=== PATIENT | male | born 1955 | race Caucasian/White ===

== ENCOUNTER 2024-10-19 10:31 | Emergency (ER) | payer OTHER ==
[2024-10-19 11:32] LABS: Absolute Basophils 0.1 K/uL (0-0.5); Absolute Monocytes 0.4 K/uL (0.1-1.3); Absolute Neutrophil 3.8 K/uL (1.8-8.0); Eosinophils % 0.3 % (0-4.4); Hemoglobin 14.9 g/dL (13.6-17.9); Lymphocytes % 19.8 % (15.3-44.8); MCH 29.4 pg (27.0-35.0); MCV 88.9 fL (80-100); MPV 9.9 fL (7.6-11.3); Monocytes % 7.1 % (3.3-12.3); Neutrophils % 71.8 % (41.7-73.7); Nucleated Red Blood Cells % 0.1 % (0-0); Platelets 157 thou/uL (152-406); RBC Red Blood Cell Count 5.06 M/uL (4.33-5.43); Red Cell Distribution Width 14.4 % (12.1-15.2)
[2024-10-19 11:53] LABS: Anion Gap 10.7 mEq/L (5.0-15.0); Potassium 3.7 mEq/L (3.5-5.1); Troponin High Sensitivity 8.3 pg/mL (<58.9)
--- NOTE | 2024-10-19 12:44 | ER ---
Nurse's Notes [facility] Name: David Perdomo Age: 68 yrs Sex: Male : 1955 Arrival Date: 10/19/2024 Time: 10:31 Bed 6 Private MD: Diagnosis: Chest pain, unspecified;Anxiety disorder, unspecified Presentation: 10/19 10:51 Chief complaint: Patient states: CP x2 DAYS, JITTERY AFTER DISCONTINUING BUSPAR. bp Coronavirus screen: At this time, the client does not indicate any symptoms associated with coronavirus-19. Ebola Screen: No symptoms or risks identified at this time. Initial Sepsis Screen: Does the patient meet any 2 criteria? No. Patient's initial sepsis screen is negative. Does the patient have a suspected source of infection? No. Patient's initial sepsis screen is negative. Risk Assessment: Do you want to hurt yourself or someone else? Patient reports no desire to harm self or others. Onset of symptoms is unknown. 10:51 Method Of Arrival: Ambulatory bp 10:51 Acuity: DICKSON 3 bp Triage Assessment: 10:52 General: Appears in no apparent distress. Behavior is cooperative, appropriate for age, bp anxious. Pain: Complains of pain in chest. EENT: No deficits noted. Neuro: No deficits noted. Cardiovascular: Reports chest pain. Respiratory: No deficits noted. GI: No signs and/or symptoms were reported involving the gastrointestinal system. : No signs and/or symptoms were reported regarding the genitourinary system. Derm: No deficits noted. Musculoskeletal: No deficits noted. Historical: - Allergies: 10:52 Sulfa (Sulfonamide Antibiotics); bp - Immunization history:: Adult Immunizations up to date. - Infectious Disease History:: Denies. - Social history:: Smoking status: Patient denies any tobacco usage or history of. Screenin:28 [facility] ED Fall Risk Assessment (Adult) History of falling in the last 3 months, ko1 including since admission No falls in past 3 months (0 pts) Confusion or Disorientation No (0 pts) Intoxicated or Sedated No (0 pts) Impaired Gait No (0 pts) Mobility Assist Device Used No (0 pt) Altered Elimination No (0 pt) Score/Fall Risk Level 0 - 2 = Low Risk Oriented to surroundings, Maintained a safe environment, Educated pt \T\ family on fall prevention, incl call for assistance when getting out of bed, Assessed \T\ reinforced patient's understanding of fall precautions, Hourly rounding (assess needs \T\ fall precautionary measures) done. Abuse screen: Denies threats or abuse. Denies injuries from another. Nutritional screening: No deficits noted. Tuberculosis screening: No symptoms or risk factors identified. Assessment: 11:31 General: Appears in no apparent distress. Behavior is cooperative, appropriate for age, ko1 anxious. Pain: Complains of pain in chest Pain does not radiate. Pain began gradually. Neuro: No deficits noted. Cardiovascular: No deficits noted. Respiratory: No deficits noted. GI: No deficits noted. : No deficits noted. EENT: No deficits noted. Derm: No deficits noted. Musculoskeletal: No deficits noted. Vital Signs: 10:51 BP 155 / 76; Pulse 60; Resp 16; Temp 98; Pulse Ox 100% ; bp 11:30 BP 162 / 72; Pulse 53; Resp 15; Pulse Ox 100% ; ko1 11:58 BP 150 / 73; Pulse 58; Resp 15; Pulse Ox 99% ; ko1 12:55 BP 148 / 70; Pulse 62; Resp 15; Pulse Ox 100% ; ko1 ED Course: 10:34 Patient arrived in ED. im 10:35 Lorne Macdonald MD is Attending Physician. bo1 10:52 Triage completed. bp 10:52 Arm band placed on. bp 11:12 Heather Burns, RN is Primary Nurse. ko1 11:26 Basic Metabolic Panel Sent. ko1 11:26 CBC with Diff Sent. ko1 11:26 Troponin HS Sent. ko1 11:28 Patient has correct armband on for positive identification. Allergy band placed. Bed in ko1 low position. Call light in reach. Side rails up X 1. Provided Education on: labs. Client placed on continuous cardiac and pulse oximetry monitoring. NIBP monitoring applied. environmental aid on. Door closed. Noise minimized. Lights dimmed. Warm blanket given. Pillow given. 11:28 No provider procedures requiring assistance completed. Initial lab(s) drawn, by aj lepe sent to lab. EKG done, by ED staff, reviewed by Lorne Macdonald MD. Inserted saline lock: 22 gauge in right antecubital area, using aseptic technique. Blood collected. Flushed with 10 mL NS. Patient maintains SpO2 saturation greater than 95% on room air. 12:40 XRAY Chest (1 view) In Process Unspecified. EDMS 12:55 IV discontinued, intact, bleeding controlled, No redness/swelling at site. Pressure ko1 dressing applied. Administered Medications: No medications were administered Medication: 11:28 VIS not applicable for this client. ko1 Outcome: 12:43 Discharge ordered by . bo1 12:55 Discharged to home ambulatory, ko1 12:55 Condition: stable 12:55 Discharge instructions given to patient, Instructed on discharge instructions, follow up and referral plans. Demonstrated understanding of instructions, follow-up care, 12:56 Patient left the ED. ko1 Signatures: Dispatcher [employer] EDMS Nakul Urbina RN RN Heather Constantino RN RN ko1 Praveena Ashley Benjamin, MD MD bo1 Corrections: (The following items were deleted from the chart) 10:52 10:51 Chief complaint: bp bp
--- NOTE | 2024-10-19 12:44 | EDPHYS ---
Physician Documentation [facility] Name: David Perdomo Age: 68 yrs Sex: Male : 1955 Arrival Date: 10/19/2024 Time: 10:31 Bed 6 Private MD: ED Physician Lorne Macdonald HPI: 10/19 11:18 This 68 yrs old Male presents to ER via Ambulatory with complaints of Chest Pain, bo1 Jittery, Nervous. 11:18 The patient or guardian reports chest pain that is located primarily in the substernal bo1 area. Onset: 3 day(s) ago. The pain does not radiate. Associated signs and symptoms: Pertinent positives: Anxiety. The chest pain is described as sharp. Duration: The patient or guardian reports multiple episodes, that are intermittent. Severity of pain: At its worst the pain was very mild. The patient has experienced similar episodes in the past, several times. The patient has been recently seen by a physician: the patient's primary care provider, earlier today, Pt went in to see Dr Daley and was referred to the ER for further care/evaluation. Pt reports that he's been anxious and that Buspar was prescribed to him in addition to his lorazepam 2mg tabs (taken for the past 20 years.). Historical: - Allergies: 10:52 Sulfa (Sulfonamide Antibiotics); bp - Immunization history:: Adult Immunizations up to date. - Infectious Disease History:: Denies. - Social history:: Smoking status: Patient denies any tobacco usage or history of. ROS: 11:24 Constitutional: Negative for fever, chills, and weight loss bo1 11:24 Cardiovascular: Positive for chest pain, palpitations, Hx of afib on Xarelto etc, 11:24 Respiratory: Negative for cough, shortness of breath, 11:24 Abdomen/GI: Negative for abdominal pain, nausea, vomiting, and diarrhea, 11:24 Skin: Negative for rash, 11:24 Neuro: Negative for altered mental status, headache, 11:24 Psych: Positive for anxiety, 11:24 All other systems are negative, Exam: 12:36 Constitutional: This is a well developed, well nourished patient who is awake, alert, bo1 and in no acute distress. 12:36 Constitutional: The patient appears in no acute distress, alert, awake, comfortable, non-toxic, 12:36 Head/face: Exam is negative for 12:36 Head/face: Exam is negative for acute changes, 12:36 Eyes: Exam is negative for acute changes, 12:36 Neck: External neck: is normal, no acute changes, Supple, 12:36 Chest/axilla: Inspection: normal, no acute changes, 12:36 Cardiovascular: Rate: bradycardic, Rhythm: regular, Pulses: no pulse deficits are appreciated, 12:36 ECG was reviewed by the Attending Physician. 12:36 Respiratory: Exam negative for acute changes, the patient does not display signs of respiratory distress, Respirations: normal, no acute changes, Breath sounds: are clear throughout, 12:36 Abdomen/GI: Exam negative for acute changes, Palpation: abdomen is soft and non-tender, 12:36 Musculoskeletal/extremity: DVT Exam: no pain, no swelling, no tenderness, 12:36 Neuro: Orientation: is normal, appropriate for stated age, Mentation: is normal, appropriate for stated age, Cranial nerves: grossly normal, is grossly normal based on the patient's age, 12:36 Psych: Exam negative for acute changes, Affect is calm, Some anxious, wringing of hands etc noted. Vital Signs: 10:51 BP 155 / 76; Pulse 60; Resp 16; Temp 98; Pulse Ox 100% ; bp 11:30 BP 162 / 72; Pulse 53; Resp 15; Pulse Ox 100% ; ko1 11:58 BP 150 / 73; Pulse 58; Resp 15; Pulse Ox 99% ; ko1 12:55 BP 148 / 70; Pulse 62; Resp 15; Pulse Ox 100% ; ko1 MDM: 10:34 Medical Screening Exam initiated bo1 12:32 Differential diagnosis: anxiety, coronary artery disease Other causes of CP/anxiety. bo1 Data reviewed: vital signs, lab test result(s), EKG, radiologic studies, plain films, Prelim review - read: Negative. ED course: Pt is having issues with his anxiety med regimen. He takes one tab PO at night. But cannot get additional early refill due to controlled substance guidelines being followed by the pharmacy. Pt to approach Dr Daley to change the Rx to BID. He agrees to this plan.. 12:41 ED course: Pt relates pics and stories of his nose infection and dental work needed and bo1 done. He reports he's been researching "dr fam". 10/19 10:59 Order name: Basic Metabolic Panel; Complete Time: 12:14 bo1 10/19 10:59 Order name: CBC with Diff; Complete Time: 12:14 bo1 10/19 10:59 Order name: Troponin HS; Complete Time: 12:14 bo1 10/19 10:59 Order name: XRAY Chest (1 view) bo1 10/19 10:59 Order name: EKG; Complete Time: 11:00 bo1 10/19 10:59 Order name: Cardiac monitoring; Complete Time: 11:12 bo1 10/19 10:59 Order name: EKG - Nurse/Tech; Complete Time: 11:26 bo1 10/19 10:59 Order name: IV Saline Lock; Complete Time: 11:26 bo1 10/19 10:59 Order name: Labs collected and sent; Complete Time: 11:26 bo1 10/19 10:59 Order name: O2 Per Protocol; Complete Time: 11:12 bo1 10/19 10:59 Order name: O2 Sat Monitoring; Complete Time: 11:12 bo1 EC:36 Rate is 52 beats/min. Rhythm is regular. QRS [place] is Normal. SD interval is normal. QRS bo1 interval is normal. QT interval is normal. No Q waves. T waves are Normal. No ST changes noted. Clinical impression: Sinus bradycardia. Interpreted by me. Reviewed by me. Administered Medications: No medications were administered Disposition Summary: 10/19/24 12:43 Discharge Ordered Notes: Location: Home bo1 Problem: chronic bo1 Symptoms: are unchanged bo1 Condition: Stable bo1 Diagnosis - Chest pain, unspecified bo1 - Anxiety disorder, unspecified bo1 Followup: bo1 - With: Private Physician - When: Upon discharge from the Emergency Department - Reason: Recheck today's complaints, Continuance of care Discharge Instructions: - Discharge Summary Sheet bo1 - Nonspecific Chest Pain, Adult bo1 Forms: - Medication Reconciliation Form bo1 - Antibiotic Education bo1 - Prescription Opioid Use bo1 - Patient Portal Instructions bo1 - Leadership Thank You Letter bo1 Signatures: Dispatcher [employer] Nakul Mccabe RN RN bp OeiLorne MD MD bo1
[2024-10-19 13:03] VITALS: TEMP 98
[2024-10-19 13:07] VITALS: BP 148/70; O2SAT 100
--- NOTE | 2024-10-19 13:07 | RAD REPORT ---
Procedure: Chest Single View HISTORY: Chest pain COMPARISON: none FINDINGS: Lungs appear clear of acute infiltrate. No significant pleural effusion noted. The heart is probably borderline enlarged IMPRESSION: No acute abnormalities displayed. If patient's symptoms persist PA and lateral chest series would be recommended
--- NOTE | 2024-10-20 14:40 | EKG ---
Test Date: 2024-10-19 Test Time: 11:24:45 Publicity Writer: KELSI MEASUREMENT RESULTS: Intervals: Rate: 52 PA: 164 QRSD: 98 QT: 450 QTc: 418 [place]: P: 106 PA: 164 QRS: 19 T: 27 INTERPRETIVE STATEMENTS: Sinus bradycardia Otherwise normal ECG Compared to ECG 02/27/2002 06:14:00 No significant changes Electronically Signed On 10-20-24 14:39:07 [employer]ACH[employer] by Hernan Messer
== END 2024-10-19 12:56 | disposition home or self-care (01) ==
LOC: ER 10:31
DX: R07.9 Chest pain, unspecified (principal); F41.9 Anxiety disorder, unspecified
CPT/HCPCS: 36415; 71045; 80048; 84484; 85025; 93005; 99284

== ENCOUNTER 2024-12-16 12:05 | Emergency (ER) | payer OTHER ==
[2024-12-16 12:56] LABS: Absolute Monocytes 0.4 K/uL (0.1-1.3); Absolute Neutrophil 3.5 K/uL (1.8-8.0); Basophils % 0.8 % (0-1.3); Eosinophils % 0.4 % (0-4.4); Hematocrit 42.8 % (39.6-49.0); Hemoglobin 14.8 g/dL (13.6-17.9); Lymphocytes % 20.8 % (15.3-44.8); MCH 30.5 pg (27.0-35.0); MCHC 34.6 g/dL (32.0-36.0); MCV 87.9 fL (80-100); MPV 10.4 fL (7.6-11.3); Monocytes % 8.3 % (3.3-12.3); Neutrophils % 69.7 % (41.7-73.7); Nucleated Red Blood Cells % 0.2 % (0-0); Platelets 177 thou/uL (152-406); RBC Red Blood Cell Count 4.86 M/uL (4.33-5.43); Red Cell Distribution Width 14.7 % (12.1-15.2)
[2024-12-16 13:11] LABS: Albumin 3.8 g/dL (3.4-5.0); Albumin/Globulin Ratio 0.9 (1.1-1.8); Anion Gap 10.4 mEq/L (5.0-15.0); Bilirubin Total 0.7 mg/dL (0.2-1.0); Globulin 4.4 g/dL (2.3-3.5); Potassium 3.4 mEq/L (3.5-5.1); Protein, Total 8.2 g/dL (6.4-8.2)
--- NOTE | 2024-12-16 13:49 | RAD REPORT ---
EXAMINATION: CT ABDOMEN AND PELVIS WITH CONTRAST CLINICAL INDICATION: Abd pain;Constipation TECHNIQUE: CT abdomen and pelvis was performed, after the administration of IV contrast, as per [facility] protocol. Axial, sagittal and coronal reconstructions were obtained. One or more of the following dose reduction techniques were used: Automated exposure control, adjustment of the mA and k V according to patient size, and iterative reconstruction. Unless otherwise specified, incidental findings do not require dedicated imaging follow-up. COMPARISON: No prior exam. FINDINGS: LOWER CHEST: The visualized lung bases are clear. LIVER: Mild fatty liver is present. No focal lesion or biliary dilatation is seen. Several gallston es present in the gallbladder. SPLEEN: Normal size. No focal lesion. PANCREAS: No mass, ductal dilation, or sujata-pancreatic fluid. ADRENALS: Normal; no mass. KIDNEYS: Normal size and contour. No hydronephrosis. GASTROINTESTINAL TRACT: No evidence of free air, significant intra-abdominal free fluid, bowel obstru ction or abscess. There is moderate diverticulosis coli of the sigmoid colon without diverticulitis. APPENDIX: Appendix not visualized, but no inflammatory changes in region of appendix. LYMPH NODES: No lymphadenopathy. MUSCULOSKELETAL: Moderate multilevel spinal degenerative changes. ADDITIONAL FINDINGS: Prostate gland is mildly enlarged and projects into the bladder base. IMPRESSION: Significantly prominent diverticulosis coli pattern involves the sigmoid colon with moderate stool re tention. No inflammation is seen. Follow-up colonoscopy would be suggested for follow-up. Prostate gland appears mildly enlarged and projects into the bladder base. Cholelithiasis.
[2024-12-16] MEDS ORDERED: FLEET ENEMA ADULT PR ONE (14:10)
[2024-12-16] MEDS ORDERED: NA CHLORIDE 0.9% 500 ML ONE (14:10)
--- NOTE | 2024-12-16 15:21 | EDPHYS ---
Physician Documentation [facility] Name: David Perdomo Age: 69 yrs Sex: Male : 1955 Arrival Date: 12/16/2024 Time: 12:05 Bed 11 Private MD: ED Physician Suresh Koehler HPI: 12/16 13:21 This 69 yrs old Male presents to ER via Ambulatory with complaints of Constipation. rn 13:21 The patient presents with abdominal pain Constipation. Onset: The symptoms/episode rn began/occurred 2 day(s) ago. The symptoms do not radiate. Associated signs and symptoms: Pertinent positives: constipation, Pertinent negatives: blood in stools, diarrhea, fever. Modifying factors: The symptoms are alleviated by nothing, the symptoms are aggravated by nothing. Severity of pain: At its worst the pain was mild in the emergency department the pain has improved. The patient has not experienced similar symptoms in the past. Patient reports constipation, is having small bowel movements but not a normal bowel movement for about 3 days now. No vomiting. No distention. No fever or chills. Did have left-sided abdominal pain that has since improved. Was worried about using stool softeners or enemas without knowing what was going on so came in for evaluation. Does not have a history of chronic constipation. Historical: - Allergies: 12:23 Sulfa (Sulfonamide Antibiotics); ll1 - PMHx: 12:23 Hypertensive disorder; Diabetes mellitus; A fib; ll1 - PSHx: 12:23 None; ll1 - Immunization history:: Adult Immunizations up to date. - Social history:: Smoking status: Patient denies any tobacco usage or history of. - Family history:: not pertinent. - Hospitalizations: : No recent hospitalization is reported. ROS: 13:23 Constitutional: Negative for fever, chills, and weight loss, Cardiovascular: Negative rn for chest pain, palpitations, and edema, Respiratory: Negative for shortness of breath, cough, wheezing, and pleuritic chest pain, Abdomen/GI: Positive for abdominal pain on left side and constipation MS/Extremity: Negative for injury and deformity, Skin: Negative for injury, rash, and discoloration, Neuro: Negative for headache, weakness, numbness, tingling, and seizure, Exam: 13:23 Constitutional: This is a well developed, well nourished patient who is awake, alert, rn and in no acute distress. Cardiovascular: Bradycardic, regular. No pulse deficits. Respiratory: No increased work of breathing, no retractions or nasal flaring. Abdomen/GI: Soft, mild left lower quadrant tenderness. No rebound or guarding Vital Signs: 12:24 BP 158 / 67; Pulse 55; Resp 17; Temp 97.5; Pulse Ox 98% ; Weight 90.72 kg; Height 5 ft. ll1 8 in. ; Pain 7/10; 12:24 Body Mass Index 30.41 (90.72 kg, 172.72 cm) ll1 12:24 Pain Scale: Adult ll1 MDM: 12:22 Medical Screening Exam initiated rn 15:16 Differential diagnosis: bowel obstruction, constipation. Data reviewed: vital signs, rn nurses notes, lab test result(s), radiologic studies, CT scan, and as a result, I will discharge patient. Counseling: I had a detailed discussion with the patient and/or guardian regarding the historical points, exam findings, and any diagnostic results supporting the discharge/admit diagnosis, lab results, radiology results, the need for outpatient follow up, to return to the emergency department if symptoms worsen or persist or if there are any questions or concerns that arise at home. Response to treatment: the patient's symptoms have markedly improved after treatment, and as a result, I will discharge patient. Special discussion: I discussed with the patient/guardian in detail that at this point there is no indication for admission to the hospital. It is understood, however, that if the symptoms persist or worsen the patient needs to return immediately for re-evaluation. ED course: CT abdomen pelvis shows constipation but no impaction or diverticulitis. Patient responded well to enema and had large bowel movement here. Feels better. Will discharge home with return precautions and will repeat enema at home if needed.. 12/16 12:23 Order name: CBC with Diff; Complete Time: 13:46 rn 12/16 12:23 Order name: CMP; Complete Time: 13:46 rn 12/16 12:23 Order name: Lipase; Complete Time: 13:46 rn 12/16 12:23 Order name: CT Abd/Pelvis - IV Contrast Only; Complete Time: 13:56 rn 12/16 12:23 Order name: IV Saline Lock; Complete Time: 12:45 rn 12/16 12:23 Order name: Labs collected and sent; Complete Time: 12:45 rn Administered Medications: 14:14 Drug: NS 0.9% IV 500 ml 500 ml IV at 1 bolus once; to be given as a bolus over 30 jb4 minutes Volume: 500 ml; Route: IV; Rate: 1 bolus; Site: right antecubital; 14:45 Follow up: Response: No adverse reaction; IV Status: Completed infusion; IV Intake: jb4 500ml 14:45 Drug: Fleet Enema UT 133 ml UT once; may repeat once Route: UT; jb4 15:14 Follow up: Response: No adverse reaction; Marked relief of symptoms jb4 Disposition Summary: 12/16/24 15:20 Discharge Ordered Notes: Location: Home rn Problem: new rn Symptoms: have improved rn Condition: Stable rn Diagnosis - Constipation, unspecified rn Followup: rn - With: Private Physician - When: As needed - Reason: Recheck today's complaints, Re-evaluation by your physician Discharge Instructions: - Discharge Summary Sheet rn - Constipation, Adult rn Forms: - Medication Reconciliation Form rn - Antibiotic pacu rn - Prescription Opioid Use rn - Patient Portal Instructions rn - Leadership Thank You Letter rn Signatures: Dispatcher [employer] EDMS Suresh Koehler MD MD rn Bryson, James RN RN jb4 Paco Tavares RN RN ll1 Corrections: (The following items were deleted from the chart) 12:23 12:23 CBC+H.LAB.BRZ ordered. EDMS EDMS 12:23 12:23 COMPREHENSIVE METABOLIC PANEL+C.LAB.BRZ ordered. EDMS EDMS 12:23 12:23 LIPASE+C.LAB.BRZ ordered. EDMS EDMS 12:23 12:23 Abdomen Pelvis W Con+CT.RAD.BRZ ordered. EDMS EDMS
--- NOTE | 2024-12-16 15:21 | ER ---
Nurse's Notes [facility] Name: David Perdomo Age: 69 yrs Sex: Male : 1955 Arrival Date: 12/16/2024 Time: 12:05 Bed 11 Private MD: Diagnosis: Constipation, unspecified Presentation: 12/16 12:24 Chief complaint: Patient states: Constipation for 10 days. No fever or N/V. Coronavirus ll1 screen: Client denies travel out of the [place] in the last 14 days. At this time, the client does not indicate any symptoms associated with coronavirus-19. Ebola Screen: Patient denies travel to an Ebola-affected area in the 21 days before illness onset. Initial Sepsis Screen: Does the patient meet any 2 criteria? No. Patient's initial sepsis screen is negative. Does the patient have a suspected source of infection? No. Patient's initial sepsis screen is negative. Risk Assessment: Do you want to hurt yourself or someone else? Patient reports no desire to harm self or others. Onset of symptoms was December 07, 2024. 12:24 Method Of Arrival: Ambulatory ll1 12:24 Acuity: DICKSON 3 ll1 Triage Assessment: 12:28 General: Appears uncomfortable, Behavior is calm, cooperative, appropriate for age. ll1 Pain: Complains of pain in abdomen Pain currently is 7 out of 10 on a pain scale. Quality of pain is described as aching. GI: Reports lower abdominal pain, upper abdominal pain, bloating, constipation. Historical: - Allergies: 12:23 Sulfa (Sulfonamide Antibiotics); ll1 - PMHx: 12:23 Hypertensive disorder; Diabetes mellitus; A fib; ll1 - PSHx: 12:23 None; ll1 - Immunization history:: Adult Immunizations up to date. - Social history:: Smoking status: Patient denies any tobacco usage or history of. - Family history:: not pertinent. - Hospitalizations: : No recent hospitalization is reported. Screenin:51 [facility] ED Fall Risk Assessment (Adult) History of falling in the last 3 months, jb4 including since admission No falls in past 3 months (0 pts) Confusion or Disorientation No (0 pts) Intoxicated or Sedated No (0 pts) Impaired Gait No (0 pts) Mobility Assist Device Used No (0 pt) Altered Elimination No (0 pt) Score/Fall Risk Level 0 - 2 = Low Risk Oriented to surroundings, Maintained a safe environment. Abuse screen: Denies threats or abuse. Nutritional screening: No deficits noted. Tuberculosis screening: No symptoms or risk factors identified. Assessment: 13:54 Reassessment: Patient and/or family updated on plan of care and expected duration. Pain ll1 level reassessed. 14:50 Reassessment: Patient appears in no apparent distress at this time. Patient and/or jb4 family updated on plan of care and expected duration. Pain level reassessed. Patient is alert, oriented x 3, equal unlabored respirations, skin warm/dry/pink. Pt sitting on the bedside commode. Patient denies pain at this time. Vital Signs: 12:24 BP 158 / 67; Pulse 55; Resp 17; Temp 97.5; Pulse Ox 98% ; Weight 90.72 kg; Height 5 ft. ll1 8 in. ; Pain 7/10; 12:24 Body Mass Index 30.41 (90.72 kg, 172.72 cm) ll1 12:24 Pain Scale: Adult ll1 ED Course: 12:07 Patient arrived in ED. im 12:22 Suresh Koehler MD is Attending Physician. rn 12:25 Triage completed. ll1 12:28 Arm band placed on. ll1 12:45 CBC with Diff Sent. bc6 12:45 CMP Sent. bc6 12:45 Lipase Sent. bc6 12:45 Initial lab(s) drawn, by mt, sent to lab. Inserted saline lock: 20 gauge in right bc6 antecubital area, using aseptic technique. Blood collected. Flushed with 10 mL NS. 13:37 CT Abd/Pelvis - IV Contrast Only In Process Unspecified. EDMS 13:54 Patient placed in an exam room, on a stretcher. ll1 14:50 Ronak Almaguer, PILY is Primary Nurse. jb4 14:51 Patient has correct armband on for positive identification. Bed in low position. Call jb4 light in reach. Side rails up X 1. Provided Education on: plan of care. 15:31 No provider procedures requiring assistance completed. IV discontinued, intact, jb4 bleeding controlled, No redness/swelling at site. Pressure dressing applied. Administered Medications: 14:14 Drug: NS 0.9% IV 500 ml 500 ml IV at 1 bolus once; to be given as a bolus over 30 jb4 minutes Volume: 500 ml; Route: IV; Rate: 1 bolus; Site: right antecubital; 14:45 Follow up: Response: No adverse reaction; IV Status: Completed infusion; IV Intake: jb4 500ml 14:45 Drug: Fleet Enema IN 133 ml IN once; may repeat once Route: IN; jb4 15:14 Follow up: Response: No adverse reaction; Marked relief of symptoms jb4 Intake: 14:45 IV: 500ml; Total: 500ml. jb4 Outcome: 15:20 Discharge ordered by MD. edmonds 15:31 Discharged to home ambulatory, jb4 15:31 Condition: stable 15:31 Discharge instructions given to patient, Instructed on discharge instructions, follow up and referral plans. Demonstrated understanding of instructions, follow-up care, 15:33 Patient left the ED. jb4 Signatures: Dispatcher [employer] EDSuresh Dunaway MD MD rn Bryson, James, RN RN jb4 Paco Tavares RN RN ll1 Marilyn Ayala 6 Praveena Ashley
[2024-12-16 18:16] VITALS: BP 158/67; TEMP 97.5; O2SAT 98
== END 2024-12-16 15:33 | disposition home or self-care (01) ==
LOC: ER 12:05
DX: K59.00 Constipation, unspecified (principal)
CPT/HCPCS: 85025; 36415; 83690; 80053; 74177; Q9967; J7040

== ENCOUNTER 2024-12-24 10:21 | Emergency (ER) | payer OTHER ==
[2024-12-24 11:28] LABS: Absolute Monocytes 0.3 K/uL (0.1-1.3); Absolute Neutrophil 2.8 K/uL (1.8-8.0); Basophils % 0.5 % (0-1.3); Eosinophils % 0.7 % (0-4.4); Hematocrit 41.1 % (39.6-49.0); Hemoglobin 14.4 g/dL (13.6-17.9); Lymphocytes % 23.8 % (15.3-44.8); MCH 30.7 pg (27.0-35.0); MCHC 34.9 g/dL (32.0-36.0); MCV 87.9 fL (80-100); MPV 9.6 fL (7.6-11.3); Monocytes % 7.8 % (3.3-12.3); Neutrophils % 67.2 % (41.7-73.7); Platelets 167 thou/uL (152-406); RBC Red Blood Cell Count 4.68 M/uL (4.33-5.43); Red Cell Distribution Width 14.6 % (12.1-15.2)
[2024-12-24 11:40] LABS: Albumin 3.4 g/dL (3.4-5.0); Albumin/Globulin Ratio 0.8 (1.1-1.8); Anion Gap 9.7 mEq/L (5.0-15.0); Bilirubin Total 0.6 mg/dL (0.2-1.0); Globulin 4.3 g/dL (2.3-3.5); Potassium 3.7 mEq/L (3.5-5.1); Protein, Total 7.7 g/dL (6.4-8.2)
--- NOTE | 2024-12-24 12:24 | RAD REPORT ---
EXAM: CT Soft Tissue Neck W/Contr INDICATION: [facility] MAIN no FB sensation throat Bed Name: 13 TECHNIQUE: Helical CT examination of the neck with IV contrast. Not reported Sagittal and coronal ref ormations were generated. This exam was performed according to our departmental dose-optimization program, which includes automated exposure control, adjustment of the mA and/or kV according to patie nt size and/or use of iterative reconstruction technique. COMPARISON: None. FINDINGS: Mucosal spaces: Nasopharynx, oropharynx, oral cavity, larynx and hypopharynx are normal. No suspiciou s masses. Epiglottis is normal in configuration. True vocal cords cords are normally situated. Piriform sinuses are well-aerated. Lymph Nodes: No pathologic appearing cervical lymph nodes. Salivary Glands: Unremarkable. Thyroid Gland: Normal Included Intracranial Structures: Normal Included Orbits: Normal Paranasal Sinuses: Predominantly clear Tympanomastoid Cavities: Normal Vascular Structures: Mild scattered atherosclerotic plaque. Moderate focal narrowing just distal to t he left vertebral artery origin. Osseous Structures: No acute osseous abnormality. Included Lung Apices: Normal IMPRESSION: Moderate narrowing near the left vertebral artery origin. Otherwise normal contrast-enhanced CT of the neck. No radiopaque or intraluminal foreign body observe d along the upper enteric tract.
--- NOTE | 2024-12-24 12:29 | ER ---
Nurse's Notes [facility] Name: David Perdomo Age: 69 yrs Sex: Male : 1955 Arrival Date: 12/24/2024 Time: 10:21 Bed 13 Private MD: Diagnosis: Foreign body sensation in the esophagus Presentation: 12/24 10:46 Chief complaint: Feels like Tylenol cap is stuck in throat. Coronavirus screen: At this hb time, the client does not indicate any symptoms associated with coronavirus-19. Ebola Screen: No symptoms or risks identified at this time. Initial Sepsis Screen: Does the patient meet any 2 criteria? No. Patient's initial sepsis screen is negative. Does the patient have a suspected source of infection? No. Patient's initial sepsis screen is negative. Risk Assessment: Do you want to hurt yourself or someone else? Patient reports no desire to harm self or others. Onset of symptoms was December 24, 2024. 10:46 Method Of Arrival: Ambulatory hb 10:46 Acuity: DICKSON 3 hb Historical: - Allergies: 10:47 Sulfa (Sulfonamide Antibiotics); hb - PMHx: 10:47 a fib; diabetes mellitus; Hypertensive disorder; hb - Immunization history:: Adult Immunizations up to date. - Infectious Disease History:: Denies. - Social history:: Smoking status: Patient denies any tobacco usage or history of. Screenin:52 [facility] ED Fall Risk Assessment (Adult) History of falling in the last 3 months, cm10 including since admission No falls in past 3 months (0 pts) Confusion or Disorientation No (0 pts) Intoxicated or Sedated No (0 pts) Impaired Gait No (0 pts) Mobility Assist Device Used No (0 pt) Altered Elimination No (0 pt) Score/Fall Risk Level 0 - 2 = Low Risk Oriented to surroundings, Maintained a safe environment, Hourly rounding (assess needs \T\ fall precautionary measures) done. Abuse screen: Denies threats or abuse. Denies injuries from another. Nutritional screening: No deficits noted. Tuberculosis screening: No symptoms or risk factors identified. Assessment: 11:51 General: Appears in no apparent distress. comfortable, Behavior is calm, cooperative. cm10 Pain: Denies pain. Neuro: No deficits noted. Level of Consciousness is awake, alert, obeys commands, Oriented to person, place, time, situation, Appropriate for age. Respiratory: No deficits noted. Airway is patent Respiratory effort is even, unlabored, Respiratory pattern is regular, symmetrical. EENT: Reports tylenol capsule in throat. 13:03 Reassessment: Patient appears in no apparent distress at this time. Patient and/or cm10 family updated on plan of care and expected duration. Pain level reassessed. Patient is alert, oriented x 3, equal unlabored respirations, skin warm/dry/pink. Pt able to drink water with no issues. Vital Signs: 10:46 BP 145 / 56; Pulse 56; Resp 16; Temp 97.7; Pulse Ox 100% on R/A; Pain 1/10; hb 11:53 BP 160 / 57; Pulse 44; Resp 16; Pulse Ox 99% on R/A; cm10 13:02 Pulse 56; Resp 17; Pulse Ox 100% ; cm10 10:46 Pain Scale: Adult hb ED Course: 10:29 Patient arrived in ED. cj3 10:30 Brnena Fiore MD is Attending Physician. sp3 10:47 Triage completed. hb 10:48 Arm band placed on. hb 11:18 Initial lab(s) drawn, by me, sent to lab. Inserted saline lock: 20 gauge in right rk3 antecubital area, using aseptic technique. Blood collected. Flushed with 10 mL NS. 11:18 CBC with Diff Sent. rk3 11:18 CMP Sent. rk3 11:26 CT Soft Tissue Neck W/contr In Process Unspecified. EDMS 11:26 Anh Galvan, RN is Primary Nurse. cm10 11:53 Patient has correct armband on for positive identification. Bed in low position. Call cm10 light in reach. Pulse ox on. NIBP on. Warm blanket given. 12:31 Alexus Heck MD is Referral Physician. sp3 13:04 No provider procedures requiring assistance completed. IV discontinued, intact, cm10 bleeding controlled, No redness/swelling at site. Pressure dressing applied. 13:05 Provided Education on: Follow-up instructions. cm10 Administered Medications: No medications were administered Medication: 11:52 VIS not applicable for this client. cm10 Outcome: 12:29 Discharge ordered by . sp3 13:04 Discharged to home ambulatory, cm10 13:04 Condition: good 13:04 Discharge instructions given to patient, Instructed on discharge instructions, follow up and referral plans. Demonstrated understanding of instructions, follow-up care, 13:05 Patient left the ED. cm10 Signatures: Dispatcher [employer] Kate Berry, RN Brenna Abbasi MD MD sp3 Anh Galvan RN RN cm10 Lorenzo Masterson rk3 Osiris Dalal 3
--- NOTE | 2024-12-24 12:29 | EDPHYS ---
Physician Documentation [facility] Name: David Perdomo Age: 69 yrs Sex: Male : 1955 Arrival Date: 12/24/2024 Time: 10:21 Bed 13 Private MD: ED Physician Brenna Fiore HPI: 12/24 10:55 This 69 yrs old Male presents to ER via Ambulatory with complaints of Foreign Body sp3 sensation In Throat. 10:55 69-year-old male with a history of atrial fibrillation, diabetes, hypertension now sp3 presents to the ED with chief complaint foreign body sensation after taking a Tylenol and he states he feels like the pill is "stuck". He is able to tolerate secretions and p.o. intake including liquids and solids. Patient wants us to "stick a camera in there and take a look". He denies any vomiting, fever, headache, chest pain, shortness of breath, or any other signs or symptoms on ROS at this time.. Historical: - Allergies: 10:47 Sulfa (Sulfonamide Antibiotics); hb - PMHx: 10:47 a fib; diabetes mellitus; Hypertensive disorder; hb - Immunization history:: Adult Immunizations up to date. - Infectious Disease History:: Denies. - Social history:: Smoking status: Patient denies any tobacco usage or history of. ROS: 11:01 Constitutional: Negative for fever, chills, and weight loss, Eyes: Negative for injury, sp3 pain, redness, and discharge, ENT: Negative for injury, pain, and discharge, Cardiovascular: Negative for chest pain, palpitations, and edema, Respiratory: Negative for shortness of breath, cough, wheezing, and pleuritic chest pain, Abdomen/GI: Negative for abdominal pain, nausea, vomiting, diarrhea, and constipation, Back: Negative for injury and pain, MS/Extremity: Negative for injury and deformity, Skin: Negative for injury, rash, and discoloration, Neuro: Negative for headache, weakness, numbness, tingling, and seizure, Psych: Negative for depression, anxiety, suicide ideation, homicidal ideation, and hallucinations, Allergy/Immunology: Negative for hives, rash, and allergies, Endocrine: Negative for neck swelling, polydipsia, polyuria, polyphagia, and marked weight changes, Hematologic/Lymphatic: Negative for swollen nodes, abnormal bleeding, and unusual bruising, 11:01 All other systems are negative, Exam: 11:01 Constitutional: This is a well developed, well nourished patient who is awake, alert, sp3 and in no acute distress. Head/Face: Normocephalic, atraumatic. Eyes: Pupils equal round and reactive to light, extra-ocular motions intact. Lids and lashes normal. Conjunctiva and sclera are non-icteric and not injected. Cornea within normal limits. Periorbital areas with no swelling, redness, or edema. ENT: Nares patent. No nasal discharge, no septal abnormalities noted. External auditory canals are clear. Oropharynx with no redness, swelling, or masses, exudates, or evidence of obstruction, uvula midline. Mucous membranes moist. Chest/axilla: Normal chest wall appearance and motion. Nontender with no deformity. No lesions are appreciated. Cardiovascular: Regular rate and rhythm with a normal S1 and S2. No gallops, murmurs, or rubs. Normal PMI, no JVD. No pulse deficits. Respiratory: Lungs have equal breath sounds bilaterally, clear to auscultation and percussion. No rales, rhonchi or wheezes noted. No increased work of breathing, no retractions or nasal flaring. Abdomen/GI: Soft, non-tender, with normal bowel sounds. No distension or tympany. No guarding or rebound. No evidence of tenderness throughout. Back: No spinal tenderness. No costovertebral tenderness. Full range of motion. Skin: Warm, dry with normal turgor. Normal color with no rashes, no lesions, and no evidence of cellulitis. MS/ Extremity: Pulses equal, no cyanosis. Neurovascular intact. Full, normal range of motion. Neuro: Awake and alert, GCS 15, oriented to person, place, time, and situation. Cranial nerves II-XII grossly intact. Motor strength 5/5 in all extremities. Sensory grossly intact. Cerebellar exam normal. Normal gait. 11:01 Neck: Trachea midline, no thyromegaly or masses palpated, and no cervical lymphadenopathy. Supple, full range of motion without nuchal rigidity, or vertebral point tenderness. No Meningismus. Vital Signs: 10:46 BP 145 / 56; Pulse 56; Resp 16; Temp 97.7; Pulse Ox 100% on R/A; Pain 1/10; hb 11:53 BP 160 / 57; Pulse 44; Resp 16; Pulse Ox 99% on R/A; cm10 13:02 Pulse 56; Resp 17; Pulse Ox 100% ; cm10 10:46 Pain Scale: Adult hb MDM: 10:30 Medical Screening Exam initiated sp3 11:02 Data reviewed: vital signs, nurses notes, lab test result(s), radiologic studies. ED sp3 course: 69-year-old male with foreign body sensation. Differential diagnosis includes retained foreign body versus esophageal abrasion versus other. Patient states the only thing he feels like is stuck is a tablet of Tylenol. Will obtain CT soft tissue neck to assess and if negative discharge home to GI follow-up. Patient is tolerating p.o. solids and liquids without difficulty. Vital signs are normal. There is no airway compromise.. 12:28 ED course: Workup negative and patient continues to tolerate p.o. We will discharge sp3 patient home to PCP and GI follow-up.. 12/24 10:53 Order name: CBC with Diff; Complete Time: 11:50 sp3 12/24 10:53 Order name: CMP; Complete Time: 11:50 sp3 12/24 10:53 Order name: CT Soft Tissue Neck W/contr; Complete Time: 12:28 sp3 12/24 10:30 Order name: NPO; Complete Time: 11:26 sp3 12/24 10:53 Order name: IV Saline Lock; Complete Time: 11:18 sp3 12/24 10:53 Order name: Labs collected and sent; Complete Time: 11:18 sp3 Administered Medications: No medications were administered Disposition Summary: 12/24/24 12:29 Discharge Ordered Notes: Location: Home sp3 Condition: Stable sp3 Diagnosis - Foreign body sensation in the esophagus sp3 Followup: sp3 - With: Private Physician - When: Upon discharge from the Emergency Department - Reason: Continuance of care Followup: sp3 - With: Alexus Heck MD - When: Upon discharge from the Emergency Department - Reason: Recheck today's complaints, Continuance of care Discharge Instructions: - Discharge Summary Sheet sp3 - Esophageal Spasm sp3 Forms: - Medication Reconciliation Form sp3 - Antibiotic Education sp3 - Prescription Opioid Use sp3 - Patient Portal Instructions sp3 - Leadership Thank You Letter sp3 Signatures: Dispatcher [employer] Kate Berry, PILY RN Brenna Sung MD MD sp3
[2024-12-24 13:09] VITALS: TEMP 97.7
[2024-12-24 13:11] VITALS: BP 160/57
[2024-12-24 13:13] VITALS: O2SAT 100
== END 2024-12-24 13:05 | disposition home or self-care (01) ==
LOC: ER 10:21
DX: R09.A9 Foreign body sensation, other site (principal)
CPT/HCPCS: 85025; 36415; 80053; 70491; 99284; Q9967

== ENCOUNTER 2025-01-03 15:50 | Emergency (ER) | payer OTHER ==
[2025-01-03] MEDS ORDERED: ONDANSETRON 4 MG/2 ML VIAL ONE (17:19)
[2025-01-03] MEDS ORDERED: FAMOTIDINE 20 MG/2 ML VIAL IV ONE (17:19)
[2025-01-03] MEDS ORDERED: NA CHLORIDE 0.9% 1,000 ML ONE (17:19)
[2025-01-03 17:34] LABS: Absolute Lymphocytes (CBC) 0.9 K/uL (0.7-4.9); Absolute Monocytes 0.5 K/uL (0.1-1.3); Absolute Neutrophil 3.9 K/uL (1.8-8.0); Basophils % 0.7 % (0-1.3); Eosinophils % 0.2 % (0-4.4); Hematocrit 42.6 % (39.6-49.0); Lymphocytes % 16.7 % (15.3-44.8); MCH 31.4 pg (27.0-35.0); MCHC 35.3 g/dL (32.0-36.0); MPV 10.3 fL (7.6-11.3); Monocytes % 9.6 % (3.3-12.3); Neutrophils % 72.8 % (41.7-73.7); Platelets 184 thou/uL (152-406); RBC Red Blood Cell Count 4.78 M/uL (4.33-5.43); Red Cell Distribution Width 14.4 % (12.1-15.2)
[2025-01-03 17:35] LABS: Specific Gravity 1.024 (1.005-1.030); Sqamous Epithelial <5 /HPF (None Seen); Urine Bacteria <20 /HPF (<20); Urine Bilirubin NEGATIVE (Negative); Urine Blood Negative (Negative); Urine Clarity Turbid (Clear); Urine Color Yellow (Yellow); Urine Culture Reflex Order NOT NEEDED; Urine Glucose NEGATIVE (Negative); Urine Ketones NEGATIVE (Negative); Urine Micro Reflex YN NO BILL MICROSCOPIC; Urine Mucus 1+ /HPF (None Seen); Urine Nitrite NEGATIVE (Negative); Urine Protein 1+ (Negative); Urine RBC <5 /HPF (None Seen); Urine Urobilinogen Normal (Normal); Urine WBC <5 /HPF (<5)
[2025-01-03 17:49] LABS: Albumin 3.7 g/dL (3.4-5.0); Albumin/Globulin Ratio 0.8 (1.1-1.8); Bilirubin Total 0.8 mg/dL (0.2-1.0); Globulin 4.4 g/dL (2.3-3.5); Protein, Total 8.1 g/dL (6.4-8.2)
--- NOTE | 2025-01-03 18:28 | RAD REPORT ---
EXAMINATION: CT HEAD WITHOUT CONTRAST CT CERVICAL SPINE WITHOUT CONTRAST CLINICAL INDICATION: Head and neck injury status post fall. Head and neck pain TECHNIQUE: Axial CT images from the skull base to the vertex without intravenous contrast. Axial CT i mages through the cervical spine were obtained without intravenous contrast. Sagittal and coronal reformatted images were created from the data set. Coronal and sagittal reformatted images were creat ed from the data set. One or more of the following dose reduction techniques were used: Automated exposure control, adjustment of the mA and/or kV according to patient size, and/or iterative reconstr uction. Unless otherwise specified, incidental findings do not require dedicated imaging follow-up. [id number]. Comparison: none FINDINGS: An intracranial bleed is not seen. Ventricles are normal in caliber. No significant hypodensity within the brain No extra-axial fluid collection. No fluid within the sinuses/mastoids No fracture or dislocation is seen involving the cervical spine. Spondylosis results in multilevel moderate stenosis. There is also mild to moderate central spinal st enosis C5-6 IMPRESSION: No acute intracranial abnormality noted A cervical fracture is not seen. If the patient continues to have symptoms to suggest acute INVENTORY CONTROL/SHIPPING RECEIVING/spinal pathology then MRI would be rec ommended
--- NOTE | 2025-01-03 18:33 | RAD REPORT ---
EXAMINATION: CT ABDOMEN AND PELVIS WITH CONTRAST CLINICAL INDICATION: Abdominal pain November 2024 TECHNIQUE: CT abdomen and pelvis was performed, after the administration of 100 cc Isovue-300.. Sagit quinn and coronal reconstructions were obtained. One or more of the following dose reduction techniques were used: Automated exposure control, adjustment of the mA and kV according to patient si ze, and iterative reconstruction. Unless otherwise specified, incidental findings do not require dedicated imaging follow-up. [id number]. Oral contrast was not given which limits evaluation of bowel and appendix. COMPARISON: .November 2024 FINDINGS: Liver, spleen, pancreas, adrenals and right kidney appear unremarkable. Mild cortical thinning left kidney perhaps secondary to prior inflammation cysts. Tiny left renal pam culus. No hydronephrosis. Cholelithiasis. Gallbladder wall not thickened. Large number of diverticula stem from predominantly sigmoid colon without visualization of diverticul itis. Prostate gland moderately enlarged. Small left inguinal hernia contains fat. Small umbilical hernia. : IMPRESSION: Cholelithiasis without evidence of cholecystitis
--- NOTE | 2025-01-03 19:06 | RAD REPORT ---
Procedure: Chest Single View HISTORY: Abdominal pain COMPARISON: 2023 FINDINGS: The lungs appear clear of acute infiltrate. No significant pleural effusion noted. The heart is normal size. IMPRESSION: No acute abnormality is displayed.
--- NOTE | 2025-01-03 19:31 | EDPHYS ---
Physician Documentation [facility] Name: David Perdomo Age: 69 yrs Sex: Male : 1955 Arrival Date: 01/03/2025 Time: 15:50 Bed 19 Private MD: ED Physician Jason Moise HPI: 01/03 16:45 This 69 yrs old Male presents to ER via Ambulatory with complaints of Abdominal Pain, cp Decreased Appetite. 16:45 The patient presents with abdominal pain decreased appetite. cp 16:45 Onset: The symptoms/episode began/occurred this past August. cp 16:45 The symptoms do not radiate. Associated signs and symptoms: Pertinent positives: cp abdominal distension, belching, weight loss. 16:45 Patient reports diarrhea started last night after taking laxative. cp Historical: - Allergies: 16:06 Sulfa (Sulfonamide Antibiotics); db - Home Meds: 16:06 Xarelto oral [Active]; db - PMHx: 16:06 diabetes mellitus; a fib; Hypertensive disorder; db - Immunization history:: Adult Immunizations unknown. - Infectious Disease History:: Denies. - Social history:: Smoking status: Patient denies any tobacco usage or history of. ROS: 16:50 Abdomen/GI: Positive for abdominal pain, nausea, diarrhea, constipation, abdominal cp distension, decreased appetite, Negative for vomiting, black/tarry stool, rectal bleeding, 16:50 Back: Negative for pain at rest, pain with movement, 16:50 : Negative for urinary symptoms, 16:50 Constitutional: Positive for weight loss, Negative for body aches, fever, poor PO cp intake, 16:50 Respiratory: Negative for cough, shortness of breath, wheezing, cp 16:50 Eyes: Negative for injury, pain, redness, and discharge, cp 16:50 ENT: Negative for drainage from ear(s), ear pain, sore throat, difficulty swallowing, difficulty handling secretions, 16:50 Cardiovascular: Negative for chest pain, 16:50 Neuro: Negative for altered mental status, dizziness, headache, weakness, 16:50 All other systems are negative, Exam: 16:55 Constitutional: The patient appears in no acute distress, alert, awake, cp non-diaphoretic, non-toxic, well developed, well nourished, 16:55 Head/Face: Normocephalic, atraumatic. cp 16:55 Eyes: Periorbital structures: appear normal, Conjunctiva: normal, no exudate, no injection, Sclera: no appreciated abnormality, Lids and lashes: appear normal, bilaterally, 16:55 ENT: External ear(s): are unremarkable, Nose: is normal, Mouth: Lips: moist, Oral mucosa: moist, Posterior pharynx: Airway: no evidence of obstruction, patent, 16:55 Chest/axilla: Inspection: normal, 16:55 Cardiovascular: Rate: bradycardic, Rhythm: regular, Edema: is not appreciated, JVD: is not appreciated, 16:55 Respiratory: the patient does not display signs of respiratory distress, Respirations: normal, no use of accessory muscles, no retractions, labored breathing, is not present, Breath sounds: are clear throughout, no decreased breath sounds, no stridor, no wheezing, 16:55 Abdomen/GI: Inspection: abdomen appears normal, Bowel sounds: active, all quadrants, Palpation: soft, in all quadrants, mild abdominal tenderness, in all quadrants, 16:55 Back: CVA tenderness, is absent, 16:55 Neuro: Orientation: to person, place \T\ time. Mentation: is normal, Motor: moves all fours, strength is normal, Sensation: is normal, Vital Signs: 16:02 BP 151 / 84; Pulse 18; Resp 16; Temp 97.7; Pulse Ox 97% ; Weight 83.91 kg; Height 5 ft. db 7 in. ; 17:32 BP 149 / 75; Pulse 54; Resp 15 S; Pulse Ox 100% on R/A; kc6 18:36 BP 152 / 58; Pulse 50; Resp 15 S; Pulse Ox 100% on R/A; kc6 19:18 BP 158 / 76; Pulse 57; Resp 17 S; Pulse Ox 100% on R/A; ha1 19:57 BP 158 / 72; Pulse 63; Resp 17 S; Pulse Ox 100% on R/A; ha1 16:02 Body Mass Index 28.97 (83.91 kg, 170.18 cm) db MDM: 17:02 Medical Screening Exam initiated otne 19:30 Data reviewed: vital signs, nurses notes, lab test result(s), radiologic studies, CT cp scan, plain films, and as a result, I will discharge patient. 19:30 I considered the following discharge prescriptions or medication management in the emergency department Medications were administered in the Emergency Department. See MAR. Care significantly affected by the following chronic conditions: Diabetes, Hypertension. 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 Response to treatment: the patient's symptoms have mildly improved after treatment, and as a result, I will discharge patient. 01/03 16:12 Order name: Urinalysis W/Microscopic; Complete Time: 17:53 01/03 19:10 Interpretation: Normal except: [facility] Turbid; UPROT 1+; HYAL >20; Reviewed. 01/03 16:41 Order name: CBC with Diff; Complete Time: 17:53 01/03 16:41 Order name: CMP; Complete Time: 17:53 01/03 16:41 Order name: Lipase; Complete Time: 17:53 01/03 16:57 Order name: CT Head C Spine; Complete Time: 19:09 01/03 19:09 Interpretation: Reviewed report. 01/03 16:57 Order name: CT Abd/Pelvis - IV Contrast Only; Complete Time: 19:09 01/03 19:10 Interpretation: Report reviewed. 01/03 18:12 Order name: Chest Single View XRAY; Complete Time: 19:12 01/03 16:41 Order name: IV Saline Lock; Complete Time: 17:32 01/03 16:41 Order name: Labs collected and sent; Complete Time: 17:32 Administered Medications: 17:31 Drug: NS 0.9% IV 1000 ml IV at 1000 ml once; to be given as a bolus over 60 minutes kc6 Route: IV; Rate: 1000 ml; Site: right antecubital; 19:11 Follow up: Response: No adverse reaction; IV Status: Completed infusion; IV Intake: kc6 1000ml 17:32 Drug: Ondansetron IVP 4 mg IVP once; over 2 minutes Route: IVP; Site: right antecubital;kc6 18:36 Follow up: Response: No adverse reaction kc6 17:32 Drug: Famotidine IVP 20 mg IVP once; dilute with 10 mL 0.9% NaCl; give over 2 minutes kc6 Route: IVP; Site: right antecubital; 18:36 Follow up: Response: No adverse reaction kc6 Disposition Summary: 01/03/25 19:30 Discharge Ordered Notes: Location: Home cp Problem: an ongoing problem cp Symptoms: have improved cp Condition: Stable cp Diagnosis - Nausea cp - Other cholelithiasis without obstruction cp - Contusion of unspecified part of head, initial encounter cp Followup: cp - With: Ronak Benjamin MD - When: 2 - 3 days - Reason: gallstones Followup: cp - With: Doug Nuno MD - When: 1 week - Reason: routine colonoscopy Discharge Instructions: - Discharge Summary Sheet cp - Facial or Scalp Contusion cp - Head Injury, Adult cp - Nausea, Adult cp - Cholelithiasis cp - Colonoscopy, Adult cp - Upper Endoscopy, Adult cp Forms: - Medication Reconciliation Form cp - Antibiotic Education cp - Prescription Opioid Use cp - Patient Portal Instructions cp - Leadership Thank You Letter cp Prescriptions: - Pepcid 20 mg Oral Tablet - take 1 tablet ORAL route every 12 hours for 10 days; 20 tablet; Refills: 0, cp Product Selection Permitted - ondansetron 8 mg Oral Tablet,disintegrating - take 1 tablet ORAL route every 12 hours; 20 tablet; Refills: 0, Product cp Selection Permitted Signatures: Dispatcher [employer] EDMS Jason Moise MD MD cha Page, Corey, PA PA cp Teresa Franco RN RN kc6 Ester De La Rosa RN RN db Corrections: (The following items were deleted from the chart) 16:57 16:57 Head C Spine MPR Wo Con+CT.RAD.BRZ ordered. EDMS EDMS 16:57 16:57 Abdomen Pelvis W Con+CT.RAD.BRZ ordered. EDMS EDMS 18:55 18:53 Constitutional: Positive for weight loss, Negative for body aches, fever, poor PO cp intake, cp 18:55 18:53 Abdomen/GI: Positive for abdominal pain, nausea, abdominal distension, decreased cp appetite, Negative for vomiting, diarrhea, constipation, cp 18:55 18:53 : Negative for urinary symptoms, cp cp 18:55 18:53 Back: Negative for pain at rest, pain with movement, cp cp 01/04 19:35 01/03 16:45 Patient reports diarrhea started last night. cp cp 01/04 19:36 01/03 16:50 Abdomen/GI: Positive for abdominal pain, nausea, abdominal distension, cp decreased appetite, Negative for vomiting, diarrhea, constipation, cp
--- NOTE | 2025-01-03 19:31 | ER ---
Nurse's Notes [facility] Name: David Perdomo Age: 69 yrs Sex: Male : 1955 Arrival Date: 01/03/2025 Time: 15:50 Bed 19 Private MD: Diagnosis: Nausea;Other cholelithiasis without obstruction;Contusion of unspecified part of head, initial encounter Presentation: 01/03 16:02 Chief complaint: Patient states: DIARRHEA STARTED LAST NIGHT. STATES CONSTIPATION FIRST db THEN DIARRHEA STARTED. DIAGNOSED WITH DIVERTICULOSIS. NOT EATING DUE TO LOSS OF APPETITE AND STOMACH FEELING UPSET. Coronavirus screen: Client denies travel out of the [place] in the last 14 days. At this time, the client does not indicate any symptoms associated with coronavirus-19. Ebola Screen: Patient negative for fever greater than or equal to 101.5 degrees Fahrenheit, and additional compatible Ebola Virus Disease symptoms Patient denies exposure to infectious person. Patient denies travel to an Ebola-affected area in the 21 days before illness onset. No symptoms or risks identified at this time. Initial Sepsis Screen: Does the patient meet any 2 criteria? No. Patient's initial sepsis screen is negative. Does the patient have a suspected source of infection? No. Patient's initial sepsis screen is negative. Risk Assessment: Do you want to hurt yourself or someone else? Patient reports no desire to harm self or others. Onset of symptoms was January 02, 2025. 16:02 Method Of Arrival: Ambulatory db 16:02 Acuity: DICKSON 3 db Triage Assessment: 16:06 General: Appears in no apparent distress. uncomfortable, Behavior is calm, cooperative. db Pain: Complains of pain in abdomen. Neuro: Level of Consciousness is awake, alert, obeys commands, Oriented to person, place, time, situation. GI: Reports lower abdominal pain, diarrhea. Historical: - Allergies: 16:06 Sulfa (Sulfonamide Antibiotics); db - Home Meds: 16:06 Xarelto oral [Active]; db - PMHx: 16:06 diabetes mellitus; a fib; Hypertensive disorder; db - Immunization history:: Adult Immunizations unknown. - Infectious Disease History:: Denies. - Social history:: Smoking status: Patient denies any tobacco usage or history of. Screenin:32 [facility] ED Fall Risk Assessment (Adult) History of falling in the last 3 months, kc6 including since admission No falls in past 3 months (0 pts) Confusion or Disorientation No (0 pts) Intoxicated or Sedated No (0 pts) Impaired Gait No (0 pts) Mobility Assist Device Used No (0 pt) Altered Elimination No (0 pt) Score/Fall Risk Level 0 - 2 = Low Risk Oriented to surroundings, Maintained a safe environment, Educated pt \T\ family on fall prevention, incl call for assistance when getting out of bed. Abuse screen: Denies threats or abuse. Denies injuries from another. Nutritional screening: No deficits noted. Tuberculosis screening: No symptoms or risk factors identified. Assessment: 17:33 General: Appears in no apparent distress. comfortable, well groomed, well developed, kc6 Behavior is calm, cooperative, appropriate for age, quiet. Pain: Complains of pain in abdomen. Neuro: Level of Consciousness is awake, alert, obeys commands, Oriented to person, place, time, situation, Appropriate for age. Cardiovascular: Capillary refill < 3 seconds. Respiratory: Airway is patent Trachea midline Respiratory effort is even, unlabored, Respiratory pattern is regular, symmetrical. GI: Bowel sounds present X 4 quads. Abd is soft X 4 quads Reports lower abdominal pain, upper abdominal pain, anorexia, constipation, diarrhea, gaseousness, indigestion, Patient currently denies nausea, vomiting. : No signs and/or symptoms were reported regarding the genitourinary system. Urine is clear. EENT: No signs and/or symptoms were reported regarding the EENT system. Derm: No signs and/or symptoms reported regarding the dermatologic system. Skin is intact, is healthy with good turgor, Skin is pink, warm \T\ dry. Musculoskeletal: No signs and/or symptoms reported regarding the musculoskeletal system. Circulation, motion, and sensation intact. Range of motion: intact in all extremities. 18:36 Reassessment: Patient appears in no apparent distress at this time. No changes from kc6 previously documented assessment. Patient and/or family updated on plan of care and expected duration. Pain level reassessed. Patient is alert, oriented x 3, equal unlabored respirations, skin warm/dry/pink. 19:17 General: Appears comfortable, Behavior is calm, cooperative. Pain: Complains of pain in ha1 abdomen Pain currently is 5 out of 10 on a pain scale. Quality of pain is described as aching. Neuro: Level of Consciousness is awake, alert, obeys commands, Oriented to person, place, time, situation. Cardiovascular: Capillary refill < 3 seconds Patient's skin is warm and dry. Respiratory: Airway is patent Respiratory effort is even, unlabored, Respiratory pattern is regular, symmetrical. GI: Abdomen is round non-distended, Reports lower abdominal pain, upper abdominal pain, anorexia, constipation, diarrhea. : No signs and/or symptoms were reported regarding the genitourinary system. Derm: Skin is pink, warm \T\ dry. Musculoskeletal: Circulation, motion, and sensation intact. Vital Signs: 16:02 BP 151 / 84; Pulse 18; Resp 16; Temp 97.7; Pulse Ox 97% ; Weight 83.91 kg; Height 5 ft. db 7 in. ; 17:32 BP 149 / 75; Pulse 54; Resp 15 S; Pulse Ox 100% on R/A; kc6 18:36 BP 152 / 58; Pulse 50; Resp 15 S; Pulse Ox 100% on R/A; kc6 19:18 BP 158 / 76; Pulse 57; Resp 17 S; Pulse Ox 100% on R/A; ha1 19:57 BP 158 / 72; Pulse 63; Resp 17 S; Pulse Ox 100% on R/A; ha1 16:02 Body Mass Index 28.97 (83.91 kg, 170.18 cm) db ED Course: 15:55 Patient arrived in ED. al6 15:58 Jason Garcia PA [facility]. cp 15:58 Jason Moise MD is Attending Physician. cp 16:06 Triage completed. db 16:06 Arm band placed on Patient placed in an exam room. db 17:16 Teresa Franco, PILY is Primary Nurse. kc6 17:32 Patient has correct armband on for positive identification. Bed in low position. Call kc6 light in reach. Side rails up X 1. Adult w/ patient. Pulse ox on. NIBP on. Door closed. Noise minimized. Lights dimmed. Warm blanket given. Pillow given. Verbal reassurance given. 17:33 Inserted saline lock: 20 gauge in right antecubital area, using aseptic technique. kc6 Blood collected. Flushed with 10 mL NS. Patient maintains SpO2 saturation greater than 95% on room air. 18:16 CT Head C Spine In Process Unspecified. EDMS 18:16 CT Abd/Pelvis - IV Contrast Only In Process Unspecified. EDMS 19:01 Chest Single View XRAY In Process Unspecified. EDMS 19:13 Report given to Isabell Hernadez RN. kc6 19:30 Ronak Benjamin MD is Referral Physician. cp 19:30 Doug Nuno MD is Referral Physician. cp 19:57 No provider procedures requiring assistance completed. IV discontinued, intact, ha1 bleeding controlled, No redness/swelling at site. Pressure dressing applied. 19:58 Provided Education on: following up with Dr. He, and medication administration for ha1 nausea . Administered Medications: 17:31 Drug: NS 0.9% IV 1000 ml IV at 1000 ml once; to be given as a bolus over 60 minutes kc6 Route: IV; Rate: 1000 ml; Site: right antecubital; 19:11 Follow up: Response: No adverse reaction; IV Status: Completed infusion; IV Intake: kc6 1000ml 17:32 Drug: Ondansetron IVP 4 mg IVP once; over 2 minutes Route: IVP; Site: right antecubital;kc6 18:36 Follow up: Response: No adverse reaction kc6 17:32 Drug: Famotidine IVP 20 mg IVP once; dilute with 10 mL 0.9% NaCl; give over 2 minutes kc6 Route: IVP; Site: right antecubital; 18:36 Follow up: Response: No adverse reaction kc6 Medication: 19:58 VIS not applicable for this client. ha1 Intake: 19:11 IV: 1000ml; Total: 1000ml. kc6 Outcome: 19:30 Discharge ordered by . cp 19:57 Discharged to home ambulatory, with family, ha1 19:57 Condition: stable 19:57 Discharge instructions given to patient, family, Instructed on discharge instructions, follow up and referral plans. medication usage, Demonstrated understanding of instructions, follow-up care, medications, Prescriptions given X 2, 19:59 Patient left the ED. ha1 Signatures: Dispatcher [employer] EDMS Jason Garcia PA PA cp Ayala, Heidy, RN RN ha1 Teresa Franco RN RN kc6 Ester De La Rosa RN RN Leonard, Chelsey al6
[2025-01-03 20:38] VITALS: TEMP 97.7
[2025-01-03 20:39] VITALS: O2SAT 100
[2025-01-03 20:43] VITALS: BP 158/72
== END 2025-01-03 19:59 | disposition home or self-care (01) ==
LOC: ER 15:50
DX: K80.80 Other cholelithiasis without obstruction (principal); S00.83XA Contusion of other part of head, initial encounter
CPT/HCPCS: 85025; 81001; 36415; 83690; 80053; 70450; 72125; 74177; 71045; Q9967; J2405; J7030; 96361; 96374; 96375; 99284

== ENCOUNTER 2025-01-09 19:08 | Emergency (ER) | payer OTHER ==
--- NOTE | 2025-01-09 19:43 | RAD REPORT ---
EXAM: CT brain without contrast HISTORY: glf, altered COMPARISON: None TECHNIQUE: Multiple contiguous axial images were obtained and a CT of the brain without contrast. Sag ittal and coronal reformats were performed. One or more of the following dose reduction techniques were used: Automated exposure control, adjust ment of the mA and/or kV according to patient size, and/or iterative reconstruction. FINDINGS: High density is seen along the left posterior sulcus, left frontal lobe sulcus likely mild subarachno id hemorrhage. No large intracranial bleed. No midline shift or hydrocephalus. The calvarium is intact. The visualized paranasal sinuses and mastoid air cells are essentially clear . IMPRESSION: Mild left-sided subarachnoid hemorrhage. No midline shift. EXAM: CT of the cervical spine without contrast HISTORY: Neck pain, injury glf, altered TECHNIQUE: Multiple contiguous axial images were obtained in a CT of the cervical spine without contr ast. Sagittal and coronal reformats were performed. FINDINGS: The vertebral bodies demonstrate normal height and alignment. No evidence of acute fracture or subluxation.. Moderate lower cervical degenerative changes. No prevertebral soft tissue swelling is seen. The posterior facets are well aligned. Normal alignment of the skull base with the cervical spine is seen. The lung apices are unremarkable. IMPRESSION: No evidence of acute osseous abnormality of the cervical spine.
--- NOTE | 2025-01-09 19:50 | EDPHYS ---
Physician Documentation [facility] Name: David Perdomo Age: 69 yrs Sex: Male : 1955 Arrival Date: 01/09/2025 Time: 19:08 Bed 20 Private MD: ED Physician Jewel Rivera HPI: 01/09 19:18 This 69 yrs old Male presents to ER via Unassigned with complaints of altered.ec2 19:18 Patient arrives today with a last known well for approximately 30 hours prior to ec2 arrival. Patient has been increasingly altered. Last time family show with him was yesterday around noon, was noted to be altered this evening. No witnessed falls however patient has no facial bruising. Is on Xarelto. Has been otherwise having issues with a GI bug with nausea and vomiting and diarrhea. No reported urinary complaints.. Historical: - Allergies: 19:15 Sulfa (Sulfonamide Antibiotics); al5 - PMHx: 19:15 a fib; diabetes mellitus; Hypertensive disorder; al5 - PSHx: 19:15 None; al5 - Immunization history:: Adult Immunizations up to date. - Infectious Disease History:: Denies. - Social history:: Smoking status: unknown. ROS: 19:18 Constitutional: as per hpi ec2 Exam: 19:18 Constitutional: GEN: No acute distress HEENT: -Head: no deformities -Eyes: EOMI CV: ec2 regular rate LUNGS: no respiratory distress ABD: non-tender, soft, not guarding, not rigid SKIN: n ecchymosis noted to the right maxillary area. MSK: No C/T/L spine deformities RUE w/o bony deformity LUE w/o bony deformity RLE w/o bony deformity LLE w/o bony deformity NEURO: moves all extremities equally, GCS 14 (E4, V4, M6) Vital Signs: 19:15 BP 192 / 93; Pulse 68; Resp 16; Temp 98.7; Pulse Ox 100% on R/A; Weight 77.11 kg; al5 Height 5 ft. 7 in. ; Pain 0/10; 19:52 BP 156 / 69; Pulse 62; Resp 18; Pulse Ox 100% ; al5 20:00 BP 159 / 69; Pulse 62; Resp 12; Pulse Ox 99% on R/A; al5 20:30 BP 166 / 77; Pulse 62; Resp 16; Pulse Ox 100% on R/A; al5 20:57 BP 171 / 57; Pulse 64; Resp 16; Pulse Ox 100% on R/A; al5 21:00 BP 173 / 74; Pulse 60; Resp 17; Pulse Ox 100% on R/A; al5 21:30 BP 143 / 59; Pulse 56; Resp 20; Pulse Ox 100% on R/A; al5 19:15 Body Mass Index 26.63 (77.11 kg, 170.18 cm) al5 19:15 Pain Scale: Adult al5 MDM: 19:16 Medical Screening Exam initiated ec2 19:19 Data reviewed: vital signs, nurses notes. ED course: Patient arrives today due to ec2 concern for altered mental status examination yields facial ecchymosis to the right maxillary area. Will obtain lab work, CT scan of the head and C-spine given likely trauma. DDx include processes such as intracranial brain bleed, anemia, dehydration, electrolyte disturbances.. 19:50 ED course: CT imaging shows traumatic subarachnoid brain bleed, will transfer to trauma ec2 capable facility.. 20:04 ED course: EKG independently reviewed and interpreted by me, shows normal sinus rhythm, ec2 rate of 62, no acute ST segment elevations, intervals are nonactionable.. 20:10 ED course: I discussed case with neurosurgery who agrees accept patient for transfer. ec2 Family updated on plan of care.. 01/09 19:17 Order name: Basic Metabolic Panel; Complete Time: 21:35 ec2 01/09 19:17 Order name: CBC with Diff; Complete Time: 20:08 ec2 01/09 19:17 Order name: Troponin HS; Complete Time: 21:35 ec2 01/09 19:17 Order name: LFT's; Complete Time: 21:35 ec2 01/09 19:17 Order name: AMMONIA; Complete Time: 20:09 ec2 01/09 19:17 Order name: XRAY Chest (1 view); Complete Time: 21:35 ec2 01/09 19:17 Order name: CT Head C Spine; Complete Time: 19:48 ec2 01/09 19:17 Order name: EKG; Complete Time: 19:17 ec2 01/09 19:17 Order name: Cardiac monitoring; Complete Time: 19:58 ec2 01/09 19:17 Order name: EKG - Nurse/Tech; Complete Time: 19:58 ec2 01/09 19:17 Order name: IV Saline Lock; Complete Time: 19:50 ec2 01/09 19:17 Order name: Labs collected and sent; Complete Time: 19:50 ec2 01/09 19:17 Order name: O2 Per Protocol; Complete Time: 19:37 ec2 01/09 19:17 Order name: O2 Sat Monitoring; Complete Time: 19:37 ec2 01/09 19:17 Order name: Cath; Complete Time: 20:52 ec2 Administered Medications: No medications were administered Disposition Summary: 01/09/25 19:50 Transfer Ordered Notes: Transfer Location: [facility] ec2 Reason: Higher level of care ec2 Condition: Stable ec2 Problem: new ec2 Symptoms: are unchanged ec2 Accepting Physician: transferring doc(01/09/25 22:18) lg3 Diagnosis - Traumatic subarachnoid hemorrhage ec2 Forms: - Medication Reconciliation Form ec2 - SBAR form ec2 Critical care time excluding procedures: 19:52 Critical care time: Bedside Care: 30 minutes, Consultation: 5 minutes. Total time: 35 ec2 minutes Signatures: Dispatcher [employer] Isaura Conde RN RN lg3 Jewel Rivera MD MD ec2 Giovana Junior RN RN al5 Corrections: (The following items were deleted from the chart) 19:17 19:17 BASIC METABOLIC PANEL+C.LAB.BRZ ordered. EDMS EDMS 19:17 19:17 CBC+H.LAB.BRZ ordered. EDMS EDMS 19:17 19:17 Troponin High Sensitivity+C.LAB.BRZ ordered. EDMS EDMS 19:17 19:17 Urinalysis W/Microscopic+U.LAB.BRZ ordered. EDMS EDMS 19:17 19:17 HEPATIC FUNCTION+C.LAB.BRZ ordered. EDMS EDMS 19:17 19:17 AMMONIA+C.LAB.BRZ ordered. EDMS EDMS 22:18 19:50 transferring doc ec2 lg3
--- NOTE | 2025-01-09 19:50 | ER ---
Nurse's Notes [facility] Name: David Perdomo Age: 69 yrs Sex: Male : 1955 Arrival Date: 01/09/2025 Time: 19:08 Bed 20 Private MD: Diagnosis: Traumatic subarachnoid hemorrhage Presentation: 01/09 19:15 Chief complaint: EMS states: c/o ams last well known yesterday afternoon after speaking al5 with family over the phone. Coronavirus screen: At this time, the client does not indicate any symptoms associated with coronavirus-19. Ebola Screen: No symptoms or risks identified at this time. 19:15 Method Of Arrival: EMS: [facility] al5 19:15 Initial Sepsis Screen: Does the patient meet any 2 criteria? Altered Mental Status. No. al5 Patient's initial sepsis screen is negative. Does the patient have a suspected source of infection? No. Patient's initial sepsis screen is negative. Risk Assessment: Do you want to hurt yourself or someone else? Patient reports no desire to harm self or others. Onset of symptoms was January 08, 2025. 19:15 Acuity: DICKSON 3 al5 Triage Assessment: 19:15 General: Appears in no apparent distress. comfortable, Behavior is calm, cooperative. al5 Pain: Denies pain. EENT: No signs and/or symptoms were reported regarding the EENT system. Neuro: Level of Consciousness is awake, alert, obeys commands, confused, Oriented to person, place, time, situation, patient playing with L palm like he is swiping on his phone. ems states he was on his phone prior to arrival.. Cardiovascular: Capillary refill < 3 seconds Patient's skin is warm and dry. Respiratory: Airway is patent Respiratory effort is even, unlabored, Respiratory pattern is regular, symmetrical. GI: No signs and/or symptoms were reported involving the gastrointestinal system. : No signs and/or symptoms were reported regarding the genitourinary system. Derm: Skin is intact, Skin is pink, warm \T\ dry. normal. Musculoskeletal: No signs and/or symptoms reported regarding the musculoskeletal system. Historical: - Allergies: 19:15 Sulfa (Sulfonamide Antibiotics); al5 - PMHx: 19:15 a fib; diabetes mellitus; Hypertensive disorder; al5 - PSHx: 19:15 None; al5 - Immunization history:: Adult Immunizations up to date. - Infectious Disease History:: Denies. - Social history:: Smoking status: unknown. Screenin:16 [facility] ED Fall Risk Assessment (Adult) History of falling in the last 3 months, al5 including since admission No falls in past 3 months (0 pts) Confusion or Disorientation Yes (5 pts) Intoxicated or Sedated No (0 pts) Impaired Gait Yes (1 pt) Mobility Assist Device Used No (0 pt) Altered Elimination No (0 pt) Score/Fall Risk Level 3 or more points = High Risk Oriented to surroundings, Maintained a safe environment, Hourly rounding (assess needs \T\ fall precautionary measures) done. Abuse screen: Denies threats or abuse. Denies injuries from another. Nutritional screening: No deficits noted. Tuberculosis screening: No symptoms or risk factors identified. Assessment: 20:53 Reassessment: Patient appears in no apparent distress at this time. No changes from al5 previously documented assessment. Patient and/or family updated on plan of care and expected duration. Pain level reassessed. Patient is alert, oriented x 3, equal unlabored respirations, skin warm/dry/pink. 21:06 Reassessment: gave report to pily hamm at [facility]. al5 21:42 Reassessment: Patient appears in no apparent distress at this time. No changes from al5 previously documented assessment. Patient and/or family updated on plan of care and expected duration. Pain level reassessed. Patient is alert, oriented x 3, equal unlabored respirations, skin warm/dry/pink. 22:00 Reassessment: [facility] at this time. al5 Vital Signs: 19:15 BP 192 / 93; Pulse 68; Resp 16; Temp 98.7; Pulse Ox 100% on R/A; Weight 77.11 kg; al5 Height 5 ft. 7 in. ; Pain 0/10; 19:52 BP 156 / 69; Pulse 62; Resp 18; Pulse Ox 100% ; al5 20:00 BP 159 / 69; Pulse 62; Resp 12; Pulse Ox 99% on R/A; al5 20:30 BP 166 / 77; Pulse 62; Resp 16; Pulse Ox 100% on R/A; al5 20:57 BP 171 / 57; Pulse 64; Resp 16; Pulse Ox 100% on R/A; al5 21:00 BP 173 / 74; Pulse 60; Resp 17; Pulse Ox 100% on R/A; al5 21:30 BP 143 / 59; Pulse 56; Resp 20; Pulse Ox 100% on R/A; al5 19:15 Body Mass Index 26.63 (77.11 kg, 170.18 cm) al5 19:15 Pain Scale: Adult al5 ED Course: 19:12 Patient arrived in ED. vk 19:15 Arm band placed on right wrist. Patient placed in the treatment room, in view of staff al5 members, on pulse oximetry. 19:16 Jewel Rivera MD is Attending Physician. ec2 19:16 Patient has correct armband on for positive identification. Bed in low position. Call al5 light in reach. Side rails up X2. 19:24 Giovana Junior, PILY is Primary Nurse. al5 19:34 Triage completed. al5 19:35 CT Head C Spine In Process Unspecified. EDMS 19:50 Inserted saline lock: 20 gauge in right antecubital area, using aseptic technique. af3 Blood collected. Flushed with 10 mL NS. 20:00 XRAY Chest (1 view) In Process Unspecified. EDMS 20:19 initiated transfer with [facility] spoke with Duane Gibbs, Patient was [facility] to [facility] ER to Dr. Do accepting time \T\2011 accepting admin is Duane Dalal \T\2011 Report# [id number] , Duane advised to fax MOT as well as Facesheet Faxed \T\ 2021. 20:52 Provided Education on: need for transfer. al5 20:52 No provider procedures requiring assistance completed. Mclean cath inserted, using al5 sterile technique, 16 Fr., by nc, balloon inflated, to gravity drainage, clamped. 22:00 Patient transferred, IV remains in place. al5 Administered Medications: No medications were administered Medication: 19:16 VIS not applicable for this client. al5 Outcome: 19:50 ER care complete, transfer ordered by . ec2 22:00 [facility]red by [facility] to [facility], al5 22:00 critical 22:00 Instructed on the need for transfer, 22:18 Patient left the ED. lg3 Signatures: Dispatcher [employer] EDMS Able, Isaura, RN RN lg3 Jewel Rivera MD MD ec2 Sue Montes Amanda, RN RN al5 Anne Marie Peterson3 Corrections: (The following items were deleted from the chart) 19:37 19:34 General: Appears in no apparent distress. comfortable, Behavior is calm, al5 cooperative, al5 19:37 19:34 Pain: Denies pain. al5 al5 19:37 19:34 EENT: No signs and/or symptoms were reported regarding the EENT system. al5 al5 19:37 19:34 Neuro: Level of Consciousness is awake, alert, obeys commands, confused, Oriented al5 to person, place, time, situation, patient playing with L palm like he is swiping on his phone. ems states he was on his phone prior to arrival.. al5 19:37 19:34 Cardiovascular: Capillary refill < 3 seconds Patient's skin is warm and dry. al5 al5 19:37 19:34 Respiratory: Airway is patent Respiratory effort is even, unlabored, Respiratory al5 pattern is regular, symmetrical, al5 19:37 19:34 GI: No signs and/or symptoms were reported involving the gastrointestinal system. al5 al5 19:37 19:34 : No signs and/or symptoms were reported regarding the genitourinary system. al5al5 19:37 19:34 Derm: Skin is intact, Skin is pink, warm \T\ dry. normal, al5 al5 19:37 19:34 Musculoskeletal: No signs and/or symptoms reported regarding the musculoskeletal al5 system. al5
[2025-01-09 19:55] LABS: Absolute Lymphocytes (CBC) 0.9 K/uL (0.7-4.9); Absolute Monocytes 0.5 K/uL (0.1-1.3); Absolute Neutrophil 4.5 K/uL (1.8-8.0); Basophils % 0.6 % (0-1.3); Eosinophils % 0.2 % (0-4.4); Lymphocytes % 15.6 % (15.3-44.8); MCHC 34.2 g/dL (32.0-36.0); MCV 90.7 fL (80-100); MPV 9.6 fL (7.6-11.3); Monocytes % 7.6 % (3.3-12.3); Nucleated Red Blood Cells % 0.1 % (0-0); Platelets 163 thou/uL (152-406); RBC Red Blood Cell Count 4.52 M/uL (4.33-5.43); Red Cell Distribution Width 14.2 % (12.1-15.2)
[2025-01-09 20:14] LABS: Albumin 3.6 g/dL (3.4-5.0); Albumin/Globulin Ratio 0.9 (1.1-1.8); Anion Gap 12.4 mEq/L (5.0-15.0); Bilirubin Direct 0.2 mg/dL (0-0.2); Bilirubin Indirect, Calculated 0.7 mg/dL (0.2-0.8); Bilirubin Total 0.9 mg/dL (0.2-1.0); Globulin 4.2 g/dL (2.3-3.5); Potassium 3.4 mEq/L (3.5-5.1); Protein, Total 7.8 g/dL (6.4-8.2)
--- NOTE | 2025-01-09 20:17 | RAD REPORT ---
EXAMINATION: ONE VIEW CHEST XR CLINICAL INDICATION: COUGH TECHNIQUE: Frontal chest projection is submitted. Examination is limited by patient positioning and t echnique. COMPARISON: 01/03/2025 FINDINGS: The lungs are well inflated and clear. The heart is upper limit of normal in size. No displaced fract ures identified. IMPRESSION: No acute intrathoracic abnormalities.
[2025-01-09 20:19] LABS: Troponin High Sensitivity 68.7 pg/mL (<58.9)
[2025-01-09 23:18] VITALS: TEMP 98.7
[2025-01-09 23:22] VITALS: O2SAT 100
[2025-01-09 23:26] VITALS: BP 143/59
== END 2025-01-09 22:18 | disposition short-term general hospital (02) ==
LOC: ER 19:08
DX: S06.6X0A Traumatic subarachnoid hemorrhage without loss of consciousness, initial encounter (principal); I48.91 Unspecified atrial fibrillation; Z79.01 Long term (current) use of anticoagulants; I10 Essential (primary) hypertension; E11.9 Type 2 diabetes mellitus without complications
CPT/HCPCS: 36415; 51702; 70450; 71045; 72125; 80048; 80076; 82140; 84484; 85025; 93005; 99285

== ENCOUNTER 2025-03-06 15:50 | Inpatient (IN) | payer OTHER ==
--- OUTSIDE RECORDS SUMMARY | 2025-03-06 15:56 | XMS REPORT | Continuity of Care Document ---
Author Name Unknown Address [address] [facility] [place] [address] [facility] Address [address] 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 Name Role Phone Pcp, Pcp Primary Care Physician Unavailab richie Reina MD, Craig Silva Attending Clinici an Zurdo SUN, Miriam Attending Clinician +[phone] Javon SUN, Shae Attending Clinician [phone] Ester SUN, Dolores Myles Attending Clinician [phone] Christiane SUN, Debbie Katz Attending Clinician +[phone] Lucía SUN, Marisa Durant Attending Clinician [phone] Sav SUN, Leobardo Hinojosa Attending Clinician + Ana Maria SUN, Ezekiel Gill Attending Clinician [phone] Jeronimo SUN, Clarita Attending Clinician [phone] Emma SUN, Ramez Collier Attending Clinician Ricardo SUN, Debbie Browning Attending Clinician +[phone] Deandre SUN, Karen Acuna Attending Clinician + Javon SUN, Kinga Diaz Attending Clinician [phone] Hina SUN, Emeka Desai Attending C linician Siri SUN, Alisa Youssef Attending Clinicia n SIRIALISA DHRUVKUMAR Attending Clinician U jeff Wadsworth MD, Gabino Farris Attending Clinician + [phone] Nancy SUN, Amy Wang Attending Clinician + [phone] Zoran SUN, Cadence Ortega Attending Clinician Jessica SUN, Jared Attending Clinician [phone] Al SUN, Clem Miranda Attending Clinician [phone] CLEM MELENDEZ Attending Clinician Unajose ilsherly System, Provider Not In Attending Clinician Unalee Gill MD, Ezekiel Gill Admitting Clinician [phone] EZEKIEL GILL Admitting Clinician Roxana Wadsworth MD, Gabino Farris Admitting Clinician + [phone] GABINO WADSWORTH Admitting Clinician Phi gomez Payers Payer Name Policy Type Policy Number Effective Date Expirati on Date Source MEDICARE PART A AND B Medicare [id number] 2024 00:00:00 Problems Condition Name Condition Details Condition Category Status Onset Date Resolution Date Last Treatment Date Treating Clinician Comments Source Suicidal ideation Suicidal ideation Disease Active 02-01 00:00: 00 [facility] [place] [facility] Physical deconditio dayne Physical deconditio dayne Disease Active 02-01 00:00: 00 [facility] [place] [facility] Persistent atrial fibrillati on Persistent atrial fibrillati on Disease Active 02-01 00:00: 00 [facility] [place] [facility] Hypertensi ve urgency Hypertensi ve urgency Disease Active 02-01 00:00: 00 [facility] [place] [facility] Lumbar foraminal stenosis Lumbar foraminal stenosis Disease Active 02-01 00:00: 00 [facility] [place] [facility] Anxiety associated with depression Anxiety associated with depression Disease Active 02-01 00:00: 00 [facility] [place] Epic Bradycardi a Bradycardi a Disease Active 02-01 00:00: 00 [facility] [place] [facility] Medication management Medication management Disease Active 4-06 00:00: 00 Patrick Barbour Uncontroll ed hypertensi on Uncontroll ed hypertensi on Disease Active 4- 00:00: 00 Patrick Barbour Seizure disorder (CMS/HCC) Seizure disorder (CMS/HCC) Disease Active 4-06 00:00: 00 Patrick Barbour Intracrani al subarachno id hemorrhage Intracrani al subarachno id hemorrhage Disease Active 4- 00:00: 00 Patrick Barbour 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 Disease Active - 00:00: 00 Patrick Barbour 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 Disease Active - 00:00: 00 Patrick Glez [facility] SAH (subarachn oid hemorrhage ) (CMS/HCC) SAH (subarachn oid hemorrhage ) (CMS/HCC) Disease Active 3-16 00:00: 00 Patrick Glez [facility] Allergies, Adverse Reactions, Alerts Allergy Name Allergy Type Status Severity Reaction(s) Onset Date Inactive Date Treating Clinician Comments Source Sulfa Antibiot ics Drug Allergy Active Unknown 3-15 00:00: 00 Patrick Glez [facility] Social History Social Habit Start Date Stop Date Quantity Comments Source Gender identity Nixon siva [place] [facility] Sexual orientation [facility] History of Social function 2025-02-03 00:00:00 2025-02-03 00:00:[address] [facility] Tobacco use and exposure 2025-01-30 00:00:00 2025-01-30 00:00:00 Smokeless tobacco non-user [facility] Alcoholic beverage intake 2025-01-30 00:00:00 2025-01-30 00:00:00 Ex-drinker (finding) [facility] Smoking Status Start Date Stop Date Source Tobacco smoking consumption unknown [facility] [place] [facility] Medications Ordered Medication Name Filled Medication Name Start Date Stop Date Current Medication? Ordering Clinician Indication Dosage Frequency Signature (SIG) Comments Components Source amLODIPine (Norvasc) 10 MG tablet amLODIPine (Norvasc) 10 MG tablet 02-06 00:00: 00 03-08 23:59 :00 No 10mg QD Take 1 tablet by mouth 1 time each day. Patrick Barbour thiamine (Vitamin B-1) 100 MG tablet thiamine (Vitamin B-1) 100 MG tablet 02-06 00:00: 00 03-08 23:59 :00 No 100mg QD Take 1 tablet by mouth 1 time each day. Patrick Barbour sertraline (Zoloft) 50 MG tablet sertraline (Zoloft) 50 MG tablet 02-06 00:00: 00 03-08 23:59 :00 No 50mg QD Take 1 tablet by mouth 1 time each day. Patrick Barbour pantoprazol e (ProtoNix) 40 MG EC tablet pantoprazol e (ProtoNix) 40 MG EC tablet 02-06 00:00: 00 03-08 23:59 :00 No 40mg QD Take 1 tablet by mouth 1 time each day. Do not crush, chew, or split. Patrick Barbour losartan (Cozaar) 25 MG tablet losartan (Cozaar) 25 MG tablet 02-06 00:00: 00 03-08 23:59 :00 No 25mg QD Take 1 tablet by mouth 1 time each day. Patrick Barbour lidocaine 4 % patch patch lidocaine 4 % patch patch 02-06 00:00: 00 03-08 23:59 :00 No 1{patch } QD Apply 1 patch over 12 hours topically 1 time each day. Patrick Barbour levETIRAcet am (Keppra) tablet 500 mg levETIRAcet am (Keppra) tablet 500 mg 02-05 17:00: 00 Yes 500mg Q.5D 500 mg, Oral, 2 times daily, First dose (after last modificati on) on Sat02/05/25 at 1700 Patrick Barbour ondansetron (Zofran) 4 MG tablet ondansetron (Zofran) 4 MG tablet 02-05 16:22: 15 02-05 00:00 :00 No 4mg Take 4 mg by mouth 3 times a day before meals. Patrick Barbour oxyCODONE (Roxicodone ) immediate release tablet 5 mg oxyCODONE (Roxicodone ) immediate release tablet 5 mg 02-05 15:45: 00 02-05 15:47 :00 No 5mg 5 mg, Oral, Once, On Sat02/05/25 at 1545, For 1 dose Patrick Barbour oxyCODONE (Roxicodone ) immediate release tablet 5 mg oxyCODONE (Roxicodone ) immediate release tablet 5 mg 02-05 12:28: 43 02-10 12:27 :43 No 5mg 5 mg, Oral, Every 12 hours PRN, severe pain (7-10), Pain score 7-10, Starting on Sat02/05/25 at 1228, For 5 days, Hold for sedation and call MD. Patrick Barbour oxyCODONE (Roxicodone ) immediate release tablet 5 mg oxyCODONE (Roxicodone ) immediate release tablet 5 mg 02-05 04:43: 51 02-05 12:28 :57 No 5mg Q6H 5 mg, Oral, Every 6 hours PRN, severe pain (7-10), Pain score 7-10, Starting on Sat02/05/25 at 0443, For 1 day, Hold for sedation and call MD. Patrick Barbour propafenone (Rythmol) 150 MG tablet propafenone (Rythmol) 150 MG tablet 02-05 00:00: 00 03-07 23:59 :00 No 150mg Q8H Take 1 tablet by mouth in the morning and 1 tablet at noon and 1 tablet before bedtime. Patrick Barbour metoprolol succinate XL (Toprol-XL) 25 MG 24 hr tablet metoprolol succinate XL (Toprol-XL) 25 MG 24 hr tablet 02-05 00:00: 00 03-07 23:59 :00 No 25mg QD Take 1 tablet by mouth 1 time each day. Do not crush or chew. Patrick Barbour melatonin 3 MG tablet melatonin 3 MG tablet 02-05 00:00: 00 03-07 23:59 :00 No 6mg Take 2 tablets by mouth at bedtime. Patrick Barbour levETIRAcet am (Keppra) 500 MG tablet levETIRAcet am (Keppra) 500 MG tablet 02-05 00:00: 00 03-07 23:59 :00 No 9 500mg Q.5D Take 1 tablet by mouth in the morning and 1 tablet in the evening. Patrick Barbour LORazepam (Ativan) 1 MG tablet LORazepam (Ativan) 1 MG tablet 02-05 00:00: 00 02-15 23:59 :00 No [id number] 1mg Q12H Take 1 tablet by mouth in the morning and 1 tablet in the evening. Do all this for 10 days. Patrick Barbour acetaminoph en (Tylenol) 325 MG tablet acetaminoph en (Tylenol) 325 MG tablet 02-05 00:00: 00 02-15 23:59 :00 No 650mg Q6H Take 2 tablets by mouth every 6 hours if needed for mild pain (1-3) for up to 10 days. Patrick Barbour oxyCODONE (Roxicodone ) 5 MG immediate release tablet oxyCODONE (Roxicodone ) 5 MG immediate release tablet 02-05 00:00: 00 02-10 23:59 :00 No [id number] 5mg Q8H Take 1 tablet by mouth every 8 hours if needed for severe pain (7-10) (Pain score 7-10) for up to 5 days. Patrick Barbour morphine PF injection 2 mg morphine PF injection 2 mg 02-04 17:45: 00 02-04 18:39 :00 No 2mg 2 mg, Intravenou s, Once, On Sat02/04/25 at 1745, For 1 dose Patrick Barbour hydrALAZINE injection 10 mg hydrALAZINE injection 10 mg 02-04 15:25: 38 Yes 10mg Q4H 10 mg, Intravenou s, Every 4 hours PRN, high blood pressure, SBP>170, Starting on Sat02/04/25 at 1525 Patrick Barbour cloNIDine (Catapres) tablet 0.2 mg cloNIDine (Catapres) tablet 0.2 mg 02-04 08:30: 00 02-04 08:51 :00 No .2mg 0.2 mg, Oral, Once, On Sat02/04/25 at 0830, For 1 dose Patrick Barbour sertraline (Zoloft) tablet 50 mg sertraline (Zoloft) tablet 50 mg 02-03 13:45: 00 Yes 50mg QD 50 mg, Oral, Daily, First dose on Sat02/03/25 at 1345, For tube: crush into fine powder, mix with 10 mL of water, give immediatel y, & flush with equal amount of water to prevent clogging. Patrick Barbour Premier Protein Shake liquid 325 mL Premier Protein Shake liquid 325 mL 02-03 12:00: 00 Yes 1{bottl e} 325 mL (1 Bottle), Oral, Daily with lunch, First dose on Sat02/03/25 at 1200, Vanilla Patrick Barbour melatonin tablet 6 mg melatonin tablet 6 mg 02-03 01:45: 00 Yes 6mg 6 mg, Oral, Nightly, First dose on Sat02/03/25 at 0145 Patrick Barbour citalopram (CeleXA) tablet 10 mg citalopram (CeleXA) tablet 10 mg 02-02 09:05: 02-03 16:22 :26 No 10mg QD 10 mg, Oral, Daily, First dose on Sat02/02/25 at 0905 Patrick Barbour ALPRAZolam (Xanax) tablet 0.5 mg ALPRAZolam (Xanax) tablet 0.5 mg 02-02 09:05: 00 02-02 13:27 :00 No .5mg 0.5 mg, Oral, Once, On Sat02/02/25 at 0905, For 1 dose Patrick Barbour hydrALAZINE (Apresoline ) tablet 25 mg hydrALAZINE (Apresoline ) tablet 25 mg 02-01 22:15: 00 Yes 25mg Q8H 25 mg, Oral, Every 8 hours, First dose on Sat02/01/25 at 2215, Hold if sbp <110 Patrick Glez [facility] terazosin (Hytrin) capsule 10 mg terazosin (Hytrin) capsule 10 mg 02-01 21:00: 00 Yes 10mg 10 mg, Oral, Nightly, First dose on Sat02/01/25 at 2100, Hold for BP <110, On hold since Sat02/01/2025 at 1137 until manually unheld [facility] LORazepam (Ativan) tablet 1 mg LORazepam (Ativan) tablet 1 mg 02-01 10:00: 00 Yes 1mg Q12H 1 mg, Oral, Every 12 hours, First dose on Sat02/01/25 at 1000 [facility] thiamine (Vitamin B-1) tablet 100 mg thiamine (Vitamin B-1) tablet 100 mg 02-01 09:00: 00 Yes 100mg QD 100 mg, Oral, Daily, First dose on Sat02/01/25 at 0900 [facility] losartan (Cozaar) tablet 25 mg losartan (Cozaar) tablet 25 mg 02-01 09:00: 00 Yes 25mg QD 25 mg, Oral, Daily, First dose on Sat02/01/25 at 0900 [facility] insulin lispro (HumaLOG, Admelog) injection 1-4 Units insulin lispro (HumaLOG, Admelog) injection 1-4 Units 02-01 08:13: 50 Yes 1U [id number] 3D 1-4 Units, Subcutaneo us, 3 times daily PRN, high blood sugar, with meals, Starting on Sat02/01/25 at 0813, For BG < 70, follow hypoglycem ia protocol and notify ordering provider. If patient can eat or drink, give oral carbohydra te as ordered per hypoglycem ia protocol. If patient NPO, give dextrose 50 % IV as ordered per hypoglycem ia protocol. If NPO and no IV access, give glucagon IM as ordered per hypoglycem ia protocol. Check BG every 15 minutes and repeat treatment if continued BG < 80., Correction Insulin Dosing: (DO NOT CHANGE DEFAULT SELECTION/ VALUES): Very Low, BG < 70 instructio ns: Follow Hypoglycem ia Orders, BG 70-149 instructio ns: No Dose Needed, BG 150-199: 1, BG 200-249: 2, BG 250-299: 3, BG >/= 300: 4, BG > 300 instructio ns: Contact Provider Patrick Barbour glucagon injection 1 mg glucagon injection 1 mg 02-01 08:13: 37 Yes 1mg 1 mg, Intramuscu lar, As needed, For BG < 70 mg/dL if no IV access and patient is either Unconsciou s, unable to swallow or npo, Starting on Sat02/01/25 at 0813, For BG < 70 mg/dL if no IV access and patient is either Unconsciou s, unable to swallow or npo and notify MD. Patrick Barbour dextrose 50 % solution 25 g dextrose 50 % solution 25 g 02-01 08:13: 37 Yes 25g 25 g, Intravenou s, As needed, other, if Blood Glucose </= 50 mg/dL, Starting on Sat02/01/25 at 0813, If BG </=50 mg/dL, give 50 mL of D50W IV push STAT and notify MD. Patrick Barbour dextrose 50 % solution 12.5 g dextrose 50 % solution 12.5 g 02-01 08:13: 37 Yes 12.5g 12.5 g, Intravenou s, As needed, low blood sugar, if Blood Glucose 51- 69 mg/dL, Starting on Sat02/01/25 at 0813, For BG 51-69 mg/dL and patient UNCONSCIOU S OR UNABLE TO SWALLOW OR NPO: Give 25 mL of D50W IV push and notify MD. Patrick Barbour hydrOXYzine HCl (Atarax) tablet 25 mg hydrOXYzine HCl (Atarax) tablet 25 mg 01-31 21:10: 59 01-31 21:39 :00 No 25mg 25 mg, Oral, Once as needed, itching, anxiety, Starting on Sat01/31/25 at 2110, For 1 dose Patrick Barbour ondansetron (Zofran) injection 4 mg ondansetron (Zofran) injection 4 mg 01-31 17:43: 09 Yes 4mg Q6H 4 mg, Intravenou s, Every 6 hours PRN, nausea, vomiting, Starting on Sat01/31/25 at 1743 Patrick Barbour amLODIPine (Norvasc) tablet 10 mg amLODIPine (Norvasc) tablet 10 mg 01-31 09:00: 00 Yes 10mg QD 10 mg, Oral, Daily, First dose (after last reorder) on Sat01/31/25 at 0900 Patrick Barbour polyethylen e glycol (PEG) 3350 (Miralax) packet 17 g polyethylen e glycol (PEG) 3350 (Miralax) packet 17 g 01-31 09:00: 00 Yes 17g QD 17 g, Oral, Daily, First dose on Sat01/31/25 at 0900, 17 grams of powder dissolved in 4 - 8 ounces of beverage. Hold for more than 1 loose stool in 24 hrs. Dissolve 17 g in 120 to 240 mL (4 to 8 ounces) of beverage. Patrick Barbour lidocaine 4 % patch 1 patch lidocaine 4 % patch 1 patch 01-31 09:00: 00 Yes 1{patch } QD 1 patch, Apply externally , Administer over 12 Hours, Daily, First dose on Sat01/31/25 at 0900, Apply to most painful incision. Apply for 12 hrs on, then 12 hrs off. Patrick Barbour sennosides (Senokot) tablet 8.6 mg sennosides (Senokot) tablet 8.6 mg 01-31 09:00: 00 Yes 1{tbl} Q.5D 8.6 mg (1 tablet), Oral, 2 times daily, First dose on Sat01/31/25 at 0900 Patrick Barbour lacosamide (Vimpat) tablet 100 mg lacosamide (Vimpat) tablet 100 mg 01-31 09:00: 00 Yes 100mg Q.5D 100 mg, Oral, 2 times daily, First dose (after last modificati on) on Sat01/31/25 at 0900 Patrick Barbour acetaminoph en (Tylenol) tablet 650 mg acetaminoph en (Tylenol) tablet 650 mg 01-31 08:46: 57 Yes 650mg Q6H 650 mg, Oral, Every 6 hours PRN, mild pain (1-3), Starting on Sat01/31/25 at 0846, Max acetaminop hen = 4000mg/day (4gm/day) Patrick Barbour pantoprazol e (ProtoNix) EC tablet 40 mg pantoprazol e (ProtoNix) EC tablet 40 mg 01-31 01:35: 00 Yes 40mg QD 40 mg, Oral, Daily, First dose on Sat01/31/25 at 0135, Do not crush, chew, or split. Patrick Barbour sodium chloride (NS) 0.9 % flush 10 mL sodium chloride (NS) 0.9 % flush 10 mL 01-31 00:20: 00 Yes 10mL Q.5D 10 mL, Intravenou s, Every 12 hours scheduled, First dose on Sat01/31/25 at 0020, Administer at least once every 12 hours Patrick Barbour docusate sodium (Colace) capsule 100 mg docusate sodium (Colace) capsule 100 mg 01-31 00:20: 00 Yes 100mg Q12H 100 mg, Oral, Every 12 hours, First dose on Sat01/31/25 at 0020 Patrick Barbour naloxone (Narcan) injection 0.04 mg naloxone (Narcan) injection 0.04 mg 01-31 00:18: 38 Yes .04mg Patrick Glez [facility] sodium chloride (NS) 0.9 % flush 10 mL sodium chloride (NS) 0.9 % flush 10 mL 01-31 00:18: 38 Yes 10mL Patrick Barbour oxyCODONE (Roxicodone ) immediate release tablet 5 mg oxyCODONE (Roxicodone ) immediate release tablet 5 mg 01-31 00:18: 38 02-05 00:17 :38 No 5mg Q6H 5 mg, Oral, Every 6 hours PRN, severe pain (7-10), Pain score 7-10, Starting on Sat01/31/25 at 0018, For 5 days, Hold for sedation and call . Patrick Barbour oxyCODONE (Roxicodone ) solution 2.5 mg oxyCODONE (Roxicodone ) solution 2.5 mg 2024-01-31 00:18: 38 02-05 00:17 :38 No 2.5mg Q6H 2.5 mg, Oral, Every 6 hours PRN, moderate pain (4-6), Pain Score 4-6, Starting on Sat01/31/25 at 0018, For 5 days, Hold for sedation and call . Patrick Barbour labetalol injection 10 mg labetalol injection 10 mg 2024-01-31 00:18: 38 02-01 16:00 :47 No 10mg 10 mg, Intravenou s, Every 2 hour PRN, high blood pressure, Systolic blood pressure more than 160, after notifying the physician, Starting on Sat01/31/25 at 001, For 3 doses Patrick Barbour metoprolol succinate XL (Toprol-XL) 24 hr tablet 25 mg metoprolol succinate XL (Toprol-XL) 24 hr tablet 25 mg 2024-01-30 22:30: 00 02-05 14:10 :42 No 25mg QD 25 mg, Oral, Daily, First dose on 01/30/25 at 2230, Hold for HR <60 Do not crush or chew., On hold since Sat02/05/2025 at 0856 until manually unheld Patrick Barbour propafenone (Rythmol) tablet 150 mg propafenone (Rythmol) tablet 150 mg 2024-01-30 22:10: 00 Yes 150mg Q8H 150 mg, Oral, Every 8 hours, First dose on Sat01/30/25 at 2210, Hold for HR <60 Patrick Barbour levETIRAcet am (Keppra) tablet 1,000 mg levETIRAcet am (Keppra) tablet 1,000 mg 2024-0 01-30 22:10: 00 02-05 12:40 :20 No 1000mg Q.5D 1,000 mg, Oral, 2 times daily, First dose on 01/30/25 at 2210 Patrick Barbour lacosamide (Vimpat) tablet 100 mg lacosamide (Vimpat) tablet 100 mg 01-30 22:10: 00 01-31 00:18 :39 No 100mg Q.5D 100 mg, Oral, 2 times daily, First dose on Sat01/30/25 at 2210 Memangelina Barbour LORazepam (Ativan) tablet 1 mg LORazepam (Ativan) tablet 1 mg 01-30 22:06: 56 02-01 09:57 :13 No 1mg 1 mg, Oral, Every 12 hours PRN, anxiety, Starting on Sat01/30/25 at 2206 Patrick Barbour LORazepam (Ativan) tablet 2 mg LORazepam (Ativan) tablet 2 mg 01-30 15:55: 00 Yes 2mg 2 mg, Oral, Once, On Sat01/30/25 at 1555, For 1 dose Patrick Barbour hydrALAZINE (Apresoline ) tablet 50 mg hydrALAZINE (Apresoline ) tablet 50 mg 01-30 12:15: 00 Yes 50mg 50 mg, Oral, Once, On Sat01/30/25 at 1215, For 1 dose Patrick Barbour LORazepam (Ativan) tablet 2 mg LORazepam (Ativan) tablet 2 mg 01-30 07:05: 00 Yes 2mg 2 mg, Oral, Once, On Sat01/30/25 at 0705, For 1 dose Patrick Barbour amLODIPine (Norvasc) tablet 10 mg amLODIPine (Norvasc) tablet 10 mg 01-30 07:00: 00 Yes 10mg 10 mg, Oral, Once, On Sat01/30/25 at 0700, For 1 dose Memangelina Barbour levETIRAcet am (Keppra) injection 1,000 mg levETIRAcet am (Keppra) injection 1,000 mg 01-30 06:15: 00 Yes 1000mg 1,000 mg, Intravenou s, Once, On 01/30/25 at 0615, For 1 dose, Administer over 3 minutes IV push for doses up to 1500 mg. Brandiangelina Barbour levoFLOXaci n (Levaquin) 500 MG tablet levoFLOXaci n (Levaquin) 500 MG tablet 01-26 00:00: 02-05 00:00 :00 No 500mg QD Take 500 mg by mouth 1 time each day. Patrick Barbour nitrofurant oin, macrocrysta l-monohydra te, (Macrobid) 100 MG capsule nitrofurant oin, macrocrysta l-monohydra te, (Macrobid) 100 MG capsule 01-26 00:00: 00 02-05 00:00 :00 No 100mg Q.5D Take 100 mg by mouth in the morning and 100 mg in the evening. Patrick Barbour LORazepam (Ativan) 2 MG tablet LORazepam (Ativan) 2 MG tablet 01-25 00:00: 00 02-05 00:00 :00 No 2mg Q.5D Take 2 mg by mouth every 12 hours if needed for anxiety. For 14 days. May give lorazepam 1 mg 2 tabs po q12h PRN until current supply completed Patrick Barbour thiamine (Vitamin B-1) 100 MG tablet thiamine (Vitamin B-1) 100 MG tablet 01-18 00:00: 00 02-05 00:00 :00 No [id number] 100mg QD Take 1 tablet by mouth 1 time each day. Patrick Barbour metoprolol succinate XL (Toprol-XL) 25 MG 24 hr tablet metoprolol succinate XL (Toprol-XL) 25 MG 24 hr tablet 01-16 00:00: 00 02-15 23:59 :00 No 25mg QD Take 1 tablet by mouth 1 time each day. Do not crush or chew. Patrick Barbour aspirin EC 81 MG EC tablet aspirin EC 81 MG EC tablet 01-16 00:00: 00 02-15 23:59 :00 No 81mg QD Take 1 tablet by mouth 1 time each day. Patrick Barbour rivaroxaban (Xarelto) 20 MG tablet rivaroxaban (Xarelto) 20 MG tablet 01-15 21:37: 33 01-15 00:00 :00 No 20mg Take 20 mg by mouth in the evening. Take with meals.. Take with food. Patrick Barbour metoprolol succinate XL (Toprol-XL) 100 MG 24 hr tablet metoprolol succinate XL (Toprol-XL) 100 MG 24 hr tablet 01-15 21:37: 33 01-15 00:00 :00 No .5{tbl} Q.5D Take 0.5 tablets by mouth in the morning and 0.5 tablets in the evening. Do not crush or chew. Patrick Barbour famotidine (Pepcid) 20 MG tablet famotidine (Pepcid) 20 MG tablet 01-15 21:37: 31 Yes 20mg Q12H Take 20 mg by mouth in the morning and 20 mg in the evening. For 10 days. Patrick Barbour terazosin (Hytrin) 10 MG capsule terazosin (Hytrin) 10 MG capsule 01-15 21:37: 31 01-31 00:00 :00 No 10mg Take 10 mg by mouth at bedtime. Patrick Barbour doxazosin (Cardura) 2 MG tablet doxazosin (Cardura) 2 MG tablet 01-15 21:37: 31 01-31 00:00 :00 No 2mg Take 2 mg by mouth at bedtime. Patrick Barbour furosemide (Lasix) 20 MG tablet furosemide (Lasix) 20 MG tablet 01-15 21:37: 01-31 00:00 :00 No 20mg QD Take 20 mg by mouth 1 time each day. Patrick Barbour aspirin EC EC tablet 81 mg aspirin EC EC tablet 81 mg 01-15 13:30: 00 Yes 81mg QD 81 mg, Oral, Daily, First dose on Sat01/15/25 at 1330, Do not crush, chew, or split. Patrick Barbour bisacodyl (Dulcolax) EC tablet 10 mg bisacodyl (Dulcolax) EC tablet 10 mg 01-15 10:15: 00 01-15 10:49 :00 No 10mg 10 mg, Oral, Once, On Sat01/15/25 at 1015, For 1 dose, Do not give within 1 hour of antacids, milk, or dairy products. Do not crush, chew, or split. Patrick Barbour hydrALAZINE (Apresoline ) 50 MG tablet hydrALAZINE (Apresoline ) 50 MG tablet 01-15 00:00: 00 02-14 23:59 :00 No 50mg Q8H Take 1 tablet by mouth in the morning and 1 tablet at noon and 1 tablet before bedtime. Patrick Barbour levETIRAcet am (Keppra) 1000 MG tablet levETIRAcet am (Keppra) 1000 MG tablet 01-15 00:00: 00 02-14 23:59 :00 No 1000mg Q.5D Take 1 tablet by mouth in the morning and 1 tablet in the evening. Patrick Barbour sennosides (Senokot) 8.6 MG tablet sennosides (Senokot) 8.6 MG tablet 01-15 00:00: 00 02-14 23:59 :00 No 8.6mg Q.5D Take 1 tablet by mouth in the morning and 1 tablet in the evening. Patrick Barbour acetaminoph en (Tylenol) 325 MG tablet acetaminoph en (Tylenol) 325 MG tablet 01-15 00:00: 00 02-05 00:00 :00 No 650mg Q6H Take 2 tablets by mouth every 6 hours if needed for mild pain (1-3) for up to 10 days. Patrick Barbour docusate sodium 100 MG capsule docusate sodium 100 MG capsule 01-15 00:00: 00 02-05 00:00 :00 No 100mg Q12H Take 1 capsule by mouth in the morning and 1 capsule in the evening. Do all this for 10 days. Patrick Glez [facility] polyethylen e glycol, PEG, 3350 (Miralax) 17 g packet polyethylen e glycol, PEG, 3350 (Miralax) 17 g packet 01-15 00:00: 00 02-05 00:00 :00 No 17g Q.5D Take 17 g by mouth 2 times a day as needed. Patrick Barbour lacosamide (Vimpat) 100 MG tablet lacosamide (Vimpat) 100 MG tablet 01-15 00:00: 00 01-25 23:59 :00 Yes [id number] 100mg Q.5D Take 1 tablet by mouth in the morning and 1 tablet in the evening. Do all this for 10 days. Patrick Barbour celecoxib (CeleBREX) capsule 100 mg celecoxib (CeleBREX) capsule 100 mg 01-14 17:30: 00 Yes 100mg Q.5D 100 mg, Oral, 2 times daily, First dose on Sat01/14/25 at 1730 Patrick Barbour methocarbam ol (Robaxin) tablet 500 mg methocarbam ol (Robaxin) tablet 500 mg 01-14 17:27: 08 Yes 500mg Q8H 500 mg, Oral, Every 8 hours PRN, muscle spasms, for pain, Starting on Sat01/14/25 at 1727 Patrick Barbour LORazepam (Ativan) tablet 2 mg LORazepam (Ativan) tablet 2 mg 01-13 23:00: 00 Yes 2mg 2 mg, Oral, Nightly, First dose (after last modificati on) on Sat01/13/25 at 2300 Patrick Barbour levETIRAcet am (Keppra) tablet 1,000 mg levETIRAcet am (Keppra) tablet 1,000 mg 01-13 17:00: 00 Yes 1000mg Q.5D 1,000 mg, Oral, 2 times daily, First dose on Sat01/13/25 at 1700 Patrick Barbour lacosamide (Vimpat) tablet 100 mg lacosamide (Vimpat) tablet 100 mg 01-13 17:00: 00 Yes 100mg Q.5D 100 mg, Oral, 2 times daily, First dose on Sat01/13/25 at 1700 Patrick Glez [facility] polyethylen e glycol (PEG) 3350 (Miralax) packet 17 g polyethylen e glycol (PEG) 3350 (Miralax) packet 17 g 01-13 00:00: 00 Yes 17g Q12H 17 g, Oral, Every 12 hours, First dose on Sat01/13/25 at 0000, Dissolve 17 g in 120 to 240 mL (4 to 8 ounces) of beverage. Patirck Barbour docusate sodium (Colace) capsule 100 mg docusate sodium (Colace) capsule 100 mg 01-13 00:00: 00 Yes 100mg Q12H 100 mg, Oral, Every 12 hours, First dose on Sat01/13/25 at 0000, OK to hold if loose stool Patrick Barbour lactulose (Chronulac) 10 GM/15ML solution 20 g lactulose (Chronulac) 10 GM/15ML solution 20 g 01-12 13:00: 00 01-14 12:59 :00 No 20g [id number] 3D 20 g, Oral, 3 times daily, First dose on Sat01/12/25 at 1300, For 6 doses Patrick Barbour thiamine (Vitamin B-1) tablet 100 mg thiamine (Vitamin B-1) tablet 100 mg 01-12 09:00: 00 Yes 100mg QD 100 mg, Oral, Daily, First dose on Sat01/12/25 at 0900 Patrick Barbour levETIRAcet am (Keppra) injection 1,000 mg levETIRAcet am (Keppra) injection 1,000 mg 01-12 05:00: 00 01-13 14:48 :53 No 1000mg Q12H 1,000 mg, Intravenou s, Every 12 hours, First dose on Sat01/12/25 at 0500, Administer over 3 minutes IV push for doses less than 1500 mg. Patrick Barbour lacosamide (Vimpat) 100 mg in sodium chloride 0.9 % 50 mL IVPB lacosamide (Vimpat) 100 mg in sodium chloride 0.9 % 50 mL IVPB 01-11 21:00: 00 01-13 13:06 :17 No 100mg Q.5D 100 mg, Intravenou s, at 100 mL/hr, Administer over 30 Minutes, Every 12 hours scheduled, First dose (after last reorder) on Sat01/11/25 at 2100 Patrick Barbour heparin injection 5,000 Units heparin injection 5,000 Units 01-11 14:00: 00 Yes 5000U [id number] 3D 5,000 Units, Subcutaneo us, Every 8 hours scheduled, First dose on Sat01/11/25 at 1400 Patrick Glez Epic sulfur hexafluorid e lipid-type A microsphere s (Lumason) 60.7-25 MG Injectable suspension 2 mL sulfur hexafluorid e lipid-type A microsphere s (Lumason) 60.7-25 MG Injectable suspension 2 mL 01-11 13:04: 40 01-11 12:30 :00 No 2mL 2 mL, Intravenou s, Once in imaging, Starting on Sat01/11/25 at 1304, For 1 dose, Reconstitu te with 5 mL of PF NS only using provided Mini-Oral ; shake vigorously for 20 sec until a homogenous white milky suspension forms. Use immediatel y. May repeat once during procedure. Patrick Barbour lacosamide (Vimpat) 200 mg in sodium chloride 0.9 % 50 mL IVPB lacosamide (Vimpat) 200 mg in sodium chloride 0.9 % 50 mL IVPB 01-11 13:00: 00 01-11 14:45 :00 No 200mg 200 mg, Intravenou s, at 100 mL/hr, Administer over 30 Minutes, Once, On Sat01/11/25 at 1300, For 1 dose Patrick Barbour potassium chloride IVPB 10 mEq potassium chloride IVPB 10 mEq 01-11 12:00: 00 01-11 14:40 :00 No 10meq Q1H 10 mEq, Intravenou s, at 50 mL/hr, Administer over 1 Hours, Every 1 hour, First dose on Sat01/11/25 at 1200, For 3 doses, Central-li ne infusion highly recommende d for infusions >10 mEq/hour May infuse via peripheral line at 10 meq/ hour For central line administra tion only. Patrick Barbour levETIRAcet am (Keppra) 3,000 mg in sodium chloride 0.9 % 250 mL IVPB levETIRAcet am (Keppra) 3,000 mg in sodium chloride 0.9 % 250 mL IVPB 01-11 10:30: 00 01-11 11:30 :00 No 3000mg 3,000 mg, Intravenou s, at 1,000 mL/hr, Administer over 15 Minutes, Once, On Sat01/11/25 at 1030, For 1 dose Patrick Barbour metoprolol succinate XL (Toprol-XL) 24 hr tablet 25 mg metoprolol succinate XL (Toprol-XL) 24 hr tablet 25 mg 01-11 09:00: 00 Yes 25mg QD 25 mg, Oral, Daily, First dose on Sat01/11/25 at 0900, Do not crush or chew. Patrick Barbour levETIRAcet am (Keppra) tablet 1,000 mg levETIRAcet am (Keppra) tablet 1,000 mg 01-11 09:00: 00 01-11 16:31 :10 No 1000mg Q.5D 1,000 mg, Oral, 2 times daily, First dose on Sat01/11/25 at 0900 Patrick Barbour potassium chloride CR (Klor-Con M20) ER tablet 20 mEq potassium chloride CR (Klor-Con M20) ER tablet 20 mEq 01-11 08:00: 00 01-11 09:14 :00 No 20meq 20 mEq, Oral, Once, On Sat01/11/25 at 0800, For 1 dose, For patients able to take medication s orally or via feeding tube >/= 14 Sudanese, may dissolve each 20 mEq tablet in 4 oz of water. Allow about 2 minutes for the tablets to disintegra te. Stir before giving to prepare slurry and administer . Please exclude patient's with feeding tube less than 14 Sudanese (Dobhoff, J-tube, etc) and pediatric and patients Do not crush or chew. Patrick Barbour propafenone (Rythmol) 150 MG tablet propafenone (Rythmol) 150 MG tablet 01-11 07:30: 00 Yes 150mg Q8H Take 150 mg by mouth in the morning and 150 mg at noon and 150 mg before bedtime. Patrick Barbour potassium chloride CR (Klor-Con M20) ER tablet 40 mEq potassium chloride CR (Klor-Con M20) ER tablet 40 mEq 01-11 02:00: 00 01-11 02:02 :00 No 40meq 40 mEq, Oral, Once, On Sat01/11/25 at 0200, For 1 dose, For patients able to take medication s orally or via feeding tube >/= 14 Sudanese, may dissolve each 20 mEq tablet in 4 oz of water. Allow about 2 minutes for the tablets to disintegra te. Stir before giving to prepare slurry and administer . Please exclude patient's with feeding tube less than 14 Sudanese (Dobhoff, J-tube, etc) and pediatric and patients Do not crush or chew. Patrick Barbour levETIRAcet am (Keppra) tablet 1,000 mg levETIRAcet am (Keppra) tablet 1,000 mg 01-11 00:00: 00 Yes 1000mg 1,000 mg, Oral, Once, On Sat01/11/25 at 0000, For 1 dose Patrick Barbour hydrALAZINE (Apresoline ) tablet 50 mg hydrALAZINE (Apresoline ) tablet 50 mg 01-10 22:00: 00 Yes 50mg Q8H 50 mg, Oral, Every 8 hours, First dose on 01/10/25 at 2200 Patrick Barbour doxazosin (Cardura) tablet 2 mg doxazosin (Cardura) tablet 2 mg 01-10 21:00: 00 Yes 2mg 2 mg, Oral, Nightly, First dose on 01/10/25 at 2100 Patrick Barbour amLODIPine (Norvasc) 10 MG tablet amLODIPine (Norvasc) 10 MG tablet 01-10 18:45: 00 02-05 00:00 :00 No 10mg Q.5D Take 10 mg by mouth in the morning and 10 mg in the evening. Patrick Barbour hydrALAZINE injection 20 mg hydrALAZINE injection 20 mg 01-10 18:28: 46 Yes 20mg Q4H 20 mg, Intravenou s, Every 4 hours PRN, high blood pressure, >150, Starting on Sat01/10/25 at 1828, If goal BP is not achieved after 30 minutes of administer ing medication , Notify MD. Recheck Vitals Q15 minutes x 4. Avoid use in patients with HR >110 bpm. Second agent Patrick Barbour levETIRAcet am (Keppra) 100 MG/ML solution 500 mg levETIRAcet am (Keppra) 100 MG/ML solution 500 mg 01-10 17:00: 00 01-10 23:17 :27 No 500mg Q.5D 500 mg, Oral, 2 times daily, First dose on Sat01/10/25 at 1700 Patrick Barbour LORazepam (Ativan) tablet 2 mg LORazepam (Ativan) tablet 2 mg 01-10 14:10: 00 01-13 22:46 :02 No 2mg QD 2 mg, Oral, Daily, First dose on Sat01/10/25 at 1410 Patrick Barbour iohexol (OMNIPaque) 350 MG/ML injection 60 mL iohexol (OMNIPaque) 350 MG/ML injection 60 mL 01-10 11:52: 12 01-10 11:55 :00 No 60mL 60 mL, Intravenou s, Once in imaging, Starting on Sat01/10/25 at 1152, For 1 dose Patrick Barbour sennosides (Senokot) tablet 8.6 mg sennosides (Senokot) tablet 8.6 mg 01-10 09:00: 00 Yes 1{tbl} Q.5D 8.6 mg (1 tablet), Oral, 2 times daily, First dose on Sat01/10/25 at 0900 Patrick Barbour famotidine (Pepcid) tablet 20 mg famotidine (Pepcid) tablet 20 mg 01-10 09:00: 00 Yes 20mg QD 20 mg, Oral, Daily, First dose on Sat01/10/25 at 0900 Patrick Barbour acetaminoph en (Tylenol) tablet 650 mg acetaminoph en (Tylenol) tablet 650 mg 01-10 08:04: 53 Yes 650mg Q6H 650 mg, Oral, Every 6 hours PRN, mild pain (1-3), Starting on Sat01/10/25 at 0804 Patrick Barbour HYDROcodone -acetaminop hen (Dalton) 5-325 MG per tablet 1 tablet HYDROcodone -acetaminop hen (Dalton) 5-325 MG per tablet 1 tablet 01-10 08:04: 53 01-12 16:52 :39 No 1{tbl} Q6H 1 tablet, Oral, Every 6 hours PRN, moderate pain (4-6), Starting on Sat01/10/25 at 0804 Patrick Glez Epic gadobenate dimeglumine (Multihance ) injection 16 mL gadobenate dimeglumine (Multihance ) injection 16 mL 01-10 07:31: 26 01-10 09:03 :00 No 16mL 16 mL, Intravenou s, Once in imaging, Starting on Sat01/10/25 at 0731, For 1 dose Patrick Glez Epic sodium chloride (NS) 0.9 % flush 10 mL sodium chloride (NS) 0.9 % flush 10 mL 01-10 05:40: 00 01-10 14:41 :33 No 10mL Q12H 10 mL, Intravenou s, Every 12 hours, First dose on Sat01/10/25 at 0540, Administer at least once every 12 hours Patrick Barbour naloxone (Narcan) injection 0.04 mg naloxone (Narcan) injection 0.04 mg 01-10 05:34: 30 Yes .04mg 0.04 mg, Intravenou s, As needed, opioid reversal, every 2 mins PRN for Narcotic Reversal, Starting on Sat01/10/25 at 0534, For 8 doses, Give up to 8 doses of 0.04 mg as needed to reverse over sedation. Keep available for immediate use. Call ordering physician STAT. (Dilute 0.4 mg/mL in 9 mL of saline) Patrick Barbour ondansetron (Zofran) injection 4 mg ondansetron (Zofran) injection 4 mg 01-10 05:34: 30 Yes 4mg Q6H 4 mg, Intravenou s, Every 6 hours PRN, nausea, vomiting, Starting on Sat01/10/25 at 0534 Patrick Barbour hydrALAZINE injection 10 mg hydrALAZINE injection 10 mg 01-10 05:34: 30 01-10 18:29 :18 No 10mg Q4H 10 mg, Intravenou s, Every 4 hours PRN, high blood pressure, >150, Starting on Sat01/10/25 at 0534, If goal BP is not achieved after 30 minutes of administer ing medication , Notify MD. Recheck Vitals Q15 minutes x 4. Avoid use in patients with HR >110 bpm. Patrick Barbour iohexol (OMNIPaque) 350 MG/ML injection 100 mL iohexol (OMNIPaque) 350 MG/ML injection 100 mL 01-10 01:49: 43 01-10 01:53 :00 No 100mL 100 mL, Intravenou s, Once in imaging, Starting on Sat01/10/25 at 0149, For 1 dose Patrick Barbour levETIRAcet am (Keppra) injection 1,000 mg levETIRAcet am (Keppra) injection 1,000 mg 01-10 01:30: 00 Yes 1000mg 1,000 mg, Intravenou s, Once, On Sat01/10/25 at 0130, For 1 dose, Administer over 3 minutes IV push for doses less than 1500 mg. Patrick Barbour four factor human prothrombin complex concentrate (Kcentra) 2,640 Units in sterile water 100 mL infusion four factor human prothrombin complex concentrate (Kcentra) 2,640 Units in sterile water 100 mL infusion 01-10 01:00: 00 01-10 01:11 :00 No 2640U 2,640 Units, Intravenou s, at 400 mL/hr, Administer over 15 Minutes, Once, On Sat01/10/25 at 0100, For 1 dose, Dose: 35 units/kg x 77.1kg = 2699 units 528 units/vial x 5 vials= 2640 units Do not exceed rate of 8.4 mL/min. Patrick Barbour niCARdipine (Cardene) 40 mg/200 mL NS (0.2 mg/mL) premix niCARdipine (Cardene) 40 mg/200 mL NS (0.2 mg/mL) premix 01-10 00:05: 00 01-11 10:19 :59 No 2.5mg/h 2.5-15 mg/hr (12.5-75 mL/hr), Intravenou s, Continuous , Starting on Sat01/10/25 at 0005, Infusion Type: Titrate, Initial Dose (mg/hr): 5, Titrate by (mg/hr): 2.5, Every (minutes): 15, Target Blood Pressure (mmHg): SBP less than 140 mmHg, Max Dose (mg/hr): 15 Patrick Glez Epic sodium chloride (NS) 0.9 % flush 10 mL sodium chloride (NS) 0.9 % flush 10 mL 01-10 00:00: 47 Yes 10mL [Order 1 Start] Name: Insert peripheral IV Signed Summary: Once, On Sat01/10/25 at 0001, For 1 occurrence [Order 1 End] [Order 2 Start] Name: Saline lock IV Signed Summary: Once, On Sat01/10/25 at 0001, For 1 occurrence [Order 2 End] [Order 3 Start] Name: sodium chloride (NS) 0.9 % flush 10 mL Signed Summary: 10 mL, Intravenou s, As needed, line care, Starting on Sat01/10/25 at 0000 [Order 3 End] Patrick Glez Epic dextrose 50 % solution 25 mL dextrose 50 % solution 25 mL 01-09 23:55: 00 01-09 23:45 :00 No 25mL 25 mL, Intravenou s, Once, On [facility] 01/09/25 at 2355, For 1 dose Patrick Glez Epic dextrose 50 % solution - Pyxis Override Pull dextrose 50 % solution - Pyxis Override Pull 01-09 23:41: 33 01-09 23:45 :00 No Starting on [facility] 01/09/25 at 2341, For 1 dose, Created by cabinet override Patrick Glez Epic Vital Signs Vital Name Observation Time Observation Value Comments S ource Body temperature 2025-02-05 15:38:53 36.39 [facility] Systolic blood pressure 2025-02-05 06:00:00 137 mm[Hg] Adriana baez [facility] Diastolic blood pressure 2025-02-05 06:00:00 61 mm[Hg] Adriana baez Epic Heart rate 2025-02-05 06:00:00 41 /min [facility] [place] [facility] Respiratory rate 2025-02-05 06:00:00 14 /min [facility] [place] Epic Oxygen saturation in Arterial blood by Pulse oximetry 2025-02-05 06:00:00 94 /min Adriana baez [facility] Body height 2025-01-30 01:07:00 180.3 cm [facility] [place] [facility] Body weight 2025-01-30 01:07:00 90.719 kg [facility] [place] [facility] BMI 2025-01-30 01:07:00 27.89 kg/m2 [facility] [place] Epic Body temperature 2025-02-05 15:38:53 36.39 [facility] Adriana [place] Epic Systolic blood pressure 2025-02-05 06:00:00 137 mm[Hg] Adriana baez [facility] Diastolic blood pressure 2025-02-05 06:00:00 61 mm[Hg] Adriana Walker baez Epic Heart rate 2025-02-05 06:00:00 41 /min [facility] [place] Epic Respiratory rate 2025-02-05 06:00:00 14 /min [facility] [place] Epic Oxygen saturation in Arterial blood by Pulse oximetry 2025-02-05 06:00:00 94 /min Adriana baez [facility] Body height 2025-01-30 01:07:00 180.3 cm [facility] [place] [facility] Body weight 2025-01-30 01:07:00 90.719 kg [facility] [place] [facility] BMI 2025-01-30 01:07:00 27.89 kg/m2 [facility] [place] Epic Body temperature 2025-01-15 19:40:41 37.06 [facility] [place] Epic Systolic blood pressure 2025-01-15 19:00:00 123 mm[Hg] Adriana Walker [facility] Diastolic blood pressure 2025-01-15 19:00:00 61 mm[Hg] Adriana Walker [facility] Epic Heart rate 2025-01-15 19:00:00 64 /min [facility] [place] [facility] Respiratory rate 2025-01-15 19:00:00 22 /min [facility] Oxygen saturation in Arterial blood by Pulse oximetry 2025-01-15 19:00:00 94 /min Adriana baez [facility] Body height 2025-01-11 11:53:00 182.9 cm [facility] 2025-01-11 11:53:00 90.7 kg [facility] 2025-01-11 11:53:00 27.11 kg/m2 [facility] temperature 2025-01-15 19:40:[address] [facility] Systolic blood pressure 2025-01-15 19:00:00 123 mm[Hg] [facility] Diastolic blood pressure 2025-01-15 19:00:00 61 mm[Hg] [facility] Heart rate 2025-01-15 19:00:00 64 [facility] Respiratory rate 2025-01-15 19:00:00 22 /min [facility] Oxygen saturation in Arterial blood by Pulse oximetry 2025-01-15 19:00:00 94 /min [facility] Body height 2025-01-11 11:53:00 182.9 cm [facility] weight 2025-01-11 11:53:00 90.7 kg [facility] BMI 2025-01-11 11:53:00 27.11 kg/m2 Nixonrodrigue paniagua [facility] Procedures Procedure Date / Time Performed Performing Clinician Source POCT Glucose 2025-03-03 00:00:[address] [facility] Complete Blood Count w/Diff and Platelet AM 2025-02-10 00:00:[address] [facility] Basic Metabolic Panel AM 2025-02-10 00:00:[address] [facility] POC GLUCOSE UNSOLICITED RESULTS 2025-02-05 08:20:[address] [facility] BASIC METABOLIC PANEL 2025-02-05 04:46:[address] [facility] COMPLETE BLOOD COUNT W/DIFF AND PLATELET 2025-02-05 04:46:[address] [facility] COMPLETE BLOOD COUNT 2025-02-05 04:46:[address] [facility] AUTOMATED DIFFERENTIAL 2025-02-05 04:46:[address] [facility] POC GLUCOSE UNSOLICITED RESULTS 2025-02-04 15:04:[address] [facility] POC GLUCOSE UNSOLICITED RESULTS 2025-02-04 10:42:[address] [facility] BASIC METABOLIC PANEL 2025-02-04 05:21:[address] [facility] COMPLETE BLOOD COUNT W/DIFF AND PLATELET 2025-02-04 05:21:[address] [facility] TROPONIN I HIGH SENSITIVITY (SINGLE ORDER) 2025-02-04 05:21:[address] [facility] COMPLETE BLOOD COUNT 2025-02-04 05:21:[address] [facility] AUTOMATED DIFFERENTIAL 2025-02-04 05:21:[address] [facility] VITAMIN B12 LEVEL 2025-02-03 05:12:[address] [facility] THYROID STIMULATING HORMONE W/ REFLEX FREE T4 2025-02-03 05:12:[address] [facility] Vitamin D 1,25-Dihydroxy 2025-02-03 00:00:[address] [facility] POC GLUCOSE UNSOLICITED RESULTS 2025-02-02 11:07:[address] [facility] BASIC METABOLIC PANEL 2025-02-02 03:45:[address] [facility] COMPLETE BLOOD COUNT W/DIFF AND PLATELET 2025-02-02 03:45:[address] [facility] COMPLETE BLOOD COUNT 2025-02-02 03:45:[address] [facility] AUTOMATED DIFFERENTIAL 2025-02-02 03:45:[address] [facility] POC GLUCOSE UNSOLICITED RESULTS 2025-02-01 22:37:[address] [facility] ECG 12-LEAD 2025-02-01 17:48:43 Caleb, Gary singh [place] [facility] COMPLETE BLOOD COUNT W/DIFF AND PLATELET 2025-02-01 11:20:[address] [facility] COMPLETE BLOOD COUNT 2025-02-01 11:20:[address] [facility] AUTOMATED DIFFERENTIAL 2025-02-01 11:20:00 Delap az, Suzan [facility] COMPREHENSIVE METABOLIC PANEL 2025-02-01 11:19:00 Caleb, Suzan Sullivanmimi [facility] BASIC METABOLIC PANEL 2025-01-31 02:07:00 [facility]LO[facility] W/DIFF AND PLATELET 2025-01-31 02:07:00 Nept[facility] COMPLETE BLOOD COUNT 2025-01-31 02:07:00 [facility] DI[facility] 2025-01-31 02:07:00 Sourav Gunderson [facility] ECG 12-LEAD 2025-01-30 05:05:00 Yrn Saunders [facility] CT BRAIN WO IV CONTRAST 2025-01-30 04:19:[address] [facility] CT CERVICAL SPINE WO IV CONTRAST 2025-01-30 04:19:[address] [facility] BASIC METABOLIC PANEL 2025-01-30 03:48:[address] [facility] BLOOD GAS, VENOUS 2025-01-30 03:48:[address] [facility] COMPLETE BLOOD COUNT W/DIFF AND PLATELET 2025-01-30 03:48:[address] [facility] PROTIME-INR 2025-01-30 03:48:00 Yrn Saunders [facility] PTT 2025-01-30 03:48:00 Yrn Saunders [facility] THROMBOELASTOGRAPH RAPID 2025-01-30 03:48:[address] [facility] LACTIC ACID WITH 2 HOUR REFLEX 2025-01-30 03:48:[address] [facility] COMPLETE BLOOD COUNT 2025-01-30 03:48:[address] [facility] AUTOMATED DIFFERENTIAL 2025-01-30 03:48:[address] [facility] COMPREHENSIVE METABOLIC PANEL 2025-01-15 02:18:00 [facility] W/DIFF AND PLATELET 2025-01-15 02:18:00 [facility] 2025-01-15 02:18:00 [facility] 2025-01-15 02:18:[address] [facility] Hetal Auris Fungal Culture Surveillance 2025-01-15 00:00:[address] [facility] POC GLUCOSE UNSOLICITED RESULTS 2025-01-14 20:33:[address] [facility] MRI LUMBAR SPINE WO IV CONTRAST 2025-01-14 10:09:[address] [facility] MRI THORACIC SPINE WO IV CONTRAST 2025-01-14 10:06:[address] [facility] COMPREHENSIVE METABOLIC PANEL 2025-01-14 03:46:00 [facility]PLETE BLOOD COUNT W/DIFF AND PLATELET 2025-01-14 03:46:00 [facility] 2025-01-14 03:46:00 Shentu, [facility] AUTOMATED DIFFERENTIAL 2025-01-14 03:46:00 Shentu, Zane singh [facility] COMPREHENSIVE METABOLIC PANEL 2025-01-13 00:07:00 Shentu [facility] CREATINE KINASE (CK TOTAL) 2025-01-13 00:07:00 [facility] COMPLETE BLOOD COUNT W/DIFF AND PLATELET 2025-01-13 00:07:00 [facility] 2025-01-13 00:07:00 Shentu, Yujia [facility] AUTOMATED DIFFERENTIAL 2025-01-13 00:07:[address] [facility] MRI CERVICAL SPINE WO IV CONTRAST 2025-01-12 21:45:[address] [facility] COMPREHENSIVE METABOLIC PANEL 2025-01-12 05:19:00 [facility] COMPLETE BLOOD COUNT W/DIFF AND PLATELET 2025-01-12 05:19:[address] [facility] COMPLETE BLOOD COUNT 2025-01-12 05:19:00 Shentmary [facility] 2025-01-12 05:19:[address] [facility] TRANSTHORACIC ECHO (TTE) COMPLETE W/ CONTRAST 2025-01-11 12:35:[address] [facility] THROMBOELASTOGRAPH CLOTTING PROFILE 2025-01-11 05:06:[address] [facility] COMPREHENSIVE METABOLIC PANEL 2025-01-11 00:17:[address] [facility] CREATINE KINASE (CK TOTAL) 2025-01-11 00:17:[address] [facility] COMPLETE BLOOD COUNT W/DIFF AND PLATELET 2025-01-11 00:17:00 [facility] 2025-01-11 00:17:00 [facility] 2025-01-11 00:17:[address] [facility] FOLATE LEVEL 2025-01-10 16:18:[address] [facility] CORONAVIRUS (COVID-19) FLU RSV ENID 2025-01-10 15:37:[address] [facility] EEG CONTINUOUS MONITORING 2025-01-10 15:30:[address] [facility] CT ANGIOGRAM BRAIN NECK 2025-01-10 11:56:[address] [facility] CT BRAIN WO IV CONTRAST 2025-01-10 11:56:[address] [facility] CREATINE KINASE (CK TOTAL) 2025-01-10 10:55:[address] [facility] TROPONIN I HIGH SENSITIVITY CARESET (1ST HR) 2025-01-10 10:55:[address] [facility] THROMBOELASTOGRAPH RAPID 2025-01-10 10:55:[address] [facility] [facility] PT AND PTT 2025-01-10 10:55:00 Tony Doyle [facility] MRI BRAIN W IV CONTRAST STEALTH 2025-01-10 10:21:05 [facility] AND WO IV CONTRAST 2025-01-10 09:03:37 Shentu, [facility] POC GLUCOSE UNSOLICITED RESULTS 2025-01-10 02:55:[address] [facility] CT CHEST ABDOMEN PELVIS W IV CONTRAST 2025-01-10 02:03:[address] [facility] CT BRAIN WO IV CONTRAST 2025-01-10 01:52:[address] [facility] TYPE AND SCREEN 2025-01-10 01:32:[address] [facility] TROPONIN I HIGH SENSITIVITY CARESET 2025-01-10 00:43:[address] [facility] TROPONIN I HIGH SENSITIVITY CARESET (BASELINE) 2025-01-10 00:43:[address] [facility] HEPATIC FUNCTION PANEL 2025-01-10 00:35:[address] [facility] ETHANOL LEVEL 2025-01-10 00:35:[address] [facility] AMMONIA LEVEL 2025-01-10 00:35:00 Marisa Castrejon [facility] VITAMIN B12 LEVEL 2025-01-10 00:35:[address] [facility] BLOOD GAS, VENOUS 2025-01-10 00:35:[address] [facility] T4 FREE 2025-01-10 00:35:00 [facility] 2025-01-10 00:35:00 Marisa Castrejon [facility] HIV 4TH GEN WITH REFLEX 2025-01-10 00:35:[address] [facility] THYROID STIMULATING HORMONE W/ REFLEX FREE T4 2025-01-10 00:35:[address] [facility] THROMBOELASTOGRAPH RAPID 2025-01-10 00:35:[address] [facility] LACTIC ACID WITH 2 HOUR REFLEX 2025-01-10 00:35:[address] [facility] RPR WITH REFLEXES 2025-01-10 00:35:[address] [facility] BASIC METABOLIC PANEL 2025-01-10 00:14:00 Leila Woods ms [facility] MAGNESIUM LEVEL 2025-01-10 00:14:[address] [facility] PHOSPHORUS LEVEL 2025-01-10 00:14:[address] [facility] COMPLETE BLOOD COUNT W/DIFF AND PLATELET 2025-01-10 00:14:[address] [facility] UA WITH CULTURE IF INDICATED 2025-01-10 00:14:[address] [facility] COMPLETE BLOOD COUNT 2025-01-10 00:14:[address] [facility] AUTOMATED DIFFERENTIAL 2025-01-10 00:14:[address] [facility] ECG 12-LEAD 2025-01-10 00:06:[address] [facility] POC GLUCOSE UNSOLICITED RESULTS 2025-01-10 00:06:[address] [facility] Vitamin B1 Level 2025-01-10 00:00:00 Nixon rial [facility] Drug Screen Urine (8 Drugs) 2025-01-10 00:00:[address] [facility] ECG 12 lead (arrhythmia) 2025-01-10 00:00:[address] [facility] ABORh Blood Type and Antibody Screen 2025-01-10 00:00:[address] [facility] POC GLUCOSE UNSOLICITED RESULTS 2025-01-09 23:39:[address] [facility] CT EXTERNAL SPINE 2025-01-09 00:00:[address] [facility] Complete Blood Count w/Diff and Platelet [facility] EEG continuous monitoring Me morial [facility] Comprehensive Metabolic Panel [facility] Encounters Start Date/Time End Date/Time Encounter Type Admission Type Attending [facility] Care Facility Care Department Encounter ID Source 2025-01-30 01:09:00 2025-02-05 16:21:00 Hospital Encounter Janiemimi Craig, Miriam Alejandro, Shae Norman, Dolores Grande, Debbie Castrejon, Marisa Ang, Leobardo Gill, Ezekiel Decker, Clarita Carter, Ramez Silva, Debbie Carrera, Karen Alejandro, Kinga hardy, Emeka Traylor, [facility] Dhruvkumar [facility] ..[id number] [facility] 2025-01-30 01:09:00 2025-02-05 16:21:00 [facility] General Medicine [id number] [facility] 2025-01-30 04:12:18 2025-01-30 04:12:18 Outpatient [facility] [id number] [facility] 2025-01-30 03:12:36 2025-01-29 23:59:00 Outpatient [facility] [id number] [facility] 2025-01-09 23:14:00 2025-01-15 21:37:00 Hospital Encounter Marisa Castrejon, Gabino Cruz, Amy Meehan , Cadence Lopez, Jared Melendez, Clem Miranda [facility] 1..[id number] [facility] 2025-01-09 23:14:00 2025-01-15 21:37:00 Inpatient Emergency CLEM MELENDEZ [facility] General Medicine [id number] [facility] 2025-01-09 23:48:27 2025-01-10 23:59:00 Outpatient [facility] [id number] [facility] 2025-01-10 00:00:00 2025-01-10 00:00:00 Orders Only System, Provider Not In [facility] [id number] [facility] 2025-01-10 01:01:32 2025-01-09 23:59:00 Outpatient [facility] [id number] [facility] 2025-01-10 01:01:31 2025-01-09 23:59:00 Outpatient [facility] [id number] [facility] 2025-01-10 00:59:03 2025-01-09 23:59:00 Outpatient [facility] [id number] [facility] 2025-01-09 23:36:05 2025-01-09 23:59:00 Outpatient [facility] [id number] [facility] Results Test Description Test Time Test Comments Results Result Co mments Source [facility]2025-04-10 15:15:25* Test Item Value Reference Range Interpretation Comme nts POC Glu (test code = 0606397368) 107 mg/dL 70-99 H POC Performing Location (jaelyn t code = 9855512958) J5 NEURO Lab Interpretation (test cod e = 82285-6) Abnormal [facility] [id number] 11:02:25* Test Item Value Reference Range Interpretation Comme nts POC Glu (test code = 7501211825) 101 mg/dL 70-99 H POC Performing Location (jaelyn t code = 6952948944) J5 NEURO Lab Interpretation (test cod e = 69867-1) Abnormal [facility] 12 [id number] 15:49:30* Test Item Value Reference Range Interpretation Comme nts Ventricular Rate (test code = 5103087176) BPM Atrial Rate (test code = 1758298564) BPM OK Interval (test code = 2104009004) 154 ms QRS Duration (test code = 4561558780) 94 ms QT/QTc (test code = 1644772217) 402 ms QTc Calculation (test code = 9812806523) 442 ms P-[place] (test code = 4154675238) degrees R-[place] (test code = 5952619790) degrees T-[place] (test code = 7012008221) degrees IMP (test code = IMP) PXN (test code = PXN) [facility] [id number] 11:13:31* Test Item Value Reference Range Interpretation Comme nts POC Glu (test code = 3774560719) 102 mg/dL 70-99 H POC Performing Location (jaelyn t code = 1644052414) SP1 ER Lab Interpretation (test cod e = 37652-4) Abnormal [facility]2025-04-07 22:39:05* Test Item Value Reference Range Interpretation Comme nts POC Glu (test code = 7008823275) 118 mg/dL 70-99 H POC Performing Location (jaelyn t code = 5240689727) SP1 ER Lab Interpretation (test cod e = 94746-1) Abnormal [facility] 12 [id number] 13:25:22* Test Item Value Reference Range Interpretation Comme nts Ventricular Rate (test code = 7812694411) BPM Atrial Rate (test code = 3934801174) BPM OK Interval (test code = 9994226077) 174 ms QRS Duration (test code = 7873846188) 106 ms QT/QTc (test code = 0450701120) 450 ms QTc Calculation (test code = 2868865210) 418 ms P-[place] (test code = 0761515962) degrees R-[place] (test code = 7320292079) degrees T-[place] (test code = 6955486830) degrees IMP (test code = IMP) PXN (test code = PXN) [facility]2025-03-20 21:39:04* Test Item Value Reference Range Interpretation Comme nts POC Glu (test code = 4125506234) 114 mg/dL 70-99 H POC Performing Location (jaelyn t code = 4212992737) J5 NEURO Lab Interpretation (test cod e = 22419-7) [facility] [id number] 15:46:34* Test Item Value Reference Range Interpretation Comme nts RVOT Vmean (test code = 6304054203) 0.63 m/s LA Vol I (A4C) BSA (test cod e = 9926303361) 8.91 ml/m2 LA Vol I BSA (test code = 3992761512) 4.5 ml/m2 LVOT Vmax/AV Vmax (test code = 3309739824) 0.83 {ratio} Ao Root diam diastole (test code = 4074066216) 31 mm LVOT Vmean (test code = 7149563079) 0.86 m/s LV SV (A4C) (test code = 4415323263) 67.5 ml LV SI (A2C) (test code = 2097635663) 65.5 ml LV SV (BP) (test code = 8084147162) 66.4 ml LV SI (A4C) (test code = 7178452784) 31.64 ml/m2 LV SI (A2C) (test code = 1879292724) 30.71 ml/m2 LV SI (BP) (test code = 4558873563) 31.13 ml/m2 LVLs (A4C) (test code = 6013451036) 64.5 mm LVLs (A2C) (test code = 1518116572) 63.4 mm LVLd (A4C) (test code = 6757915821) 83.6 mm LVLd (A2C) (test code = 7089723228) 84.1 mm PV mn sean (test code = 0437900964) 0.82 m/s LV ESV A2C (test code = 1441099753) 30.3 mL LV EDV A4C (test code = 8376513573) 104 mL LA area A4C (test code = 3421156582) 9.08 cm2 LA area A2C (test code = 6262576872) 5.74 cm2 LV ESV A4C (test code = 8477655167) 36.5 mL LV EDV A2C (test code = 1139261861) 95.8 mL MV max sean (test code = 6075826063) 0.83 cm/s TAPSE (test code = 0862319063) 26 mm RV FAC 2D (test code = 6310073903) LA ESV A2C (test code = 1133347134) 9.6 mL LA ESV A4C (test code = 3649036541) 9.6 mL RV SOY (test code = 1010773572) 18 cm2 MV mn sean (test code = 6296675646) 0.477 m/s LV est EF (test code = 7195779058) 53 % LA vol index (test code = 7008590915) 6.99 mL/m2 LV EDV BP (test code = 6843235172) 99.6 mL LV ESV BP (test code = 0194160493) 33.2 mL MV A pk sean (test code = 5923712975) 0.74 m/s MV PHT (test code = 5821075452) 93 ms MV VTI (test code = 0162053894) 31.9 cm AR max sean PISA (test code = 8188986605) 2.47 m/s MV E pk sean (test code = 1884732579) 0.73 m/s PV mn grad (test code = 0148059428) mmHg MV pk grad (test code = 6446211225) mmHg AV pk grad (test code = 5822286228) mmHg LV stroke vol (test code = 5863955490) 103.45 ml RVOT VTI (test code = 0905054964) 18.8 cm RVOT pk sean (test code = 5981076628) 0.87 m/s AV VTI (test code = 2003032283) 26.1 cm AV pk sean (test code = 4615831490) 1.56 m/s LVOT VTI (test code = 7886675174) 24.9 cm LVOT pk sean (test code = 0180262783) 1.3 m/s LVOT area (test code = 0114277294) 4.15 cm2 LVOT diam (test code = 4626957597) 23 mm MV DT (test code = 3859557740) 318 ms MV e' lateral sean (test code = 2648267480) 15.7 cm/s MV E/A ratio (test code = 9385321102) PV pk grad (test code = 1090031736) mmHg MV area cont eq (test code = 8365592378) 3.24 cm2 MV area PHT (test code = 4809866686) 2.37 cm2 MV mn grad (test code = 7989730374) mmHg LVOT pk grad (test code = 7735787558) mmHg AV mn grad (test code = 2441735649) mmHg AV PHT (test code = 9271047837) 370 ms RVOT mn grad (test code = 0477406199) mmHg RVOT pk grad (test code = 7631876491) mmHg MV E/e' septal (test code = 5069201205) RA vol (test code = 5948318808) 36.2 mL/m2 AV area pk sean (test code = 8252692444) 3.46 cm2 AV area cont VTI (test code = 4255774769) 3.96 cm2 LVOT mn grad (test code = 7045351113) mmHg RV TAE (test code = 1031407822) 25.2 cm2 RV-monson mid diam (test code = 4428443263) 35 cm RV-monson basal diam (test cod e = 1611094007) 49 cm RV-monson longitudinal diam (t est code = 0884748144) 75 cm LV A4C EF (test code = 5883082785) 65 % LV A2C EF (test code = 0434442157) 68 % AV mn sean (test code = 6730237239) 0.95 m/s LVPWd (test code = 6916013733) 10 mm LA size (test code = 4573664139) 31 mm Ascending aorta (test code = 2104759359) [address] junction (test code = 6164651330) 28 mm LA vol BP (test code = 7254991447) 14.9 ml LV biplane EF (test code = 8562185665) 66.7 % Fractional Shortening 2D (te st code = 2923712021) 28 % LVIDs (test code = 2437743771) 37 mm IVSd (test code = 7754687601) 9 mm LVIDd (test code = 0954933350) 51 mm PV pk sean (test code = 9461438195) 1.02 m/s PV VTI (test code = 0425539) 22.2 cm MV E/e' lateral (test code = 7326286) MV e' septal sean (test code = 7744773) 9.79 cm/s LV ESV 2D (test code = 9549183) 56.63 mL LV EDV 2D (test code = 3666359) 121.57 mL IVSd 2D (test code = 7788432) 8.85 cm BSA (test code = 1736339952) 2.15 m2 LV stroke vol index (test co de = 15060805) 48.5 ml/m2 LV LVIDd index (test code = 09795645) 23.72 mm/m2 LV ESV index BP (test code = 3247086269) 15.56 mL/m2 LVIDs index (test code = 33713952) 17.16 mm/m2 LV ESV index A2C (test code = 6433342067) 14.2 ml/m2 LV EDV index BP (test code = 8486243647) 46.69 mL/m2 LV ESV index A4C (test code = 3739254775) 17.11 ml/m2 LV EDV index A2C (test code = 9136821807) LV EDV index A4C (test code = 7096950185) 48.76 ml/m2 LV ESV index 2D (test code = 7432794197) 26.55 ml/m2 LV EDV index 2D (test code = 1747600593) 56.99 ml/m2 LV RWT 2D (test code = 6838394739) LV mass 2D (test code = 3177285245) 219.81 g LV mass index 2D (test code = 3435506757) 103.05 g/m2 LA diam systole Index (test code = 7410062851) 14.53 mm/m2 RV SOY index (test code = 7388313763) 8.44 cm2/m2 RV TAE index (test code = 9366186224) 11.81 cm2/m2 AV area index (test code = 0480636189) 1.86 cm2/m2 LV stroke vol index (test co de = 0720191749) 48.5 mL/m2 Ao STJ diam I - Aorta BSA (t est code = 0919036592) 13.13 mm/m2 AVAI (Vmax) BSA (test code = 2322628978) 1.62 cm2/m2 Ao Asc diam I BSA (test code = 6595007271) 14.06 mm/m2 MV avg E/e' (test code = 0990953931) AV sean ratio (test code = 3582799790) LV mass size 1 (test code = 1142288285) 219.8 cm Radiology Study observation (narrative) (test code = 05136-5) PHILIPP (test code = PHILIPP) [facility] 12 lead (arrhythmia)2025-01-10 15:15:56* Test Item Value Reference Range Interpretation Comme nts Ventricular Rate (test code = 1057060925) BPM QRS Duration (test code = 9768453734) 102 ms QT/QTc (test code = 3880840647) 458 ms QTc Calculation (test code = 0922048152) 417 ms R-[place] (test code = 4414571460) degrees T-[place] (test code = 7381956765) degrees IMP (test code = IMP) PXN (test code = PXN) [facility] Ojxfptm8202-35-48 03:13:29* Test Item Value Reference Range Interpretation Comme nts POC Glu (test code = 4673442519) 69 mg/dL 70-99 L POC Performing Location (jaelyn t code = 1489757473) SP1 ER Lab Interpretation (test cod e = 40290-9) Abnormal [facility]2025-03-16 03:13:29* Test Item Value Reference Range Interpretation Comme nts POC Glu (test code = 5500505913) 143 mg/dL 70-99 H POC Performing Location (jaelyn t code = 0068279242) SP1 ER Lab Interpretation (test cod e = 36931-6) Abnormal [facility] Jpvwqxi7402-36-48 02:57:24* Test Item Value Reference Range Interpretation Comme nts POC Glu (test code = 9936127728) 84 mg/dL 70-99 POC Performing Location (jaelyn t code = 5348544582) H1 ER [facility] Consult Notes Date/Time Note Provider Source 2025-02-03 11:10:32 Associated Order(s): IP SCREENING REFERRAL TO NUTRITION SERVICES NUTRITION ASSESSMENT - ADULT Unit: 5Jones Reason for RD Encounter: SR- recently lost 10# Screening Reason : Recently lost 10 lbs without trying Findings Nutrition Diagnosis: Nutrition Diagnosis: No nutrition diagnosis at this time * Interventions and Recommendation: Trial Premier protein w/ lunch to increase protein intake Monitor nausea; has zofran PRN NUTRITION RISK: Low, in 8-10 days Next Date for Nutrition Services Follow Up: 02/12/25 Current Nutrition: Dietary Orders (From admission, onward) Start Ordered 01/31/25 001 Adult Diet Regular Diet effective now Question: Diet type Answer: Regular 01/31/25 0017 Orderered Tube Feeds and Supplements Medication Dose Route Frequency Provider Last Rate Last Admin None PO/EN/PN Intakes: Percent Meals Eaten for the past 48 hrs: Percent Meals Eaten (%) 02/02/252004 100 Nutrition Visit Information: 02/03: Pt w/ hx of severe anxiety/depression-- had fall at SNF. Visited w/ pt at bedside. Pt reported his UBW ~230# in August 2024 -- had lost weight unintentionally (pt believes ~60# of weight loss) due to anxiety and was not tolerating certain foods/had stomach issues. Unsure how accurate weight hx is. Completed NFPE -- noticed mild muscle deficits in temporal and calves region. Pt reported he ate too much this AM -- believes ~75% of tray. PO documentation 100% from dinner last night. Given hx of weight loss, discussed adding ONS for extra protein. Pt hesitant but willing to try. Pt w/ 2 BM's last night. Noted feeling nauseous during interview -- has zofran PRN ordered. Anthropometrics: Height: 180.3 cm (5' 11") Weight: 200#, 90.7 kg Body mass index is 27.89 kg/m?. Gallagher body weight: 75.3 kg (166 lb 0.1 oz) Adjusted ideal body weight: 81.5 kg (179 lb 9.7 oz) Wt Readings from Last 10 Encounters: 01/30/25 90.7 kg (200 lb) 01/29/25 72.6 kg (160 lb) 01/11/25 90.7 kg (199 lb 15.3 oz) 01/09/25 77.1 kg (170 lb) Weight history : Usual body weight: 230# August 2024 Estimated Nutrition Needs: Calculated Energy Needs Using Equations Height: 1.803 m (5' 11") Weight Used for Equation Calculations: 90.7 kg (199 lb 15.3 oz) Energy Equation Used: Rule of thumb (kcal/kg) Energy Lower Range: 22 (kcal/kg) Energy Upper Range: 25 (kcal/day) Energy Needs Lower Range: 1995 kcal/day (kcal/day) Energy Needs Upper Range: 2267 kcal/day Temp: 36.8 ?C (98.3 ?F) Estimated Protein Needs (g/kg) Protein Lower Range: 1.2 (g/kg) Protein Upper Range: 1.5 (g/day) Protein Lower Range: 109 g/day (g/day) Protein Upper Range: 136 g/day Fluid Needs Fluid Needs Method: mL/kg/day; Or per MD (mL/kg) Fluid Needs: 30 (mL/day) Fluid Needs (Calculated): 2721 mL/day Nutrition Physical Findings per dye range tender: Orientation Level: Oriented X4 Gastrointestinal (WDL): WDL Last BM Date: 02/03/25 Gastrointestinal Symptoms: Nausea LUE: Full movement RUE: Full movement LLE: Full movement RLE: Full movement Wound 01/10/25 Left Hip (Active) Wound 01/10/25 Right Buttock (Active) Wound 01/13/25 Posterior;Right Arm (Active) Wound 01/13/25 Scalp (Active) Nutrition Focused Physical Exam - Muscles and Fat: Assessment of Muscle Status Date Assessed: 02/03/25 Muscle Status: Deficits present Orthodoxy Region: Ymjc-lt-oiwduqav deficit: Slight depression Clavicle Bone Region: No deficits noted Clavicle Acromion Bone Region: No deficits noted Dorsal Hands Region: No deficits noted Anterior Thigh Region: No deficits noted Patellar Region: Cphx-fv-onhkxaxk deficit: Knee cap more prominent Calves-Posterior Region: Godn-xr-svbqhvpy deficit: Not well-developed Assessment of Fat Status Date Assessed: 02/03/25 Fat Status: No deficits noted Basic Information: Admitting diagnosis: Intracranial subarachnoid hemorrhage (HCC) [I60.9] SAH (subarachnoid hemorrhage) (CMS/HCC) (HCC) [I60.9] Hypertensive urgency [I16.0] Abrasion of head, initial encounter [S00.91XA] Fall, initial encounter [W19.XXXA] Nonintractable headache, unspecified chronicity pattern, unspecified headache type [R51.9] Clinical course: Karl Grey is a 69 years old male with PMH of seizure (on Keppra, lacosamide), A-fib (on aspirin, not on A/C after recent admission with traumatic subarachnoid hemorrhage), HTN, Transferred from OSH for traumatic SAH after unwitnessed fall in SNF.s/p SAH, came in with HTN urgency, likely 2/2 severe anxiety, mentioned that he had suicidal ideations but no plan, also asymptomatic bradycardia during sleep down to 30-40s. Medications: amLODIPine, 10 mg, Oral, Daily citalopram, 10 mg, Oral, Daily docusate sodium, 100 mg, Oral, q12h hydrALAZINE, 25 mg, Oral, q8h lacosamide, 100 mg, Oral, BID levETIRAcetam, 1,000 mg, Oral, BID lidocaine, 1 patch, Apply externally, Daily LORazepam, 1 mg, Oral, q12h losartan, 25 mg, Oral, Daily melatonin, 6 mg, Oral, Nightly metoprolol succinate XL, 25 mg, Oral, Daily pantoprazole, 40 mg, Oral, Daily polyethylene glycol (PEG) 3350, 17 g, Oral, Daily propafenone, 150 mg, Oral, q8h sennosides, 1 tablet, Oral, BID sodium chloride, 10 mL, Intravenous, q12h DIANA [Held by provider] terazosin, 10 mg, Oral, Nightly thiamine, 100 mg, Oral, Daily PRN medications: acetaminophen, dextrose, dextrose, dextrose, glucagon, glucagon, insulin lispro, naloxone, ondansetron, oxyCODONE, oxyCODONE, sodium chloride Labs: Pertinent Labs : Lab Results Component Value Date Sodium Lvl 142 02/02/2025 Potassium Lvl 3.5 02/02/2025 Chloride Lvl 106 02/02/2025 CO2 Lvl 27.3 02/02/2025 BUN 15 02/02/2025 Creatinine Lvl 0.87 02/02/2025 Glucose Lvl 94 02/02/2025 POC Glu 102 (H) 02/02/2025 No results found for: "HGBA1C" Review / Management: I/O 24 HRS: Intake/Output Summary (Last 24 hours) at 02/03/2025 1110 Last data filed at 02/03/2025 0550 Gross per 24 hour Intake -- Output 1050 ml Net -1050 ml Unmeasured Stool Occurrence: 1 Monitoring and Evaluation: MONITORING AND EVALUATION: Muscle wasting, Fat wasting, Digestive/abdominal assessment, and Nutrition Intake : PO intake and tolerance GOAL: >75% of estimated needs met: Gilma Clements MS, RD, LD Nutrition [facility] 2025-02-02 00:00:00 Associated Order(s): IP CONSULT TO PSYCHIATRY PATIENT NAME: KARL GREY CONTACT SERIAL NUMBER: [id number] DATE OF CONSULT: 02/02/2025 REFERRING PHYSICIAN: EZEKIEL GILL MD CONSULTING SERVICE: Psychiatry. REASON FOR CONSULTATION: Diagnosis, clarification, medication recommendations, and assessment of suicidality. CHIEF COMPLAINT: Anxiety. HISTORY OF PRESENT ILLNESS: The patient is a 69-year-old male with a past psychiatric history of anxiety with depression who was admitted to [facility] after a fall. Psychiatry consultation was requested for the above indications. On assessment, the patient was sitting up and in no acute distress. He was pleasant, cooperative and engageable. He primarily endorsed anxiety as his core historic psychiatric symptom. He notes this comes in a general, elevated fashion rather than discrete episodes. The patient has taken lorazepam for this for over 20 years. He otherwise notes a brief trial on buspirone and no other prior pharmacotherapy trials. Otherwise, the patient does endorse more recent depressed mood with associated symptoms including decreased interest, impaired sleep, low energy and impaired concentration. He acknowledges having had passive suicidal thoughts, though denies any active suicidal ideations, plan or intent. He denies history of suicide attempt. He was open to treatment options and there is no evidence of ky or psychosis in this patient. PAST PSYCHIATRIC HISTORY: Largely as above, history of treatment for anxiety with lorazepam. The patient denies history of suicide attempt. No current outpatient psychiatrist. PAST MEDICAL HISTORY: Hypertension, seizures, atrial fibrillation. MEDICATIONS: amLODIPine, 10 mg, Oral, Daily citalopram, 10 mg, Oral, Daily docusate sodium, 100 mg, Oral, q12h hydrALAZINE, 25 mg, Oral, q8h lacosamide, 100 mg, Oral, BID levETIRAcetam, 1,000 mg, Oral, BID lidocaine, 1 patch, Apply externally, Daily LORazepam, 1 mg, Oral, q12h losartan, 25 mg, Oral, Daily metoprolol succinate XL, 25 mg, Oral, Daily pantoprazole, 40 mg, Oral, Daily polyethylene glycol (PEG) 3350, 17 g, Oral, Daily propafenone, 150 mg, Oral, q8h sennosides, 1 tablet, Oral, BID sodium chloride, 10 mL, Intravenous, q12h DIANA [Held by provider] terazosin, 10 mg, Oral, Nightly thiamine, 100 mg, Oral, Daily PRN medications: acetaminophen, dextrose, dextrose, dextrose, glucagon, glucagon, insulin lispro, naloxone, ondansetron, oxyCODONE, oxyCODONE, sodium chloride ALLERGIES: Sulfa antibiotics. FAMILY PSYCHIATRIC HISTORY: Significant for anxiety. SOCIAL HISTORY: The patient reports having a fair support network. There was no identified misuse of alcohol and illicit drugs. REVIEW OF SYSTEMS: CONSTITUTIONAL: Fatigue. HEENT: Negative. CARDIOVASCULAR: Negative. RESPIRATORY: Negative. GASTROINTESTINAL: Negative. GENITOURINARY: Negative. MUSCULOSKELETAL: Negative. HEMATOLOGIC: Negative. SKIN: Negative. NEUROLOGIC: No current complaint. PSYCHIATRIC: See above. MENTAL STATUS EXAMINATION: GENERAL APPEARANCE: Engageable. MUSCULOSKELETAL: No gross abnormal movements. SPEECH: Appropriate rate, tone and volume. THOUGHT PROCESS: Linear. THOUGHT CONTENT: The patient denied active suicidal ideations or plan. No homicidal ideations or delusions. PERCEPTUAL DISTURBANCES: No hallucinations. MOOD AND AFFECT: Mood anxious and low. Affect constricted. INSIGHT AND JUDGMENT: Insight fair. Judgment fair. COGNITIVE EXAMINATION: The patient was alert and evidenced no gross disorientation. Attention and concentration were intact with proper ability to focus on and answer questions demonstrated. Memory, fund of knowledge, and abstracting ability were intact grossly. VITAL SIGNS: Temperature 98.4 degrees Fahrenheit, blood pressure 157/73, pulse 77, respiratory rate 20. LABORATORY DATA: Lab Results Component Value Date WBC 4.40 02/02/2025 Hgb 11.1 (L) 02/02/2025 Hct 33.5 (L) 02/02/2025 MCH 30.7 02/02/2025 MCHC 33.1 02/02/2025 MCV 92.8 02/02/2025 Plt Count 153 (L) 02/02/2025 RBC 3.61 (L) 02/02/2025 Lab Results Component Value Date Sodium Lvl 142 02/02/2025 Potassium Lvl 3.5 02/02/2025 Chloride Lvl 106 02/02/2025 ALT 14 02/01/2025 AST 17 02/01/2025 Alkaline Phosphatase 71 02/01/2025 BUN 15 02/02/2025 Creatinine Lvl 0.87 02/02/2025 Calcium Lvl 8.8 02/02/2025 Magnesium 2.20 01/10/2025 Phosphorus Lvl 2.8 01/10/2025 Glucose Lvl 94 02/02/2025 POC Glu 102 (H) 02/02/2025 Lab Results Component Value Date QTc Calculation 442 02/01/2025 ASSESSMENT: Generalized anxiety disorder. Depression, unspecified. RECOMMENDATIONS: Recommend sertraline 50 mg every morning. Medication and side effects discussed with patient who agreed to treat. May continue home lorazepam as ordered, though did educate the patient that as sertraline takes koenig effect, he would ideally not require as-needed lorazepam as regularly. To address the consultation question of assessment of suicidality, please see full presentation above. The patient denies currently or at any time having active suicidal ideations or plan, and denies history of suicide attempt. He exhibited future-oriented thinking including desire to get better and pursue psychiatric care as an outpatient. He does not appear to require one-to-one monitoring or direct inpatient psychiatric hospitalization for reason of acute suicidality. Outpatient psychiatric followup through [facility] ([phone]). No other recommendations, reconsult if presentation changes or otherwise needed. Thank you for allowing the opportunity to participate in this patient's care. Please call with any questions. Dictated by: JUMA VEGA MD [facility] Psychiatry Physician Adriana Glez 2025-01-30 18:08:31 Associated Order(s): IP CONSULT TO SOCIAL WORK consulted for transportation assistance. PT is now being admitted for observation. Transportation no longer needed. [facility] 2025-01-30 14:26:38 Associated Order(s): IP CONSULT TO NEUROSURGERY NEUROSURGERY Consult Date: 01/30/25 Patients Name: Karl Grey Admit Date: 01/30/2025 Admitting Provider: Shae Alejandro MD : [id number] Service: Neurosurgery Trauma Team Age/Sex: 69 y.o. male CHIEF COMPLAINT: - Chief Complaint: Mechanical fall - Consult Time: 2:26 PM - Evaluation Time: 8 AM HISTORY AND PHYSICAL: 69 y.o. male with PMH of Afib on Xarelto, HTN, DM, anxiety on long-term Ativan for 20 yrs, recent hospitalization for cholecystitis, recently discharged on 01/15, when found to have left frontal scattered tSAH and thin left frontal convexity subdural hygroma with no mass effect. Pt reported mech fall after losing his balance. His Xarelto was reversed with Kcentra. Hospital stay was complicated with seizures and is currently controlled with kepra & Vimpat. MRI C/T/L spine obtained for neck tenderness & BLE weakness & Neurosurgery consulted for the same. No acute findings and follow-up with PCP. Started on ASA 81 mg on 01/15 for anticoagulation. Patient presents again to the ER after a mechanical fall, tripping on his blanket overnight. He endorses a mild headache, with some nausea, but denies any other symptoms. He is on aspirin 81 for A-fib. CT-spine negative for acute abnormality. Coags and TEG within normal limits. REVIEW OF SYSTEMS: 14 point review of systems was performed and negative except for those noted in the HPI MEDICAL HISTORY: PAST MEDICAL HISTORY: Past Medical History: Diagnosis Date Diabetes mellitus (HCC) Seizures (HCC) PAST SURGICAL HISTORY: History reviewed. No pertinent surgical history. PRE-ADMISSION MEDICATIONS: (Not in a hospital admission) ALLERGIES: Allergies Allergen Reactions Sulfa Antibiotics Unknown SOCIAL HISTORY: - Social History Tobacco Use Smoking status: Never Smokeless tobacco: Never Substance Use Topics Alcohol use: Not Currently Drug use: Never FAMILY HISTORY: Family history is non-contributory to current disease process No family history on file. VITAL SIGNS: Vitals: 01/30/25 0900 01/30/25 1100 01/30/25 1209 01/30/25 1312 BP: 120/88 (!) 180/76 (!) 164/81 149/70 Pulse: (!) 47 52 74 80 Resp: 16 17 (!) 26 19 Temp: SpO2: (!) 89% 97% 96% 97% PHYSICAL EXAM: Alert and oriented x3 Left pupil 3mm and brisk Right pupil 3 mm and brisk RUE full strength RLE full strength LUE full strength LLE full strength No drift LABS: Lab Results Component Value Date Sodium Lvl 140 01/30/2025 Sodium Lvl 139 01/15/2025 Sodium Lvl 138 01/14/2025 Plt Count 191 01/30/2025 Plt Count 89 (L) 01/15/2025 Plt Count 108 (L) 01/14/2025 WBC 4.43 01/30/2025 WBC 3.47 (L) 01/15/2025 Hgb 11.1 (L) 01/30/2025 Hgb 11.2 (L) 01/15/2025 PTT 28.4 01/30/2025 INR 1.06 01/30/2025 IMAGING: CT BRAIN WO IV CONTRAST Final Result CT CERVICAL SPINE WO IV CONTRAST Final Result I have reviewed all neurosurgical imaging NEURO ASSESSMENT/PLAN: Active Problems: Patient Active Problem List Diagnosis SAH (subarachnoid hemorrhage) (CMS/HCC) ([facility]) Symptomatic localization-related epilepsy Assessment: 69 year old male with history of A-fib and seizures who presents again to the ER after a mechanical fall, tripping on his blanket overnight. He is on aspirin 81 for A-fib. CT-spine negative for acute abnormality. Coags and TEG within normal limits. Impression: - Left frontal tiny traumatic subarachnoid hemorrhage - CT C-spine negative Plan: - No acute neurosurgical intervention - Repeat CT brain stable - Trauma work-up per ED, including laceration closures - Coags/TEG within normal limits - Keppra 1000mg load and then 500mg BID x7days for seizure prophylaxis - Maintain SBP<150 - Hold ASA81 - Patient can follow-up in neurotrauma clinic in 2 weeks with a repeat head CT. Please call [phone] for appointment. - Patient informed of plan - Remainder of care per ER Please call [phone] with any neurosurgery questions Jonel Dale MD, MS Neurosurgery PGY-1 Cosigned by Julio Cesar Kahn MD at 01/30/2025 3:27 PM CDT Associated attestation - Julio Cesar Kahn MD - 01/30/2025 3:27 PM CDT I saw and evaluated the patient, participating in the lowry portions of the service. I reviewed the resident's note. I agree with the resident's findings and plan. [facility] 2025-01-10 14:34:13 Neurocritical Care Consultation Note Consulted by NSGY for medical mgmt History Of Present Illness Karl Grey, 69 y.o. male with PMH of Afib on Xarelto, HTN, DM, anxiety on long-term Ativan for 20 yrs, recent hospitalization for cholecystitis 1 week ago pending outpt surgical intervention, who presented for AMS for the past 2 days and reported seizure like activity where it was described he was clenched up and shaked for a few seconds, found to have left frontal scattered tSAH and thin left frontal convexity subdural hygroma with no mass effect. Pt reported mech fall after losing his balance 1 week ago. His Xarelto was reversed with Kcentra. Admitted to Neuro IMU for further work-up. Interval Events: 01/10: Admit to neuro ICU. Rpt CTH stable, no acute intervention. MRIb w/wo with no acute stroke, no mass, bleed stable. Neuro intact. Past Medical History Afib on Xarelto, HTN, DM, anxiety Surgical History has no past surgical history on file. Family History Family History[1] Social History Social History[2] Allergies Sulfa antibiotics Home Medications Prescriptions Prior to Admission[3] Review of Systems ROS all negative except those noted in HPI Physical Exam pre-admit mRS: Score 0: No symptoms at all. ASSESSMENT AND PLAN lis, 69 y.o. male with PMH of Afib on Xarelto, HTN, DM, anxiety on long-term Ativan for 20 yrs, recent hospitalization for cholecystitis 1 week ago pending outpt surgical intervention, who presented for AMS for the past 2 days and reported seizure like activity where it was described he was clenched up and shaked for a few seconds, found to have left frontal scattered tSAH and thin left frontal convexity subdural hygroma with no mass effect. Pt reported mech fall after losing his balance 1 week ago. NEUROLOGIC Acute traumatic subarachnoid hemorrhage (Location left frontal) on admission, Other toxic encephalopathy (G92.8) on admission Neuro Exam: GCS: E4 Eyes open spontaneously, V5 Speech orientated, M6 Follows commands MS: AAO x3, following commands, speech fluent, no dysarthria, naming intact, no neglect CN: L pupil 3, R pupil 3, EOMI, VFF, face symmetric Motor: Agx4 with generalized weakness throughout initial CTH revealed left frontal scattered tSAH and thin left frontal convexity subdural hygroma with no mass effect. CTA H/N no underlying vascular abnormality CT C-spine with no acute fx Rpt CTH stable MRIb w/wo ordered for new seizure w/o: with stable hemorrhage, no acute stroke, no mass No NSGY indicated Hold Xarelto (Afib) s/p Kcentra Pt had a fall one week ago, hitting the middle top of his head. Likely concussion causing his encephalopathy. Currently he is Aox3. Complains of diffuss pain throughout, but no overt trauma injury. Will send CK. Neurology was consulted in ER for new onset seizure Syncope work-up ordered since unwitnessed fall EEG per neurology 01/10, getting hooked up in ER Restarted home Ativan 2 mg every day, to prevent withdrawals S/p Keppra 1gm load; continue 500mg q12h x7d for sz ppx; currently on Day 0 PT/OT/RN RESIDENTIAL as indicated Pt is independent with ADLs and lives alone. NOK is pt's daughter. CARDIOVASCULAR Essential hypertension on admission, Hypertension with emergency on admission, Atrial fibrillation on admission CV Exam: RRR Temp: [37.1 ?C (98.7 ?F)-37.3 ?C (99.1 ?F)] 37.3 ?C (99.1 ?F) Heart Rate: [46-99] 47 Resp: [16-27] 18 BP: (132-209)/(55-102) 132/61 VS Parameters: TBI SBP<150, MAP>65 Cardene at 5 mg, continue to wean off PRN hydralazine, labetalol Metoprolol XL 50 mg every day Syncope work-up Trop 66-> 70, no need to trend EKG junctional rhythm TTE ordered Orthostatic Bps when able PULMONARY Pulm Exam: CTAB on room air w/ spO2>94% CXR on admit lungs clr CT chest on admit with no acute trauma GASTROINTESTINAL Obesity unspecified on admission GI Exam: soft, non-distended, present bowl sounds Nutrition: Current Order: Adult Diet Regular Home Pepcid 20 mg every day, resumed bowel regimen: 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 Cholelithiasis without evidence of acute cholecystitis. Colonic diverticulosis without diverticulitis. Lab Results Component Value Date ALT 28 01/10/2025 AST 41 (H) 01/10/2025 Alkaline Phosphatase 63 01/10/2025 Bilirubin Total 0.80 01/10/2025 RENAL Hypokalemia on admission Intake/Output Summary (Last 24 hours) at 01/10/2025 1434 Last data filed at 01/10/2025 0903 Gross per 24 hour Intake 16 ml Output -- Net 16 ml Urine Output: 0mL in 24hrs mL/kg/hr (last 24hrs) Results from last 7 days Lab Units 01/10/25 0014 SODIUM mEq/L 139 POTASSIUM mEq/L 3.3* CHLORIDE mEq/L 106 CO2 mEq/L 24.5 BUN mg/dL 27* CREATININE mg/dL 1.12 MAGNESIUM mg/dL 2.20 PHOSPHORUS mg/dL 2.8 CALCIUM mg/dL 9.7 Acute hypokalemia 3.3, replete with KCL 20 mEQ IVPB 01/10, rpt with AM labs Send CK to r/o rhabdo No mIVF No mclean CT pelvic: Nonobstructive punctate left nephrolithiasis. INFECTIOUS DISEASE Temp (24hrs), Av.2 ?C (98.9 ?F), Min:37.1 ?C (98.7 ?F), Max:37.3 ?C (99.1 ?F) Results from last 7 days Lab Units 01/10/25 0014 WBC 10*3/uL 5.31 UA not infectious Monitor trend fever curve and WBC no ABX indicated HEMATOLOGIC Results from last 7 days Lab Units 01/10/25 1055 01/10/25 0014 HEMOGLOBIN g/dL -- 13.0 PLATELETS 10*3/uL -- 145* INR 1.01 -- PTT Seconds 24.0 -- Thrombocytopenia 145 on admit Hold Xarelto (Afib), s/p Kcentra on admission DVT ppx: SCDs; subQ heparin 5000U q8h to start 01/11 1400 ENDOCRINE Results from last 7 days Lab Units 01/10/25 0255 01/10/25 0035 01/10/25 0014 01/10/25 0006 GLUCOSE mg/dL -- -- 108* -- POC GLUCOSE mg/dL 84 -- -- 143* TSH uIU/mL -- 6.081* -- -- FREE T4 ng/dL -- 1.36 -- -- BG goal 80-180 No ISS indicated TSH elevated with normal fT4 MUSCULOSKELETAL AND INTEGUMENTARY Skin Exam: warm, dry, intact Code Status: Full Code Dispo: pending IMU bed and evals [facility] White Team IMU/Floor ROMINA Ph #[phone] (available 20/05), #[phone] (available 6:30a - 4:30p) [facility] Neuro ICU White Team Ph #[phone] [1] No family history on file. [2] [3] (Not in a hospital admission) Cosigned by Jared Lopez MD at 01/11/2025 1:59 PM CDT Associated attestation - Jared Lopez MD - 01/11/2025 1:59 PM CDT I personally saw and examined the patient. I agree with the plan and findings documented by Rhoda Coffey NP . Gerontology Nurse Practitioner [facility] 2025-01-10 04:39:26 Neurology Consult note Team: Neurology Consult Contact: Pager Subjective Chief Complaint Patient presents with Fall Chief complaint: 1 week of confusional state. Today fall with seizure. Post-Rounds Addendum 01/10/2025 7:18 AM Subjective: Today, pt seen at bedside in the presence of his daughter. He is AAO x3 but minimally engages. Pt able to follow commands and stated that he does not recall the fall or the seizure in the ED. Pt's daughter stated that she saw him on and he was at his baseline but then on Saturday he was reportedly making bizarre statements and on Saturday, her aunt went to see the patient and he was acting strangely and had difficulty remembering his grandson's name and his daughters. Pt stated that he choked on Tylenol recently and since then has been having a phobia related to food, drink and medication and fear of choking. Pt reportedly has been having decreased intake for a couple of weeks and has recently missed some of his medications. To note, pt take Lorazepam BID for the past 25 years and had recently been taking it sublingually which might be the cause of his symptoms in addition to probable malnutrition. Pt's daughter also reported weight loss of 40 pounds since August and pt said that he sometimes has melena (?). Objective: Physical exam see below Assessment: Karl Grey is a 69 y.o. male with a past medical history of Afib (on Xarelto 2mg), HTN, 2 cardiac valvular abnormalities (pending surgery), inflamed gallstones (pending surgery) presenting for 1 week history of AMS, fall and seizure like activity witnessed by family. Patient is pending gallstone removal and daughter notes that for past 2 weeks, patient has had significant phagophobia, limiting the intake of his medications. He has been Lorezepam 2 mg BID for many years and has been only been taking the tablets sublingually. For one week prior to admission, family noted paranoid, bizarre behaviors, memory deficits, talking gibberish and increased fear and anxiety. On January 09, pt was found down with face trauma below the R eyelid. He was brought to the ED where he was witnessed to have a seizure like event described as left head turn - decorticate posturing - TCS for 2 minutes. MRI Brain showed subarachnoid hemorrhage predominantly in the left cerebral sulci and remote areas of subarachnoid hemorrhage in bilateral cerebral sulci. Pt received 2 mg Ativan and was loaded with Keppra in the ED without further events. Strong suspicion patient's event was provoked in the setting of benzodiazepine withdrawal. Recommendations: - Continue Keppra 500 mg BID for now. If patient needs terminal clerk AEDs, we will likely transition to a different agent given psychiatric history. - Routine EEG - Vitamin B1 & folate levels - Pt at high risk of Benzodiazepine withdrawal, please restart home medications, including Lorazepam Discussed with Attending Dr. Hogue. The neurology team will continue to follow up on this patient. Janine Torrez MD Resident Physician Psychiatry [facility] | [facility] I saw and evaluated the patient, participating in the lowry portions of the service. I reviewed the resident's note. I agree with the resident's findings and plan. On evaluation today the patient was awake, being fed his breakfast by his daughter, he complained of a headache and neck pain and preferred to have his head turned to the left side, upon turning his head to the right side the patient was grimacing in pain. There is no cranial nerve deficits and no weakness in his bilateral upper extremities, however his bilateral lower extremities need his encouragement with a strength of 4 on the left and 4 - on the right. The patient is a 69-year-old man currently being managed for traumatic brain injury following a fall, with head CT showing a left frontal traumatic subarachnoid hemorrhage. His hospital course was complicated by development of localization-related epilepsy, likely in the setting of his recent subarachnoid hemorrhage but also it is possible that the patient has not been taking his lorazepam as prescribed given his poor oral intake over the past week which may have precipitated a benzo withdrawal seizure. For the time being recommend continuing his home lorazepam 2 mg twice daily. Could also continue with Keppra 500 mg twice a day. Routine EEG. Avoid hypoglycemia as the patient was at 69 on admission. Supplement the patient with Thiamine 100 mg daily. I spent 60 mins reviewing records, lab values and imaging, counseling and discussing treatment plans. HPI 69M w h/o of afib (on Xarelto 2mg), HTN, 2 cardiac valvular abnormalities (pending surgery), inflamed gallstones (pending surgery), was LSN 1 week ago. Apparently 2 weeks ago patient had a significant bowel change (alternating constipation and diarrhea). Since last 1 week family has noticed abnormal behaviors. Patient is paranoid most of the time (about medications - stopped taking medications, about people - not able to identify people, about daily activities). He was also noted to open front-door in his underwear to people and could not recognize his grandson when he went to check on him. When his sister called him he was talking gibberish. He was also noted to be mindlessly swiping his phone home-screen by his daughter and not really navigating to any particular romina. In the past 1 week he stopped eating and drinking significantly, stopped taking care of himself, stopped taking medications, increased fear of everything and looking anxious all the time. He has increased forgetful for the past 2 days. Today was found down with face trauma below the R eyelid. In the ER, daughter noticed a seizure: Semiology: Left head turn - decorticate posturing - TCS - 2min - post ictal for 45min. CT head showed left frontal scattered tSAH and a thin left frontal convexity subdural hygroma. Patient last xarelto yesterday evening. Patient's medical history is concerning for polypharmacy Xarelto 20 mg daily Lorazepam 2 mg daily for anxiety BuSpar started 3 months ago but stopped recently for cardiac concerns Propafenone 150 mg 3 times daily Amlodipine 10 mg daily Doxazosin 2 mg daily Lasix 20 mg daily Famotidine 20 mg daily Metoprolol ER 100 mg half a tablet daily Terazosin 10 mg daily Review of Systems Denies other issues except ones reported in HPI Medical History[1] Surgical History[2] Family History[3] Social History Socioeconomic History Marital status: Spouse name: Not on file Number of children: Not on file Years of education: Not on file Highest education level: Not on file Occupational History Not on file Tobacco Use Smoking status: Not on file Smokeless tobacco: Not on file Substance and Sexual Activity Alcohol use: Not on file Drug use: Not on file Sexual activity: Not on file Other Topics Concern Not on file Social History Narrative Not on file Social Drivers of Health Financial Resource Strain: Not on file Food Insecurity: Not on file Transportation Needs: Not on file Physical Activity: Not on file Stress: Not on file Social Connections: Not on file Intimate Partner Violence: Not At Risk (01/09/2025) Humiliation, Afraid, Rape, and Kick questionnaire Fear of Current or Ex-Partner: No Emotionally Abused: No Physically Abused: No Sexually Abused: No Housing Stability: Not on file Prescriptions Prior to Admission[4] Objective: Vitals: 01/10/25 0046 01/10/25 0050 01/10/25 0100 01/10/25 0300 BP: (!) 171/77 (!) 161/75 157/75 (!) 139/102 Pulse: 53 54 55 Resp: (!) 26 21 20 Temp: SpO2: 97% 96% 95% Physical Exam: General: well nourished HEENT: Ecchymosis R lower eyelid CV: regular rate, intact peripheral pulses Pulm: breathing comfortably, no wheezing, symmetric chest expansion Abd: soft, non-tender, non-distended Ext: skin clear, no rashes, no edema Neuro Exam: A&Ox3, good concentration; normal fund of knowledge and memory Language: intact fluency, comprehension, naming, and repetition Speech: no dysarthria CN: PERRL, 3 mm BL, EOMI, no nystagmus, full VF; no facial asymmetry, facial sensation intact; auditory acuity intact; tongue midline, palate elevates symmetrically Motor: Normal tone and bulk, no abnormal movements or posture. 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 Assessment & Plan A&P: 69M w h/o of afib (on Xarelto 2mg), HTN, 2 cardiac valvular abnormalities (pending surgery), inflamed gallstones (pending surgery), was LSN 1 week ago. Apparently 2 weeks ago patient had a significant bowel change (alternating constipation and diarrhea). Since last 1 week family has noticed abnormal behaviors. Patient is paranoid most of the time (about medications - stopped taking medications, about people - not able to identify people, about daily activities). He was also noted to open front-door in his underwear to people and could not recognize his grandson when he went to check on him. When his sister called him he was talking gibberish. He was also noted to be mindlessly swiping his phone home-screen by his daughter and not really navigating to any particular romina. In the past 1 week he stopped eating and drinking significantly, stopped taking care of himself, stopped taking medications, increased fear of everything and looking anxious all the time. He has increased forgetful for the past 2 days. Today was found down with face trauma below the R eyelid. Patient had a seizure which localizes to the R hemisphere. The neuroimaging localizes to the opposite side. CT head showed left frontal scattered tSAH and a thin left frontal convexity subdural hygroma. Patient last xarelto yesterday evening. [employer]INE[employer] CHIEF: Acute symptomatic seizures [etiology: discordant bleed localization and semiology localization] - Loaded in ER with Keppra 1g and Ativan 2mg - Start AED Keppra 1g BID - cvEEG for both fluctuating confusional state and rule out subclincial seizures from the intracranial bleeds - MRI brain seizure protocol. - Correct electrolyte abnormalities, goal K >4, Mag >2 - Avoid medications that decrease seizure threshold. - Seizure precautions. Delirium/Acute confusional state Acute Toxic encephalopathy (drug induced) Acute Metabolic encephalopathy - Review polypharmacy per BEERs criteria - Correct metabolic causes. - CMP CBC Mg Adelfo Phos, HIV, RPR, B1, B12, folate, TSH w/reflex T4, LFTs, ammonia, UA, UDS. - Delirium precautions. - Rule out malignancy: Patient had recent significant bowel changes with alternating constipation and diarrhea. -Weller scan for malignancy Robbie Calvert MD PhD Adult-Neurology PGY-3 Attending/Fellow: Service: Neurology ER resident [facility] | [place], [place] [1] No past medical history on file. [2] No past surgical history on file. [3] No family history on file. [4] (Not in a hospital admission) [facility] History and Physical Notes Date/Time Note Provider Source 2025-01-31 00:25:33 Subjective Chief Complaint Patient presents with Fall sub arach : History Of Present Illness Karl Grey is a 69 years old male with PMH of seizure (on Keppra, lacosamide), A-fib (on aspirin, not on A/C after recent admission with traumatic subarachnoid hemorrhage), HTN, ?? type II DM, Transferred from OSH for traumatic SAH after unwitnessed fall in SNF. The patient endorses mild headache, no blurred vision, resolved nausea, no vomiting, no abdominal pain, no change of bowel habits, no urinary symptoms. Home medications: Amlodipine 10 x 2, hydralazine 50 x 3, metoprolol succinate 25, lacosamide 100 x 2, Keppra 1000 x 2 (need confirmation) ED course: Initially, blood pressure 128/74, HR 72, RR 18, saturating 100% on room air. CMP, CBC, PTT, PT: Almost unremarkable (mild anemia 11.1, hypocalcemia 8.2) CT brain without IV contrast: Decreased conspicuity of trace subarachnoid hemorrhage in the left frontal sulci, significantly improved compared to the more remote exam from 01/10/2025. Trace left parietal subdural hematoma is decreased compared to 01/10/2025 Patient was seen by neurosurgery, left frontal tiny traumatic subarachnoid hemorrhage, negative CT cervical spine. No acute neurosurgical intervention, trauma workup per ED including laceration closure, load with Keppra 1000 then 500 x 2 for 7 days, maintain systolic blood pressure less than 150, hold aspirin, follow-up neurotrauma clinic Patient blood pressure was 166/80, ROS: Pertinent 6-8 system were screened and were negative except of the above. Past Medical History He has a past medical history of Diabetes mellitus (HCC) and Seizures (HCC). Surgical History He has no past surgical history on file. Family History No family history on file. Social History He reports that he has never smoked. He has never used smokeless tobacco. He reports that he does not currently use alcohol. He reports that he does not use drugs. Allergies Sulfa antibiotics Medications Current Outpatient Medications Medication Instructions amLODIPine (NORVASC) 10 mg, Oral, 2 times daily aspirin EC 81 mg, Oral, Daily [Paused] doxazosin (CARDURA) 2 mg, Oral, Nightly famotidine (PEPCID) 20 mg, Oral, Every 12 hours, For 10 days [Paused] furosemide (LASIX) 20 mg, Oral, Daily hydrALAZINE (APRESOLINE) 50 mg, Oral, Every 8 hours lacosamide (VIMPAT) 100 mg, Oral, 2 times daily levETIRAcetam (KEPPRA) 1,000 mg, Oral, 2 times daily LORazepam (ATIVAN) 2 mg, Oral, 2 times daily PRN metoprolol succinate XL (TOPROL-XL) 25 mg, Oral, Daily, Do not crush or chew. propafenone (RYTHMOL) 150 mg, Oral, Every 8 hours sennosides (SENOKOT) 8.6 mg, Oral, 2 times daily [Paused] terazosin (HYTRIN) 10 mg, Oral, Nightly thiamine (VITAMIN B-1) 100 mg, Oral, Daily Objective Last Recorded Vitals Blood pressure (!) 166/80, pulse 57, temperature 36.9 ?C (98.4 ?F), temperature source Tympanic, resp. rate 22, height 1.803 m (5' 11"), weight 90.7 kg (200 lb), SpO2 98%. General: Appears well nourished, no acute distress Skin: No cyanosis, no rash Head and neck: EOMI, teeth in good repair, supple neck exam, no JVD, no carotid bruit Lungs: CTAB Cardiac: Normal S1, S2. Regular rate and rhythm. No adventitious sounds or murmur. Abdomen: Soft, nontender, normal bowel sounds, no organomegaly, no ascites Extremities: No significant pitting edema. Intact peripheral pulsation Neurology: Alert, oriented x 3, cooperative, cranial nerves are grossly intact. Moving 4 extremities. Lab Results Results from last 7 days Lab Units 01/30/25 0348 WBC 10*3/uL 4.43 HEMOGLOBIN g/dL 11.1* HEMATOCRIT % 33.7* PLATELETS 10*3/uL 191 Results from last 7 days Lab Units 01/30/25 0348 SODIUM mEq/L 140 POTASSIUM mEq/L 3.4 CHLORIDE mEq/L 109* CO2 mEq/L 22.9 BUN mg/dL 15 CREATININE mg/dL 0.96 GLUCOSE mg/dL 76 CALCIUM mg/dL 8.2* Assessment Karl Grey is a 69 years old male with PMH of seizure (on Keppra, lacosamide), A-fib (on aspirin, not on A/C after recent admission with traumatic subarachnoid hemorrhage), HTN, Transferred from OSH for traumatic SAH after unwitnessed fall in SNF. Assessment & Plan Intracranial subarachnoid hemorrhage (HCC) SAH (subarachnoid hemorrhage) (CMS/HCC) (HCC) S/p unwitnessed fall at ground-level CT brain without IV contrast: Decreased conspicuity of trace subarachnoid hemorrhage in the left frontal sulci, significantly improved compared to the more remote exam from 01/10/2025. Trace left parietal subdural hematoma is decreased compared to 01/10/2025 Patient was seen by neurosurgery, left frontal tiny traumatic subarachnoid hemorrhage, negative CT cervical spine, stable repeat CT. No acute neurosurgical intervention, trauma workup per ED including laceration closure, load with Keppra 1000 then 500 x 2 for 7 days, maintain systolic blood pressure less than 150, hold aspirin, follow-up neurotrauma clinic Plan: Follow-up neurosurgical recommendation as above Neurocheck as protocol Bowel regimen Uncontrolled hypertension Was on home amlodipine 10 x 2, hydralazine 50 x 3, metoprolol succinate 25. Target systolic blood pressure less than 150 as per neurosurgical recommendation Plan: Vital Q 1 hour Labetalol 10 every 2 hours as needed Resume home amlodipine 10 x 2, hydralazine 50 x 3, metoprolol succinate 25. Awaiting for confirmation of terazosin before resumption Medication management Seizure disorder (CMS/HCC) (HCC) Continue home levetiracetam 1000 x 2, lacosamide 100 x 2, propafenone 150 x 3. Seizure precaution Fall precaution Pharmacy consult to confirm home medication POCT check daily confirmation of DM medication VTE prophylaxis: This patient does not have an active medication from one of the medication groupers. Disposition: [facility] 2025-01-10 03:11:05 NEUROSURGERY History & Physical Date: 01/10/25 Patients Name: Karl Grey Admit Date: 01/09/2025 Admitting Provider: Marisa Castrejon MD : [id number] Service: Neurosurgery Trauma Team Age/Sex: 69 y.o. male CHIEF COMPLAINT: - Chief Complaint: AMS - Consult Time: 3:11 AM - Evaluation Time: 3:11 AM HISTORY AND PHYSICAL: Karl Grey is a 69 y.o. male with PMH of afib on xarelto, HTN, DM presents after altered mental status for one day. Per daughter report, patient was more forgetful for the past 2 days, and today was found to be more altered (answering the door in his underwear, not able to recall details etc). In the ER, patient presumably had a seizure witnessed only by family when he clenched up and shaked for a few seconds. NSGY consulted for CT head finding of left frontal scattered tSAH and a thin left frontal convexity subdural hygroma. Patient last xarelto yesterday evening. Family denies fever, recent illness, seizure history. Patient was hospitalized 1 week ago for cholecystitis per daughter pending surgery scheduling but has not been eating or drinking well for the past week. Family found signs of trauma on his face that was new. REVIEW OF SYSTEMS: 14 point review of systems was performed and negative except for those noted in the HPI MEDICAL HISTORY: PAST MEDICAL HISTORY: Medical History[1] PAST SURGICAL HISTORY: Surgical History[2] PRE-ADMISSION MEDICATIONS: Prescriptions Prior to Admission[3] ALLERGIES: Allergies[4] SOCIAL HISTORY: Social History[5] FAMILY HISTORY: Family history is non-contributory to current disease process Family History[6] VITAL SIGNS: Vitals: 01/09/25 2333 01/09/25 2334 01/10/25 0046 01/10/25 0050 BP: (!) 209/81 (!) 171/77 (!) 161/75 Pulse: 52 53 Resp: (!) 27 (!) 26 Temp: SpO2: 97% 97% PHYSICAL EXAM: Eye Opening: Spontaneously (4) Verbal: Confused (4) Best Motor: Follows Commands (6) GCS: 14 Orientation: Alert & Oriented x 2 Left pupil 3mm and brisk Right pupil 3 mm and brisk EOMI RUE full strength RLE full strength LUE full strength LLE full strength No drift Intact neurological exam elements: EOMI intact facial sensation facial movements symmetric Slow to response LABS: Results from last 7 days Lab Units 01/10/25 0014 WBC 10*3/uL 5.31 HEMOGLOBIN g/dL 13.0 HEMATOCRIT % 36.2* PLATELETS 10*3/uL 145* LYMPHOCYTES % 22.2 MONOCYTES % 9.2 Results from last 7 days Lab Units 01/10/25 0255 01/10/25 0035 01/10/25 0014 SODIUM mEq/L -- -- 139 POTASSIUM mEq/L -- -- 3.3* CHLORIDE mEq/L -- -- 106 CO2 mEq/L -- -- 24.5 BUN mg/dL -- -- 27* CREATININE mg/dL -- -- 1.12 CALCIUM mg/dL -- -- 9.7 PROTEIN TOTAL g/dL -- 7.6 -- BILIRUBIN TOTAL mg/dL -- 0.80 -- ALK PHOS U/L -- 63 -- ALT U/L -- 28 -- AST U/L -- 41* -- GLUCOSE mg/dL -- -- 108* POC GLUCOSE mg/dL 84 -- -- No results found for: "PT", "INR", "PTT" Activated Clotting Time (TEG) Rapid Date Value Ref Range Status 01/10/2025 121 (H) 86 - 118 sec Final IMAGING: Trauma CT CHEST ABDOMEN PELVIS W IV CONTRAST CT BRAIN WO IV CONTRAST CT external spine Final Result NEURO ASSESSMENT/PLAN: Assessment: Karl Grey is a 69 y.o. male with PMH of afib on xarelto, HTN, DM presents after altered mental status for one day. Per daughter report, patient was more forgetful for the past 2 days, and today was found to be more altered (answering the door in his underwear, not able to recall details etc). In the ER, patient presumably had a seizure witnessed only by family when he clenched up and shaked for a few seconds. NSGY consulted for CT head finding of left frontal scattered tSAH and a thin left frontal convexity subdural hygroma. Patient last xarelto yesterday evening. Family denies fever, recent illness, seizure history. Patient was hospitalized 1 week ago for cholecystitis per daughter pending surgery scheduling but has not been eating or drinking well for the past week. Impression: - scattered left frontal tSAH Plan: - No surgical intervention needed at this moment - Repeat CT head stable - Obtain CTA/CTV to rule out cortical thrombus - Small amount of tSAH unlikely to be the cause of altered mental status - AMS work up, UA show occasional bacteria, ammonia normal - Admit to 3 [facility] white team updated - Recommend neurology consult for first time seizure - MRI brain w/wo contrast pending - Keppra 1000mg load and 500mg BID x7days for seizure ppx - Maintain SBP<150 to lower risk of rebleed - Patient family updated on plan of care Call [phone] for questions [facility] Neurosurgery Tony Doyle MD MS Neurological Surgery Resident PGY2 I evaluated this patient and agree with plan Gabino Wadsworth [1] No past medical history on file. [2] No past surgical history on file. [3] (Not in a hospital admission) [4] Allergies Allergen Reactions Sulfa Antibiotics Unknown [5] [6] No family history on file. Neurosurgery Physician [facility] Notes Date/Time Note Provider Source Referral ID Status Reason Start Date Expiration Date Visits Re quested Visits Authorized [id number] [address] [id number] 16:22:20* Calculated C-SSRS Risk Score (Lifetime/Recent) Answer Date of Assessment Author No Risk Indicated 01/30/2025 8:04 AM CDT Beatrice Patel, PILY * [place] Suicide Severity Rating Scale (Screener/Recent Self-Report) Question Answer Date of Assessment Author 1. Wish to be (Past 1 Month) No 025 8:04 AM CDT Beatrice Patel, PILY 2. Non-Specific Active Suici todd Thoughts (Past 1 Month) No 01/30/2025 8:04 AM CDT Juliana Patel RN 6. Suicidal Behavior (Lifetime) No 8:04 AM CDT Beatrice Patel, PILY [id number] 16:22:20* Alisa Traylor MD - 02/05/2025 1:57 PM CDT Date of admission 01/30/2025 Date of Discharge 02/05/25 Discharge Diagnosis Principal Problem: Intracranial subarachnoid hemorrhage (HCC) Active Problems: SAH (subarachnoid hemorrhage) (CMS/HCC) (HCC) Medication management Uncontrolled hypertension Seizure disorder (CMS/HCC) (HCC) Suicidal ideation Physical deconditioning Persistent atrial fibrillation (HCC) Hypertensive urgency Lumbar foraminal stenosis Anxiety associated with depression Bradycardia Resolved Problems: * No resolved hospital problems. * [facility] Loco Grey is a 69 years old male with PMH of seizure (on Keppra, lacosamide), A-fib (on aspirin, not on A/C after recent admission with traumatic subarachnoid hemorrhage), HTN, Transferred from OSH for traumatic SAH after unwitnessed fall in SNF.s/p SAH, came in with HTN urgency, likely 2/2 severe anxiety, mentioned that he had suicidal ideations but no plan, pt evaluated by Neurosx no sx indicated, pt evaluated by psychiatry no SI HI, sitter dc, Safe to dc with outpt fu with psychiatry, he was started on sertaline 50 mg daily, cont ativan 1 mg bid for anxiety Anticoagulation / ASA hold due to SAH. Pt to follow up with outpt neuro trauma clinic Pt cleared for discharge to snf today, Pertinent Physical Exam At Time of DischargePhysical Exam: General: NAD Head: Normocephalic Neck: No masses, no JVD Lung: Good air entry bilaterally, no wheezing, crackles. Heart: regular rhythm, normal rate, no murmurs Abdomen: soft, non tender Back: no CVA tenderness Extremities: no edema Skin: no rash Neurology: Alert and oriented X 3 , answer questions appropriately, follow commands Pulses: Good pulses in the upper and lower extremities Patient Condition at Discharge Stable Discharge Medications amLODIPine, 10 mg, Oral, Daily docusate sodium, 100 mg, Oral, q12h hydrALAZINE, 25 mg, Oral, q8h lacosamide, 100 mg, Oral, BID levETIRAcetam, 500 mg, Oral, BID lidocaine, 1 patch, Apply externally, Daily LORazepam, 1 mg, Oral, q12h losartan, 25 mg, Oral, Daily melatonin, 6 mg, Oral, Nightly pantoprazole, 40 mg, Oral, Daily polyethylene glycol (PEG) 3350, 17 g, Oral, Daily Premier Protein Shake, 1 Bottle, Oral, Daily with lunch propafenone, 150 mg, Oral, q8h sennosides, 1 tablet, Oral, BID sertraline, 50 mg, Oral, Daily sodium chloride, 10 mL, Intravenous, q12h DIANA [Held by provider] terazosin, 10 mg, Oral, Nightly thiamine, 100 mg, Oral, Daily PRN medications: acetaminophen, dextrose, dextrose, glucagon, hydrALAZINE, insulin lispro, naloxone, ondansetron, oxyCODONE, sodium chloride Test Results Pending At DischargeN/a Issues Requiring Follow-Up Fu outpt neurosx clinic Patient can follow-up in neurotrauma clinic in 2 weeks with a repeat head CT. Please call [phone] for appointment. Discharge Instructions See AVS Outpatient Follow-UpFu with pcp in a week Fu with neurosx clinic DispositionSNF-External [3] Time Spent on [id number] minutes [place] [id number] 16:22:20* Balbina Gutierrez LMSW - 02/05/2025 2:41 PM CDT Final Discharge Disposition[facility] Pt met with Uday Epstein at bedside to review questions and concerns and complete bedside eval. All addressed and pt gave choice as Uday. Tete reviewed financial criteria with pt for LTC and provided private pay and copay day quotes. Pt agreeable with financial responsibility. Pt and SNF requesting pain meds to bed prior to discharge to avoid potential delay at SNF's pharmacy and assist in comfort during transition of care. Physician ordered. Pending delivery. [facility] (SNF) Acceptance Received Date and Time: 02/05/25 12:57 Received From: Tete Moise [facility] Name: [facility] Address: [address] [place] [id number] [place] [address] Room Number: 110A Nursing Unit for Report: [phone] station 1 Accepting MD: Dr Harris Accepting Dispatcher Street Department: Shivam HUNTLEY sent to facility: Yes Medication Reconciliation sent to facility: Yes Transportation Arrangements On last eval, pt ambulating with contact guard assistance with RW. Pt alert and oriented. Appropriate to transport via private vehicle. SW confirmed pt will have assistance into facility upon arrival if needed. Daughter en route to pickup. Pickup Date: 02/05/25 Notification Patient at bedside Family via phone Primary MD/Primary Team via phone Primary nurse via phone Please call After-Hours SW for discharge issues after 1700. Balbina Gutierrez LMSW Office: [phone] * Lisa Esquivel RN - 02/05/2025 11:38 AM CDT CASE MANAGEMENT ROUTINE DISCHARGE PLAN NOTE LOS: 4 Barriers to Discharge: Pending SNF Placement; medically clear. DISCHARGE PLAN A: [facility] (SNF to LTC) DISCHARGE PLAN B: [facility] LUISA: today * Alisa Traylor MD - 02/04/2025 4:23 PM CDT Subjective Pt seen and examined no cp sob Bp improved, Objective Last Recorded Vitals Blood pressure (!) 116/52, pulse 63, temperature 36.6 ?C (97.8 ?F), resp. rate 17, height 1.803 m (5' 11"), weight 90.7 kg (200 lb), SpO2 97%. Physical Exam: General: NAD Head: Normocephalic Neck: No masses, no JVD Lung: Good air entry bilaterally, no wheezing, crackles. Heart: regular rhythm, normal rate, no murmurs Abdomen: soft, non tender Back: no CVA tenderness Extremities: no edema Skin: no rash Neurology: Alert and oriented X 3 , answer questions appropriately, follow commands Pulses: Good pulses in the upper and lower extremities Current Active Medications amLODIPine, 10 mg, Oral, Daily docusate sodium, 100 mg, Oral, q12h hydrALAZINE, 25 mg, Oral, q8h lacosamide, 100 mg, Oral, BID levETIRAcetam, 1,000 mg, Oral, BID lidocaine, 1 patch, Apply externally, Daily LORazepam, 1 mg, Oral, q12h losartan, 25 mg, Oral, Daily melatonin, 6 mg, Oral, Nightly metoprolol succinate XL, 25 mg, Oral, Daily pantoprazole, 40 mg, Oral, Daily polyethylene glycol (PEG) 3350, 17 g, Oral, Daily Premier Protein Shake, 1 Bottle, Oral, Daily with lunch propafenone, 150 mg, Oral, q8h sennosides, 1 tablet, Oral, BID sertraline, 50 mg, Oral, Daily sodium chloride, 10 mL, Intravenous, q12h DIANA [Held by provider] terazosin, 10 mg, Oral, Nightly thiamine, 100 mg, Oral, Daily PRN medications: acetaminophen, dextrose, dextrose, glucagon, hydrALAZINE, insulin lispro, naloxone, ondansetron, oxyCODONE, oxyCODONE, sodium chloride Lab ResultsResults from last 7 days Lab Units 02/04/25 0521 02/02/25 0345 02/01/25 1120 WBC 10*3/uL 7.30 4.40 4.77 HEMOGLOBIN g/dL 11.1* 11.1* 12.2* HEMATOCRIT % 34.4* 33.5* 36.7* PLATELETS 10*3/uL 148* 153* 183 Results from last 7 daysLab Units 02/04/25 1504 02/04/25 1042 02/04/25 0521 02/02/25 1107 02/02/25 0345 02/01/25 2237 02/01/25 1119 SODIUM mEq/L -- -- 140 -- 142 -- 141 POTASSIUM mEq/L -- -- 3.8 -- 3.5 -- 4.0 CHLORIDE mEq/L -- -- 104 -- 106 -- 106 CO2 mEq/L -- -- 25.0 -- 27.3 -- 27.2 BUN mg/dL -- -- 16 -- 15 -- 13 CREATININE mg/dL -- -- 0.83 -- 0.87 -- 0.81 GLUCOSE mg/dL -- -- 85 -- 94 -- 112* POC GLUCOSE mg/dL 107* < > -- < > -- < > -- CALCIUM mg/dL -- -- 9.4 -- 8.8 -- 9.3 < > = values in this interval not displayed. AssessmentKarl Grey is a 69 years old male with PMH of seizure (on Keppra, lacosamide), A-fib (on aspirin, not on A/C after recent admission with traumatic subarachnoid hemorrhage), HTN, Transferred from OSH for traumatic SAH after unwitnessed fall in SNF.s/p SAH, came in with HTN urgency, likely 2/2 severe anxiety, mentioned that he had suicidal ideations but no plan, also asymptomatic bradycardia Assessment & Plan Intracranial subarachnoid hemorrhage (HCC) SAH (subarachnoid hemorrhage) (CMS/HCC) (HCC) Seizure disorder (CMS/HCC) (HCC) S/p unwitnessed fall at ground-level CT C spine negative CT brain without IV contrast: Decreased conspicuity of trace subarachnoid hemorrhage in the left frontal sulci, significantly improved compared to the more remote exam from 01/10/2025. Trace left parietal subdural hematoma is decreased compared to 01/10/2025 Neurosurgery consulted for a left frontal tiny traumatic subarachnoid hemorrhage. No acute Neurosurgery intervention With right eye lid laceration closure D/p Load with Keppra 1000 x 1 Maintain systolic blood pressure less than 150 Hold ASA Per Neurosx follow-up neurotrauma clinic in 2 weeks for a repeat Head CT. Neurocheck as protocol Bowel regimen Continue home levetiracetam, lacosamide, propafenone Seizure precaution Fall precaution Uncontrolled hypertension Hypertensive urgency With episodes of low Bps. Orthostatic VS. Home meds: amlodipine 10 mg BID, hydralazine 50 mg TID and metoprolol succinate 25. Continue home meds as above and titrate to BP goal of systolic blood pressure less than 150 as per NeuroSx recommendation discontinue labetalol d/t bradycardia Terazosin was Held from prior admission d/t BP episodes of hypotension Suicidal ideation Anxiety associated with depression Was on Buspar but stopped taking meds because of "low blood pressure"On Lorazepam 1 mg BID for 20some years. Resume med to avoid benzo withdrawal Dc sitter per psych Psych consulted: sertraline 50 mg every morning Physical deconditioning OT and PT eval Thiamine daily Fall precaution Persistent atrial fibrillation (HCC) Bradycardia Was On Xarelto but on hold d/t current SAH Was previously discharged with ASA but is now on hold On home med Metoprolol and propafenone with parameters May hold meds if persistently bradycardic Get EKG telemetry Lumbar foraminal stenosis L3-S1 stenosis From MRI result on 01/14 Managed conservatively by PCP Lidocaine for pain VTE prophylaxis: scd Disposition: snf placement pending * Mouna Haro, OT - 02/04/2025 2:41 PM CDT Treatment Session Note Patient Name: Karl Grey Today's Date: 02/04/2025 Preferred Language: Ug[place] Assessment & Plan Pt will benefit from further skilled OT services to increase independence when performing ADL Tasks. Pt demonstrates highly decreased performance of functional tasks and pt with decreased balance when performing functional tasks. Pt with decreased balance when sitting as well as decreased endurance and activity tolerance throughout the session. Pt with decreased performance of functional activity at this time and currently requires min A throughout the session. Pt with min A to perform LB dressing throughout the session and noted with decreased balance when performing standing tasks. Pt with decreased standing tolerance noted throughout the session. Pt with decreased safety awareness noted throughout the session and demonstrates the need for safety cues throughout the session. Overall, pt with decreased performance of grooming, bathing and dressing throughout the session. OT will continue to follow while in house and address the aforementioned deficits. Thanks. Assessment: OT Assessment Results: Impaired ADL status, Impaired upper extremity range of motion, Impaired upper extremity strength, Impaired safe judgment during ADL, Impaired endurance, Impaired fine motor control, Impaired functional mobility, Impaired gross motor control, Impaired IADLs, Impaired right upper extremity, Impaired left upper extremity Prognosis: Good Barriers to Discharge: Safety awareness Evaluation/Treatment Tolerance: Patient limited by fatigue Precautions: Plan: Treatment Plan/Goals Established with Patient/Caregiver: Yes Treatment Interventions: ADL retraining, Continued evaluation, Endurance training, Functional transfer training, Fine motor coordination activities, UE strengthening/ROM OT Planned Treatments: Activities of Daily Living, Balance training, Cognitive training, Coordination, Therapeutic exercises, Therapeutic activities, Safety education, Neuromuscular reeducation, Mobility training OT Plan: Skilled OT OT Frequency: 3-5 times per week until discharge OT Duration: Discharge SubjectivePt reports "I am fearful of everything. ObjectiveOT arrives for session, Pt supine in bed upon arrival. Pt able to transition to the EOB with min A. Pt able to perform LB Dressing with CGA and education provided to pt throughout the session, pt verbalizes understanding. Pt with highly decreased safety awareness noted throughout the session. Pt presented with self regulation techniques throughout the session, and pt verbalizes understanding. Pt remains supine in bed at the end of the session. RN updated. Self Care (ADL): Eating Assistance: Supervision/touching assistance Grooming Assistance: Supervision/touching assistance Bathing Assistance: Partial/Mod assistance UE Dressing Assistance: Supervision/touching assistance LE Dressing Assistance: Supervision/touching assistance TreatmentSelf-Care: Eating Assistance: Supervision/touching assistance Grooming Assistance: Supervision/touching assistance Bathing Assistance: Partial/Mod assistance UE Dressing Assistance: Supervision/touching assistance LE Dressing Assistance: Supervision/touching assistance Bed Mobility: Bed Mobility 1Level of Assistance 1: Supervision/touching assistance Bed Mobility To/From: Roll lying on back to left, Roll lying on back to right, Supine to sit on EOB Transfers: Transfer 1Technique 1: Via walking Level of Assistance 1: Supervision/touching assistance Transfer To/From: Chair Therapeutic ActivityTherapeutic Activity 1: OT presented pt with self regulation techniques throughout the session, pt verbalizes understanding throughout. Therapeutic Activity 2: meditation techniques taught and implemented for pt throughout the session. Other Activity AM-PAC Daily Activity: Putting on and taking off regular lower body clothing: A Little Bathing (including washing, rinsing, drying): A Little Toileting, which includes using toilet, bedpan or urinal: A Little Putting on and taking off regular upper body clothing: A Little Taking care of personal grooming such as brushing teeth: A Little Eating Meals: None AM-PAC Daily Activity Raw Score: 19 Patient Education: Education Documentation No documentation found. Education Comments No comments found. Goals:Encounter Goals Encounter Goals (Active) Pt will perform LB dressing with min A. Start: 02/03/25 Expected End: 02/17/25 Pt will demonstrate increased AROM and fine motor task performance in the B UE throughout the session. Start: 02/03/25 Expected End: 02/17/25Ability to perform basic physical tasks and personal care activities. Pt will sequence ADL Tasks with min A throughout the session and require min verbal cues throughout the session. Start: 02/03/25 Expected End: 02/17/25Ability to perform basic physical tasks and personal care activities. Treatment Note: If this is the last documented treatment, then it will signify discharge from acute care prior to discharge from the therapy service and will serve as the discharge summary. Mouna Haro OT * Nel Purdy, PT - 02/04/2025 10:40 AM CDT Physical Therapy Treatment Session Note Patient Name: Karl Grey Today's Date: 02/04/2025 Preferred Language: [place] Assessment & Plan Assessment: Prognosis: Excellent Evaluation/Treatment Tolerance: Patient limited by fatigue Medical Staff Made Aware: Yes Strengths: Ability to acquire knowledge, Attitude of self Pt with decreased activity tolerance compared to previous session. However, able to ambulate with contact guard assistance with RW. Pt continues to demonstrate mild postural instability and will benefit from use of RW as well as supervision for safety. PT will continue to follow while in-house. Plan: Treatment Plan/Goals Established with Patient/Caregiver: Yes Treatment/Interventions: Balance training, Bed mobility training, Caregiver training, Transfer training, Therapeutic exercises, Posture/Body mechanics baring, Positioning, Patient education, Neuromuscular re-education, Manual therapy, Gait training, Functional activities, Equipment training PT Plan: Skilled PT PT Frequency: 2-3 times per week until discharge Equipment Recommended: Walker- rolling PT Recommended Transfer Status: Assistive equipment (Comment) (Contact guard assistance with RW) Subjective " I'm nauseous" Precautions: UE Weight Bearing Status: FWB LE Weight Bearing Status: FWB Medical Precautions: Standard, Falls Pain: Pain Assessment: DVPRS (02/04/2025 10:40 AM) Pain Score: 5 (02/04/2025 10:40 AM) Pain Type: Acute pain (02/04/2025 8:53 AM) Pain Location: Chest (02/04/2025 8:53 AM) Pain Descriptors: Aching (02/04/2025 10:40 AM) Pain Frequency: Intermittent (02/04/2025 10:40 AM) Vital Signs 02/04/25 1049 02/04/25 1050 02/04/25 1052 Vital Signs Heart Rate 50 57 63 BP (!) 108/59 (!) 116/56 (!) 108/59 MAP (mmHg) 80 79 78 BP Location Right arm Right arm Right arm BP Method Automatic Automatic Automatic Orthostatic Vitals Yes Yes Yes Patient Position Lying Sitting Standing Oxygen Therapy SpO2 97 % 97 % 97 % Post session ( seated in chair) - BP 134/62 HR 54 O2 sat :98% Objective General Visit Information: PT Last Visit PT Received On: 02/04/25 General Others Present: PT tech : Femi Meier Activity Tolerance: Endurance: Tolerates 30 min exercise with multiple rests Sitting Balance: Supports self independently with both upper extremities Early Mobility/Exercise Safety Screen: Proceed with mobilization - No exclusion criteria met Cognition Behavior/Cognition: Alert, Cooperative Arousal/Alertness: Delayed responses to stimuli Orientation Level: Oriented X4 Treatment Therapeutic activity: Therapeutic Activity Therapeutic Activity Time Entry: 15 Therapeutic Activity 1: Orthostatic VS assessment Therapeutic Activity 2: Bed mobility Therapeutic Activity 3: Transfer training Bed Mobility: Bed Mobility 1: Level of Assistance 1: Supervision/touching assistance Bed Mobility To/From: Roll left/right Bed Mobility 2: Level of Assistance 2: Supervision/touching assistance Bed Mobility To/From: Supine to sit on EOB Assistive Devices And Adaptive Equipments: Head of bed elevated Bed Mobility 3: Level of Assistance 3: Supervision/touching assistance Bed Mobility To/From: Sitting EOB to supine Transfers: Transfers 1: Level of Assistance 1: Supervision/touching assistance Trials/Comments 1: verbal cues for set up Transfer To/From: [id number] Assistive Devices And Adaptive Equipments: Walker, front-wheeled Transfers 2: Technique 2: Via walking Level of Assistance 2: Supervision/touching assistance Transfer To/From: Chair Assistive Devices And Adaptive Equipments: Walker, front-wheeled Gait training: Gait Training Time Entry: 10 Gait Training Activity 1: Distance (enter in feet): 200 feet Assistive Devices And Adaptive Equipments: Walker, front-wheeled Level of Assistance 1: Supervision/touching assistance Gait Training Activity 1 Comment: decreased speed, decreased stride length.pt c/o fatigue and nausea. AM-PAC Basic Mobility: AM-PAC Basic Mobility Inpatient Turning in bed without bedrails: A Little Lying on back to sitting on edge of flat bed: A Little Bed to chair: A Little Standing up from chair: A Little Walk in room: A Little Climbing 3-5 stairs: A Little Mobility Inpatient Raw Score: 18 JH-HLM Goal: 6 Mobility: Highest Level of Mobility Performed (JH-HLM) JH-HLM Goal: 6 Highest Level of Mobility Performed (JH-HLM): Walked 25 feet or more (i.e. walked outside of room) Treatment Details PILY Peña cleared patient for participation in PT session Pt received semi-fowlers in bed in [facility]. All lines appreciated and managed Pt transitioned from supine to sitting EOB with CGA At EOB, pt c/o dizziness. Orthostatic VS assessed ( negative ) Pt then ambulated in hallway with CGA using RW. Mild postural instability noted without LOB Pt returned to room and transferred to sitting in bedside chair with CGA Pt left in chair in NAD. All lines intact and all needs in reach. RN notified. Post-Therapy Checklist: Pt sitting up in chair, Call light within reach, Other discipline at bedside, All lines/lead intact, Vital signs stable, and RN informed/aware Patient Education: Education Documentation No documentation found. Education Comments No comments found. Goals:Encounter Goals Encounter Goals (Active) Pt will transition from supine to/from sitting edge of bed with mod I in orderto sit EOB for ADL participation Start: 02/03/25 Expected End: 02/17/25 Patient will transfer bed to/from chair with mod I and least restrictive device to increase upright tolerance and optimize cardiorespiratory function Start: 02/03/25 Expected End: 02/17/25 Patient will ambulate 500 feet over level surfaces with mod I and least restrictive device in prep for household ambulation and community re-integration Start: 02/03/25 Expected End: 02/17/25 Pt will perform LB dressing with min A. Start: 02/03/25 Expected End: 02/17/25 Treatment Note: If this is the last documented treatment, then it will signify discharge from acute care prior to discharge from the therapy service and will serve as the discharge summary. Nel Purdy PT, DPT * Ezekiel Gill MD - 02/04/2025 8:03 AM CDT [facility] Query Clarification Progress Note As related to the inpatient hospital stay starting on 02/01/2025, 12:02 PM. I have reviewed the patient’s medical record and the following accurately represents the patient’s current condition. PROVIDER RESPONSE TEXT: Major depressive disorder, recurrent episode, moderate Query Created By : Ana Vaughn, 02/03/2025, 1:13 PM * Alisa Traylor MD - 02/03/2025 5:00 PM CDT Subjective Pt seen and examined Pending snf placement Objective Last Recorded Vitals Blood pressure 141/66, pulse 67, temperature 36.9 ?C (98.5 ?F), resp. rate 22, height 1.803 m (5' 11"), weight 90.7 kg (200 lb), SpO2 98%. Physical Exam: General: NAD Head: Normocephalic Neck: No masses, no JVD Lung: Good air entry bilaterally, no wheezing, crackles. Heart: regular rhythm, normal rate, no murmurs Abdomen: soft, non tender Back: no CVA tenderness Extremities: no edema Skin: no rash Neurology: Alert and oriented X 3 , answer questions appropriately, follow commands Pulses: Good pulses in the upper and lower extremities Current Active Medications amLODIPine, 10 mg, Oral, Daily docusate sodium, 100 mg, Oral, q12h hydrALAZINE, 25 mg, Oral, q8h lacosamide, 100 mg, Oral, BID levETIRAcetam, 1,000 mg, Oral, BID lidocaine, 1 patch, Apply externally, Daily LORazepam, 1 mg, Oral, q12h losartan, 25 mg, Oral, Daily melatonin, 6 mg, Oral, Nightly metoprolol succinate XL, 25 mg, Oral, Daily pantoprazole, 40 mg, Oral, Daily polyethylene glycol (PEG) 3350, 17 g, Oral, Daily Premier Protein Shake, 1 Bottle, Oral, Daily with lunch propafenone, 150 mg, Oral, q8h sennosides, 1 tablet, Oral, BID sertraline, 50 mg, Oral, Daily sodium chloride, 10 mL, Intravenous, q12h DIANA [Held by provider] terazosin, 10 mg, Oral, Nightly thiamine, 100 mg, Oral, Daily PRN medications: acetaminophen, dextrose, dextrose, dextrose, glucagon, glucagon, insulin lispro, naloxone, ondansetron, oxyCODONE, oxyCODONE, sodium chloride Lab ResultsResults from last 7 days Lab Units 02/02/25 0345 02/01/25 1120 01/31/25 0207 WBC 10*3/uL 4.40 4.77 4.13 HEMOGLOBIN g/dL 11.1* 12.2* 11.0* HEMATOCRIT % 33.5* 36.7* 33.4* PLATELETS 10*3/uL 153* 183 198 Results from last 7 daysLab Units 02/02/25 1107 02/02/25 0345 02/01/25 2237 02/01/25 1119 01/31/25 0207 SODIUM mEq/L -- 142 -- 141 142 POTASSIUM mEq/L -- 3.5 -- 4.0 3.5 CHLORIDE mEq/L -- 106 -- 106 106 CO2 mEq/L -- 27.3 -- 27.2 25.8 BUN mg/dL -- 15 -- 13 13 CREATININE mg/dL -- 0.87 -- 0.81 0.88 GLUCOSE mg/dL -- 94 -- 112* 82 POC GLUCOSE mg/dL 102* -- < > -- -- CALCIUM mg/dL -- 8.8 -- 9.3 9.4 < > = values in this interval not displayed. AssessmentKarl Grey is a 69 years old male with PMH of seizure (on Keppra, lacosamide), A-fib (on aspirin, not on A/C after recent admission with traumatic subarachnoid hemorrhage), HTN, Transferred from OSH for traumatic SAH after unwitnessed fall in SNF.s/p SAH, came in with HTN urgency, likely 2/2 severe anxiety, mentioned that he had suicidal ideations but no plan, also asymptomatic bradycardia during sleep down to 30-40s. Assessment & Plan Intracranial subarachnoid hemorrhage (HCC) SAH (subarachnoid hemorrhage) (CMS/HCC) (HCC) Seizure disorder (CMS/HCC) (HCC) S/p unwitnessed fall at ground-level CT C spine negative CT brain without IV contrast: Decreased conspicuity of trace subarachnoid hemorrhage in the left frontal sulci, significantly improved compared to the more remote exam from 01/10/2025. Trace left parietal subdural hematoma is decreased compared to 01/10/2025 Neurosurgery consulted for a left frontal tiny traumatic subarachnoid hemorrhage. No acute Neurosurgery intervention With right eye lid laceration closure Load with Keppra 1000 x 1 Maintain systolic blood pressure less than 150 Hold ASA Per Neurosx follow-up neurotrauma clinic in 2 weeks for a repeat Head CT. Neurocheck as protocol Bowel regimen Continue home levetiracetam, lacosamide, propafenone Seizure precaution Fall precaution Uncontrolled hypertension Hypertensive urgency With episodes of low Bps. Orthostatic VS. Home meds: amlodipine 10 mg BID, hydralazine 50 mg TID and metoprolol succinate 25. Continue home meds as above and titrate to BP goal of systolic blood pressure less than 150 as per NeuroSx recommendation discontinue labetalol d/t bradycardia Terazosin was Held from prior admission d/t BP episodes of hypotension Suicidal ideation Anxiety associated with depression Was on Buspar but stopped taking meds because of "low blood pressure"On Lorazepam 1 mg BID for 20some years. Resume med to avoid benzo withdrawal Dc sitter per psych Psych consulted: sertraline 50 mg every morning Physical deconditioning OT and PT eval Thiamine daily Fall precaution Persistent atrial fibrillation (HCC) Bradycardia Was On Xarelto but on hold d/t current SAH Was previously discharged with ASA but is now on hold On home med Metoprolol and propafenone with parameters May hold meds if persistently bradycardic Get EKG telemetry Lumbar foraminal stenosis L3-S1 stenosis From MRI result on 01/14 Managed conservatively by PCP Lidocaine for pain VTE prophylaxis: This patient does not have an active medication from one ofthe medication groupers. Disposition: snf pending placement * Balbina Gutierrez LMSW - 02/03/2025 4:34 PM CDT 02/03/25 1600 Discharge Planning Information Source Self Permanent Residence Private residence Household Members Alone Support Systems Children Ar[facility] From [facility] In the last 12 months, was there a time when you were not able to pay the mortgage or rent on time? N In the past 12 months, how many times have you moved where you were living? 0 At any time in the past 12 months, were you homeless or living in a fdc (including now)? N In the past 12 months has the Rabbit, gas, oil, or water [employer] threatened to shut off services in your home? No Within the past 12 months, you worried that your food would run out before you got the money to buy more. Never true Within the past 12 months, the food you bought just didn't last and you didn't have money to get more. Never true Assistive Devices None Assistance Needed Independent Patient expects to be discharged to: Choice Expected Discharge Disposition SNF Anticipated Services at Discharge Post acute facilities (Rehab/SNF/etc) Type of Post Acute Facility Services care home In the past 12 months, has lack of transportation kept you from medical appointments or from getting medications? no In the past 12 months, has lack of transportation kept you from meetings, work, or from getting things needed for daily living? No Does the patient need discharge transport arranged? Yes Discharge Planning Status Initial Assessment Complete MPOA: N/a NOK: 1 adult child, Giovana PCP/Contact Information: Dr. Daley in [place] Pharmacy: listed in Epic/verified Home/Address: verified on [employer] Health Insurance/Payer: verified on [employer] 20/05 care/supervision at home if needed: No Transportation arrangements: TBD DCP A: SNF to LTC DCP B: HH fam supv Pt shared that he was previously at [facility] but does not want to return due to negative experience. Pt interested in alternate facility. Pt also expresses fear and concern for returning home due to confusion, anxiety, and concern for managing his own med regimen. SW initiated SNF referral in preferred area, noting to review for transition to LTC. Balbina Gutierrez LMSW Office: [phone] * Mouna Haro, OT - 02/03/2025 1:46 PM CDT Evaluation and Treatment Patient Name: Karl Grey Today's Date: 02/03/2025 Preferred Language: Ug[place]an Assessment & Plan Pt will benefit from further skilled OT services to increase independence when performing ADL Tasks. Pt demonstrates highly decreased performance of functional tasks and pt with decreased balance when performing functional tasks. Pt with decreased balance when sitting as well as decreased endurance and activity tolerance throughout the session. Pt with decreased performance of functional activity at this time and currently requires min A throughout the session. Pt with min A to perform LB dressing throughout the session and noted with decreased balance when performing standing tasks. Pt with decreased standing tolerance noted throughout the session. Pt with decreased safety awareness noted throughout the session and demonstrates the need for safety cues throughout the session. Overall, pt with decreased performance of grooming, bathing and dressing throughout the session. OT will continue to follow while in house and address the aforementioned deficits. Thanks. Assessment: OT Assessment Results: Impaired ADL status, Impaired upper extremity strength, Impaired functional mobility, Impaired gross motor control, Impaired IADLs Prognosis: Excellent Evaluation/Treatment Tolerance: Patient limited by fatigue Plan: Treatment Interventions: ADL retraining, Continued evaluation, Endurance training, Fine motor coordination activities, Neuromuscular reeducation, Orthotic/Orthotic management, UE strengthening/ROM OT Planned Treatments: Activities of Daily Living, Coordination, Home program, Mobility training, Therapeutic activities, Therapeutic exercises OT Plan: Skilled OT OT Frequency: 3-5 times per week until discharge OT Duration: Discharge Subjective Pt reports "I am doing better, I just get off balance." Current Problem: Karl Grey is a 69 y.o. male with PMHx of seizure (on Keppra, lacosamide), A-fib (on aspirin, not on A/C) and HTN. Presented to after an episode of [facility]. Patient had a recent admission on 01/09 after a fall episode as well in which he sustained left frontal scattered tSAH and thin left frontal convexity subdural hygroma with no mass effect. He had developed seizure and is now managed with Keppra and Vimpat. He also developed lauryn extremity weakness, imaging show findings of moderate L3-S1 foraminal stenosis and T10-11 mild canal stenosis managed conservatively. He is now admitted for another episode of fall. Pain: Pain Assessment: DVPRS (02/03/2025 8:45 AM) Pain Score: 0 (02/03/2025 8:45 AM) Pain Type: Acute pain (02/03/2025 8:27 AM) Objective OT arrives for session, Pt supine in bed upon arrival. Pt able to transition to the EOB with min A. Pt able to perform standing with min A. . Pt able to perform LB Dressing with CGA and education provided to pt throughout the session, pt verbalizes understanding. Pt ambulates with CGA and able to return to sitting in the bedside chair with lap belt with CGA. Pt with highly decreased safety awareness noted throughout the session. RN updated. 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 Social History:Patient Roles: Volunteer, Caregiver for pet Patient Responsibilities: Community mobility, Driving, change management director, Personal ADL Prior IADL: Self Care (ADL): Eating Assistance: Supervision/touching assistance Grooming Assistance: Supervision/touching assistance Bathing Deficit: Supervision/safety Bathing Assistance: Partial/Mod assistance UE Dressing Assistance: Supervision/touching assistance UE Dressing Deficit: Supervision/safety LE Dressing Assistance: Supervision/touching assistance Toileting Assistance: Partial/Mod assistance Mobility/Transfers:Bed Mobility Bed Mobility Bed Mobility: Yes Bed Mobility 1 Level of Assistance 1: Partial/Mod assistance Bed Mobility To/From: Sitting EOB to supine, Supine to sit on EOB Transfer Transfer 1Technique 1: Via walking Level of Assistance 1: Supervision/touching assistance Transfer To/From: Chair OT General Assessments:ADL Eating Assistance: Supervision/touching assistance Grooming Assistance: Supervision/touching assistance Bathing Deficit: Supervision/safety Bathing Assistance: Partial/Mod assistance UE Dressing Assistance: Supervision/touching assistance UE Dressing Deficit: Supervision/safety LE Dressing Assistance: Supervision/touching assistance Toileting Assistance: Partial/Mod assistance PerceptionInattention/Neglect: Appears intact Motor Planning: Cues to use objects appropriately CoordinationMovements are Fluid and Coordinated: Yes Extremity Assessments:Right Upper Extremity RUE Assessment RUE Assessment: Within Functional Limits Left Upper Extremity LUE AssessmentLUE Assessment: Within Functional Limits Treatment:Self-Care: Eating Assistance: Supervision/touching assistance Grooming Assistance: Supervision/touching assistance Bathing Deficit: Supervision/safety Bathing Assistance: Partial/Mod assistance UE Dressing Assistance: Supervision/touching assistance UE Dressing Deficit: Supervision/safety LE Dressing Assistance: Supervision/touching assistance Toileting Assistance: Partial/Mod assistance Bed Mobility:Bed Mobility Bed Mobility: Yes Bed Mobility 1 Level of Assistance 1: Partial/Mod assistance Bed Mobility To/From: Sitting EOB to supine, Supine to sit on EOB Transfers: Transfer 1Technique 1: Via walking Level of Assistance 1: Supervision/touching assistance Transfer To/From: Chair AM-PAC Daily Activity:Putting on and taking off regular lower body clothing: A Little Bathing (including washing, rinsing, drying): A Little Toileting, which includes using toilet, bedpan or urinal: A Little Putting on and taking off regular upper body clothing: A Little Taking care of personal grooming such as brushing teeth: A Little Eating Meals: None AM-PAC Daily Activity Raw Score: 19 Patient Education:Education Documentation No documentation found. Education Comments No comments found. Goals:Encounter Goals Encounter Goals (Active) Pt will perform LB dressing with min A. Start: 02/03/25 Expected End: 02/17/25 Pt will demonstrate increased AROM and fine motor task performance in the B UE throughout the session. Start: 02/03/25 Expected End: 02/17/25Ability to perform basic physical tasks and personal care activities. Pt will sequence ADL Tasks with min A throughout the session and require min verbal cues throughout the session. Start: 02/03/25 Expected End: 02/17/25Ability to perform basic physical tasks and personal care activities. Treatment Note: If this is the last documented treatment, then it will signify discharge from acute care prior to discharge from the therapy service and will serve as the discharge summary. Mouna Haro OT * Nel Purdy, PT - 02/03/2025 8:45 AM CDT Physical Therapy Evaluation and Treatment Note Patient Name: Karl Grey Today's Date: 02/03/2025 Preferred Language: Ug[place] Assessment & Plan Assessment: Prognosis: Good Barriers to Discharge: Limited family support Evaluation/Treatment Tolerance: Patient tolerated treatment well Medical Staff Made Aware: Yes Strengths: Ability to acquire knowledge, Attitude of self Patient is alert , oriented x 4 and able to follow commands for formal testing. Physical assessment reveals mildly decreased bilateral lower extremity strength (functional strength present) , lower extremity active and passive ROM, intact light touch sensation , mildly decreased balance, decreased endurance, impaired postural control. At this time, pt contact guard to minimum assistance for transfers and ambulation with/without an assistive device.At baseline, pt is a community dwelling older adult . Pt currently below pre-admission functional status and will benefit from continued skilled PT services at next level of care to maximize functional recovery. Plan: Treatment Plan/Goals Established with Patient/Caregiver: Yes Treatment/Interventions: Balance training, Bed mobility training, Caregiver training, Functional activities, Gait training, Wheelchair assessment and management, Transfer training, Therapeutic exercises, Posture/Body mechanics baring, Patient education, Pain management, Neuromuscular re-education, Manual therapy, Equipment training PT Plan: Skilled PT PT Frequency: 2-3 times per week until discharge Equipment Recommended: Walker- rolling Subjective " I'm afraid I will fall again" Current Problem: Per Medicine H&P: Karl Grey is a 69 years old male with PMH of seizure (on Keppra, lacosamide), A-fib (on aspirin, not on A/C after recent admission with traumatic subarachnoid hemorrhage), HTN, Transferred from OSH for traumatic SAH after unwitnessed fall in SNF.s/p SAH, came in with HTN urgency, likely 2/2 severe anxiety, mentioned that he had suicidal ideations but no plan, also asymptomatic bradycardia during sleep down to 30-40s. Pain: Pain Assessment: DVPRS (02/03/2025 8:45 AM) Pain Score: 0 (02/03/2025 8:45 AM) Vital Signs: Post session ( seated in chair ) - BP 168/73 HR 65 O2 sat :97% Home Living: Type of Home: House Lives With: Alone Home Adaptive Equipment: None Home Layout: One level Home Access: Level entry Prior Level of Function: Level of [place]: Other (Comment) ADL Assistance: Independent Homemaking Assistance: Independent Vocational: Retired Prior Function Comments: Pt was independent prior to recent hospital admissions. Pt admitted from SNF this encounter. Objective General Visit Information: Others Present: Sitter present throughout session Precautions: UE Weight Bearing Status: FWB LE Weight Bearing Status: FWB Medical Precautions: Standard, Falls Cognition: Overall Cognitive Status: Impaired Behavior/Cognition: Alert, Cooperative Arousal/Alertness: Appropriate responses to stimuli Orientation Level: Oriented X4 Following Commands: Follows multistep commands with increased time Safety Judgment: Decreased awareness of need for safety General Assessments: Activity Tolerance Activity Tolerance Endurance: Endurance does not limit participation in activity Sitting Balance: Supports self independently with both upper extremities Early Mobility/Exercise Safety Screen: Proceed with mobilization - No exclusion criteria met Sensation Sensation Light Touch: RLE Intact, LLE Intact Proprioception Proprioception Proprioception: RLE Intact, LLE Intact Perception Perception Inattention/Neglect: Appears intact Initiation: Appears intact Motor Planning: Cues to use objects appropriately Perseveration: Not present Coordination Coordination Movements are Fluid and Coordinated: Yes Coordination and Movement Description: slow speed of gross motor movements Toe Taps: Left intact, Right intact Postural Control Postural Control Postural Control: Deficits on evaluation (WFL in sitting ; Mild impairment noted in standing) Head Control: WFL Trunk Control: WFL Balance- Sitting Static Sitting-Balance Support: Feet supported, No upper extremity supported Level of Assistance: Supervision/touching assistance Dynamic Sitting-Balance Support: Feet supported, No upper extremity supported Level of Assistance: Supervision/touching assistance Balance- Standing Static Standing-Balance Support: Right upper extremity supported, Left upper extremity supported Static Standing-Level of Assistance: Supervision/touching assistance Dynamic Standing-Balance Support: Right upper extremity supported, Left upper extremity supported Dynamic Standing-Level of Assistance: Supervision/touching assistance Functional Assessments: Transfers Transfers 1: Level of Assistance 1: Supervision/touching assistance Trials/Comments 1: x 1 rep from bedside chair Transfer To/From: [id number] Assistive Devices And Adaptive Equipments: No device Gait Gait Training Time Entry: 10 Gait Training Activity 1: Distance (enter in feet): 400 feet Assistive Devices And Adaptive Equipments: Walker, front-wheeled Level of Assistance 1: Supervision/touching assistance Gait Training Activity 1 Comment: pt ambulated 2 laps around unit with RW. Intermittent cues required for safe use of RW + postural alignment Extremity Assessments: Right Lower Extremity RLE Assessment RLE Assessment: Within Functional Limits Left Lower Extremity LLE Assessment LLE Assessment: Within Functional Limits Overall Lower Extremity/Trunk Tone Overall Lower Extremity/Trunk Tone Left Lower Extremity: Normal Right Lower Extremity: Normal Trunk: Normal Activity Tolerance: Endurance: Endurance does not limit participation in activity Sitting Balance: Supports self independently with both upper extremities Early Mobility/Exercise Safety Screen: Proceed with mobilization - No exclusion criteria met Cognition Overall Cognitive Status: Impaired Behavior/Cognition: Alert, Cooperative Arousal/Alertness: Appropriate responses to stimuli Orientation Level: Oriented X4 Following Commands: Follows multistep commands with increased time Safety Judgment: Decreased awareness of need for safety Treatment Transfers: Transfers 1: Level of Assistance 1: Supervision/touching assistance Trials/Comments 1: x 1 rep from bedside chair Transfer To/From: [id number] Assistive Devices And Adaptive Equipments: No device Gait training: Gait Training Time Entry: 10 Gait Training Activity 1: Distance (enter in feet): 400 feet Assistive Devices And Adaptive Equipments: Walker, front-wheeled Level of Assistance 1: Supervision/touching assistance Gait Training Activity 1 Comment: pt ambulated 2 laps around unit with RW. Intermittent cues required for safe use of RW + postural alignment AM-PAC Basic Mobility: Turning in bed without bedrails: A Little Lying on back to sitting on edge of flat bed: A Little Bed to chair: A Little Standing up from chair: A Little Walk in room: A Little Climbing 3-5 stairs: A Little Mobility Inpatient Raw Score: 18 JH-HLM Goal: 6 Mobility: Highest Level of Mobility Performed (-HLM) Walked 25 feet or more (i.e. walked outside of room) Treatment Details PILY Perkins cleared patient for participation in PT session Pt received seated in chair at conclusion of OT session with sitter at bedside PT assumed patient care and patient transitioned to standing with CGA + vc's for set up Pt then ambulated in hallway with CGA using RW. Mild postural instability noted without LOB Pt returned to room and transferred to sitting in bedside chair with CGA Pt left in chair in NAD. All lines intact and all needs in reach. RN notified. Post-Therapy Checklist: Pt sitting up in chair, Call light within reach, Other discipline at bedside, All lines/lead intact, Vital signs stable, and RN informed/aware Patient Education: Education Documentation Precautions, taught by Nel Purdy PT at 02/03/2025 10:03 AM. Learner: Patient Readiness: Acceptance Method: Explanation Response: Verbalizes Understanding Durable Medical Equipment, taught by Nel Purdy PT at 02/03/2025 10:03 AM. Learner: Patient Readiness: Acceptance Method: Explanation Response: Verbalizes Understanding Home Safety, taught by Nel Purdy PT at 02/03/2025 10:03 AM. Learner: Patient Readiness: Acceptance Method: Explanation Response: Verbalizes Understanding Fall Prevention, taught by Nel Purdy PT at 02/03/2025 10:03 AM. Learner: Patient Readiness: Acceptance Method: Explanation Response: Verbalizes Understanding Physical Therapy Plan of Care, taught by Nel Purdy PT at 02/03/2025 10:03 AM. Learner: Patient Readiness: Acceptance Method: Explanation Response: Verbalizes Understanding Education Comments No comments found. Goal: Encounter Goals Encounter Goals (Active) Pt will transition from supine to/from sitting edge of bed with mod I in order to sit EOB for ADL participation Start: 02/03/25 Expected End: 02/17/25 Patient will transfer bed to/from chair with mod I and least restrictive device to increase upright tolerance and optimize cardiorespiratory function Start: 02/03/25 Expected End: 02/17/25 Patient will ambulate 500 feet over level surfaces with mod I and least restrictive device in prep for household ambulation and community re-integration Start: 02/03/25 Expected End: 02/17/25 Treatment Note: If this is the last documented treatment, then it will signify discharge from acute care prior to discharge from the therapy service and will serve as the discharge summary. Nel Purdy PT, DPT * Ezekiel Gill MD - 02/02/2025 11:57 PM CDT Images from the original note were not included. Medicine Daily Progress Note Subjective - no acute events, no suicidal actions or active plan, psych saw him Objective Last Recorded VitalsBlood pressure 153/67, pulse 63, temperature 37.1 ?C (98.8 ?F), temperature source Oral, resp. rate 20, height 1.803 m (5' 11"), weight 90.7 kg (200 lb), SpO2 97%. Physical Exam:Blood pressure 153/67, pulse 63, temperature 37.1 ?C (98.8 ?F), temperature source Oral, resp. rate 20, height 1.803 m (5' 11"), weight 90.7 kg (200 lb), SpO2 97%. General: NADHead: Normocephalic Neck: No masses, no JVD Lung: Good air entry bilaterally, no wheezing, crackles. Heart: regular rhythm, normal rate, no murmurs Abdomen: soft, non tender Back: no CVA tenderness Extremities: no edema Skin: no rash Neurology: Alert and oriented X 3 , answer questions appropriately, follow commands Pulses: Good pulses in the upper and lower extremities Lab ResultsResults from last 7 days Lab Units 02/02/25 0345 02/01/25 1120 01/31/25 0207 WBC 10*3/uL 4.40 4.77 4.13 HEMOGLOBIN g/dL 11.1* 12.2* 11.0* HEMATOCRIT % 33.5* 36.7* 33.4* PLATELETS 10*3/uL 153* 183 198 Results from last 7 daysLab Units 02/02/25 1107 02/02/25 0345 02/01/25 2237 02/01/25 1119 01/31/25 0207 SODIUM mEq/L -- 142 -- 141 142 POTASSIUM mEq/L -- 3.5 -- 4.0 3.5 CHLORIDE mEq/L -- 106 -- 106 106 CO2 mEq/L -- 27.3 -- 27.2 25.8 BUN mg/dL -- 15 -- 13 13 CREATININE mg/dL -- 0.87 -- 0.81 0.88 GLUCOSE mg/dL -- 94 -- 112* 82 POC GLUCOSE mg/dL 102* -- < > -- -- CALCIUM mg/dL -- 8.8 -- 9.3 9.4 < > = values in this interval not displayed. AssessmentGaryoko Grey is a 69 years old male with PMH of seizure (on Keppra, lacosamide), A-fib (on aspirin, not on A/C after recent admission with traumatic subarachnoid hemorrhage), HTN, Transferred from OSH for traumatic SAH after unwitnessed fall in SNF.s/p SAH, came in with HTN urgency, likely 2/2 severe anxiety, mentioned that he had suicidal ideations but no plan, also asymptomatic bradycardia during sleep down to 30-40s. Assessment & Plan Intracranial subarachnoid hemorrhage (HCC) SAH (subarachnoid hemorrhage) (CMS/HCC) (HCC) Seizure disorder (CMS/HCC) (HCC) S/p unwitnessed fall at ground-level CT C spine negative CT brain without IV contrast: Decreased conspicuity of trace subarachnoid hemorrhage in the left frontal sulci, significantly improved compared to the more remote exam from 01/10/2025. Trace left parietal subdural hematoma is decreased compared to 01/10/2025 Neurosurgery consulted for a left frontal tiny traumatic subarachnoid hemorrhage. No acute Neurosurgery intervention With right eye lid laceration closure Load with Keppra 1000 x 1 Maintain systolic blood pressure less than 150 Hold ASA Per Neurosx follow-up neurotrauma clinic in 2 weeks for a repeat Head CT. Neurocheck as protocol Bowel regimen Continue home levetiracetam, lacosamide, propafenone Seizure precaution Fall precaution Uncontrolled hypertension Hypertensive urgency With episodes of low Bps. Orthostatic VS. Home meds: amlodipine 10 mg BID, hydralazine 50 mg TID and metoprolol succinate 25. Continue home meds as above and titrate to BP goal of systolic blood pressure less than 150 as per NeuroSx recommendation discontinue labetalol d/t bradycardia Terazosin was Held from prior admission d/t BP episodes of hypotension Suicidal ideation Anxiety associated with depression No active intention Verbalized "no reason to live". Was on Buspar but stopped taking meds because of "low blood pressure" On Lorazepam 1 mg BID for 20some years. Resume med to avoid benzo withdrawal 1: sitter Psych consult: sertraline 50 mg every morning Physical deconditioning OT and PT eval Thiamine daily Fall precaution Persistent atrial fibrillation (HCC) Bradycardia Was On Xarelto but on hold d/t current SAH Was previously discharged with ASA but is now on hold On home med Metoprolol and propafenone with parameters May hold meds if persistently bradycardic Get EKG telemetry Lumbar foraminal stenosis L3-S1 stenosis From MRI result on 01/14 Managed conservatively by PCP Lidocaine for pain VTE prophylaxis: This patient does not have an active medication from one ofthe medication groupers. 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 Patient stated that he had an uncomfortable night; cold and miserable with his purple scrubs. Complained of headache, frontal area, no changes in vision, no nausea nor vomiting. Objective Last Recorded Vitals Blood pressure 144/67, pulse 51, temperature 36.7 ?C (98.1 ?F), temperature source Tympanic, resp. rate 18, height 1.803 m (5' 11"), weight 90.7 kg (200 lb), SpO2 97%. Physical Exam: Current Active Medications amLODIPine, 10 mg, Oral, Daily docusate sodium, 100 mg, Oral, q12h lacosamide, 100 mg, Oral, BID levETIRAcetam, 1,000 mg, Oral, BID lidocaine, 1 patch, Apply externally, Daily losartan, 25 mg, Oral, Daily metoprolol succinate XL, 25 mg, Oral, Daily pantoprazole, 40 mg, Oral, Daily polyethylene glycol (PEG) 3350, 17 g, Oral, Daily propafenone, 150 mg, Oral, q8h sennosides, 1 tablet, Oral, BID sodium chloride, 10 mL, Intravenous, q12h DIANA terazosin, 10 mg, Oral, Nightly thiamine, 100 mg, Oral, Daily PRN medications: acetaminophen, dextrose, dextrose, dextrose, glucagon, glucagon, insulin lispro, labetalol, LORazepam, naloxone, ondansetron, oxyCODONE, oxyCODONE, sodium chloride Lab ResultsResults from last 7 days Lab Units 01/31/25 0207 01/30/25 0348 WBC 10*3/uL 4.13 4.43 HEMOGLOBIN g/dL 11.0* 11.1* HEMATOCRIT % 33.4* 33.7* PLATELETS 10*3/uL 198 191 Results from last 7 daysLab Units 01/31/25 0207 01/30/25 0348 SODIUM mEq/L 142 140 POTASSIUM mEq/L 3.5 3.4 CHLORIDE mEq/L 106 109* CO2 mEq/L 25.8 22.9 BUN mg/dL 13 15 CREATININE mg/dL 0.88 0.96 GLUCOSE mg/dL 82 76 CALCIUM mg/dL 9.4 8.2* [facility] is a 69 y.o. male with PMHx of seizure (on Keppra, lacosamide), A-fib (on aspirin, not on A/C) and HTN. Presented to after an [facility]. Patient had a recent admission on 01/09 after a fall episode as well in which he sustained left frontal scattered tSAH and thin left frontal convexity subdural hygroma with no mass effect. He had developed seizure and is now managed with Keppra and Vimpat. He also developed lauryn extremity weakness, imaging show findings of moderate L3-S1 foraminal stenosis and T10-11 mild canal stenosis managed conservatively. He is now admitted for another episode of fall. Assessment & PlanIntracranial subarachnoid hemorrhage (HCC) SAH (subarachnoid hemorrhage) (CMS/HCC) (HCC) Seizure disorder (CMS/HCC) (HCC) S/p unwitnessed fall at ground-level CT C spine negative CT brain without IV contrast: Decreased conspicuity of trace subarachnoid hemorrhage in the left frontal sulci, significantly improved compared to the more remote exam from 01/10/2025. Trace left parietal subdural hematoma is decreased compared to 01/10/2025 Neurosurgery consulted for a left frontal tiny traumatic subarachnoid hemorrhage. No acute Neurosurgery intervention With right eye lid laceration closure Load with Keppra 1000 x 1 Maintain systolic blood pressure less than 150 Hold ASA Per Neurosx follow-up neurotrauma clinic in 2 weeks for a repeat Head CT. Neurocheck as protocol Bowel regimen Continue home levetiracetam, lacosamide, propafenone Seizure precaution Fall precaution Uncontrolled hypertension Hypertensive urgency With episodes of low Bps. Orthostatic VS. Home meds: amlodipine 10 mg BID, hydralazine 50 mg TID and metoprolol succinate 25. Continue home meds as above and titrate to BP goal of systolic blood pressure less than 150 as per NeuroSx recommendation discontinue labetalol d/t bradycardia Terazosin was Held from prior admission d/t BP episodes of hypotension Suicidal ideation Anxiety associated with depression No active intention Verbalized "no reason to live". Was on Buspar but stopped taking meds because of "low blood pressure" On Lorazepam 1 mg BID for 20some years. Resume med to avoid benzo withdrawal 1: sitter Psych consult Physical deconditioning OT and PT eval Thiamine daily Fall precaution Persistent atrial fibrillation (HCC) Bradycardia Was On Xarelto but on hold d/t current SAH Was previously discharged with ASA but is now on hold On home med Metoprolol and propafenone with parameters May hold meds if persistently bradycardic Get EKG telemetry Lumbar foraminal stenosis L3-S1 stenosis From MRI result on 01/14 Managed conservatively by PCP Lidocaine for pain VTE prophylaxis: This patient does not have an active medication from one ofthe medication groupers. Disposition: TBDCosigned by Juma Almanzar MD at 02/01/2025 10:09 PM CDT Associated attestation - Juma Almanzar MD - 02/01/2025 10:09 PM CDT The patient was seen and examined by me with the PA/SEE SUPERVISOR and I agree with the History/Exam/Medical Decision Making documented by the midlevel. Additionally, my history, physical exam, and /or MDM is SAHHypertensive Urgency Seizure Neurosurgery evaluated, no acute surgical intervention SBP <150 Seizure ppx with keppra 500mg BID for 7 days Holding aspirin PT/OT orderedEval orthostatic hypotension Home ativan resumed to prevent withdrawalPsych consulted for assistance * Shiv Sesay MD - 01/31/2025 7:49 AM CDT Patient seend and examined. Continue AEDs. Stop Hydral, resume other medications, will start another BP med if needed. Per pt history, cause of fall may have also been orthostatic hypotension as he says his BP was dropping at the SNF with some dizziness. Pending bed, once Bps stable potentially discharge tomorrow [facility] [id number] 16:22:20Pending Results Scheduled Orders Name Type Priority Associated Diagnoses Order Schedule POCT Glucose Point of Care Testing - Docked Device Routine 3 times daily before meals (Lab) for 30 Days starting 02/01/2025 until 03/03/2025, 8 completed POCT Glucose Point of Care Testing - Docked Device Routine Every 15 minutes as needed until discontinued starting 02/01/2025 Vitamin D 1,25-Dihydroxy Lab STAT Morning draw (La b) for 1 Occurrences starting 02/03/2025 until 02/03/2025 Complete Blood Count w/Diff and Platelet AM Lab Routine Morning draw (La b) for 7 Days starting 02/04/2025 until 02/10/2025, 2 completed Basic Metabolic Panel AM Lab Routine Morning draw (La b) for 7 Days starting 02/04/2025 until 02/10/2025, 2 completed Health Maintenance Due Date Last Done Comments CT Colonography 1957 Colonoscopy 1957 Colorectal Cancer Screening 1957 FIT-DNA 1957 FIT 1957 FOBT 1957 Lipid Panel 1957 Medicare Annual Wellness (AWV) 1957 Sigmoidoscopy 1957 DTaP/Tdap/Td Vaccines (1 - Tdap) 1976 Pneumococcal Vaccine: 50+ Ye ars (1 of 1 - PCV) 2007 Zoster Vaccines (1 of 2) 2007 Influenza Vaccine (Season Ended) 2025 Respiratory Syncytial Virus (RSV) Adult Series (1 - 1-dose 75+ series) 2032 HIB Vaccines Aged Out No longer eligi ble based on patient's age to complete this topic HPV Vaccines Aged Out No longer eligi ble based on patient's age to complete this topic Hepatitis A Vaccines Aged Out No long er eligible based on patient's age to complete this topic Hepatitis B Vaccines Aged Out No long er eligible based on patient's age to complete this topic IPV Vaccines Aged Out No longer eligi ble based on patient's age to complete this topic Meningococcal Vaccine Aged Out No john carito eligible based on patient's age to complete this topic Rotavirus Vaccines Aged Out No longer eligible based on patient's age to complete this topic [facility] [id number] 16:22:20 Diagnosis Intracranial subarachnoid hemorrhage (HCC) - Primary Subarachnoid hemorrhage Fall, initial encounter SAH (subarachnoid hemorrhage) ([facility]) (HCC) Subarachnoid hemorrhage Abrasion of head, initial en counter Nonintractable headache, uns pecified chronicity pattern, unspecified headache type Anxiety associated with depression Dysthymic disorder Lumbar foraminal stenosis SAH (subarachnoid hemorrhage) ([facility]/HCC) (HCC) Subarachnoid hemorrhage Medication management Uncontrolled hypertension Seizure disorder ([facility]) (HCC) Unspecified epilepsy without mention of intractable epilepsy Suicidal ideation Physical deconditioning Muscular wasting and disuse atrophy, not elsewhere classified Persistent atrial fibrillation (HCC) Atrial fibrillation Hypertensive urgency Lumbar foraminal stenosis Anxiety associated with depression Dysthymic disorder Bradycardia Other specified cardiac dysrhythmias [facility] [id number] 16:22:[address] [facility] [address] [id number] 14:15:05 Images from the original note were not included. [id number] Understanding Anxiety Disorders Almost everyone gets nervous now and then. It?s normal to have knots in your stomach before a test. Or for your heart to beat fast on a first date. But an anxiety disorder is much more than a simple case of nerves. In fact, its symptoms may be overwhelming. But treatment can ease many of these symptoms. Talking with your healthcare provider is the first step. What are anxiety disorders? An anxiety disorder causes very strong feelings of panic and fear. These feelings may occur for no clear reason. And they tend to happen again and again. They may prevent you from coping with life. They may cause you great distress. You may then stay away from anything that triggers your fear. In extreme cases, you may never leave the house. Anxiety disorders may cause other symptoms, such as: ? Obsessive thoughts that are unwanted and you can?t control ? Constant nightmares or painful thoughts of the past ? Upset stomach, sweating, and muscle tension ? Trouble sleeping or focusing What causes anxiety disorders? Anxiety disorders tend to run in families. For some people, childhood abuse or neglect may play a role. For others, stressful life events or trauma may trigger these disorders. Anxiety can trigger low self-esteem and poor coping skills. Types of anxiety disorders ? Panic disorder. This causes a very strong fear of being in danger. ? Phobias. These are extreme fears of certain things, places, or events. ? Obsessive-compulsive disorder (OCD). This makes you have unwanted thoughts and urges. You also may do certain things over and over. ? Posttraumatic stress disorder (PTSD). This occurs in people who have been through a terrible ordeal. It can cause nightmares and flashbacks about the event. ? Generalized anxiety disorder. This causes constant worry. It can greatly disrupt your life. Getting better You may believe that nothing can help you. Or you might fear what others may think. But most anxiety symptoms can be eased with treatment. Having an anxiety disorder is nothing to be ashamed of. Most people do best with treatment that combines medicine and individual and group therapy. These aren?t cures. But they can help you live a healthier life. How daily issues affect your health Many things in your daily life impact your health. This can include transportation, money problems, housing, access to food, and childcare. If you can?t get to medical appointments, you may not receive the care you need. When money is tight, it may be difficult to pay for medicines. And living far from a grocery store can make it hard to buy healthy food. If you have concerns in any of these or other areas, talk with your healthcare team. They may know of local resources to assist you. Or they may have a staff person who can help. Last Reviewed Date: 2022 00:00:00 ? [id number] [employer]. All rights reserved. This information is not intended as a substitute for professional medical care. Always follow your healthcare professional's instructions. Ramez Toth [id number] 14:15:05 Images from the original note were not included. [id number] Losartan Brand Name(s): Cozaar?, Hyzaar? (as a combination product containing Hydrochlorothiazide, Losartan); also available generically IMPORTANT WARNING: Tell your doctor if you are or plan to become . Do not take losartan if you are . If you become while you are taking losartan, stop taking losartan and call your doctor immediately. Losartan may cause or serious injury to the fetus when taken in the last 6 months of . WHY is this medicine prescribed? Losartan is used alone or in combination with other medications to treat high blood pressure. Losartan is also used to decrease the risk of stroke in people who have high blood pressure and a heart condition called left ventricular hypertrophy (enlargement of the fernandez of the left side of the heart). Losartan may not decrease the risk of stroke in Americans who have these conditions. This medication is also used to treat kidney disease in people who have type 2 diabetes (condition in which the body does not use insulin normally and therefore cannot control the amount of sugar in the blood) and high blood pressure. Losartan is in a class of medications called angiotensin II receptor antagonists. It works by blocking the action of certain natural substances that tighten the blood vessels, allowing the blood to flow more smoothly and the heart to pump more efficiently. High blood pressure is a common condition, and when not treated it can cause damage to the brain, heart, blood vessels, kidneys, and other parts of the body. Damage to these organs may cause heart disease, a heart attack, heart failure, stroke, kidney failure, loss of vision, and other problems. In addition to taking medication, making lifestyle changes will also help to control your blood pressure. These changes include eating a diet that is low in fat and salt, maintaining a healthy weight, exercising at least 30 minutes most days, not smoking, and using alcohol in moderation. HOW should this medicine be used? Losartan comes as a tablet to take by mouth. It is usually taken once or twice a day with or without food. To help you remember to take losartan, take it at around the same time(s) every day. Follow the directions on your prescription label carefully, and ask your doctor or pharmacist to explain any part you do not understand. Take losartan exactly as directed. Do not take more or less of it or take it more often than prescribed by your doctor. Your doctor will probably start you on a low dose of losartan and gradually increase your dose. If your child can not swallow a tablet, talk to your doctor or pharmacist. The pharmacist can prepare a liquid form of this medication for your child. Losartan controls high blood pressure but does not cure it. Your blood pressure may decrease during the first week of your treatment, but it may take 3 to 6 weeks for you to notice the full benefit of losartan. Continue to take losartan even if you feel well. Do not stop taking losartan without talking to your doctor. Ask your pharmacist or doctor for a copy of the cardiac surgeon's information for the patient. Are there OTHER USES for this medicine? Losartan is also sometimes used to treat heart failure (condition in which the heart is unable to pump enough blood to the rest of the body). Talk to your doctor about the possible risks of using this medication for your condition. This medication may be prescribed for other uses; ask your doctor or pharmacist for more information. What SPECIAL PRECAUTIONS should I follow? Before taking losartan, ? tell your doctor and pharmacist if you are allergic to losartan, any other medications, or any of the ingredients in losartan tablets. Ask your pharmacist for a list of the ingredients. ? tell your doctor if you have diabetes (high blood sugar) and you are taking aliskiren (Tekturna, in Amturnide, Tekamlo, Tekturna HCT). Your doctor will probably tell you not to take losartan if you have diabetes and you are also taking aliskiren. ? tell your doctor and pharmacist what other prescription and nonprescription medications, vitamins, nutritional supplements, and herbal products you are taking or plan to take while taking losartan. Your doctor may need to change the doses of your medications or monitor you carefully for side effects. ? the following nonprescription products may interact with losartan: aspirin and nonsteroidal anti-inflammatory drugs (NSAIDS) such as ibuprofen (Advil, Motrin, others) and naproxen (Aleve); potassium supplements. Be sure to let your doctor and pharmacist know that you are taking these medications before you start taking losartan. Do not start any of these medications while taking losartan without discussing with your healthcare provider. ? tell your doctor if you have or have ever had heart failure or kidney or liver disease. ? tell your doctor if you are . ? you should know that losartan may cause dizziness, lightheadedness, and fainting when you get up too quickly from a lying position. This is more common when you first start taking losartan. To help avoid this problem, get out of bed slowly, resting your feet on the floor for a few minutes before standing up. ? you should know that diarrhea, vomiting, not drinking enough fluids, and sweating a lot can cause a drop in blood pressure, which may cause lightheadedness and fainting. Tell your doctor if you have any of these problems or develop them during your treatment. What SPECIAL DIETARY instructions should I follow? Do not use salt substitutes containing potassium without talking to your doctor. If your doctor prescribes a low-salt or low-sodium diet, follow these directions carefully. What should I do IF I FORGET to take a dose? Take the missed dose as soon as you remember it. However, if it is almost time for the next dose, skip the missed dose and continue your regular dosing schedule. Do not take a double dose to make up for a missed one. What SIDE EFFECTS can this medicine cause? Some side effects can be serious. If you experience any of these symptoms or those listed in the SPECIAL PRECAUTIONS section, call your doctor immediately: ? swelling of the face, throat, tongue, lips, eyes, hands, feet, ankles, or lower legs ? hoarseness ? difficulty breathing or swallowing ? chest pain Losartan may cause other side effects. Call your doctor if you have any unusual problems while taking this medication. If you experience a serious side effect, you or your doctor may send a report to the Food and Drug Administration's (FDA) MedWatch Adverse Event Reporting program online (https://www.fda.gov/Safety/MedWatch) or by phone ( ). What should I know about STORAGE and DISPOSAL of this medication? Keep this medication in the container it came in, tightly closed, and out of reach of children. Store it at room temperature and away from excess heat, light, and moisture (not in the bathroom). It is important to keep all medication out of sight and reach of children as many containers (such as weekly pill minders and those for eye drops, creams, patches, and inhalers) are not child-resistant and young children can open them easily. To protect young children from poisoning, always lock safety caps and immediately place the medication in a safe location - one that is up and away and out of their sight and reach. https://www.[employer]org Unneeded medications should be disposed of in special ways to ensure that pets, children, and other people cannot consume them. However, you should not flush this medication down the toilet. Instead, the best way to dispose of your medication is through a medicine take-back program. Talk to your pharmacist or contact your local garbage/recycling department to learn about take-back programs in your community. See the FDA's Safe Disposal of Medicines website (https://goo.gl/c4Rm4p) for more information if you do not have access to a take-back program. What should I do in case of OVERDOSE? In case of overdose, call the poison control helpline at . Information is also available online at https://www.poisonhelp.org/help. If the victim has collapsed, had a seizure, has trouble breathing, or can't be awakened, immediately call emergency services at 911. Symptoms of overdose may include the following: ? dizziness ? fainting ? fast or slow heartbeat What OTHER INFORMATION should I know? Keep all appointments with your doctor and the laboratory. Your blood pressure should be checked regularly to determine your response to losartan. Do not let anyone else take your medication. Ask your pharmacist any questions you have about refilling your prescription. It is important for you to keep a written list of all of the prescription and nonprescription ([id number]) medicines you are taking, as well as any products such as vitamins, minerals, or other dietary supplements. You should bring this list with you each time you visit a doctor or if you are admitted to a hospital. It is also important information to carry with you in case of emergencies. This report on medications is for your information only, and is not considered individual patient advice. Because of the changing nature of drug information, please consult your physician or pharmacist about specific clinical use. The [employer] represents that the information provided hereunder was formulated with a reasonable standard of care, and in conformity with professional standards in the field. The [employer] makes no representations or warranties, express or implied, including, but not limited to, any implied warranty of merchantability and/or fitness for a particular purpose, with respect to such information and specifically disclaims all such warranties. Users are advised that decisions regarding drug therapy are complex medical decisions requiring the independent, informed decision of an appropriate health childcare worker, and the information is provided for informational purposes only. The entire monograph for a drug should be reviewed for a thorough understanding of the drug's actions, uses and side effects. The [employer] does not endorse or recommend the use of any drug. The information is not a substitute for medical care. AHFS? Patient Medication Information?. ? Copyright, 2023. The [employer]?, [address], [address], [place], [place]. All Rights Reserved. Duplication for commercial use must be authorized by [facility]. Selected Revisions: December 12, 2017. AHFS? Patient Medication Information?. ? Copyright, 2024 [facility] [id number] 14:15:05 Images from the original note were not included. [id number] Sertraline Brand Name(s): Zoloft?; also available generically IMPORTANT WARNING: A small number of children, teenagers, and young adults (up to 24 years of age) who took antidepressants ('mood elevators') such as sertraline during clinical studies became suicidal (thinking about harming or killing oneself or planning or trying to do so). Children, teenagers, and young adults who take antidepressants to treat depression or other mental illnesses may be more likely to become suicidal than children, teenagers, and young adults who do not take antidepressants to treat these conditions. However, experts are not sure about how great this risk is and how much it should be considered in deciding whether a child or teenager should take an antidepressant. You should know that your mental health may change in unexpected ways when you take sertraline or other antidepressants even if you are an adult over 24 years of age. You may become suicidal, especially at the beginning of your treatment and any time that your dose is increased or decreased. You, your family, or your caregiver should call your doctor right away if you experience any of the following symptoms: new or worsening depression; thinking about harming or killing yourself, or planning or trying to do so; extreme worry; agitation; panic attacks; new or worsening anxiety; difficulty falling asleep or staying asleep; aggressive behavior; irritability; acting without thinking; severe restlessness; and frenzied abnormal excitement. Be sure that your family or caregiver knows which symptoms may be serious so they can call the doctor if you are unable to seek treatment on your own. Your healthcare provider will want to see you often while you are taking sertraline, especially at the beginning of your treatment. Be sure to keep all appointments for office visits with your doctor. The doctor or pharmacist will give you the cardiac surgeon's patient information sheet (Medication Guide) when you begin treatment with sertraline. Read the information carefully and ask your doctor or pharmacist if you have any questions. You also can obtain the Medication Guide from the FDA website: https://www.fda.gov/Drugs/DrugSafety/cfj273774.htm. No matter what your age, before you take an antidepressant, you, your parent, or your caregiver should talk to your doctor about the risks and benefits of treating your condition with an antidepressant or with other treatments. You should also talk about the risks and benefits of not treating your condition. You should know that having depression or another mental illness greatly increases the risk that you will become suicidal. This risk is higher if you or anyone in your family has or has ever had bipolar disorder (mood that changes from depressed to abnormally excited) or ky (frenzied, abnormally excited mood) or has thought about or attempted suicide. Talk to your doctor about your condition, symptoms, and personal and family medical history. You and your doctor will decide what type of treatment is right for you. WHY is this medicine prescribed? Sertraline is used to treat depression, obsessive-compulsive disorder (bothersome thoughts that won't go away and the need to perform certain actions over and over), panic attacks (sudden, unexpected attacks of extreme fear and worry about these attacks), posttraumatic stress disorder (disturbing psychological symptoms that develop after a frightening experience), and social anxiety disorder (extreme fear of interacting with others or performing in front of others that interferes with normal life). It is also used to relieve the symptoms of premenstrual dysphoric disorder, including mood swings, irritability, bloating, and breast tenderness. Sertraline is in a class of antidepressants called selective serotonin reuptake inhibitors (SSRIs). It works by increasing the amounts of serotonin, a natural substance in the brain that helps maintain mental balance. HOW should this medicine be used? Sertraline comes as a tablet and a concentrate (liquid) to take by mouth. It is usually taken once daily in the morning or evening. To treat premenstrual dysphoric disorder, sertraline is taken once a day, either every day of the month or on certain days of the month. Take sertraline at around the same time every day. Follow the directions on your prescription label carefully, and ask your doctor or pharmacist to explain any part you do not understand. Take sertraline exactly as directed. Do not take more or less of it or take it more often than prescribed by your doctor. Sertraline concentrate must be diluted before use. Immediately before taking it, use the provided dropper to remove the amount of concentrate your doctor has told you to take. Mix the concentrate with 4 ounces (1/2 cup [120 milliliters]) of water, thelma anne, lemon or ugashik soda, lemonade, or orange juice. After mixing, the diluted solution may be hazy; this is normal. Do not mix the concentrate with any liquids other than the ones listed. Drink the diluted solution immediately. Your doctor may start you on a low dose of sertraline and gradually increase your dose, not more than once a week. It may take a few weeks or longer before you feel the full benefit of sertraline. Continue to take sertraline even if you feel well. Do not stop taking sertraline without talking to your doctor. If you suddenly stop taking sertraline, you may experience withdrawal symptoms such as nausea, sweating, depression, mood changes, frenzied or abnormally excited mood, irritability, anxiety, confusion, dizziness, headache, tiredness, seizures, ringing in the ears, numbness or tingling in the arms, legs, hands, or feet, difficulty falling asleep or staying asleep. Are there OTHER USES for this medicine? Sertraline is also used sometimes to treat headaches and sexual problems. Talk to your doctor about the possible risks of using this medication for your condition. This medication may be prescribed for other uses; ask your doctor or pharmacist for more information. What SPECIAL PRECAUTIONS should I follow? Before taking sertraline, ? tell your doctor and pharmacist if you are allergic to sertraline, any other medications, any of the ingredients in sertraline preparations, or latex (found in the dropper for the concentrate). Before taking sertraline liquid concentrate, tell your doctor if you are allergic to latex. Ask your pharmacist for a list of the ingredients. ? tell your doctor or pharmacist if you are taking the following medications or have stopped taking them within the past two weeks: monoamine oxidase (MAO) inhibitors including isocarboxazid (Marplan), linezolid (Zyvox), methylene blue, phenelzine (Nardil), selegiline (Emsam, Zelapar), and tranylcypromine (Parnate), pimozide (Orap). ? do not take disulfiram (Antabuse) while taking sertraline oral concentrate. ? some medications should not be taken with sertraline. Other medications may cause dosing changes or extra monitoring when taken with sertraline. Make sure you have discussed any medications you are currently taking or plan to take before starting sertraline with your doctor and pharmacist. Before starting, stopping, or changing any medications while taking sertraline, please get the advice of your doctor or pharmacist ? the following nonprescription or herbal products may interact with sertraline: [place]'s wort; tryptophan; aspirin and nonsteroidal anti-inflammatory drugs (NSAIDS) such as ibuprofen (Advil, Motrin, others) and naproxen (Aleve). Be sure to let your doctor and pharmacist know that you are taking these medications before you start taking sertraline. Do not start any of these medications while taking sertraline without discussing with your healthcare provider. ? tell your doctor if you have recently had a heart attack or stroke or if you have high blood pressure, bleeding problems, a low level of sodium in your blood and if you have or have ever had seizures or liver, kidney, or heart disease. ? tell your doctor if you are , especially if you are in the last few months of your , or if you plan to become or are . If you become while taking sertraline, call your doctor. Sertraline may cause problems in newborns following delivery if it is taken during the last months of . ? you should know that sertraline may make you drowsy. Do not drive a car or operate machinery until you know how this medication affects you. ? ask your doctor about the safe use of alcoholic beverages while you are taking sertraline. ? you should know that sertraline may cause angle-closure glaucoma (a condition where the fluid is suddenly blocked and unable to flow out of the eye causing a quick, severe increase in eye pressure which may lead to a loss of vision). Talk to your doctor about having an eye examination before you start taking this medication. If you have nausea, eye pain, changes in vision, such as seeing colored rings around lights, and swelling or redness in or around the eye, call your doctor or get emergency medical treatment right away. What SPECIAL DIETARY instructions should I follow? Unless your doctor tells you otherwise, continue your normal diet. What should I do IF I FORGET to take a dose? Take the missed dose as soon as you remember it. However, if it is almost time for the next dose, skip the missed dose and continue your regular dosing schedule. Do not take a double dose to make up for a missed one. What SIDE EFFECTS can this medicine cause? Some side effects can be serious. If you experience any of the following symptoms or those listed in the IMPORTANT WARNING or SPECIAL PRECAUTIONS section, call your doctor immediately: ? seizures ? abnormal bleeding or bruising ? agitation, hallucinations, fever, sweating, confusion, fast heartbeat, shivering, severe muscle stiffness or twitching, loss of coordination, nausea, vomiting, or diarrhea ? headache, weakness, unsteadiness, confusion, or memory problems ? rash ? hives ? swelling ? difficulty breathing Sertraline may decrease appetite and cause weight loss in children. Your child's doctor will watch his or her growth carefully. Talk to your child's doctor if you have concerns about your child's growth or weight while he or she is taking this medication. Talk to your child's doctor about the risks of giving sertraline to your child. Sertraline may cause other side effects. Call your doctor if you have any unusual problems while taking this medication. If you experience a serious side effect, you or your doctor may send a report to the Food and Drug Administration's (FDA) MedWatch Adverse Event Reporting program online (https://www.fda.gov/Safety/MedWatch) or by phone ( ). What should I know about STORAGE and DISPOSAL of this medication? Keep this medication in the container it came in, tightly closed, and out of reach of children. Store it at room temperature and away from excess heat and moisture (not in the bathroom). It is important to keep all medication out of sight and reach of children as many containers (such as weekly pill minders and those for eye drops, creams, patches, and inhalers) are not child-resistant and young children can open them easily. To protect young children from poisoning, always lock safety caps and immediately place the medication in a safe location - one that is up and away and out of their sight and reach. https://www.upandaway.org Unneeded medications should be disposed of in special ways to ensure that pets, children, and other people cannot consume them. However, you should not flush this medication down the toilet. Instead, the best way to dispose of your medication is through a medicine take-back program. Talk to your pharmacist or contact your local garbage/recycling department to learn about take-back programs in your community. See the FDA's Safe Disposal of Medicines website (https://goo.gl/c4Rm4p) for more information if you do not have access to a take-back program. What should I do in case of OVERDOSE? In case of overdose, call the poison control helpline at . Information is also available online at https://www.poisonhelp.org/help. If the victim has collapsed, had a seizure, has trouble breathing, or can't be awakened, immediately call emergency services at 954. Symptoms of overdose may include the following: ? drowsiness ? agitation, hallucinations, fever, sweating, confusion, fast heartbeat, shivering, severe muscle stiffness or twitching, loss of coordination, nausea, vomiting, or diarrhea ? excessive tiredness ? dizziness ? agitation ? ky ? seizures ? loss of consciousness ? dizziness ? rapid, irregular, or pounding heartbeat What OTHER INFORMATION should I know? Keep all appointments with your doctor. Before having any laboratory test, tell your doctor and the laboratory personnel that you are taking sertraline. Do not let anyone else take your medication. Ask your pharmacist any questions you have about refilling your prescription. It is important for you to keep a written list of all of the prescription and nonprescription ([id number]) medicines you are taking, as well as any products such as vitamins, minerals, or other dietary supplements. You should bring this list with you each time you visit a doctor or if you are admitted to a hospital. It is also important information to carry with you in case of emergencies. This report on medications is for your information only, and is not considered individual patient advice. Because of the changing nature of drug information, please consult your physician or pharmacist about specific clinical use. The [employer] represents that the information provided hereunder was formulated with a reasonable standard of care, and in conformity with professional standards in the field. The [employer] makes no representations or warranties, express or implied, including, but not limited to, any implied warranty of merchantability and/or fitness for a particular purpose, with respect to such information and specifically disclaims all such warranties. Users are advised that decisions regarding drug therapy are complex medical decisions requiring the independent, informed decision of an appropriate health childcare worker, and the information is provided for informational purposes only. The entire monograph for a drug should be reviewed for a thorough understanding of the drug's actions, uses and side effects. The [employer] does not endorse or recommend the use of any drug. The information is not a substitute for medical care. AHFS? Patient Medication Information?. ? Copyright, 2023. The [employer]?, [address], [address], [place], [place]. All Rights Reserved. Duplication for commercial use must be authorized by [facility]. Selected Revisions: November 11, 2021. AHFS? Patient Medication Information?. ? Copyright, [address] [facility] HospitalWgbrjbl1578-96-08 14:15:04 Images from the original note were not included. [address] Hemorrhagic Stroke: Subarachnoid Hemorrhage A hemorrhagic stroke happens when a blood vessel in the brain ruptures or leaks. A blood vessel on the surface of the brain bursts and bleeds (hemorrhages). This spills blood into the subarachnoid space around the brain and sometimes into the brain. The arachnoid is one of the 3 membranes that surround the brain. In a subarachnoid hemorrhage, the blood leaks under this membrane and around the brain (in the subarachnoid space). This type of stroke often happens suddenly, with little warning. It's the most serious of all types of strokes. What happens during a subarachnoid hemorrhage? This type of stroke happens when a major blood vessel bursts on the surface of the brain. Normally, the subarachnoid space is filled with a clear fluid, the cerebrospinal fluid (CSF). When the blood vessel bursts, blood flows into the CSF. The amount of fluid in the subarachnoid space increases and puts pressure on the brain. This extra blood and CSF is named hydrocephalus. In addition to flowing around the brain, blood can also enter and damage the brain. Blood in the brain is called a brain hematoma or blood clot. Most of these strokes happen when a cerebral aneurysm or arteriovenous malformations bursts. An aneurysm is a weak spot in the wall of a blood vessel. A bubble often forms in this weak spot. In some cases, a cerebral aneurysm causes pain or other symptoms. In most cases, though, an aneurysm causes no symptoms until it bursts. What are the symptoms of a subarachnoid hemorrhage? Any stroke is a medical emergency. If you have any of these symptoms, even if they seem to get better, call 911 right away: ? Sudden, excruciating headache with no known cause ? Nausea and vomiting (often with headache) ? Sudden confusion or decrease in alertness ? Trouble moving or loss of feeling, especially on the face, arm, or leg specifically on one side of the body ? Sudden trouble walking, dizziness, loss of balance or coordination ? Sudden trouble talking or understanding speech ? Sudden mood changes ? Sudden dimness, double vision, or loss of vision, particularly in one eye ? Eyes suddenly very sensitive to light ? Neck and shoulder pain or stiff neck ? Seizure How is a hemorrhagic stroke treated? The short-term (acute) phase lasts from the first minutes to hours after symptoms start. During this phase, treatment focuses on easing pressure on the brain and preventing more damage. You may have a procedure or surgery to repair the burst (ruptured) aneurysm. A drain may be placed into the brain to remove CSF and ease pressure to treat the hydrocephalus. This drain can also be used to measure the brain pressure. You may get medicines through an IV line to control blood pressure. You may also get seizure medicine. Tests will likely be done to check for other aneurysms in the brain. If they are found, you may need surgery to reduce the risk that they will burst and bleed. Even if there is no more risk of bleeding, after a subarachnoid hemorrhage people are at risk of a stroke from tightening of the blood vessels (vasospasm) for about 14 days. After the acute phase, treatment focuses on recovery. Long-term damage from a stroke can include paralysis, trouble speaking or understanding, and trouble thinking clearly. Rehab can help reduce these effects and regain skills. Rehab starts in the hospital and generally continues in an inpatient or outpatient facility, and eventually at home. It will focus on regaining lost skills. It may include: ? Help regaining movement ? Therapy for speech and language ? Help with swallowing ? Help reducing risk factors for another stroke, such as smoking In addition, medicines that help prevent another stroke may be given. These include medicines to control blood pressure and prevent bleeding. Last Reviewed Date: 2022 00:00:00 ? 9507-8841 [employer]. All rights reserved. This information is not intended as a substitute for professional medical care. Always follow your healthcare professional's instructions. [facility] [id number] 08:30:15 Patient was complaining of chest pain when nurse arrived. He stated he has been having chest pain since 2 AM. Nurse did an EKG and it showed normal sinus rhythm but blood pressure was elevated. Nurse notified MD Alisa Youssef and he stated go ahead and give Clonidine 0.2 mg. [facility] Ocampo [facility] CenterDknaich7115-72-58 16:10:00 Patient came from the ER. Pt is stable. Pt belongings include a cell phone. NursingChi St. [facility] [id number] 11:48:04 Final Recommendation(s): Secondary Review Review Type: Initial Initial Recommendation: Inpatient Review Outcome: Inpatient appropriate Secondary Review Status: Physician advisor review complete Rationale for Recommendation(s): S/p fall with SAH and uncontroleld HTN. Goal of SBP <150. Requiring anti htn adjustments,SBP remains above goal on HD 3. IP AMA Internal Medicine PhysicianMemorijose [id number] 19:06:29 Pt upset that the MIGUEL [place] scrubs are not bigger. Pt. Upset and ripped scrubs. Emergency Medicine Registered NurseMedina Hospital [id number] 11:00:55 RN attempted to get finger stick BG. Patient refused stating that he is not a diabetic. [facility] [id number] 01:03:00 History of Present Illness: Chief Complaint: Patient presents with Fall sub arach The patient is a pleasant 69-year-old male with a pertinent medical history for seizures, currently on levetiracetam and lacosamide, atrial fibrillation, previously on rivaroxaban, currently no only on ASA 2/2 recent admission for traumatic subarachnoid hemorrhage s/p fall, HTN, and T2 NIDDM presenting to the emergency department as a transfer from OSH for traumatic SAH s/p unwitnessed [facility] fall at [facility]. Patient reports he was walking through his bedroom and "got caught up on the bed sheets" causing him to fall onto his right side. Patient sustained abrasion/laceration to right samaritan with hemostasis achieved at OSH with Steri-Strips and Band-Aid. Patient denies chest pain, dyspnea, nausea, vomiting, weakness, presyncope, and syncope prior to fall and at the time of this interview. Also denies head, neck, back, extremity, or abdominal pain. Patient History No past medical history on file. No past surgical history on file. No family history on file. Social History: Tobacco Use Smoking status: Not on file Smokeless tobacco: Not on file Substance Use Topics Alcohol use: Not on file Drug use: Not on file Review of Systems: Review of Systems Constitutional: Negative for activity change and appetite change. Respiratory: Negative for shortness of breath. Cardiovascular: Negative for chest pain. Gastrointestinal: Negative for abdominal pain, blood in stool, diarrhea, nausea and vomiting. Genitourinary: Negative for dysuria, frequency and hematuria. Musculoskeletal: Negative for arthralgias and myalgias. Neurological: Positive for headaches. Negative for seizures, syncope, weakness and numbness. Physical Exam: Constitutional: General: He is not in acute distress. Appearance: Normal appearance. He is normal weight. He is not ill-appearing or toxic-appearing. HENT: Head: Normocephalic. Abrasion present. No raccoon eyes or Matias's sign. Comments: Abrasion to R lateral eyebrow Right Ear: External ear normal. Left Ear: External ear normal. Nose: Nose normal. No rhinorrhea. Mouth/Throat: Mouth: Mucous membranes are moist. Pharynx: Oropharynx is clear. No oropharyngeal exudate or posterior oropharyngeal erythema. Eyes: General: No scleral icterus. Right eye: No discharge. Left eye: No discharge. Extraocular Movements: Extraocular movements intact. Conjunctiva/sclera: Conjunctivae normal. Pupils: Pupils are equal, round, and reactive to light. Cardiovascular: Rate and Rhythm: Normal rate and regular rhythm. Pulses: Normal pulses. Radial pulses are 2+ on the right side and 2+ on the left side. Popliteal pulses are 2+ on the right side and 2+ on the left side. Dorsalis pedis pulses are 2+ on the right side and 2+ on the left side. Posterior tibial pulses are 2+ on the right side and 2+ on the left side. Heart sounds: No murmur heard. No friction rub. No gallop. Pulmonary: Effort: Pulmonary effort is normal. No respiratory distress. Breath sounds: Normal breath sounds. Abdominal: General: Abdomen is flat. Bowel sounds are normal. Palpations: Abdomen is soft. Tenderness: There is no abdominal tenderness. There is no right CVA tenderness, left CVA tenderness or guarding. Musculoskeletal: General: No swelling or tenderness. Normal range of motion. Right shoulder: No tenderness or bony tenderness. Normal range of motion. Left shoulder: No tenderness or bony tenderness. Normal range of motion. Right upper arm: No tenderness or bony tenderness. Left upper arm: No tenderness or bony tenderness. Right forearm: No tenderness or bony tenderness. Left forearm: No tenderness or bony tenderness. Cervical back: Normal range of motion and neck supple. No rigidity, tenderness or bony tenderness. Normal range of motion. Thoracic back: No tenderness or bony tenderness. Lumbar back: No tenderness or bony tenderness. Right upper leg: No tenderness or bony tenderness. Left upper leg: No tenderness or bony tenderness. Right lower leg: No tenderness or bony tenderness. No edema. Left lower leg: No tenderness or bony tenderness. No edema. Skin: General: Skin is warm. Capillary Refill: Capillary refill takes less than 2 seconds. Findings: No lesion. Neurological: General: No focal deficit present. Mental Status: He is alert and oriented to person, place, and time. Mental status is at baseline. GCS: GCS eye subscore is 3. GCS verbal subscore is 5. GCS motor subscore is 6. Cranial Nerves: Cranial nerves 2-12 are intact. No cranial nerve deficit or facial asymmetry. Sensory: Sensation is intact. No sensory deficit. Motor: Motor function is intact. No weakness. Coordination: Coordination is intact. Psychiatric: Mood and Affect: Mood normal. Behavior: Behavior normal. Thought Content: Thought content normal. Judgment: Judgment normal. Triage Vitals: BP: 128/74, Heart Rate: 72, Temp: 36.9 ?C (98.4 ?F), Resp: 18, SpO2: 100 %, Height: 180.3 cm (5' 11"), Weight: 90.7 kg (200 lb) Last Recorded Vitals: BP: 128/74, Heart Rate: 72, Temp: 36.9 ?C (98.4 ?F), Resp: 18, SpO2: 100 %, Height: 180.3 cm (5' 11"), Weight: 90.7 kg (200 lb) Procedures Performed: Procedures Procedure: Bedside Echo/Cardiac Procedure Details Date/Time: January 30, 2025 7:04 AM Indications: Elderly fall w/ known arhythmia Limitations: none Probe: Phased Array Views: all Findings Pericardial fluid: absent Ventricular function: Good ventricular function (> 50% ejection fraction) Right ventricle: normal in size (<2/3 of left ventricle) Inferior vena cava: normal IVC diameter (1.5-2.5cm) with normal respiratory variation Other findings: none Impression Cardiac function: preserved Pericardial effusion: absent Volume depletion: absent ED Course : ED Course: as of 01/30/25 0853 Sat Jan 30, 2025 0507 Called NSGY, no answer [DB] 9060 Called NSGY, no asnwer [DB] 0652 Called NSGY, no answer [DB] 0659 NSGY called back at 0659am [DW] ED Course: User Index [DB] Yrn Saunders MD [DW] Bran Pace MD Diagnoses as of 01/30/25 0853 Fall, initial encounter SAH (subarachnoid hemorrhage) (CMS/HCC) (HCC) Abrasion of head, initial encounter Nonintractable headache, unspecified chronicity pattern, unspecified headache type Disposition: Medical Decision Making The patient is a pleasant 69-year-old male with a pertinent medical history for seizures, currently on levetiracetam and lacosamide, atrial fibrillation, previously on rivaroxaban, currently no only on ASA 2/2 recent admission for traumatic subarachnoid hemorrhage s/p fall, HTN, and T2 NIDDM presenting to the emergency department as a transfer from OSH for traumatic SAH s/p [facility]itnessed [facility] fall at [facility]. Vitals hemodynamically stable, afebrile, saturating well on room air. Well appearing on exam with findings significant for hemostatic abrasion to right forehead with Steri-Strips and Band-Aid overlying, neurologically intact for distal and proximal motor, cranial nerve, coordination, and dermatomal sensation function, AOx4, GCS 14 (E3, V5, M6), lungs clear to auscultation, no TTP of the bilateral upper and lower extremities as well as midline C/T/L-spine, full range of motion the bilateral upper and lower extremities. DDX Includes: Ground-level fall, syncope/presyncope, SAH, SDH, concussion, seizure, among others. Based on history and physical, lower clinical suspicion for syncope/presyncope and seizure given patient denies LOC and reports feasible mechanical cause for fall. Plan: BSUS, BMP, VBG, lactic acid, TEG, coagulation panel, EKG, CBC, CT head stability scan, CT C-spine ED Interventions: Continuation of patient's home antiepileptic, home antihypertensive Findings: BSUS demonstrating preserved EF with euvolemic appearing IVC BMP, lactic acid, VBG, TEG unremarkable VBG demonstrating stable, chronic anemia EKG demonstrates: Bradycardia at 52, rate wnl, intervals wnl (OK of 174, QRS of 106, QT of 418), rightward leaning axis, no acute ST ischemic changes, no aberrant rhythms observed. No slurred QRS suggestive of WPW No Brugada morphology in V1-V3 No signs of acute RHS No S1Q3T3 morphology suggestive of PE No epsilon waves suggestive of ARVD In comparison to previous EKG, it is unchanged EKG reviewed interpreted by myself. CT C-spine demonstrating no acute bony fracture or dislocation CT head demonstrating stable left frontal subarachnoid hemorrhage Attempted to consult neurosurgery multiple times as documented in ED course, unable to get in contact Patient noted to be hypertensive into the 160s systolic, in the setting of traumatic subarachnoid hemorrhage, home antihypertensives administered Patient is pending neurosurgery consultation, neurosurgery recommendations, and ultimate disposition decision, at the time of my signout, [address] [facility] Details Complexity of Problems Addressed _(HIGH) I am concerned about a Severe complexity problem which was evidenced by the differential, and associated workup to rule out the severe problem: Worsening traumatic subarachnoid hemorrhage which is a new problem for this patient as evidenced by patient presenting with traumatic subarachnoid hemorrhage from OSH. Complexity of Data Review _Category 1: _ (# Of Data Points) Ordered the following tests: CBC BMP VBG _Category 2: _(Image/Tracing interpretation) I contemporaneously during the patient encounter interpreted the following: EKG: Bradycardia Amount and/or Complexity of Data Reviewed Labs: ordered. Radiology: ordered. ECG/medicine tests: ordered. Risk Prescription drug management. Scoring Tools Yrn Saundres MD Resident 01/30/25 0705 Craig Reina MD 02/04/25 1328 Cosigned by Craig Reina MD at 02/04/2025 1:28 PM CDT Associated attestation - Craig Reina MD - 02/04/2025 1:28 PM CDT Teaching Attending Attestation: The patient was seen and examined by me in the presence of, or jointly with, the resident, and I agree with the History/Exam/Medical Decision Making documented unless further documented below. Additionally, I was directly involved in the management of the patient. Attending Procedure Attestation: I was present for the critical and lowry portions of the cardiac US procedure performed by Dr Saunders. Additionally, I was immediately available to furnish services during the entire procedure. Impression: 1. Nonintractable headache, unspecified chronicity pattern, unspecified headache type 2. Fall, initial encounter 3. SAH (subarachnoid hemorrhage) ([facility] ([facility]) 4. Abrasion of head, initial encounter Craig Reina MD [facility] [id number] 21:37:36* * Auth/Cert (Routine) Specialty Diagnoses / Procedures Referred By Contac t Referred To Contact Diagnoses Diverticulosis Hypoglycemia SAH (subarachnoid hemorrhage) ([facility]) ([facility]) Head injury, initial encounter Left nephrolithiasis Traumatic Subarachnoid hemorrhage Procedures awaiting [facility], [place] [address] [address] Phone: tel: fax: [facility] ([place] [address] Neuro IM) [address] [place] [id number] Phone: tel: Referral ID Status Reason Start Date Expiration Date Visits Re quested Visits Authorized [id number] [address] [facility] [address] HospitalCyruefy1798-08-67 21:37:36* Intimate Partner Violence Question Answer Date of Assessment Author Within the last year, have y ou been humiliated or emotionally abused in other ways by your partner or ex-partner? No 01/09/2025 11:32 PM Neela Temple RN Within the last year, have y ou been afraid of your partner or ex-partner? No 01/09/2025 11:32 PM Neela Temple R N Within the last year, have y ou been raped or forced to have any kind of sexual activity by your partner or ex-partner? No 01/09/2025 11:32 PM Neela Temple R N Within the last year, have y ou been kicked, hit, slapped, or otherwise physically hurt by your partner or ex-partner? No 01/09/2025 11:32 PM CDT Dill, Neela, R N * Calculated C-SSRS Risk Score (Lifetime/Recent) Answer Date of Assessment Author No Risk Indicated 01/09/2025 11:32 PM CDT Neela Corbin RN * [place] Suicide Severity Rating Scale (Screener/Recent Self-Report) Question Answer Date of Assessment Author 1. Wish to be (Past 1 Month) No 025 11:32 PM PALMIRAT Neela Corbin RN 2. Non-Specific Active Suici todd Thoughts (Past 1 Month) No 01/09/2025 11:32 PM CDT Chase Corbin RN 6. Suicidal Behavior (Lifetime) No 5 11:32 PM CDT Neela Corbin RN [place] [id number] 21:37:36* Penelope Weathers, SEE SUPERVISOR - 01/15/2025 4:44 PM CDT Discharge Diagnosis SAH (subarachnoid hemorrhage) (CMS/HCC) ([facility]) Hospital Course Karl Grey, 69 y.o. male with PMH of Afib on Xarelto, HTN, DM, anxiety on long-term Ativan for 20 yrs, recent hospitalization for cholecystitis 1 week ago pending outpt surgical intervention, who presented for AMS for the past 2 days and reported seizure like activity where it was described he was clenched up and shaked for a few seconds, found to have left frontal scattered tSAH and thin left frontal convexity subdural hygroma with no mass effect. Pt reported mech fall after losing his balance 1 week ago. His Xarelto was reversed with Kcentra. Hospital stay was complicated with seizures and is currently controlled with kepra & Vimpat. MRI C/T/L spine obtained for neck tenderness & BLE weakness & Neurosurgery consulted for the same. No acute findings and follow-up with PCP. Started on ASA 81 mg on 01/15 for anticoagulation & resumption of Xarelto will be determined during follow-up when appropriate. Patient is on a regular diet, labs wnl., vitals stable and is medically clear for discharge to SNF. Information Provided to Patient/Family I discussed with the patient/family details of the stay. See After Visit Summary which were reviewed and shared with patient/family. Operative Procedures Performed NA Procedures NA Pertinent Physical Exam At Time of Discharge Neuro Exam: GCS: E4 Eyes open spontaneously, V5 Speech orientated, M6 Follows commands MS: AAO x3, following commands, speech fluent, no dysarthria, naming intact, no neglect CN: L pupil 3, R pupil 3, EOMI, VFF, face symmetric Motor: Agx4 with generalized weakness throughout Negative babinski Patient Condition at Discharge Stable Disposition SNF Discharge Medications New acetaminophen (Tylenol) 325 MG tablet - 650 mg Every 6 hours PRN aspirin EC 81 MG EC tablet - 81 mg Daily docusate sodium 100 MG capsule - 100 mg Every 12 hours hydrALAZINE (Apresoline) 50 MG tablet - 50 mg Every 8 hours lacosamide (Vimpat) 100 MG tablet - 100 mg 2 times daily levETIRAcetam (Keppra) 1000 MG tablet - 1,000 mg 2 times daily polyethylene glycol, PEG, 3350 (Miralax) 17 g packet - 17 g Every 12 hours sennosides (Senokot) 8.6 MG tablet - 8.6 mg 2 times daily (1 tablet) Changed doxazosin (Cardura) 2 MG tablet - 2 mg Nightly - Pause or Hold status has changed. furosemide (Lasix) 20 MG tablet - 20 mg Daily - Pause or Hold status has changed. metoprolol succinate XL (Toprol-XL) 25 MG 24 hr tablet - 25 mg Daily - Dose changed from "50 mg" to "25 mg". Frequency changed from "2 times daily" to "Daily". terazosin (Hytrin) 10 MG capsule - 10 mg Nightly - Pause or Hold status has changed. Stopped rivaroxaban (Xarelto) 20 MG tablet - 20 mg Daily with evening meal Continued amLODIPine (Norvasc) 10 MG tablet - 10 mg 2 times daily famotidine (Pepcid) 20 MG tablet - 20 mg Every 12 hours LORazepam (Ativan) 2 MG tablet - 2 mg 2 times daily PRN propafenone (Rythmol) 150 MG tablet - 150 mg Every 8 hours Test Results Pending At Discharge NA Issues Requiring Follow-Up NA Outpatient Follow-Up Please see after visit summary after follow-up instructions. Discharge plan discussed with attending Dr. Melendez Time spent for discharge: 35 minutes Cosigned by Clem Melendez MD at 01/15/2025 5:27 PM CDT Associated attestation - Clem Melendez MD - 01/15/2025 5:27 PM CDT Attending Addendum - 01/15/25 Patient was seen and evaluated at bedside by myself, at a separate time than the rest of neurocritical care team. Note was written in conjunction with neurocritical care ROMINA and I agree with documented findings and plan of care as stated, unless specified. Additionally, I was directly involved in the management of the patient and provided the substantive portion of this visit, including obtaining history, examining the patient, reviewing all labs and imaging, including the labs and imaging for the past 24hrs, and medical decision-making. [place] 208625-03-21 21:37:36* Chandra Garrett RN - 01/15/2025 7:05 PM CDT [facility] called and stated new eta is at 2100 * Chandra Garrett RN - 01/15/2025 6:04 PM CDT Pt with discharge orders , call placed to SNF and spoke to Orestes with report * Yesi Castellanos OT - 01/15/2025 4:02 PM CDT Treatment Session Note Patient Name: Karl Grey Today's Date: 01/15/2025 Preferred Language: Ugandan Assessment & Plan Assessment: OT Assessment Results: Impaired ADL status, Impaired IADLs, Impaired fine motor control, Impaired gross motor control, Impaired functional mobility, Communication impairment Prognosis: Good Evaluation/Treatment Tolerance: Patient tolerated treatment well, Patient limited by fatigue Medical Staff Made Aware: Yes Strengths: Ability to acquire knowledge, Housing layout, Premorbid level of function Pt demonstrates progress with improving motor control, strength, and activity tolerance. Pt c/o pain but agreeable to therapeutic activities with encouragement. Pt required ModA for bed mobility tasks and demonstrates improved activation and motor coordination to complete transitional tasks. Pt maintained static sit balance with SBA. Pt walked to bathroom with ModA and transferred to toilet with Chaz; required increased time and MaxA to complete toileting tasks. Pt walked back to bedside c ModA and required ModA to perform bathing and dressing tasks. Pt returned supine c ModA and tolerated upright position with HOB elevated. Pt was left semisupine with lines in place, VSS, essentials within reach, and RN notified of pt status. Pt will continue to benefit from skilled OT services to maximize functional independence and reduce caregiver burden. Precautions: Medical Precautions: universal; fall; seizure Plan: Treatment Plan/Goals Established with Patient/Caregiver: Yes Treatment Interventions: Neuromuscular reeducation, ADL retraining, Endurance training OT Planned Treatments: Neuromuscular reeducation, Activities of Daily Living, Safety education, Therapeutic activities, Therapeutic exercises OT Plan: Skilled OT OT Frequency: 3-5 times per week until discharge OT Duration: Discharge Subjective Pain: 4/10; generalized Objective Vital Signs: Stable t/o session General Visit Information: Family/Caregiver Present: No Self Care (ADL):Self Care/Home Management (ADLs) Time Entry: 28 Eating Assistance: Setup/clean-up assistance Grooming Assistance: Supervision/touching assistance Bathing Assistance: Partial/Mod assistance UE Dressing Assistance: Partial/Mod assistance LE Dressing Assistance: Substantial/Max assistance Toileting Assistance: Substantial/Max assistance Mobility/Transfers:Bed Mobility Bed Mobility Bed Mobility: Yes Bed Mobility 1 Level of Assistance 1: Partial/Mod assistance Bed Mobility To/From: Roll left/right, Supine to sit on EOB Assistive Devices And Adaptive Equipments: Bed rail, Head of bed elevated Bed Mobility 2 Level of Assistance 2: Partial/Mod assistance Bed Mobility To/From: Sitting EOB to supine Assistive Devices And Adaptive Equipments: Head of bed elevated, Bed rail TransferTransfers Transfer: Yes Transfer 1 Level of Assistance 1: Partial/Mod assistance Transfer To/From: Pzj-og-Pspma/Vcway-yn-Gzj Assistive Devices And Adaptive Equipments: No device Toilet TransfersToilet Transfers Toilet Transfer To/From: Toilet Transfer Type: Via walking Level of Assistance: Partial/Mod assistance Extremity Assessments: Wheelchair Activity: TreatmentSelf-Care: Self Care/Home Management (ADLs) Time Entry: 28 Eating Assistance: Setup/clean-up assistance Grooming Assistance: Supervision/touching assistance Bathing Assistance: Partial/Mod assistance UE Dressing Assistance: Partial/Mod assistance LE Dressing Assistance: Substantial/Max assistance Toileting Assistance: Substantial/Max assistance Bed Mobility:Bed Mobility Bed Mobility: Yes Bed Mobility 1 Level of Assistance 1: Partial/Mod assistance Bed Mobility To/From: Roll left/right, Supine to sit on EOB Assistive Devices And Adaptive Equipments: Bed rail, Head of bed elevated Bed Mobility 2 Level of Assistance 2: Partial/Mod assistance Bed Mobility To/From: Sitting EOB to supine Assistive Devices And Adaptive Equipments: Head of bed elevated, Bed rail Transfers:Transfers Transfer: Yes Transfer 1 Level of Assistance 1: Partial/Mod assistance Transfer To/From: Ign-of-Adviu/Oktzx-fe-Puh Assistive Devices And Adaptive Equipments: No device Balance/Neuromuscular Re-educationNeuromuscular Re-Education Time Entry: 28 Balance/Neuromuscular Re-Education Activity 1: Motor control activities; midline orientation Position 1: Seated Balance/Neuromuscular Re-Education Activity 2: BUE forced use activities; bimanual integration tasks Position 2: Seated Balance/Neuromuscular Re-Education Activity 3: Tolerance to upright activities Position 3: Seated Balance/Neuromuscular Re-Education Activity 4: Standing tolerance, dynamic balance Position 4: Standing AM-PAC Daily Activity:Putting on and taking off regular lower body clothing: A Lot Bathing (including washing, rinsing, drying): A Lot Toileting, which includes using toilet, bedpan or urinal: A Lot Putting on and taking off regular upper body clothing: A Little Taking care of personal grooming such as brushing teeth: A Little Eating Meals: A Little AM-PAC Daily Activity Raw Score: 15 MobilityHighest Level of Mobility Performed (JH-HLM): Walked 10 steps or more (i.e. walked to restroom) Outcome Measures: Patient Education:Education Documentation No documentation found. Education Comments No comments found. Goals:Encounter Goals Encounter Goals (Active) Patient will perform toilet transfers with SBA to decrease in caregiver burden and for improved independence. (Progressing) Start: 01/11/25 Expected End: 01/15/25 Patient will perform grooming tasks with SetupA to demonstrate Improved independence with ADLs (Progressing) Start: 01/11/25 Expected End: 01/15/25 Patient will perform self-feeding tasks with SetupA for improved independence with ADLs (Progressing) Start: 01/11/25 Expected End: 01/15/25 Pt will complete UE dressing tasks with Supervision to demonstrate improving independence in self-care activities. (Progressing) Start: 01/11/25 Expected End: 01/15/25 Patient will perform lower body dressing tasks with CGA using AE as needed, to improve independence with dressing. Start: 01/11/25 Expected End: 01/15/25 Patient will perform toileting tasks with SBA to improve independence with ADLs. (Progressing) Start: 01/11/25 Expected End: 01/15/25 Patient will participate in BUE forced use activities with CGA to inhibit abnormal movement patterns. (Progressing) Start: 01/11/25 Expected End: 01/15/25 Encounter Goals (Resolved) Patient will tolerate mobilizations of the BUE scapulae prior to engaging in tasks to promote neuromuscular re-education. (Completed) Start: 01/11/25 Expected End: 01/15/25 Resolved: 01/15/25 Treatment Note: If this is the last documented treatment, then it will signify discharge from acute care prior to discharge from the therapy service and will serve as the discharge summary. Yesi Castellanos OT * Emeka Purdy MD - 01/15/2025 1:25 PM CDT [facility] Query Clarification Progress Note As related to the inpatient hospital stay starting on 01/10/2025, 5:35 AM. I have reviewed the patient’s medical record and the following accurately represents the patient’s current condition. PROVIDER RESPONSE TEXT: Other Diagnosis: I am not the treating provider for this condition. Query Created By : Ana Vaughn, 01/15/2025, 9:35 AM * Kyere Jung LMSW - 01/15/2025 9:07 AM CDT Final Discharge Disposition[facility] Acceptance Received Date and Time: 01/15/2025@1546 Received From: [facility] Address: [place] [address] Room Number: 35A Nursing Unit for Report: [phone] Accepting MD: Viridiana Accepting Dispatcher Street Department: Gabino HUNTLEY sent to facility: Yes Medication Reconciliation sent to facility: Yes Pharmacy: [facility] [place] [phone] Ambulance Arrangements Pt/family's ambulance choice: [facility] ([phone]/ [phone]) LOS: BLS, PCS Form Completed (for Medicare Patients): Yes Please call [facility] / [phone] for delays or any transportation issue. Pickup Date: 01/15/2025 Pickup Time: 1800 Notification Patient Family daughter Giovana [phone] updated and agreeable Primary MD/Primary Team Primary nurse SNF packet completed and placed on chart/given to primary nurse. Please call After-Hours for discharge issues after 1700. * Kyree Jung LMSW - 01/15/2025 9:06 AM CDT 01/15/25 0900 Discharge Planning Patient expects to be discharged to: [facility] Expected Discharge Disposition SNF Anticipated Services at Discharge Post acute facilities (Rehab/SNF/etc) Discharge Planning Comments Updated clinicals sent. CM called SNF admissions rep Colleen [phone] to enquire on MOT. Colleen stated she would call CM back shortly with MOT. [facility] is scheduled for today at 1300. Barrier: Med clear LUISA:01/15 Discharge Planning Status In Progress LOS: 5 Last Recorded Vitals: Blood pressure 149/76, pulse 72, temperature 36.8 ?C (98.3 ?F), resp. rate 16, height 1.829 m (6' 0.01"), weight 90.7 kg (199 lb 15.3 oz), SpO2 96%. Current Diet: Adult Diet Regular; No Kyree Jung LMSW, [facility] Television Maintenance Worker - Neuro Service Line * Jonel Dale MD - 01/14/2025 2:28 PM CDT NSGY Event Note: - Re-engaged by white team regarding MRI spine findings of moderate L3-S1 foraminal stenosis and T10-11 mild canal stenosis. This was obtained in the setting of reported weakness prior to discharge. - Patient examined: STRENGTH R/L Deltoids (C5): 5/5 Biceps (C6): 5/5 Triceps (C7): 5/5 Control [employer] (C8): 5/5 Finger abduction (T1): 5/5 Ileopsoas (L2-L3): 5/5 Quadriceps (L4): 5/5 Dorsiflexion (L4): 5/5 Extensor halicus longus (L5): 5/5 Plantar flexion (S1): 5/5 REFLEXES: R/L Hoffmans -/- Patellar 2+/2+ Babinski -/- Clonus -/- SENSORY: No sensory deficits noted Rectal Deferred - Patient endorses generalized weakness and fatigue, but denies saddle anesthesia or radiculopathy or numbness. - No acute neurosurgical intervention or follow-up needed. Recommend conservative management. Patient can follow up with PCP for conservative management. Jonel Dale MD, MS Neurosurgery PGY-1 Cosigned by Emeka Purdy MD at 01/14/2025 4:37 PM CDT Associated attestation - Emeka Purdy MD - 01/14/2025 4:37 PM CDT I have reviewed the documented history, ROS, physical exam, and decision making and agree. Patient with extensive degenerative changes on MRI. No acute surgical intervention indicated. He can follow up in clinic after recovery from TBI and further medical work up with home GI and cardiology. * Kyree Jung LMSW - 01/14/2025 1:24 PM CDT 01/14/25 1300 Discharge Planning Patient expects to be discharged to: [facility] Expected Discharge Disposition SNF Anticipated Services at Discharge Post acute facilities (Rehab/SNF/etc) Discharge Planning Comments Pt's daughter Teodoro called requested dc plan change. Giovana stated that she no longer wants [facility] and would like SNF choice one [facility] and second choice [facility] [place]. CM informed her that referral would be sent and [facility] would follow up. Discharge Planning Status In Progress LOS: 4 Last Recorded Vitals: Blood pressure (!) 113/58, pulse 87, temperature 36.8 ?C (98.2 ?F), resp. rate 15, height 1.829 m (6' 0.01"), weight 90.7 kg (199 lb 15.3 oz), SpO2 93%. Current Diet: Adult Diet Regular; No Kyree Jung LMSW, [facility] Television Maintenance Worker - Neuro Service Line * Diamond Lloyd PT - 01/14/2025 1:14 PM CDT Encounter Note Patient Name: Karl Grey Today's Date: 01/14/2025 Missed Treatment Time and Reason Pt was to be seen for follow up PT treatment session. MRI T/L spine completed and results posted. Consulted w/ [place] Team Rupinder who said Spine consult is still pending. Per SEE SUPERVISOR Rupinder: Nsgy quickly reviewed imagings and thinks he might need some interventions. But did not give any specifics. Recommended to hold off PT/OT today and await until they actually put in their notes with recc's." Will re-attempt PT treatment session at later date when appropriate to see pt. * Kyree Jung LMSW - 01/14/2025 9:18 AM CDT 01/14/25 0900 Discharge Planning Patient expects to be discharged to: [facility] Expected Discharge Disposition IRF Anticipated Services at Discharge Post acute facilities (Rehab/SNF/etc) Discharge Planning Comments Updated clinicals sent. Barrier: pending MRI read; LUISA:01/14 Discharge Planning Status In Progress LOS: 4 Last Recorded Vitals: Blood pressure 121/65, pulse 78, temperature 37.3 ?C (99.2 ?F), resp. rate 15, height 1.829 m (6' 0.01"), weight 90.7 kg (199 lb 15.3 oz), SpO2 93%. Current Diet: Adult Diet Regular; No Kyree Jung LMSW, [facility] Television Maintenance Worker - Neuro Service Line * Jared Lopez MD - 01/14/2025 9:06 AM CDT Neurocritical Care Progress Note Consulted by NSGY for medical mgmt History Of Present Illness Karl Grey, 69 y.o. male with PMH of Afib on Xarelto, HTN, DM, anxiety on long-term Ativan for 20 yrs, recent hospitalization for cholecystitis 1 week ago pending outpt surgical intervention, who presented for AMS for the past 2 days and reported seizure like activity where it was described he was clenched up and shaked for a few seconds, found to have left frontal scattered tSAH and thin left frontal convexity subdural hygroma with no mass effect. Pt reported mech fall after losing his balance 1 week ago. His Xarelto was reversed with Kcentra. Admitted to Neuro IMU for further work-up. Interval Events: 01/10: Admit to neuro ICU. Rpt CTH stable, no acute intervention. MRIb w/wo with no acute stroke, no mass, bleed stable. Neuro intact. 01/11: Was maxed out on Cardene yesterday, now off. BP controlled. EEG with reported seizures of ~1/hour between 8PM- 12AM, since then has had 2 between 5-6AM, last one was at 538AM. Reload with Keppra, continue LEV 1 gm q12h. Load with Vimpat 200 mg, and continue Vimpat 100q12. Neurology signing off. 01/12: on cEEG-no sz since 01/11 @1400. MRI C-spine ordered fro BLE wk & c-spine tenderness. 01/13: Pending MRI t-L spine per nsgy. Neuro stable. Downgrade to floor w tele 01/14: MRI T-L spine completed. Pending nsgy recc's. Neuro stable. ASSESSMENT AND PLAN ldwater, 69 y.o. male with PMH of Afib on Xarelto, HTN, DM, anxiety on long-term Ativan for 20 yrs, recent hospitalization for cholecystitis 1 week ago pending outpt surgical intervention, who presented for AMS for the past 2 days and reported seizure like activity where it was described he was clenched up and shaked for a few seconds, found to have left frontal scattered tSAH and thin left frontal convexity subdural hygroma with no mass effect. Pt reported mech fall after losing his balance 1 week ago. NEUROLOGIC Acute traumatic subarachnoid hemorrhage (Location left frontal) on admission, Other toxic encephalopathy (G92.8) on admission Neuro Exam: GCS: E4 Eyes open spontaneously, V5 Speech orientated, M6 Follows commands MS: AAO x3, following commands, speech fluent, no dysarthria, naming intact, no neglect CN: L pupil 3, R pupil 3, EOMI, VFF, face symmetric Motor: Agx4 with generalized weakness throughout Hyper-reflexes of BLE Negative babinski initial CTH revealed left frontal scattered tSAH and thin left frontal convexity subdural hygroma with no mass effect. CTA H/N no underlying vascular abnormality CT C-spine with no acute fx Rpt CTH stable MRIb w/wo ordered for new seizure w/o: with stable hemorrhage, no acute stroke, no mass MRI c-spine Multilevel degenerative changes with multilevel foraminal narrowing. Attenuated anterior longer-term ligament at C5 & C6 level, could be degenerative vs sprain/partial thickness tear. Interspinous soft tissue edema/injury at C6-7. MRI T-L spine completed - pending read (01/14) Hold Xarelto (Afib) s/p Kcentra No NSGY indicated Pt had a fall one week ago, hitting the middle top of his head. Given captured electrographic seizures likely etiology of his falls. He has diffuse weakness throughout, weaker on BLE than BUE. CT c-spine with no acute fx just notable degenerative changes without severe stenosis. Hyper-reflexes of BLE. Will proceed with MRI c-spine w/o to eval myleopathy. Neurology was consulted in ER for new onset seizure; they will sign off today 01/12 and neuro critical care team will further mgmt his seizures. Syncope work-up ordered since unwitnessed fall cvEEG (01/10-01/12) 01/10 ~1/hour between 8PM- 12AM 01/11 2 sz between 5-6AM, last one was at 538AM. S/p Keppra 1gm loaded yesterday 01/10 PM, given persistent sz will re-load with Keppra 3gm M, continue Keppra 1 gm q12h Load with Vimpat 200 mg, and continue Vimpat 100q12 (01/11-) Restarted home Ativan 2 mg every day, to prevent withdrawals Will continue to hold PT/OT per nsgy until recc's Pt is independent with ADLs and lives alone. TANVIR is pt's daughter. CARDIOVASCULAR Essential hypertension on admission, Hypertension with emergency on admission, Atrial fibrillation on admission CV Exam: RRR Temp: [36.8 ?C (98.2 ?F)-37.7 ?C (99.8 ?F)] 36.8 ?C (98.2 ?F) Heart Rate: [55-87] 87 Resp: [13-29] 15 BP: (93-184)/(53-81) 113/58 VS Parameters: TBI SBP<150, MAP>65 Was maxed on cardene on admission, now off PRN hydralazine Thiamine 100 mg daily (per neurology recc) Home meds: Amlodipine 10 mg every day, continue Doxazosin 2mg at bedtime, continue Metoprolol XL 50 mg held for fco into 40s, restart at XL 25 mg qd Propafenon 150 mg TID, resume Syncope work-up Trop 66-> 70, no need to trend EKG junctional rhythm TTE EF 60-65%, Trivial pericardial effusion present. Orthostatic Bps when cleared for PT/OT per nsgy PULMONARY Pulm Exam: CTAB on room air w/ spO2>94% CXR on admit lungs clr CT chest on admit with no acute trauma GASTROINTESTINAL Obesity unspecified on admission GI Exam: soft, non-distended, present bowl sounds Nutrition: Current Order: Adult Diet Regular; No Home Pepcid 20 mg every day, resumed bowel regimen: senna, miralax, docustae last BM 01/13 CT A/P: No trauma. Cholelithiasis without evidence of acute cholecystitis. Colonic diverticulosis without diverticulitis. Lab Results Component Value Date ALT 24 01/14/2025 AST 25 01/14/2025 Alkaline Phosphatase 56 01/14/2025 Bilirubin Total 0.28 01/14/2025 RENAL Hypokalemia on admission MARIBETH No intake or output data in the 24 hours ending 01/14/25 1406 Urine Output: 0mL in 24hrs mL/kg/hr (last 24hrs) Results from last 7 days Lab Units 01/14/25 03401/13/25 0007 01/12/25 0519 SODIUM mEq/L 138 141 141 POTASSIUM mEq/L 3.6 3.9 4.1 CHLORIDE mEq/L 107 109* 109* CO2 mEq/L 23.5 21.8 21.9 BUN mg/dL 18 17 18 CREATININE mg/dL 0.92 0.87 0.85 GLUCOSE mg/dL 101* 99 88 CALCIUM mg/dL 8.6 9.2 9.2 Electrolytes wnl CK 448-> 356, no need to trend No mIVF Hold home Lasix 20 every day for now given recent MARIBETH No mclean, voids spontaneously CT pelvic: Nonobstructive punctate left nephrolithiasis. INFECTIOUS DISEASE Temp (24hrs), Av.2 ?C (98.9 ?F), Min:36.8 ?C (98.2 ?F), Max:37.7 ?C (99.8?F) Results from last 7 daysLab Units 01/14/2534501/13/25 0007 01/12/25 0519 WBC 10*3/uL 3.39* 6.26 7.44 HEMOGLOBIN g/dL 11.1* 11.9* 11.5* HEMATOCRIT % 33.2* 36.5* 34.7* PLATELETS 10*3/uL 108* 100* 103* UA not infectious Monitor trend fever curve and WBC no ABX indicated HEMATOLOGIC Results from last 7 daysLab Units 01/14/25 0346 01/13/25 0007 01/12/25 0519 01/11/25 0017 01/10/25 1055 HEMOGLOBIN g/dL 11.1* 11.9* 11.5* < > -- PLATELETS 10*3/uL 108* 100* 103* < > -- INR -- -- -- -- 1.01 PTT Seconds -- -- -- -- 24.0 < > = values in this interval not displayed. Thrombocytopenia trending down 126, will monitor 9145 on admit)Hold Xarelto (Afib), s/p Kcentra on admission DVT ppx: SCDs; diana q8h ENDOCRINE Results from last 7 daysLab Units 01/14/25 0346 01/13/25 0007 01/12/25 0519 01/10/25 0255 01/10/25 0035 GLUCOSE mg/dL 101* 99 88 < > -- POC GLUCOSE -- -- -- < > -- TSH uIU/mL -- -- -- -- 6.081* FREE T4 ng/dL -- -- -- -- 1.36 < > = values in this interval not displayed. BG goal 80-180No ISS indicated TSH elevated with normal fT4 MUSCULOSKELETAL AND INTEGUMENTARY Skin Exam: warm, dry, intact Code Status: Full Code Dispo: IPR, pending medical clearance [facility] White Team IMU/Floor ROMINA Ph #[phone] (available 20/05), #[phone] (available 6:30a - 4:30p) [facility] Neuro ICU White Team Ph #[phone] * Lisa Esquivel RN - 01/13/2025 4:00 PM CDT 01/13/25 1500 Discharge Planning Patient expects to be discharged to: [facility] Expected Discharge Disposition IRF Anticipated Services at Discharge Post acute facilities (Rehab/SNF/etc) Type of Post Acute Facility Services Rehab Discharge Planning Comments Clinically accepted to [facility] IPR pending medical, NS, ORS clearance; MRI spine, cEEG Discharge Planning Status In Progress Lisa Esquivel RN, CM patient clerical assistant - Neuro Service Line * Yesi Castellanos OT - 01/13/2025 12:27 PM CDT OT Encounter Note Patient Name: Karl Grey Today's Date: 01/13/2025 Missed Treatment Time and Reason Family/Caregiver Present: Yes Others Present: daughter, visitor Per EMR, pt had C-spine MRI yesterday, pending OrthoSpine consult. On consult with SEE SUPERVISOR, Sarahy, pt now pending MRI of T-L spine per NSGY recs; requesting OT hold today. OT will continue to follow pt as appropriate. Yesi Castellanos OT * Diamond Lloyd, PT - 01/13/2025 12:15 PM CDT Encounter Note Patient Name: Karl Grey Today's Date: 01/13/2025 Missed Treatment Time and Reason MRI C-spine results posted. Consulted w/ White Marychuy Bucio who said spine consult is pending. Per SEE SUPERVISOR Rupinder: "Per nsgy recc's ordered for MRI T-L spine. Pls. hold session for today" Will re-attempt PT treatment session at later date pending Spine recs. * Jared Lopez MD - 01/13/2025 10:30 AM CDT [facility] Query Clarification Progress Note As related to the inpatient hospital stay starting on 01/10/2025, 5:35 AM. Please clarify the relationship, if any, between tSAH and anticoagulant? PROVIDER RESPONSE TEXT: Hemorrhagic disorder due to extrinsic circulating anticoagulants was present at the time of admission Query Created By : Ana Vaughn, 01/13/2025, 10:01 AM * Jared Lopez MD - 01/13/2025 6:56 AM CDT Neurocritical Care Progress Note Consulted by NSGY for medical mgmt History Of Present Illness Karl Grey, 69 y.o. male with PMH of Afib on Xarelto, HTN, DM, anxiety on long-term Ativan for 20 yrs, recent hospitalization for cholecystitis 1 week ago pending outpt surgical intervention, who presented for AMS for the past 2 days and reported seizure like activity where it was described he was clenched up and shaked for a few seconds, found to have left frontal scattered tSAH and thin left frontal convexity subdural hygroma with no mass effect. Pt reported mech fall after losing his balance 1 week ago. His Xarelto was reversed with Kcentra. Admitted to Neuro IMU for further work-up. Interval Events: 01/10: Admit to neuro ICU. Rpt CTH stable, no acute intervention. MRIb w/wo with no acute stroke, no mass, bleed stable. Neuro intact. 01/11: Was maxed out on Cardene yesterday, now off. BP controlled. EEG with reported seizures of ~1/hour between 8PM- 12AM, since then has had 2 between 5-6AM, last one was at 538AM. Reload with Keppra, continue LEV 1 gm q12h. Load with Vimpat 200 mg, and continue Vimpat 100q12. Neurology signing off. 01/12: on cEEG-no sz since 01/11 @1400. MRI C-spine ordered fro BLE wk & c-spine tenderness. 01/13: Pending MRI t-L spine per nsgy. Neuro stable. Downgrade to floor w tele ASSESSMENT AND PLAN ldwater, 69 y.o. male with PMH of Afib on Xarelto, HTN, DM, anxiety on long-term Ativan for 20 yrs, recent hospitalization for cholecystitis 1 week ago pending outpt surgical intervention, who presented for AMS for the past 2 days and reported seizure like activity where it was described he was clenched up and shaked for a few seconds, found to have left frontal scattered tSAH and thin left frontal convexity subdural hygroma with no mass effect. Pt reported mech fall after losing his balance 1 week ago. NEUROLOGIC Acute traumatic subarachnoid hemorrhage (Location left frontal) on admission, Other toxic encephalopathy (G92.8) on admission Neuro Exam: GCS: E4 Eyes open spontaneously, V5 Speech orientated, M6 Follows commands MS: AAO x3, following commands, speech fluent, no dysarthria, naming intact, no neglect CN: L pupil 3, R pupil 3, EOMI, VFF, face symmetric Motor: Agx4 with generalized weakness throughout Hyper-reflexes of BLE Negative babinski initial CTH revealed left frontal scattered tSAH and thin left frontal convexity subdural hygroma with no mass effect. CTA H/N no underlying vascular abnormality CT C-spine with no acute fx Rpt CTH stable MRIb w/wo ordered for new seizure w/o: with stable hemorrhage, no acute stroke, no mass MRI c-spine Multilevel degenerative changes with multilevel foraminal narrowing. Attenuated anterior longer-term ligament at C5 & C6 level, could be degenerative vs sprain/partial thickness tear. Interspinous soft tissue edema/injury at C6-7. MRI T-L spine ordered (per nsgy, reconsultt once completed) Hold Xarelto (Afib) s/p Kcentra No NSGY indicated Pt had a fall one week ago, hitting the middle top of his head. Given captured electrographic seizures likely etiology of his falls. He has diffuse weakness throughout, weaker on BLE than BUE. CT c-spine with no acute fx just notable degenerative changes without severe stenosis. Hyper-reflexes of BLE. Will proceed with MRI c-spine w/o to eval myleopathy. Neurology was consulted in ER for new onset seizure; they will sign off today 01/12 and neuro critical care team will further mgmt his seizures. Syncope work-up ordered since unwitnessed fall cvEEG (01/10-01/12) 01/10 ~1/hour between 8PM- 12AM 01/11 2 sz between 5-6AM, last one was at 538AM. S/p Keppra 1gm loaded yesterday 01/10 PM, given persistent sz will re-load with Keppra 3gm M, continue Keppra 1 gm q12h Load with Vimpat 200 mg, and continue Vimpat 100q12 (01/11-) Restarted home Ativan 2 mg every day, to prevent withdrawals PT/OT/RN RESIDENTIAL as indicated Pt is independent with ADLs and lives alone. ANTONETTEK is pt's daughter. CARDIOVASCULAR Essential hypertension on admission, Hypertension with emergency on admission, Atrial fibrillation on admission CV Exam: RRR Temp: [36.4 ?C (97.6 ?F)-37.8 ?C (100 ?F)] 37.7 ?C (99.9 ?F) Heart Rate: [61-89] 74 Resp: [19-40] 24 BP: (108-169)/(54-111) 143/68 FiO2 (%): [3 %-4 %] 3 % VS Parameters: TBI SBP<150, MAP>65 Was maxed on cardene on admission, now off PRN hydralazine Thiamine 100 mg daily (per neurology recc) Home meds: Amlodipine 10 mg every day, continue Doxazosin 2mg at bedtime, continue Metoprolol XL 50 mg held for fco into 40s, restart at XL 25 mg qd Propafenon 150 mg TID, resume Syncope work-up Trop 66-> 70, no need to trend EKG junctional rhythm TTE EF 60-65%, Trivial pericardial effusion present. Orthostatic Bps when able PULMONARY Pulm Exam: CTAB on room air w/ spO2>94% CXR on admit lungs clr CT chest on admit with no acute trauma GASTROINTESTINAL Obesity unspecified on admission GI Exam: soft, non-distended, present bowl sounds Nutrition: Current Order: Adult Diet Regular Home Pepcid 20 mg every day, resumed bowel regimen: senna, miralax, docustae last BM 01/12 CT A/P: No trauma. Cholelithiasis without evidence of acute cholecystitis. Colonic diverticulosis without diverticulitis. Lab Results Component Value Date ALT 17 01/13/2025 AST 21 01/13/2025 Alkaline Phosphatase 69 01/13/2025 Bilirubin Total 0.28 01/13/2025 RENAL Hypokalemia on admission MARIBETH Intake/Output Summary (Last 24 hours) at 01/13/2025 0656 Last data filed at 01/13/2025 0500 Gross per 24 hour Intake 210 ml Output 1200 ml Net -990 ml Urine Output: 0mL in 24hrs mL/kg/hr (last 24hrs) Results from last 7 days Lab Units 01/13/25 0007 01/12/2551801/11/25 0017 SODIUM mEq/L 141 141 142 POTASSIUM mEq/L 3.9 4.1 3.1* CHLORIDE mEq/L 109* 109* 110* CO2 mEq/L 21.8 21.9 23.4 BUN mg/dL 17 18 20 CREATININE mg/dL 0.87 0.85 0.99 GLUCOSE mg/dL 99 88 140* CALCIUM mg/dL 9.2 9.2 8.9 Electrolytes wnl CK 448-> 356, no need to trend No mIVF Hold home Lasix 20 every day for now given recent MARIBETH No mclean, voids spontaneously CT pelvic: Nonobstructive punctate left nephrolithiasis. INFECTIOUS DISEASE Temp (24hrs), Av.4 ?C (99.3 ?F), Min:36.4 ?C (97.6 ?F), Max:37.8 ?C (100?F) Results from last 7 daysLab Units 01/13/25 00001/12/25 0501/11/25 0017 WBC 10*3/uL 6.26 7.44 6.69 HEMOGLOBIN g/dL 11.9* 11.5* 12.5 HEMATOCRIT % 36.5* 34.7* 36.6* PLATELETS 10*3/uL 100* 103* 126* UA not infectious Monitor trend fever curve and WBC no ABX indicated HEMATOLOGIC Results from last 7 daysLab Units 01/13/25 0007 01/12/25 0501/11/25 0017 01/10/25 1055 HEMOGLOBIN g/dL 11.9* 11.5* 12.5 -- PLATELETS 10*3/uL 100* 103* 126* -- INR -- -- -- 1.01 PTT Seconds -- -- -- 24.0 Thrombocytopenia trending down 126, will monitor 9145 on admit)Hold Xarelto (Afib), s/p Kcentra on admission DVT ppx: SCDs; diana q8h ENDOCRINE Results from last 7 daysLab Units 01/13/25 0007 01/12/25 0519 01/11/25 0017 01/10/25 0255 01/10/25 0035 GLUCOSE mg/dL 99 88 140* -- -- POC GLUCOSE -- -- -- < > -- TSH uIU/mL -- -- -- -- 6.081* FREE T4 ng/dL -- -- -- -- 1.36 < > = values in this interval not displayed. BG goal 80-180No ISS indicated TSH elevated with normal fT4 MUSCULOSKELETAL AND INTEGUMENTARY Skin Exam: warm, dry, intact Code Status: Full Code Dispo: IPR, pending medical clearance [facility] White Team IMU/Floor ROMINA Ph #[phone] (available 20/05), #[phone] (available 6:30a - 4:30p) [facility] Neuro ICU White Team Ph #[phone] * Yesi Castellanos, OT - 01/12/2025 4:23 PM CDT Treatment Session Note Patient Name: Karl Grey Today's Date: 01/12/2025 Preferred Language: [place] Assessment & Plan Pt demonstrates improving strength and motor coordination. He requires Min-ModA to initiate ADL tasks, but demonstrates improving activation and task completion as session progresses. Pt is more verbal this day with more clear words/sentences, but demonstrates perseveration, repeating request that his medication schedule be changed 2* concerns that "I shouldn't take them all at once". Pt requires min-mod verbal cues to redirect to task. Pt will continue to benefit from skilled OT services to maximize functional independence and reduce caregiver burden. Assessment: OT Assessment Results: Impaired ADL status, Impaired IADLs, Impaired fine motor control, Impaired gross motor control, Impaired functional mobility, Communication impairment Prognosis: Good Evaluation/Treatment Tolerance: Patient tolerated treatment well Medical Staff Made Aware: Yes Strengths: Ability to acquire knowledge, Housing layout, Premorbid level of function Precautions: Medical Precautions: universal; fall; seizure Plan: Treatment Plan/Goals Established with Patient/Caregiver: Yes Treatment Interventions: Neuromuscular reeducation, ADL retraining, Endurance training OT Planned Treatments: Neuromuscular reeducation, Activities of Daily Living, Safety education, Therapeutic activities, Therapeutic exercises OT Plan: Skilled OT OT Frequency: 3-5 times per week until discharge OT Duration: Discharge Subjective Current Problem: Pain: 5/10, generalized Objective Pt required MaxA to transfer supine>sit EOB and Chaz to maintain sit balance, progressing to SBA-CGA. Pt required ModA to wash his face, demonstrating improving BUE activation and bimanual integration to complete task without assistance. Pt stands with ModA and requires Mod-MaxA to achieve and maintain upright standing balance and sidestep to L-side. He returns to supine c ModA and tolerates elevation of HOB for reclined upright positioning. Vital Signs: Stable t/o session General Visit Information: Family/Caregiver Present: Yes Others Present: daughter, visitor Self Care (ADL):Grooming Assistance: Partial/Mod assistance UE Dressing Assistance: Substantial/Max assistance LE Dressing Assistance: Substantial/Max assistance IADL Mobility/Transfers:Bed Mobility Bed Mobility Bed Mobility: Yes Bed Mobility 1 Level of Assistance 1: Substantial/Max assistance Bed Mobility To/From: Roll left/right, Supine to sit on EOB Assistive Devices And Adaptive Equipments: Bed rail, Head of bed elevated Bed Mobility 2 Level of Assistance 2: Partial/Mod assistance Bed Mobility To/From: Sitting EOB to supine Assistive Devices And Adaptive Equipments: Head of bed elevated, Bed rail TransferTransfers Transfer: Yes Transfer 1 Level of Assistance 1: Partial/Mod assistance Transfer To/From: [id number] Extremity Assessments: Wheelchair Activity: TreatmentSelf-Care: Grooming Assistance: Partial/Mod assistance UE Dressing Assistance: Substantial/Max assistance LE Dressing Assistance: Substantial/Max assistance Bed Mobility:Bed Mobility Bed Mobility: Yes Bed Mobility 1 Level of Assistance 1: Substantial/Max assistance Bed Mobility To/From: Roll left/right, Supine to sit on EOB Assistive Devices And Adaptive Equipments: Bed rail, Head of bed elevated Bed Mobility 2 Level of Assistance 2: Partial/Mod assistance Bed Mobility To/From: Sitting EOB to supine Assistive Devices And Adaptive Equipments: Head of bed elevated, Bed rail Transfers:Transfers Transfer: Yes Transfer 1 Level of Assistance 1: Partial/Mod assistance Transfer To/From: [id number]-ah-Vzp Balance/Neuromuscular Re-educationNeuromuscular Re-Education Time Entry: 30 Balance/Neuromuscular Re-Education Activity 1: tolerance to upright activities Position 1: Seated Balance/Neuromuscular Re-Education Activity 2: motor control, postural/trunk control, midline orientation Position 2: Seated Balance/Neuromuscular Re-Education Activity 3: BUE forced use activities, bimanual coordination Position 3: Seated Balance/Neuromuscular Re-Education Activity 4: activity tolerance, weightbearing Position 4: Standing Cognitive Skill DevelopmentCognitive Skill Development Cognitive Skill Development Activity 1: Sustained attention to task, alternating attention AM-PAC Daily Activity: Outcome Measures: Patient Education:Education Documentation No documentation found. Education Comments No comments found. Goals:Encounter Goals Encounter Goals (Active) Patient will perform toilet transfers with SBA to decrease in caregiver burden and for improved independence. Start: 01/11/25 Expected End: 01/22/25 Patient will perform grooming tasks with SetupA to demonstrate Improved independence with ADLs Start: 01/11/25 Expected End: 01/22/25 Patient will perform self-feeding tasks with SetupA for improved independence with ADLs Start: 01/11/25 Expected End: 01/22/25 Pt will complete UE dressing tasks with Supervision to demonstrate improving independence in self-care activities. Start: 01/11/25 Expected End: 01/22/25 Patient will perform lower body dressing tasks with CGA using AE as needed, to improve independence with dressing. Start: 01/11/25 Expected End: 01/22/25 Patient will perform toileting tasks with SBA to improve independence with ADLs. Start: 01/11/25 Expected End: 01/22/25 Patient will tolerate mobilizations of the BUE scapulae prior to engaging in tasks to promote neuromuscular re-education. Start: 01/11/25 Expected End: 01/22/25 Patient will participate in BUE forced use activities with CGA to inhibit abnormal movement patterns. Start: 01/11/25 Expected End: 01/22/25 Treatment Note: If this is the last documented treatment, then it will signify discharge from acute care prior to discharge from the therapy service and will serve as the discharge summary. Yesi Castellanos OT * Diamond Lloyd PT - 01/12/2025 10:54 AM CDT Treatment Session Note Patient Name: Karl Grey Today's Date: 01/12/2025 Preferred Language: [place]an Assessment & Plan Assessment: Consulted w/ RN prior to seeing pt. Pt was received supine in bed w/ daughter and her significant other present in room. Pt was much more awake and alert and trying to feed himself breakfast at start of session. Pt was intermittently lethargic during the session, but able to interact once stimulated. Pt was A&O x 4 to self, situation, hospital, and date. However, pt demonstrated delayed initiation & responses. Pt with impaired motor planning and processing. Pt needed hand over hand cueing at times. Pt needed Max A x 2 for supine to sit transfer. Pt needed Mod A x 2 for sit to stand transfer. Pt amb 5 side steps x 2 w/ RW & MOD A x 2. Pt had seated rest break. RW had to be physically managed for pt in order to initiate steps. Pt was fatigued w/ activity. Total A x 2 to scoot to HOB. At the end of the session, pt was left semi-fowlers in bed w/ bed alarm on. Daughter confirms that at baseline, pt was living home alone, independent w/ ADLs/IADLs, amb w/o AD, driving, and retired from working at [employer]. Plan: PT Recommended Transfer Status: (MOD A x 2) ObjectiveGeneral Visit Information: PT Last Visit PT Received On: 01/12/25 Activity Tolerance: Cognition Treatment Bed Mobility: Bed Mobility 1: Level of Assistance 1: Substantial/Max assistance Bed Mobility To/From: Supine to sit on EOB Transfers: Transfers 1: Level of Assistance 1: Partial/Mod assistance Transfer To/From: [id number]-uv-[id number]/[id number]-[id number] Assistive Devices And Adaptive Equipments: Walker, front-wheeled Gait training: Gait Training Activity 1: Distance (enter in feet): 5 side steps x 2 Assistive Devices And Adaptive Equipments: Walker, front-wheeled Level of Assistance 1: Partial/Mod assistance AM-PAC Basic Mobility:AM-PAC Basic Mobility Inpatient Turning in bed without bedrails: A Lot Lying on back to sitting on edge of flat bed: A Lot Bed to chair: A Lot Standing up from chair: A Lot Walk in room: A Lot Climbing 3-5 stairs: A Lot Mobility Inpatient Raw Score: 12 JH-HLM Goal: 4 Mobility: Highest Level of Mobility Performed (JH-HLM)JH-HLM Goal: 4 Highest Level of Mobility Performed (JH-HLM): Static standing (1 or more minutes) Modified [place] Patient Education: Education Documentation No documentation found. Education Comments No comments found. Goals:Encounter Goals Encounter Goals (Active) Patient will ambulate 150ft distance using LRAD with no assistance Start: 01/11/25 Expected End: 02/08/25 Patient will perform chair to and from bed transfer with no assistance Start: 01/11/25 Expected End: 02/08/25 Patient will perform supine to sit on bed with no assistance demonstrating control Start: 01/11/25 Expected End: 02/08/25 Treatment Note: If this is the last documented treatment, then it will signify discharge from acute care prior to discharge from the therapy service and will serve as the discharge summary. Diamond Lloyd PT * Kyree Jung LMSW - 01/12/2025 9:45 AM CDT 01/12/25 0900 Discharge Planning Patient expects to be discharged to: [facility] Expected Discharge Disposition IRF Anticipated Services at Discharge Post acute facilities (Rehab/SNF/etc) Discharge Planning Comments Cm spoke with pt's daughter Giovana [phone] to confirm IPR choice. Per Giovana - first choice is [facility]. Cm booked referral. Updated clinicals sent. Barrier: seizures, restraints, swallow plan pending; LUISA:2-3days Discharge Planning Status In Progress LOS: 2 Last Recorded Vitals: Blood pressure (!) 115/57, pulse 69, temperature 37.4 ?C (99.3 ?F), temperature source Axillary, resp. rate 20, height 1.829 m (6' 0.01"), weight 90.7 kg (199 lb 15.3 oz), SpO2 95%. Current Diet: Adult Diet Regular DISCHARGE PLAN A: IPR [facility] - pending med clearance DISCHARGE PLAN B: SNF Kyree Jung LMSW, 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 male with PMH of Afib on Xarelto, HTN, DM, anxiety on long-term Ativan for 20 yrs, recent hospitalization for cholecystitis 1 week ago pending outpt surgical intervention, who presented for AMS for the past 2 days and reported seizure like activity where it was described he was clenched up and shaked for a few seconds, found to have left frontal scattered tSAH and thin left frontal convexity subdural hygroma with no mass effect. Pt reported mech fall after losing his balance 1 week ago. His Xarelto was reversed with Kcentra. Admitted to Neuro IMU for further work-up. Interval Events: 01/10: Admit to neuro ICU. Rpt CTH stable, no acute intervention. MRIb w/wo with no acute stroke, no mass, bleed stable. Neuro intact. 01/11: Was maxed out on Cardene yesterday, now off. BP controlled. EEG with reported seizures of ~1/hour between 8PM- 12AM, since then has had 2 between 5-6AM, last one was at 538AM. Reload with Keppra, continue LEV 1 gm q12h. Load with Vimpat 200 mg, and continue Vimpat 100q12. Neurology signing off. 01/12: on cEEG-no sz since 01/11 @1400. MRI C-spine ordered fro BLE wk & c-spine tenderness. ASSESSMENT AND PLAN ldwater, 69 y.o. male with PMH of Afib on Xarelto, HTN, DM, anxiety on long-term Ativan for 20 yrs, recent hospitalization for cholecystitis 1 week ago pending outpt surgical intervention, who presented for AMS for the past 2 days and reported seizure like activity where it was described he was clenched up and shaked for a few seconds, found to have left frontal scattered tSAH and thin left frontal convexity subdural hygroma with no mass effect. Pt reported mech fall after losing his balance 1 week ago. NEUROLOGIC Acute traumatic subarachnoid hemorrhage (Location left frontal) on admission, Other toxic encephalopathy (G92.8) on admission Neuro Exam: GCS: E4 Eyes open spontaneously, V5 Speech orientated, M6 Follows commands MS: AAO x3, following commands, speech fluent, no dysarthria, naming intact, no neglect CN: L pupil 3, R pupil 3, EOMI, VFF, face symmetric Motor: Agx4 with generalized weakness throughout Hyper-reflexes of BLE Negative babinski initial CTH revealed left frontal scattered tSAH and thin left frontal convexity subdural hygroma with no mass effect. CTA H/N no underlying vascular abnormality CT C-spine with no acute fx Rpt CTH stable MRIb w/wo ordered for new seizure w/o: with stable hemorrhage, no acute stroke, no mass MRI c-spine ordered for BLE wk. & c-spine tenderness Hold Xarelto (Afib) s/p Kcentra No NSGY indicated Pt had a fall one week ago, hitting the middle top of his head. Given captured electrographic seizures likely etiology of his falls. He has diffuse weakness throughout, weaker on BLE than BUE. CT c-spine with no acute fx just notable degenerative changes without severe stenosis. Hyper-reflexes of BLE. Will proceed with MRI c-spine w/o to eval myleopathy. Neurology was consulted in ER for new onset seizure; they will sign off today 01/12 and neuro critical care team will further mgmt his seizures. Syncope work-up ordered since unwitnessed fall cvEEG (01/10-) 01/10 ~1/hour between 8PM- 12AM 01/11 2 sz between 5-6AM, last one was at 538AM. S/p Keppra 1gm loaded yesterday 01/10 PM, given persistent sz will re-load with Keppra 3gm M, continue Keppra 1 gm q12h Load with Vimpat 200 mg, and continue Vimpat 100q12 (01/11-) Restarted home Ativan 2 mg every day, to prevent withdrawals PT/OT/RN RESIDENTIAL as indicated Pt is independent with ADLs and lives alone. TANVIR is pt's daughter. CARDIOVASCULAR Essential hypertension on admission, Hypertension with emergency on admission, Atrial fibrillation on admission CV Exam: RRR Temp: [37.4 ?C (99.3 ?F)-37.8 ?C (100.1 ?F)] 37.4 ?C (99.3 ?F) Heart Rate: [58-75] 69 Resp: [17-31] 20 BP: (113-171)/(56-76) 115/57 FiO2 (%): [1 %-2 %] 1 % VS Parameters: TBI SBP<150, MAP>65 Was maxed on cardene on admission, now off PRN hydralazine Thiamine 100 mg daily (per neurology recc) Home meds: Amlodipine 10 mg every day, continue Doxazosin 2mg at bedtime, continue Metoprolol XL 50 mg held for fco into 40s, restart at XL 25 mg qd Propafenon 150 mg TID, resume Syncope work-up Trop 66-> 70, no need to trend EKG junctional rhythm TTE EF 60-65%, Trivial pericardial effusion present. Orthostatic Bps when able PULMONARY Pulm Exam: CTAB on room air w/ spO2>94% CXR on admit lungs clr CT chest on admit with no acute trauma GASTROINTESTINAL Obesity unspecified on admission GI Exam: soft, non-distended, present bowl sounds Nutrition: Current Order: Adult Diet Regular Home Pepcid 20 mg every day, resumed bowel regimen: senna, miralax, docustae last BM [employer] (lactulose q8h day ordered 01/12) CT A/P: No trauma. Cholelithiasis without evidence of acute cholecystitis. Colonic diverticulosis without diverticulitis. Lab ResultsComponent Value Date ALT 22 01/11/2025 AST 30 01/11/2025 Alkaline Phosphatase 65 01/11/2025 Bilirubin Total 0.39 01/11/2025 RENAL Hypokalemia on admission MARIBETH No intake or output data in the 24 hours ending 01/12/25 0741 Urine Output:0mL in 24hrs mL/kg/hr (last 24hrs) Results from last 7 daysLab Units 01/12/25 0501/11/25 0017 01/10/25 0255 01/10/25 0014 SODIUM mEq/L 141 142 -- 139 POTASSIUM mEq/L 4.1 3.1* -- 3.3* CHLORIDE mEq/L 109* 110* -- 106 CO2 mEq/L 21.9 23.4 -- 24.5 BUN mg/dL 18 20 -- 27* CREATININE mg/dL 0.85 0.99 -- 1.12 GLUCOSE mg/dL 88 140* -- 108* POC GLUCOSE -- -- < > -- CALCIUM mg/dL 9.2 8.9 -- 9.7 < > = values in this interval not displayed. Electrolytes wnl CK 448-> 356, no need to trend No mIVF Hold home Lasix 20 every day for now given recent MARIBETH No mclean, voids spontaneously CT pelvic: Nonobstructive punctate left nephrolithiasis. INFECTIOUS DISEASE Temp (24hrs), Av.6 ?C (99.6 ?F), Min:37.4 ?C (99.3 ?F), Max:37.8 ?C (100.1 ?F) Results from last 7 daysLab Units 01/12/2551801/11/25 0017 01/10/25 0014 WBC 10*3/uL 7.44 6.69 5.31 HEMOGLOBIN g/dL 11.5* 12.5 13.0 HEMATOCRIT % 34.7* 36.6* 36.2* PLATELETS 10*3/uL 103* 126* 145* UA not infectious Monitor trend fever curve and WBC no ABX indicated HEMATOLOGIC Results from last 7 daysLab Units 01/11/25 0017 01/10/25 1055 01/10/25 0014 HEMOGLOBIN g/dL 12.5 -- 13.0 PLATELETS 10*3/uL 126* -- 145* INR -- 1.01 -- PTT Seconds -- 24.0 -- Thrombocytopenia trending down 126, will monitor 9145 on admit)Hold Xarelto (Afib), s/p Kcentra on admission DVT ppx: SCDs; diana q8h ENDOCRINE Results from last 7 daysLab Units 01/11/25 0017 01/10/25 0255 01/10/25 0035 01/10/25 0014 GLUCOSE mg/dL 140* -- -- 108* POC GLUCOSE mg/dL -- 84 -- -- TSH uIU/mL -- -- 6.081* -- FREE T4 ng/dL -- -- 1.36 -- BG goal 80-180No ISS indicated TSH elevated with normal fT4 MUSCULOSKELETAL AND INTEGUMENTARY Skin Exam: warm, dry, intact Code Status: Full Code Dispo: pending evals, home vs IPR, pending medically clearance, having electrographic seizures [facility] White Team IMU/Floor ROMINA Ph #[phone] (available 20/05), #[phone] (available 6:30a - 4:30p) FORMERLY [facility], [facility] Neuro ICU White Team Ph #[phone] * Emeka Purdy MD - 01/12/2025 6:33 AM CDT NEUROSURGERY PROGRESS NOTE: Date: 01/12/25 Patients Name: Karl Grey Admit Date: 01/09/2025 Admitting Provider: Jared Lopez MD : 1955 Service: Neurosurgery Trauma Team Age/Sex: 69 y.o. male Active Problems: Principal Problem: SAH (subarachnoid hemorrhage) (CMS/HCC) (HCC) Active Problems: Symptomatic localization-related epilepsy (HCC) SUBJECTIVE: No neuro events OBJECTIVE: Vitals: Vitals: 01/12/25 0300 01/12/25 0400 01/12/25 0536 01/12/25 0600 BP: 149/67 158/73 144/66 (!) 162/67 Pulse: 59 60 72 Resp: (!) 27 22 17 Temp: 37.5 ?C (99.5 ?F) SpO2: 95% 94% (!) 80% I/O: No intake or output data in the 24 hours ending 01/12/25 0633 PHYSICAL EXAM:Eye Opening: Voice (3) Verbal: Confused (4) Best Motor: Follows Commands (6) GCS: 13 Orientation: Alert & Oriented x 3 Left pupil 3mm and briskRight pupil 3 mm and brisk EOMI [id number] drift Slow to respond LABS/IMAGING:Labs: Lab Results Component Value Date Sodium Lvl 142 01/11/2025 Sodium Lvl 139 01/10/2025 Plt Count 126 (L) 01/11/2025 Plt Count 145 (L) 01/10/2025 WBC 6.69 01/11/2025 WBC 5.31 01/10/2025 Hgb 12.5 01/11/2025 Hgb 13.0 01/10/2025 PTT 24.0 01/10/2025 INR 1.01 01/10/2025 Activated Clotting Time (TEG) Rapid 136 (H) 01/10/2025 Radiology Imaging Reviewed: - I have personally reviewed all pertinent NSGY imaging studies ASSESSMENT AND PLAN: Assessment:Karl Grey is a 69 y.o. male with PMH of afib on xarelto, HTN, DM presents after altered mental status for one day. Per daughter report, patient was more forgetful for the past 2 days, and today was found to be more altered (answering the door in his underwear, not able to recall details etc). In the ER, patient presumably had a seizure witnessed only by family when he clenched up and shaked for a few seconds. NSGY consulted for CT head finding of left frontal scattered tSAH and a thin left frontal convexity subdural hygroma. Patient last xarelto yesterday evening. Family denies fever, recent illness, seizure history. Patient was hospitalized 1 week ago for cholecystitis per daughter pending surgery scheduling but has not been eating or drinking well for the past week. Impression:- scattered left frontal tSAH, also seen on MRI Plan:I have seen and examined the patient. Patient is neurologically unchanged with unchanged imaging. The patient had seizures yesterday, so was loaded with Keppra and Vimpat. Patient can follow up in trauma clinic with Dr. Kemp in 2 weeks with a repeat head CT. No nsgy interventions necessary. Please call [phone] for neurosurgery clinical questions. Jonel Dale MD, MSNeurosurgery PGY-1 I saw and evaluated the patient, participating in the lowry portions of the service. I reviewed the resident's note. I agree with the resident's findings and plan. The patient is somnolent but Aox3 and Fcx4. Imaging and exam stable. No role for neurosurgical intervention. Family updated at bedside. Emeka Purdy MD * Yesi Castellanos OT - 01/11/2025 12:46 PM CDT Evaluation and Treatment Patient Name: Karl Grey Today's Date: 01/11/2025 Preferred Language: Ugandan Assessment & Plan Assessment: OT Assessment Results: Impaired ADL status, Impaired IADLs, Impaired fine motor control, Impaired gross motor control, Impaired functional mobility, Communication impairment Prognosis: Good Evaluation/Treatment Tolerance: Patient tolerated treatment well Medical Staff Made Aware: Yes Strengths: Ability to acquire knowledge, Housing layout, Premorbid level of function Pt demonstrates deficits in motor planning, cognition, and activity tolerance with fluctuating alertness t/o session. He appears Aox4 but requires increased time to respond to questions or follow commands, and Chaz to initiate tasks. Pt completes bed mobility tasks and sit/stand transfers c Mod-MaxA. Pt will benefit from skilled OT services to maximize functional independence and safety, and to reduce caregiver burden. Plan: Treatment Plan/Goals Established with Patient/Caregiver: Yes Treatment Interventions: Neuromuscular reeducation, ADL retraining, Endurance training OT Planned Treatments: Neuromuscular reeducation, Activities of Daily Living, Safety education, Therapeutic activities, Therapeutic exercises OT Plan: Skilled OT OT Frequency: 3-5 times per week until discharge OT Duration: Discharge Subjective Current Problem: Per EMR, pt is "69 y.o. male with PMH of afib on xarelto, HTN, DM presents after altered mental status for one day. Per daughter report, patient was more forgetful for the past 2 days, and today was found to be more altered (answering the door in his underwear, not able to recall details etc). In the ER, patient presumably had a seizure witnessed only by family when he clenched up and shaked for a few seconds. NSGY consulted for CT head finding of left frontal scattered tSAH and a thin left frontal convexity subdural hygroma. Patient last xarelto yesterday evening. Family denies fever, recent illness, seizure history. Patient was hospitalized 1 week ago for cholecystitis per daughter pending surgery scheduling but has not been eating or drinking well for the past week." Pain: 01/04, abdomen Objective Pt found semisupine c cEEG and lines in place, VSS. Pt transferred supine>sit EOB c MaxA and maintained sit balance c Chaz. Pt donned fallen gown c MaxA, demonstrating delayed motor planning. Pt required Chaz to position hands on bedside and initiate movements to scoot hips anteriorly c ModA. Pt stood at RW c MaxA and maintained standing balance c Min-ModA; required ModA to sidestep to L-side, then sat EOB again c ModA. Pt returned supine c ModA and tolerated elevation of HOB. Pt was left semisupine c cEEG and lines in place, VSS, essentials within reach, and RN notified of pt status. Vital Signs: Stable t/o session General Visit Information: Family/Caregiver Present: No Precautions: Medical Precautions: universal; fall; seizure Cognition: Behavior/Cognition: Cooperative, Alert Orientation Level: Oriented X4 Home Living: Type of Home: House Lives With: Alone Home Adaptive Equipment: None Home Living Comments: Pt states he lives alone in [facility] with one-step threshold at entry. Home Layout: One level Home Access: Level entry Bathroom Shower/Tub: Walk-in shower Bathroom Toilet: Standard Bathroom Equipment: None Prior Function: Level of [place]: Other (Comment) (Independent) ADL Assistance: Independent Homemaking Assistance: Independent Vocational: Retired (worked at [employer]) Social History: Patient Responsibilities: Driving, Community mobility, Home management, Health management, Personal ADL Prior IADL: Self Care (ADL): Grooming Assistance: Substantial/Max assistance UE Dressing Assistance: Substantial/Max assistance LE Dressing Assistance: Substantial/Max assistance Mobility/Transfers:Bed Mobility Bed Mobility Bed Mobility: Yes Bed Mobility 1 Level of Assistance 1: Substantial/Max assistance Bed Mobility To/From: Roll left/right, Supine to sit on EOB Assistive Devices And Adaptive Equipments: Bed rail, Head of bed elevated Bed Mobility 2 Level of Assistance 2: Partial/Mod assistance Bed Mobility To/From: Sitting EOB to supine Assistive Devices And Adaptive Equipments: Head of bed elevated, Bed rail TransferTransfers Transfer: Yes Transfer 1 Level of Assistance 1: Substantial/Max assistance Trials/Comments 1: Pt stood with MaxA, maintained standing balance c Min-ModA at RW Transfer To/From: [id number] Assistive Devices And Adaptive Equipments: Walker, front-wheeled OT General Assessments:ADL Grooming Assistance: Substantial/Max assistance UE Dressing Assistance: Substantial/Max assistance LE Dressing Assistance: Substantial/Max assistance Activity ToleranceEndurance: Tolerates 30 min exercise with multiple rests Sitting Balance: Supports self with more than 50% effort using upper extremity, requires therapist assistance Early Mobility/Exercise Safety Screen: Proceed with mobilization - No exclusion criteria met Vision - Basic AssessmentCurrent Vision: Other (Comment) (wears glasses; unclear frequency) Vision - Complex AssessmentOcular Range of Motion: Within Functional Limits ProprioceptionProprioception: RUE Intact, LUE Intact PerceptionInattention/Neglect: Appears intact Initiation: Hand over hand to initiate tasks Motor Planning: Hand over hand to sequence tasks Perseveration: Perseverates during conversation CoordinationMovements are Fluid and Coordinated: No Hand FunctionGross Grasp: Functional Coordination: Impaired Extremity Assessments:Right Upper Extremity RUE Assessment RUE Assessment: Within Functional Limits Left Upper Extremity LUE AssessmentLUE Assessment: Within Functional Limits Upper Extremity ToneUpper Extremity Tone Left Upper Extremity: Normal Right Upper Extremity: Normal Treatment:Self-Care: Grooming Assistance: Substantial/Max assistance UE Dressing Assistance: Substantial/Max assistance LE Dressing Assistance: Substantial/Max assistance Bed Mobility:Bed Mobility Bed Mobility: Yes Bed Mobility 1 Level of Assistance 1: Substantial/Max assistance Bed Mobility To/From: Roll left/right, Supine to sit on EOB Assistive Devices And Adaptive Equipments: Bed rail, Head of bed elevated Bed Mobility 2 Level of Assistance 2: Partial/Mod assistance Bed Mobility To/From: Sitting EOB to supine Assistive Devices And Adaptive Equipments: Head of bed elevated, Bed rail Transfers:Transfers Transfer: Yes Transfer 1 Level of Assistance 1: Substantial/Max assistance Trials/Comments 1: Pt stood with MaxA, maintained standing balance c Min-ModA at RW Transfer To/From: [id number] Assistive Devices And Adaptive Equipments: Walker, front-wheeled Balance/Neuromuscular Re-educationNeuromuscular Re-Education Time Entry: 23 Balance/Neuromuscular Re-Education Activity 1: tolerance to upright activity Position 1: Seated Balance/Neuromuscular Re-Education Activity 2: motor control, postural/trunk control, bimanual motor coordination Position 2: Seated Balance/Neuromuscular Re-Education Activity 3: BUE forced use activities Position 3: Seated Balance/Neuromuscular Re-Education Activity 4: activity tolerance Position 4: Standing AM-PAC Daily Activity:Putting on and taking off regular lower body clothing: A Lot Bathing (including washing, rinsing, drying): A Lot Toileting, which includes using toilet, bedpan or urinal: A Lot Putting on and taking off regular upper body clothing: A Lot Taking care of personal grooming such as brushing teeth: A Lot Eating Meals: A Little AM-PAC Daily Activity Raw Score: 13 MobilityHighest Level of Mobility Performed (-HLM): Static standing (1 or more minutes) Outcome Measures: Patient Education:Education Documentation No documentation found. Education Comments No comments found. Goals:Encounter Goals Encounter Goals (Active) Patient will perform toilet transfers with SBA to decrease in caregiver burden and for improved independence. Start: 01/11/25 Expected End: 01/22/25 Patient will perform grooming tasks with SetupA to demonstrate Improved independence with ADLs Start: 01/11/25 Expected End: 01/22/25 Patient will perform self-feeding tasks with SetupA for improved independence with ADLs Start: 01/11/25 Expected End: 01/22/25 Pt will complete UE dressing tasks with Supervision to demonstrate improving independence in self-care activities. Start: 01/11/25 Expected End: 01/22/25 Patient will perform lower body dressing tasks with CGA using AE as needed, to improve independence with dressing. Start: 01/11/25 Expected End: 01/22/25 Patient will perform toileting tasks with SBA to improve independence with ADLs. Start: 01/11/25 Expected End: 01/22/25 Patient will tolerate mobilizations of the BUE scapulae prior to engaging in tasks to promote neuromuscular re-education. Start: 01/11/25 Expected End: 01/22/25 Patient will participate in BUE forced use activities with CGA to inhibit abnormal movement patterns. Start: 01/11/25 Expected End: 01/22/25 Treatment Note: If this is the last documented treatment, then it will signify discharge from acute care prior to discharge from the therapy service and will serve as the discharge summary. Yesi Castellanos OT * Diamond Lloyd PT - 01/11/2025 9:55 AM CDT Evaluation and Treatment Note Patient Name: Karl Grey Today's Date: 01/11/2025 Preferred Language: Ug[place]an Assessment & Plan Assessment: Consulted w/ RN prior to seeing pt. Pt was received supine in bed. Pt was lethargic during the session, but able to interact once stimulated. Pt was A&O x 4 to self, situation, hospital, and date. However, pt demonstrated delayed initiation & responses. Pt with impaired motor planning and processing. Pt needed hand over hand cueing at times. Pt needed Max A x 1-2 for supine to sit transfer. Pt needed Mod A for sit to stand transfer. Pt amb 5 side steps w/ RW & MOD A x 2. RW had to be physically managed for pt. At the end of the session, pt was left semi-fowlers in bed w/ bed alarm on. Plan: Treatment Plan/Goals Established with Patient/Caregiver: Yes Treatment/Interventions: Balance training, Bed mobility training, Caregiver training, Equipment training, Gait training, Functional activities, Neuromuscular re-education, Pain management, Patient education, Positioning, Posture/Body mechanics baring, Stair training, Therapeutic exercises, Transfer training PT Plan: Skilled PT PT Frequency: 3-5 times per week until discharge PT Recommended Transfer Status: (MOD A x 2) Per H&P: "Karl Grey, 69 y.o. male with PMH of Afib on Xarelto, HTN, DM, anxiety on long-term Ativan for 20 yrs, recent hospitalization for cholecystitis 1 week ago pending outpt surgical intervention, who presented for AMS for the past 2 days and reported seizure like activity where it was described he was clenched up and shaked for a few seconds, found to have left frontal scattered tSAH and thin left frontal convexity subdural hygroma with no mass effect. Pt reported mech fall after losing his balance 1 week ago. His Xarelto was reversed with Kcentra. Admitted to Neuro IMU for further work-up. Interval Events: 01/10: Admit to neuro ICU. Rpt CTH stable, no acute intervention. MRIb w/wo with no acute stroke, no mass, bleed stable. Neuro intact. 01/11: Was maxed out on Cardene yesterday, now off. BP controlled. EEG with reported seizures of ~1/hour between 8PM- 12AM, since then has had 2 between 5-6AM, last one was at 538AM. Reload with Keppra, continue LEV 1 gm q12h. Load with Vimpat 200 mg, and continue Vimpat 100q12. Neurology signing off." Home Living:Type of Home: House Lives With: Alone Home Layout: One level Home Access: (1 JORDON) Prior Level of Function:Level of [place]: (Amb IND w/o AD) ADL Assistance: Independent Homemaking Assistance: Independent Vocational: (Retired from working at [employer]) Prior Function Comments: Pt is not a reliable historian. Pt reports that he is independent w/ cooking, cleaning, laundry, driving. ObjectiveGeneral Visit Information: Functional Assessments: Bed Mobility Bed Mobility 1: Level of Assistance 1: Substantial/Max assistance Bed Mobility To/From: Supine to sit on EOB Transfers Transfers 1:Level of Assistance 1: Partial/Mod assistance Transfer To/From: [id number] Assistive Devices And Adaptive Equipments: Walker, front-wheeled Gait Gait Training Activity 1: Distance (enter in feet): 5 side steps Assistive Devices And Adaptive Equipments: Walker, front-wheeled Level of Assistance 1: Partial/Mod assistance AM-PAC Basic Mobility:Turning in bed without bedrails: A Little Lying on back to sitting on edge of flat bed: A Lot Bed to chair: A Lot Standing up from chair: A Lot Walk in room: A Lot Climbing 3-5 stairs: A Lot Mobility Inpatient Raw Score: 13 JH-HLM Goal: 4 Mobility: Highest Level of Mobility Performed (JH-HLM)Static standing (1 or more minutes) Modified [place] Patient Education: Education Documentation Physical Therapy Plan of Care, taught by Diamond Lloyd PT at 01/11/2025 2:00 PM. Learner: Patient Readiness: Acceptance Method: Explanation Response: Needs Reinforcement Education CommentsNo comments found. Goal:Encounter Goals Encounter Goals (Active) Patient will ambulate 150ft distance using LRAD with no assistance Start: 01/11/25 Expected End: 02/08/25 Patient will perform chair to and from bed transfer with no assistance Start: 01/11/25 Expected End: 02/08/25 Patient will perform supine to sit on bed with no assistance demonstrating control Start: 01/11/25 Expected End: 02/08/25 Treatment Note: If this is the last documented treatment, then it will signify discharge from acute care prior to discharge from the therapy service and will serve as the discharge summary. Diamond Lloyd PT * Janine Torrez MD - 01/11/2025 7:23 AM CDT General Neurology Follow-Up Note Name: Karl Grey Date: 01/09/2025 [facility] Attending: Dr. Hogue Reason for Consult: AMS and seizure Assessment: Karl Grey is a 69 y.o. male with a past medical history of Afib (on Xarelto 2mg), HTN, 2 cardiac valvular abnormalities (pending surgery), inflamed gallstones (pending surgery) presenting for 1 week history of AMS, fall and seizure like activity witnessed by family. Patient is pending gallstone removal and daughter notes that for past 2 weeks, patient has had significant phagophobia, limiting the intake of his medications. He has been Lorezepam 2 mg BID for many years and has been only been taking the tablets sublingually. For one week prior to admission, family noted paranoid, bizarre behaviors, memory deficits, talking gibberish and increased fear and anxiety. On January 09, pt was found down with face trauma below the R eyelid. He was brought to the ED where he was witnessed to have a seizure like event described as left head turn - decorticate posturing - TCS for 2 minutes. MRI Brain showed subarachnoid hemorrhage predominantly in the left cerebral sulci and remote areas of subarachnoid hemorrhage in bilateral cerebral sulci. Pt received 2 mg Ativan and was loaded with Keppra in the ED without further events. Strong suspicion patient's event was provoked in the setting of benzodiazepine withdrawal. EEG with reported seizures of ~1/hour between 8PM- 12AM, since then has had 2 between 5-6AM, last one was at 538AM. He was reloaded with Keppra and with Vimpat 200 mg per primary team. Suspected Diagnoses: Focal seizures seen on EEG, no changes clinically Recommendations: - Continue Keppra 1000 mg BID - Continue home Lorazepam given high risk of Benzodiazepine withdrawal - Avoid hypoglycemia as the patient was at 69 on admission - Supplement the patient with Thiamine 100 mg daily Discussed with Attending Dr. Hogue. Janine Torrez MD Resident Physician Psychiatry [facility] | [facility] [employer] Subjective Interim Events: Today the pt is seen at bedside, he stated that he feels fine today, no headache just weak. He said that he hasn't been eating properly yesterday. Objective Objective: Physical Examination: Vitals: 01/11/25 0300 01/11/25 0400 01/11/25 0500 01/11/25 0600 BP: 135/68 125/63 136/65 128/65 Pulse: 58 58 62 57 Resp: 17 18 18 20 Temp: 36.7 ?C (98 ?F) SpO2: 94% 95% 96% 93% General: Alert, no discomfort appreciated Lungs: Not in respiratory distress Extremities: No peripheral edema, well perfused, no lesions. Neuro: Mental Status: Awake and alert; comprehension intact and following commands. Oriented to self, place, time. Language/Speech: Comprehension, fluency intact. No dysarthria. Speaking in short sentences (1-2 words) CN: II: Pupils equal and symmetric light response, visual field and acuity normal III/IV/: Regular movement in all directions V: Sensation intact throughout VII: No facial asymmetry VIII: No nystagmus or hearing deficits IX/X/XII: Symmetric uvula/palate and tongue Motor: Spontaneous movement in all extremities Reflexes: No pathological reflexes. Sensory: No sensory deficits to all modalities. Coordination: No ataxia on FTN Diagnostic Data: Pertinent Labs : Lab Results Component Value Date WBC 6.69 01/11/2025 Hgb 12.5 01/11/2025 Hct 36.6 (L) 01/11/2025 Plt Count 126 (L) 01/11/2025 Lab Results Component Value Date Sodium Lvl 142 01/11/2025 Potassium Lvl 3.1 (L) 01/11/2025 Chloride Lvl 110 (H) 01/11/2025 CO2 Lvl 23.4 01/11/2025 BUN 20 01/11/2025 Creatinine Lvl 0.99 01/11/2025 Glucose Lvl 140 (H) 01/11/2025 Imaging: CT BRAIN WO IV CONTRAST Result Date: 01/10/2025 EXAM: CT BRAIN WITHOUT CONTRAST DATE: 01/10/2025 11:48 INDICATION: spontaneous cortical SAH? eval cortical vein/thrombis COMPARISON: Same day brain CT TECHNIQUE: Axial CT images of the brain were obtained. Sagittal and coronal reformats. IV contrast: None DLP: Refer to CT protocol form FINDINGS: Unchanged small volume subarachnoid hemorrhage along the left frontal lobe and thin subdural along the left parietal convexity. There is no midline shift. No hydrocephalus or mass effect. The skull base, calvarium, and included facial bones are unremarkable. The paranasal sinuses are predominantly clear. IMPRESSION: * Unchanged small volume subarachnoid hemorrhage along the left frontal lobe and thin subdural along the left parietal convexity. This report was dictated by a Ophthalmic Assistant/Fellow/ROMINA: Anjum Bundy RES Dr., MD 01/10/2025 12:41 This report was dictated by a Ophthalmic Assistant/Fellow/Physician Account Planner. I have personally reviewed the images as well as the interpretation and agree with the findings. Report finalized by: Gorge Verma MD 01/10/2025 14:29 CT BRAIN WO IV CONTRAST Result Date: 01/10/2025 EXAM: CT BRAIN WITHOUT CONTRAST DATE: 01/10/2025 1:48 INDICATION: trace L-sided subarachnoid COMPARISON: CT brain without contrast 01/09/2025 at 19:34 TECHNIQUE: Axial CT images of the brain were obtained. Sagittal and coronal reformats. IV contrast: None DLP: Refer to CT protocol form FINDINGS: No interval adverse change. Stable subarachnoid hemorrhage along the left frontal lobe. A subtle thin subdural hematoma is suspected along left parietal convexity (series 901, image 29). No new hemorrhage or brain parenchymal density abnormality. The ventricles are unchanged in size and configuration. The osseous structures are unchanged since the most recent exam. IMPRESSION: * No interval adverse change. * Stable subarachnoid hemorrhage along the left frontal lobe. Suspected subtle thin left parietal subdural hematoma appears similar to prior exam. This report was dictated by a Ophthalmic Assistant/Fellow/ROMINA: Doug Arango RES 01/10/2025 2:54 This report was dictated by a Ophthalmic Assistant/Fellow/Physician Account Planner. I have personally reviewed the images as well as the interpretation and agree with the findings. Report finalized by: Victor Hugo Hook MD 01/10/2025 8:16 MRI brain w and wo IV contrast Result Date: 01/10/2025 EXAM: MRI BRAIN WITH AND WITHOUT CONTRAST DATE: 01/10/2025 7:33 INDICATION: altered mental status . COMPARISON: Head CT from January 09, 2025 and January 10, 2025. TECHNIQUE: Multiplanar, multisequence MRI of the brain with and without contrast. 3-D T1 postcontrast imaging was performed per [facility] protocol. IV contrast: Refer to computer engineering technologist documentation FINDINGS: Redemonstrated areas of subarachnoid hemorrhage along the bilateral cerebral sulci, left worse than right. Some foci of restricted diffusion are noted within these blood products. Areas of susceptibility artifact within the bilateral cerebral sulci are also noted, probably secondary to remote subarachnoid hemorrhage. No parenchymal areas of restricted diffusion are identified. Scattered foci of T2 FLAIR hyperintensity involving the preventricular white matter and centrum semiovale. There is no midline shift. Mild brain volume loss, with compensatory dilatation of the ventricular system. Hygromas in the bilateral cerebral convexities. Postcontrast images reveal no abnormal parenchymal or leptomeningeal enhancement. The vascular structures enhance uneventfully. The calvarium, skull base, and included paranasal sinuses are unremarkable. IMPRESSION: 1. Redemonstrated subarachnoid hemorrhage predominantly in the left cerebral sulci. 2. Chronic microvascular ischemic changes and brain volume loss. 3. Remote areas of subarachnoid hemorrhage in bilateral cerebral sulci. Report finalized by: Gorge Verma MD 01/10/2025 12:18 MRI brain w IV contrastResult Date: 01/10/2025 EXAM: MRI BRAIN WITH AND WITHOUT CONTRAST DATE: 01/10/2025 7:33 INDICATION: altered mental status . COMPARISON: Head CT from January 09, 2025 and January 10, 2025. TECHNIQUE: Multiplanar, multisequence MRI of the brain with and without contrast. 3-D T1 postcontrast imaging was performed per [facility] protocol. IV contrast: Refer to computer engineering technologist documentation FINDINGS: Redemonstrated areas of subarachnoid hemorrhage along the bilateral cerebral sulci, left worse than right. Some foci of restricted diffusion are noted within these blood products. Areas of susceptibility artifact within the bilateral cerebral sulci are also noted, probably secondary to remote subarachnoid hemorrhage. No parenchymal areas of restricted diffusion are identified. Scattered foci of T2 FLAIR hyperintensity involving the preventricular white matter and centrum semiovale. There is no midline shift. Mild brain volume loss, with compensatory dilatation of the ventricular system. Hygromas in the bilateral cerebral convexities. Postcontrast images reveal no abnormal parenchymal or leptomeningeal enhancement. The vascular structures enhance uneventfully. The calvarium, skull base, and included paranasal sinuses are unremarkable. IMPRESSION: 1. Redemonstrated subarachnoid hemorrhage predominantly in the left cerebral sulci. 2. Chronic microvascular ischemic changes and brain volume loss. 3. Remote areas of subarachnoid hemorrhage in bilateral cerebral sulci. Report finalized by: Gorge Verma MD 01/10/2025 12:18 No EEG results found for the past 14 days Cosigned by Lennie Hogue MD at 01/11/2025 9:40 PM CDT Associated attestation - Lennie Hogue MD - 01/11/2025 9:40PM CDT I saw and evaluated the patient, participating in the lowry portions of the service. I reviewed the resident's note. I agree with the resident's findings and plan. Awake, alert and interactive, however distressed and seem to be moaning inpain. He has no clear focal weakness on exam. I reviewed the patient's MRI again, again subarachnoid hemorrhageredemonstrated in the left cerebral sulci. Overnight the patient had some electrographic seizures, for which the patientwas reloaded with Keppra and started on Vimpat by the neurosurgery team. I suspect that his seizures are likely secondary to his traumatic brain injury, as per EEG fellow they are originating from the right temporal lobe. Continue with Keppra and Vimpat.Continue with VEEG. Seizure precautions. We will follow up. I spent 35 mins reviewing records, lab values and imaging, counseling and discussing treatment plans. * Jared Lopez MD - 01/11/2025 7:13 AM CDT Neurocritical Care Progress Note Consulted by NSGY for medical mgmt History Of Present Illness Karl Grey, 69 y.o. male with PMH of Afib on Xarelto, HTN, DM, anxiety on long-term Ativan for 20 yrs, recent hospitalization for cholecystitis 1 week ago pending outpt surgical intervention, who presented for AMS for the past 2 days and reported seizure like activity where it was described he was clenched up and shaked for a few seconds, found to have left frontal scattered tSAH and thin left frontal convexity subdural hygroma with no mass effect. Pt reported mech fall after losing his balance 1 week ago. His Xarelto was reversed with Kcentra. Admitted to Neuro IMU for further work-up. Interval Events: 01/10: Admit to neuro ICU. Rpt CTH stable, no acute intervention. MRIb w/wo with no acute stroke, no mass, bleed stable. Neuro intact. 01/11: Was maxed out on Cardene yesterday, now off. BP controlled. EEG with reported seizures of ~1/hour between 8PM- 12AM, since then has had 2 between 5-6AM, last one was at 538AM. Reload with Keppra, continue LEV 1 gm q12h. Load with Vimpat 200 mg, and continue Vimpat 100q12. Neurology signing off. ASSESSMENT AND PLAN ldwater, 69 y.o. male with PMH of Afib on Xarelto, HTN, DM, anxiety on long-term Ativan for 20 yrs, recent hospitalization for cholecystitis 1 week ago pending outpt surgical intervention, who presented for AMS for the past 2 days and reported seizure like activity where it was described he was clenched up and shaked for a few seconds, found to have left frontal scattered tSAH and thin left frontal convexity subdural hygroma with no mass effect. Pt reported mech fall after losing his balance 1 week ago. NEUROLOGIC Acute traumatic subarachnoid hemorrhage (Location left frontal) on admission, Other toxic encephalopathy (G92.8) on admission Neuro Exam: GCS: E4 Eyes open spontaneously, V5 Speech orientated, M6 Follows commands MS: AAO x3, following commands, speech fluent, no dysarthria, naming intact, no neglect CN: L pupil 3, R pupil 3, EOMI, VFF, face symmetric Motor: Agx4 with generalized weakness throughout Hyper-reflexes of BLE Negative babinski initial CTH revealed left frontal scattered tSAH and thin left frontal convexity subdural hygroma with no mass effect. CTA H/N no underlying vascular abnormality CT C-spine with no acute fx Rpt CTH stable MRIb w/wo ordered for new seizure w/o: with stable hemorrhage, no acute stroke, no mass Hold Xarelto (Afib) s/p Kcentra No NSGY indicated Pt had a fall one week ago, hitting the middle top of his head. Given captured electrographic seizures likely etiology of his falls. He has diffuse weakness throughout, weaker on BLE than BUE. CT c-spine with no acute fx just notable degenerative changes without severe stenosis. Hyper-reflexes of BLE. Will proceed with MRI c-spine w/o to eval myleopathy. Neurology was consulted in ER for new onset seizure; they will sign off today 01/12 and neuro critical care team will further mgmt his seizures. Syncope work-up ordered since unwitnessed fall cvEEG (01/10-) 01/10 ~1/hour between 8PM- 12AM 01/11 2 sz between 5-6AM, last one was at 538AM. S/p Keppra 1gm loaded yesterday 01/10 PM, given persistent sz will re-load with Keppra 3gm M, continue Keppra 1 gm q12h Load with Vimpat 200 mg, and continue Vimpat 100q12 (01/11-) Restarted home Ativan 2 mg every day, to prevent withdrawals PT/OT/RN RESIDENTIAL as indicated Pt is independent with ADLs and lives alone. NOK is pt's daughter. CARDIOVASCULAR Essential hypertension on admission, Hypertension with emergency on admission, Atrial fibrillation on admission CV Exam: RRR Temp: [36.3 ?C (97.4 ?F)-36.9 ?C (98.5 ?F)] 36.7 ?C (98 ?F) Heart Rate: [46-82] 57 Resp: [14-21] 20 BP: (106-174)/(55-77) 128/65 VS Parameters: TBI SBP<150, MAP>65 Was maxed on cardene on admission, now off PRN hydralazine Home meds: Amlodipine 10 mg every day, continue Doxazosin 2mg at bedtime, continue Metoprolol XL 50 mg held for fco into 40s, restart at XL 25 mg qd Propafenon 150 mg TID, resume Syncope work-up Trop 66-> 70, no need to trend EKG junctional rhythm TTE ordered Orthostatic Bps when able PULMONARY Pulm Exam: CTAB on room air w/ spO2>94% CXR on admit lungs clr CT chest on admit with no acute trauma GASTROINTESTINAL Obesity unspecified on admission GI Exam: soft, non-distended, present bowl sounds Nutrition: Current Order: Adult Diet Regular Home Pepcid 20 mg every day, resumed bowel regimen: 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 Cholelithiasis without evidence of acute cholecystitis. Colonic diverticulosis without diverticulitis. Lab ResultsComponent Value Date ALT 22 01/11/2025 AST 30 01/11/2025 Alkaline Phosphatase 65 01/11/2025 Bilirubin Total 0.39 01/11/2025 RENAL Hypokalemia on admission MARIBETH Intake/Output Summary (Last 24 hours) at 01/11/2025 0713Last data filed at 01/11/2025 0400 Gross per 24 hour Intake 16 ml Output 350 ml Net -334 ml Urine Output:0mL in 24hrs mL/kg/hr (last 24hrs) Results from last 7 daysLab Units 01/11/25 0017 01/10/25 0014 SODIUM mEq/L 142 139 POTASSIUM mEq/L 3.1* 3.3* CHLORIDE mEq/L 110* 106 CO2 mEq/L 23.4 24.5 BUN mg/dL 20 27* CREATININE mg/dL 0.99 1.12 MAGNESIUM mg/dL -- 2.20 PHOSPHORUS mg/dL -- 2.8 CALCIUM mg/dL 8.9 9.7 Persistent hypokalemia 3.1, repleted with KCL 40mEQ PO overnight, give another KCL 30 meq IVPB 01/11 AM, rpt with AM labs 01/12 CK 448-> 356, no need to trend No mIVF Hold home Lasix 20 every day for now given recent MARIBETH Dc mclean, straight cath prn CT pelvic: Nonobstructive punctate left nephrolithiasis. INFECTIOUS DISEASE Temp (24hrs), Av.7 ?C (98 ?F), Min:36.3 ?C (97.4 ?F), Max:36.9 ?C (98.5 ?F) Results from last 7 daysLab Units 01/11/25 0017 01/10/25 0014 WBC 10*3/uL 6.69 5.31 UA not infectiousMonitor trend fever curve and WBC no ABX indicated HEMATOLOGIC Results from last 7 daysLab Units 01/11/25 0017 01/10/25 1055 01/10/25 0014 HEMOGLOBIN g/dL 12.5 -- 13.0 PLATELETS 10*3/uL 126* -- 145* INR -- 1.01 -- PTT Seconds -- 24.0 -- Thrombocytopenia 145 on admitHold Xarelto (Afib), s/p Kcentra on admission DVT ppx: SCDs; subQ heparin 5000U q8h to start 01/11 1400 ENDOCRINE Results from last 7 daysLab Units 01/11/25 0017 01/10/25 0255 01/10/25 0035 01/10/25 0014 GLUCOSE mg/dL 140* -- -- 108* POC GLUCOSE mg/dL -- 84 -- -- TSH uIU/mL -- -- 6.081* -- FREE T4 ng/dL -- -- 1.36 -- BG goal 80-180No ISS indicated TSH elevated with normal fT4 MUSCULOSKELETAL AND INTEGUMENTARY Skin Exam: warm, dry, intact Code Status: Full Code Dispo: pending evals, home vs IPR, pending medically clearance, having electrographic seizures [facility] White Team IMU/Floor ROMINA Ph #[phone] (available 20/05), #[phone] (available 6:30a - 4:30p) [facility] Neuro ICU White Team Ph #[phone] * Jonel Dale MD - 01/11/2025 6:37 AM CDT NEUROSURGERY PROGRESS NOTE: Date: 01/11/25 Patients Name: Karl Grey Admit Date: 01/09/2025 Admitting Provider: Gabino Wadsworth MD : 1955 Service: Neurosurgery Trauma Team Age/Sex: 69 y.o. male Active Problems: Principal Problem: SAH (subarachnoid hemorrhage) (CMS/HCC) (HCC) SUBJECTIVE: No neuro events OBJECTIVE: Vitals: Vitals: 01/11/25 0300 01/11/25 0400 01/11/25 0500 01/11/25 0600 BP: 135/68 125/63 136/65 128/65 Pulse: 58 58 62 57 Resp: 17 18 18 20 Temp: 36.7 ?C (98 ?F) SpO2: 94% 95% 96% 93% I/O: Intake/Output Summary (Last 24 hours) at 01/11/2025 0637Last data filed at 01/11/2025 0400 Gross per 24 hour Intake 16 ml Output 350 ml Net -334 ml PHYSICAL EXAM:Eye Opening: Spontaneously (4) Verbal: Confused (4) Best Motor: Follows Commands (6) GCS: 14 Orientation: Alert & Oriented x 2 Left pupil 3mm and briskRight pupil 3 mm and brisk EOMI [id number] drift Slow to respond LABS/IMAGING:Labs: Lab Results Component Value Date Sodium Lvl 142 01/11/2025 Sodium Lvl 139 01/10/2025 Plt Count 126 (L) 01/11/2025 Plt Count 145 (L) 01/10/2025 WBC 6.69 01/11/2025 WBC 5.31 01/10/2025 Hgb 12.5 01/11/2025 Hgb 13.0 01/10/2025 PTT 24.0 01/10/2025 INR 1.01 01/10/2025 Activated Clotting Time (TEG) Rapid 136 (H) 01/10/2025 Radiology Imaging Reviewed: - I have personally reviewed all pertinent NSGY imaging studies ASSESSMENT AND PLAN: Assessment:Karl Grey is a 69 y.o. male with PMH of afib on xarelto, HTN, DM presents after altered mental status for one day. Per daughter report, patient was more forgetful for the past 2 days, and today was found to be more altered (answering the door in his underwear, not able to recall details etc). In the ER, patient presumably had a seizure witnessed only by family when he clenched up and shaked for a few seconds. NSGY consulted for CT head finding of left frontal scattered tSAH and a thin left frontal convexity subdural hygroma. Patient last xarelto yesterday evening. Family denies fever, recent illness, seizure history. Patient was hospitalized 1 week ago for cholecystitis per daughter pending surgery scheduling but has not been eating or drinking well for the past week. Impression:- scattered left frontal tSAH, also seen on MRI Plan:I have seen and examined the patient. Patient is neurologically unchanged with unchanged imaging. Seizure workup is being done by neurology, thought to be secondary to possible benzodiazepine withdrawal. We will continue to follow the patient and exam. No interventions necessary. Please call [phone] for neurosurgery clinical questions. Jonel Dale MD, MSNeurosurgery PGY-1 Cosigned by Emeka Purdy MD at 01/12/2025 6:[address] [id number] 21:37:36Pending Results Scheduled Orders Name Type Priority Associated Diagnoses Order Schedule Drug Screen Urine (8 Drugs) Lab STAT STAT (Lab) for 1 Occurrences starting 01/10/2025 until 01/10/2025 ECG 12 lead (arrhythmia) ECG STAT Once for 1 Occurrences starting 01/10/2025 until 01/10/2025 ABORh Blood Type and Antibody Screen Lab STAT Once (Lab) for 1 Occurrences starting 01/10/2025 until 01/10/2025 ECG 12 lead (arrhythmia) ECG STAT Once for 1 Occurrences starting 01/10/2025 until 01/10/2025 ECG 12 lead (arrhythmia) ECG STAT Once for 1 Occurrences starting 01/10/2025 until 01/10/2025 Comprehensive Metabolic Panel Lab Add-On Daily until discontinued starting 01/11/2025, 5 completed Complete Blood Count w/Diff and Platelet Lab STAT Daily until discontinued starting 01/11/2025, 5 completed Vitamin B1 Level Lab STAT Once (La b) for 1 Occurrences starting 01/10/2025 until 01/10/2025 Hetal Auris Fungal Culture Surveillance Microbiology STAT STAT (Lab) for 1 Occurrences starting 01/15/2025 until 01/15/2025 Health Maintenance Due Date Last Done Comments CT Colonography 1955 Colonoscopy 1955 Colorectal Cancer Screening 1955 FIT-DNA 1955 FIT 1955 FOBT 1955 Lipid Panel 1955 Medicare Annual Wellness (AWV) 1955 Sigmoidoscopy 1955 DTaP/Tdap/Td Vaccines (1 - Tdap) 1976 Pneumococcal Vaccine: 50+ Ye ars (1 of 1 - PCV) 2007 Zoster Vaccines (1 of 2) 2007 Influenza Vaccine (#1) 2024 Respiratory Syncytial Virus (RSV) or >=60 (1 - 1-dose 75+ series) 2032 HIB Vaccines Aged Out No longer eligi ble based on patient's age to complete this topic HPV Vaccines Aged Out No longer eligi ble based on patient's age to complete this topic Hepatitis A Vaccines Aged Out No long er eligible based on patient's age to complete this topic Hepatitis B Vaccines Aged Out No long er eligible based on patient's age to complete this topic IPV Vaccines Aged Out No longer eligi ble based on patient's age to complete this topic Meningococcal Vaccine Aged Out No john carito eligible based on patient's age to complete this topic Rotavirus Vaccines Aged Out No longer eligible based on patient's age to complete this topic [facility] [id number] 21:37:36 Diagnosis SAH (subarachnoid hemorrhage) (CMS/HCC) (HCC) - Primary Subarachnoid hemorrhage SAH (subarachnoid hemorrhage) (CMS/HCC) (HCC) Subarachnoid hemorrhage Head injury, initial encount er Diverticulosis Diverticulosis of colon (without mention of hemorrhage) Hypoglycemia Hypoglycemia, unspecified Left nephrolithiasis Symptomatic localization-rel ated epilepsy (HCC) [facility] [id number] 21:37:36 [place] 208625-03-21 17:16:44 Images from the original note were not included. [id number] Hemorrhagic Stroke: Subarachnoid Hemorrhage A hemorrhagic stroke happens when a blood vessel in the brain ruptures or leaks. A blood vessel on the surface of the brain bursts and bleeds (hemorrhages). This spills blood into the subarachnoid space around the brain and sometimes into the brain. The arachnoid is one of the 3 membranes that surround the brain. In a subarachnoid hemorrhage, the blood leaks under this membrane and around the brain (in the subarachnoid space). This type of stroke often happens suddenly, with little warning. It's the most serious of all types of strokes. What happens during a subarachnoid hemorrhage? This type of stroke happens when a major blood vessel bursts on the surface of the brain. Normally, the subarachnoid space is filled with a clear fluid, the cerebrospinal fluid (CSF). When the blood vessel bursts, blood flows into the CSF. The amount of fluid in the subarachnoid space increases and puts pressure on the brain. This extra blood and CSF is named hydrocephalus. In addition to flowing around the brain, blood can also enter and damage the brain. Blood in the brain is called a brain hematoma or blood clot. Most of these strokes happen when a cerebral aneurysm or arteriovenous malformations bursts. An aneurysm is a weak spot in the wall of a blood vessel. A bubble often forms in this weak spot. In some cases, a cerebral aneurysm causes pain or other symptoms. In most cases, though, an aneurysm causes no symptoms until it bursts. What are the symptoms of a subarachnoid hemorrhage? Any stroke is a medical emergency. If you have any of these symptoms, even if they seem to get better, call 911 right away: ? Sudden, excruciating headache with no known cause ? Nausea and vomiting (often with headache) ? Sudden confusion or decrease in alertness ? Trouble moving or loss of feeling, especially on the face, arm, or leg specifically on one side of the body ? Sudden trouble walking, dizziness, loss of balance or coordination ? Sudden trouble talking or understanding speech ? Sudden mood changes ? Sudden dimness, double vision, or loss of vision, particularly in one eye ? Eyes suddenly very sensitive to light ? Neck and shoulder pain or stiff neck ? Seizure How is a hemorrhagic stroke treated? The short-term (acute) phase lasts from the first minutes to hours after symptoms start. During this phase, treatment focuses on easing pressure on the brain and preventing more damage. You may have a procedure or surgery to repair the burst (ruptured) aneurysm. A drain may be placed into the brain to remove CSF and ease pressure to treat the hydrocephalus. This drain can also be used to measure the brain pressure. You may get medicines through an IV line to control blood pressure. You may also get seizure medicine. Tests will likely be done to check for other aneurysms in the brain. If they are found, you may need surgery to reduce the risk that they will burst and bleed. Even if there is no more risk of bleeding, after a subarachnoid hemorrhage people are at risk of a stroke from tightening of the blood vessels (vasospasm) for about 14 days. After the acute phase, treatment focuses on recovery. Long-term damage from a stroke can include paralysis, trouble speaking or understanding, and trouble thinking clearly. Rehab can help reduce these effects and regain skills. Rehab starts in the hospital and generally continues in an inpatient or outpatient facility, and eventually at home. It will focus on regaining lost skills. It may include: ? Help regaining movement ? Therapy for speech and language ? Help with swallowing ? Help reducing risk factors for another stroke, such as smoking In addition, medicines that help prevent another stroke may be given. These include medicines to control blood pressure and prevent bleeding. Last Reviewed Date: 2022 00:00:00 ? 2196-3646 [employer]. All rights reserved. This information is not intended as a substitute for professional medical care. Always follow your healthcare professional's instructions. [facility]2025-03-21 12:26:13 The patient is Moderately Stable - Low risk of patient condition declining or worsening The patient's goals for the shift include no seizures The clinical goals for the shift include no seizures [facility]2025-03-20 10:30:00 Bedside report given to unit PILY Villegas. PT. Completed MRI, VSS, LAC IV needed redressing, BP cuff on same arm likely cause, bedside nurse will rescue dressing. IV flushed w/o difficulty in MRI. [facility]2025-03-20 10:30:00 Pt returned to [facility] from MRI [facility]2025-03-20 09:32:17 Images from the original note were not included. [id number] Propafenone Brand Name(s): Rythmol?, Rythmol? SR; also available generically IMPORTANT WARNING: In clinical studies, people who had recently had a heart attack and took certain medications for irregular heartbeat that are similar to propafenone were more likely to than people who did not take one of the medications. Propafenone may also cause life-threatening irregular heartbeat and increase the risk of in certain patients. Tell your doctor if you have had a heart attack within the past two years or if you have heart disease. Because of the risks of taking propafenone, it should be used only to treat life-threatening irregular heartbeat. Talk to your doctor about the risks of taking propafenone. Your doctor may examine you and may order certain lab tests and electrocardiogram (EKG) tests to check your body's response to propafenone. Keep all appointments with your doctor and the laboratory. WHY is this medicine prescribed? Propafenone is used to treat arrhythmia (irregular heartbeat) and to maintain a normal heart rate. Propafenone is in a class of medications called antiarrhythmics. It works by acting on the heart muscle to improve the heart's rhythm. HOW should this medicine be used? Propafenone comes as a tablet and an extended-release (long-acting) capsule to take by mouth. The tablet is usually taken three times a day, once every 8 hours. The extended-release capsule is usually taken two times a day, once every 12 hours, with or without food. Follow the directions on your prescription label carefully, and ask your doctor or pharmacist to explain any part you do not understand. Take propafenone exactly as directed. Do not take more or less of it or take it more often than prescribed by your doctor. Swallow the capsules whole; do not crush or open the capsules or divide the contents of a capsule into more than one dose. You may begin taking propafenone in a hospital so that your doctor can monitor you carefully as your body gets used to the medication. Your doctor may start you on a low dose of propafenone and gradually increase your dose, not more often than once every 5 days. Propafenone may control your irregular heartbeat, but will not cure it. Continue to take propafenone even if you feel well. Do not stop taking propafenone without talking to your doctor. Your heartbeat may become irregular if you suddenly stop taking propafenone. Are there OTHER USES for this medicine? This medication should not be prescribed for other uses; ask your doctor or pharmacist for more information. What SPECIAL PRECAUTIONS should I follow? Before taking propafenone, ? tell your doctor and pharmacist if you are allergic to propafenone, any other medications, or any of the ingredients in propafenone tablets or extended-release capsules. Ask your doctor or pharmacist for a list of the ingredients. ? tell your doctor and pharmacist what other prescription and nonprescription medications, vitamins, nutritional supplements, and herbal products you are taking or plan to take while taking propafenone. Your doctor may need to change the doses of your medications or monitor you carefully for side effects. ? the following nonprescription product may interact with propafenone: cimetidine (Tagamet). Be sure to let your doctor and pharmacist know that you are taking this medication before you start taking propafenone. Do not start this medication while taking propafenone without discussing with your healthcare provider. ? tell your doctor if you have excessive diarrhea, sweating, vomiting, loss of appetite, or decreased thirst and if you have or have ever had a slow heartbeat; low blood pressure; low or high levels of sodium, potassium, chloride, or bicarbonate in your blood; heart failure; or asthma or any other condition that causes your airways to become narrow. Your doctor may tell you not to take propafenone. ? in addition to the conditions listed in the IMPORTANT WARNING section, tell your doctor if you have or have ever had a pacemaker; myasthenia gravis (a disorder of the nervous system that causes muscle weakness),or liver or kidney disease, ? tell your doctor if you are , plan to become , or are breast-feeding. If you become while taking propafenone, call your doctor. ? if you are having surgery, including dental surgery, tell the doctor or dentist that you are taking propafenone. ? you should know that this medication may make you drowsy or dizzy. Do not drive a car or operate machinery until you know how it affects you. ? tell your doctor if you use tobacco products. Cigarette smoking may decrease the effectiveness of this medication. What SPECIAL DIETARY instructions should I follow? Talk to your doctor about eating foods and salt substitutes that contain potassium. Talk to your doctor about eating grapefruit and drinking grapefruit juice while you are taking this medication. What should I do IF I FORGET to take a dose? Take the missed dose as soon as you remember it. However, if it is almost time for your next dose, skip the missed dose and continue your regular dosing schedule. Do not take a double dose to make up for a missed one. What SIDE EFFECTS can this medicine cause? Some side effects can be serious. If you experience any of these symptoms, call your doctor immediately: ? difficulty breathing ? wheezing ? chest pain ? new or worsening irregular heartbeat ? slow, fast, or pounding heartbeat ? swelling of the hands, feet, ankles, or lower legs ? sudden, unexplained weight gain ? fainting ? skin rash ? unexplained fever, chills, weakness, or sore throat If you experience a serious side effect, you or your doctor may send a report to the Food and Drug Administration's (FDA) MedWatch Adverse Event Reporting program online (https://www.fda.gov/Safety/MedWatch) or by phone ( ). What should I know about STORAGE and DISPOSAL of this medication? Keep this medication in the container it came in, tightly closed, and out of reach of children. Store it at room temperature and away from excess heat and moisture (not in the bathroom). It is important to keep all medication out of sight and reach of children as many containers (such as weekly pill minders and those for eye drops, creams, patches, and inhalers) are not child-resistant and young children can open them easily. To protect young children from poisoning, always lock safety caps and immediately place the medication in a safe location - one that is up and away and out of their sight and reach. https://www.upandaway.org Unneeded medications should be disposed of in special ways to ensure that pets, children, and other people cannot consume them. However, you should not flush this medication down the toilet. Instead, the best way to dispose of your medication is through a medicine take-back program. Talk to your pharmacist or contact your local garbage/recycling department to learn about take-back programs in your community. See the FDA's Safe Disposal of Medicines website (https://goo.gl/c4Rm4p) for more information if you do not have access to a take-back program. What should I do in case of OVERDOSE? In case of overdose, call the poison control helpline at . Information is also available online at https://www.poisonhelp.org/help. If the victim has collapsed, had a seizure, has trouble breathing, or can't be awakened, immediately call emergency services at [phone]. Symptoms of overdose may include: ? tiredness ? slow or irregular heartbeat ? seizures What OTHER INFORMATION should I know? Do not let anyone else take your medication. Ask your pharmacist any questions you have about refilling your prescription. It is important for you to keep a written list of all of the prescription and nonprescription (enuq-mhp-stpjroi) medicines you are taking, as well as any products such as vitamins, minerals, or other dietary supplements. You should bring this list with you each time you visit a doctor or if you are admitted to a hospital. It is also important information to carry with you in case of emergencies. This report on medications is for your information only, and is not considered individual patient advice. Because of the changing nature of drug information, please consult your physician or pharmacist about specific clinical use. The [employer] represents that the information provided hereunder was formulated with a reasonable standard of care, and in conformity with professional standards in the field. The [employer] makes no representations or warranties, express or implied, including, but not limited to, any implied warranty of merchantability and/or fitness for a particular purpose, with respect to such information and specifically disclaims all such warranties. Users are advised that decisions regarding drug therapy are complex medical decisions requiring the independent, informed decision of an appropriate health childcare worker, and the information is provided for informational purposes only. The entire monograph for a drug should be reviewed for a thorough understanding of the drug's actions, uses and side effects. The [employer] does not endorse or recommend the use of any drug. The information is not a substitute for medical care. AHFS? Patient Medication Information?. ? Copyright, 2023. [employer]?, [address], [address], [place], [place]. All Rights Reserved. Duplication for commercial use must be authorized by [facility]. Selected Revisions: November 11, 2017. AHFS? Patient Medication Information?. ? Copyright, 2024 [facility] [id number] 09:32:04 Images from the original note were not included. [id number] Hydralazine Brand Name(s): Apresoline?, Dralzine?, Apresazide? (as a combination product containing Hydralazine, Hydrochlorothiazide), Apresoline-Esidrix? (as a combination product containing Hydralazine, Hydrochlorothiazide), BiDil? (as a combination product containing Hydralazine, Isosorbide Dinitrate), Dralserp? (as a combination product containing Hydralazine, Reserpine), Hydra-Zide? (as a combination product containing Hydralazine, Hydrochlorothiazide), Hydrap-ES? (as a combination product containing Hydralazine, Hydrochlorothiazide, Reserpine), Marpres? (as a combination product containing Hydralazine, Hydrochlorothiazide, Reserpine), Ser-Ap-Es? (as a combination product containing Hydralazine, Hydrochlorothiazide, Reserpine), Serathide? (as a combination product containing Hydralazine, Hydrochlorothiazide, Reserpine), Serpazide? (as a combination product containing Hydralazine, Hydrochlorothiazide, Reserpine), Serpex? (as a combination product containing Hydralazine, Hydrochlorothiazide, Reserpine), Unipres? (as a combination product containing Hydralazine, Hydrochlorothiazide, Reserpine); also available generically WHY is this medicine prescribed? Hydralazine is used to treat high blood pressure. Hydralazine is in a class of medications called vasodilators. It works by relaxing the blood vessels so that blood can flow more easily through the body. High blood pressure is a common condition and when not treated, can cause damage to the brain, heart, blood vessels, kidneys and other parts of the body. Damage to these organs may cause heart disease, a heart attack, heart failure, stroke, kidney failure, loss of vision, and other problems. In addition to taking medication, making lifestyle changes will also help to control your blood pressure. These changes include eating a diet that is low in fat and salt, maintaining a healthy weight, exercising at least 30 minutes most days, not smoking, and using alcohol in moderation. HOW should this medicine be used? Hydralazine comes as a tablet to take by mouth. It usually is taken two to four a day. Take hydralazine at around the same times every day. Follow the directions on your prescription label carefully, and ask your doctor or pharmacist to explain any part you do not understand. Take hydralazine exactly as directed. Do not take more or less of it or take it more often than prescribed by your doctor. Hydralazine controls high blood pressure but does not cure it. Continue to take hydralazine even if you feel well. Do not stop taking hydralazine without talking to your doctor. Are there OTHER USES for this medicine? Hydralazine is also used after heart valve replacement and in the treatment of heart failure. Talk to your doctor about the possible risks of using this medication for your condition. This medication is sometimes prescribed for other uses; ask your doctor or pharmacist for more information. What SPECIAL PRECAUTIONS should I follow? Before taking hydralazine, ? tell your doctor and pharmacist if you are allergic to hydralazine, aspirin, tartrazine (a yellow dye in some processed foods and medications), any other medications, or any of the ingredients in hydralazine tablets. Ask your pharmacist for a list of the ingredients. ? tell your doctor and pharmacist what prescription and nonprescription medications, vitamins, nutritional supplements, and herbal products you are taking or plan to take while taking hydralazine. Your doctor may need to change the doses of your medications or monitor you carefully for side effects. ? tell your doctor if you have ever had a heart attack, or have coronary artery disease, rheumatic heart disease, or heart, kidney or liver disease. ? tell your doctor if you are , plan to become , or are breast-feeding. If you become while taking hydralazine, call your doctor. ? if you are having surgery, including dental surgery, tell the doctor or dentist that you are taking hydralazine. ? ask your doctor about the safe use of alcohol while you are taking hydralazine. Alcohol can make the side effects from hydralazine worse. What SPECIAL DIETARY instructions should I follow? Take hydralazine with meals or a snack. Your doctor may prescribe a low-salt or low-sodium diet. Follow these directions carefully. What should I do IF I FORGET to take a dose? Take the missed dose as soon as you remember it. However, if it is almost time for the next dose, skip the missed dose and continue your regular dosing schedule. Do not take a double dose to make up for a missed one. What SIDE EFFECTS can this medicine cause? Some side effects can be serious. If you experience any of the following symptoms, call your doctor immediately: ? fainting ? joint or muscle pain ? fever ? rapid heartbeat ? chest pain ? swollen ankles or feet ? numbing or tingling in hands or feet If you experience a serious side effect, you or your doctor may send a report to the Food and Drug Administration's (FDA) MedWatch Adverse Event Reporting program online (https://www.fda.gov/Safety/MedWatch) or by phone ( ). What should I know about STORAGE and DISPOSAL of this medication? Keep this medication in the container it came in, tightly closed, and out of reach of children. Store at room temperature and away from excess heat and moisture (not in the bathroom). Unneeded medications should be disposed of in special ways to ensure that pets, children, and other people cannot consume them. However, you should not flush this medication down the toilet. Instead, the best way to dispose of your medication is through a medicine take-back program. Talk to your pharmacist or contact your local garbage/recycling department to learn about take-back programs in your community. See the FDA's Safe Disposal of Medicines website (https://goo.gl/c4Rm4p) for more information if you do not have access to a take-back program. It is important to keep all medication out of sight and reach of children as many containers (such as weekly pill minders and those for eye drops, creams, patches, and inhalers) are not child-resistant and young children can open them easily. To protect young children from poisoning, always lock safety caps and immediately place the medication in a safe location - one that is up and away and out of their sight and reach. https://www.upandaway.org What should I do in case of OVERDOSE? In case of overdose, call the poison control helpline at . Information is also available online at https://www.poisonhelp.org/help. If the victim has collapsed, had a seizure, has trouble breathing, or can't be awakened, immediately call emergency services at [phone]. What OTHER INFORMATION should I know? Keep all appointments with your doctor and the laboratory. Your blood pressure should be checked regularly to determine your response to hydralazine. Your doctor may ask you to check your blood pressure daily. Ask your doctor or pharmacist to teach you how. Do not let anyone else take your medication. Ask your pharmacist any questions you have about refilling your prescription. It is important for you to keep a written list of all of the prescription and nonprescription (bfla-nvc-qrbiwtv) medicines you are taking, as well as any products such as vitamins, minerals, or other dietary supplements. You should bring this list with you each time you visit a doctor or if you are admitted to a hospital. It is also important information to carry with you in case of emergencies. This report on medications is for your information only, and is not considered individual patient advice. Because of the changing nature of drug information, please consult your physician or pharmacist about specific clinical use. The [employer] represents that the information provided hereunder was formulated with a reasonable standard of care, and in conformity with professional standards in the field. The [employer] makes no representations or warranties, express or implied, including, but not limited to, any implied warranty of merchantability and/or fitness for a particular purpose, with respect to such information and specifically disclaims all such warranties. Users are advised that decisions regarding drug therapy are complex medical decisions requiring the independent, informed decision of an appropriate health childcare worker, and the information is provided for informational purposes only. The entire monograph for a drug should be reviewed for a thorough understanding of the drug's actions, uses and side effects. The [employer] does not endorse or recommend the use of any drug. The information is not a substitute for medical care. AHFS? Patient Medication Information?. ? Copyright, 2023. [employer]?, [address], [address], [place], [place]. All Rights Reserved. Duplication for commercial use must be authorized by [facility]. Selected Revisions: April 11, 2017. AHFS? Patient Medication Information?. ? Copyright, [address] [id number] 09:31:51 Images from the original note were not included. [id number] Heparin Injection Brand Name(s): Lipo-Hepin?, Liquaemin?, Panheparin?; also available generically WHY is this medicine prescribed? Heparin is used to prevent blood clots from forming in people who have certain medical conditions or who are undergoing certain medical procedures that increase the chance that clots will form. Heparin is also used to stop the growth of clots that have already formed in the blood vessels, but it cannot be used to decrease the size of clots that have already formed. Heparin is also used in small amounts to prevent blood clots from forming in catheters (small plastic tubes through which medication can be administered or blood drawn) that are left in veins over a period of time. Heparin is in a class of medications called anticoagulants ('blood thinners'). It works by decreasing the clotting ability of the blood. HOW should this medicine be used? Heparin comes as a solution (liquid) to be injected intravenously (into a vein) or deeply under the skin and as a dilute (less concentrated) solution to be injected into intravenous catheters. Heparin should not be injected into a muscle. Heparin is sometimes injected one to six times a day and sometimes given as a slow, continuous injection into the vein. When heparin is used to prevent blood clots from forming in intravenous catheters, it is usually used when the catheter is first put in place, and every time that blood is drawn out of the catheter or medication is given through the catheter. Heparin may be given to you by a nurse or other healthcare provider, or you may be told to inject the medication by yourself at home. If you will be injecting heparin yourself, a healthcare provider will show you how to inject the medication. Ask your doctor, nurse, or pharmacist if you do not understand these directions or have any questions about where on your body you should inject heparin, how to give the injection, or how to dispose of used needles and syringes after you inject the medication. If you will be injecting heparin yourself, follow the directions on your prescription label carefully, and ask your doctor or pharmacist to explain any part you do not understand. Use heparin exactly as directed. Do not use more or less of it or use it more often than prescribed by your doctor. Heparin solution comes in different strengths, and using the wrong strength may cause serious problems. Before giving an injection of heparin, check the package label to make sure it is the strength of heparin solution that your doctor prescribed for you. If the strength of heparin is not correct do not use the heparin and call your doctor or pharmacist right away. Your doctor may increase or decrease your dose during your heparin treatment. If you will be injecting heparin yourself, be sure you know how much medication you should use. Are there OTHER USES for this medicine? Heparin is also sometimes used alone or in combination with aspirin to prevent loss and other problems in women who have certain medical conditions and who have experienced these problems in their earlier pregnancies. Talk to your doctor or pharmacist about the risks of using this medication to treat your condition. This medication may be prescribed for other uses; ask your doctor or pharmacist for more information. What SPECIAL PRECAUTIONS should I follow? Before using heparin, ? tell your doctor and pharmacist if you are allergic to heparin, any other medications, beef products,pork products, or any of the ingredients in heparin injection. Ask your doctor or pharmacist for a list of the ingredients. ? tell your doctor and pharmacist what prescription and nonprescription medications, vitamins, nutritional supplements, and herbal products you are taking or plan to take while using heparin. Your doctor may need to change the doses of your medications or monitor you carefully for side effects. ? the following nonprescription products may interact with heparin: aspirin and nonsteroidal anti-inflammatory drugs (NSAIDS) such as ibuprofen (Advil, Motrin, others) and naproxen (Aleve); nicotine; allergy medications (diphenhydramine, loratadine, fexofenadine, chlorpheniramine or cetirizine). Be sure to let your doctor and pharmacist know that you are taking these medications before you start using heparin. Do not start any of these medications while using heparin without discussing with your healthcare provider. ? tell your doctor if you have a low level of platelets (type of blood cells needed for normal clotting) in your blood and if you have heavy bleeding that cannot be stopped anywhere in your body. Your doctor may tell you not to use heparin. ? tell your doctor if you are currently experiencing your menstrual period; if you have a fever or an infection; and if you have recently had a spinal tap (removal of a small amount of the fluid that bathes the spinal cord to test for infection or other problems), spinal anesthesia (administration of pain medication in the area around the spine), surgery, especially involving the brain, spinal cord or eye, or a heart attack. Also tell your doctor if you have or have ever had a bleeding disorder such as hemophilia (condition in which the blood does not clot normally), antithrombin III deficiency (condition that causes blood clots to form), blood clots in the legs, lungs, or anywhere in the body, unusual bruising or purple spots under the skin, cancer, ulcers in the stomach or intestine, a tube that drains the stomach or intestine, high blood pressure, or liver disease. ? tell your doctor if you are , plan to become , or are breast-feeding. If you become while using heparin, call your doctor. ? if you are having surgery, including dental surgery, tell the doctor or dentist that you are using heparin. ? tell your doctor if you smoke or use tobacco products and if you stop smoking at any time during your treatment with heparin. Smoking may decrease the effectiveness of this medication. What SPECIAL DIETARY instructions should I follow? Unless your doctor tells you otherwise, continue your normal diet. What should I do IF I FORGET to take a dose? If you will be injecting heparin yourself at home, talk to your doctor about what you should do if you forget to inject a dose. What SIDE EFFECTS can this medicine cause? Some side effects can be serious. If you experience any of these symptoms, call your doctor immediately: ? unusual bruising or bleeding ? vomit that is bloody or looks like coffee grounds ? stool that contains bright red blood or is black and tarry ? blood in urine ? excessive tiredness ? nausea ? vomiting ? chest pain, pressure, or squeezing discomfort ? discomfort in the arms, shoulder, jaw, neck, or back ? coughing up blood ? excessive sweating ? sudden severe headache ? lightheadedness or fainting ? sudden loss of balance or coordination ? sudden trouble walking ? sudden numbness or weakness of the face, arm or leg, especially on one side of the body ? sudden confusion, or difficulty speaking or understanding speech ? difficulty seeing in one or both eyes ? purple or black skin discoloration ? pain and blue or dark discoloration in the arms or legs ? itching and burning, especially on the bottoms of the feet ? chills ? fever ? hives ? rash ? wheezing ? shortness of breath ? difficulty breathing or swallowing ? hoarseness ? painful erection that lasts for hours Heparin may cause osteoporosis (condition in which the bones become weak and may break easily), especially in people who use the medication for a long time. Talk to your doctor about the risks of using this medication. Heparin may cause other side effects. Call your doctor if you have any unusual problems while using this medication. What should I know about STORAGE and DISPOSAL of this medication? If you will be injecting heparin at home, your healthcare provider will tell you how to store the medication. Follow these directions carefully. Be sure to keep this medication in the container it came in, tightly closed, and out of reach of children. Store it at room temperature and away from excess heat and moisture (not in the bathroom). Do not freeze heparin. It is important to keep all medication out of sight and reach of children as many containers (such as weekly pill minders and those for eye drops, creams, patches, and inhalers) are not child-resistant and young children can open them easily. To protect young children from poisoning, always lock safety caps and immediately place the medication in a safe location - one that is up and away and out of their sight and reach. https://www.upandaway.org Unneeded medications should be disposed of in special ways to ensure that pets, children, and other people cannot consume them. However, you should not flush this medication down the toilet. Instead, the best way to dispose of your medication is through a medicine take-back program. Talk to your pharmacist or contact your local garbage/recycling department to learn about take-back programs in your community. See the FDA's Safe Disposal of Medicines website (https://goo.gl/c4Rm4p) for more information if you do not have access to a take-back program. What should I do in case of OVERDOSE? In case of overdose, call the poison control helpline at . Information is also available online at https://www.poisonhelp.org/help. If the victim has collapsed, had a seizure, has trouble breathing, or can't be awakened, immediately call emergency services at 475. Symptoms of overdose may include: ? nosebleed ? blood in urine ? black, tarry stools ? easy bruising ? unusual bleeding ? red blood in stools ? vomit that is bloody or looks like coffee grounds What OTHER INFORMATION should I know? Keep all appointments with your doctor and the laboratory. Your doctor will order certain lab tests to check your body's response to heparin. Your doctor may ask you to check your stool for blood using an at-home test. Before having any laboratory test, tell your doctor and the laboratory personnel that you are using heparin. Do not let anyone else use your medication. Ask your pharmacist any questions you have about refilling your prescription. It is important for you to keep a written list of all of the prescription and nonprescription (oczu-mii-mvfofqi) medicines you are taking, as well as any products such as vitamins, minerals, or other dietary supplements. You should bring this list with you each time you visit a doctor or if you are admitted to a hospital. It is also important information to carry with you in case of emergencies. This report on medications is for your information only, and is not considered individual patient advice. Because of the changing nature of drug information, please consult your physician or pharmacist about specific clinical use. The [employer] represents that the information provided hereunder was formulated with a reasonable standard of care, and in conformity with professional standards in the field. The [employer] makes no representations or warranties, express or implied, including, but not limited to, any implied warranty of merchantability and/or fitness for a particular purpose, with respect to such information and specifically disclaims all such warranties. Users are advised that decisions regarding drug therapy are complex medical decisions requiring the independent, informed decision of an appropriate health childcare worker, and the information is provided for informational purposes only. The entire monograph for a drug should be reviewed for a thorough understanding of the drug's actions, uses and side effects. The [employer] does not endorse or recommend the use of any drug. The information is not a substitute for medical care. AHFS? Patient Medication Information?. ? Copyright, 2023. [employer]?, [address], [address], [place], [place]. All Rights Reserved. Duplication for commercial use must be authorized by [facility]. Selected Revisions: July 12, 2017. AHFS? Patient Medication Information?. ? Copyright, 2024 A Wright [id number] 09:31:39 Images from the original note were not included. [id number] Polyethylene Glycol 3350 Brand Name(s): MiraLax? PEG 3350 WHY is this medicine prescribed? Polyethylene glycol 3350 is used to treat occasional constipation. Polyethylene glycol 3350 is in a class of medications called osmotic laxatives. It works by causing water to be retained with the stool. This increases the number of bowel movements and softens the stool so it is easier to pass. HOW should this medicine be used? Polyethylene glycol 3350 comes as a powder to be mixed with a liquid and taken by mouth. It is usually taken once a day as needed for up to 2 weeks. Follow the directions on your prescription label carefully, and ask your doctor or pharmacist to explain any part you do not understand. Take polyethylene glycol 3350 exactly as directed. Polyethylene glycol 3350 may be habit-forming. Do not take a larger dose, take it more often, or take it for a longer period of time than your doctor tells you to. It may take 2 to 4 days for polyethylene glycol 3350 to produce a bowel movement. To use the powder, follow these steps: ? If you are using polyethylene glycol 3350 from a bottle, use the measuring line on the bottle cap to measure a single dose (about 1 heaping tablespoon). If you are using polyethylene glycol 3350 packets, each packet contains a single dose. ? Pour the powder into a cup containing 8 ounces (240 milliliters) of water, juice, soda, coffee, or tea. ? Stir to dissolve the powder. ? Drink immediately. Are there OTHER USES for this medicine? This medication may be prescribed for other uses; ask your doctor or pharmacist for more information. What SPECIAL PRECAUTIONS should I follow? Before taking polyethylene glycol 3350, ? tell your doctor and pharmacist if you are allergic to polyethylene glycol or any other medications. ? tell your doctor and pharmacist what prescription and nonprescription medications, vitamins, nutritional supplements, and herbal products you are taking. ? tell your doctor if you have or have ever had a bowel obstruction (blockage in the intestine) and if you have symptoms of bowel obstruction (upset stomach, vomiting, and stomach pain or bloating). ? tell your doctor if you are , plan to become , or are breast-feeding. If you become while taking polyethylene glycol 3350, call your doctor. What SPECIAL DIETARY instructions should I follow? Eat a well-balanced diet that includes fiber-rich foods, such as unprocessed bran, whole-grain bread, and fresh fruits and vegetables. Drink plenty of fluids and exercise regularly. What should I do IF I FORGET to take a dose? This medication is usually taken as needed. What SIDE EFFECTS can this medicine cause? Some side effects can be serious. The following symptoms are uncommon, but if you experience either of them, call your doctor immediately: ? diarrhea ? hives Polyethylene glycol 3350 may cause other side effects. Call your doctor if you have any unusual problems while taking this medication. If you experience a serious side effect, you or your doctor may send a report to the Food and Drug Administration's (FDA) MedWatch Adverse Event Reporting program online (https://www.fda.gov/Safety/MedWatch) or by phone ( ). What should I know about STORAGE and DISPOSAL of this medication? Keep this medication in the container it came in, tightly closed, and out of reach of children. Store it at room temperature and away from excess heat and moisture (not in the bathroom). Unneeded medications should be disposed of in special ways to ensure that pets, children, and other people cannot consume them. However, you should not flush this medication down the toilet. Instead, the best way to dispose of your medication is through a medicine take-back program. Talk to your pharmacist or contact your local garbage/recycling department to learn about take-back programs in your community. See the FDA's Safe Disposal of Medicines website (https://goo.gl/c4Rm4p) for more information if you do not have access to a take-back program. It is important to keep all medication out of sight and reach of children as many containers (such as weekly pill minders and those for eye drops, creams, patches, and inhalers) are not child-resistant and young children can open them easily. To protect young children from poisoning, always lock safety caps and immediately place the medication in a safe location - one that is up and away and out of their sight and reach. https://www.upandaway.org What should I do in case of OVERDOSE? In case of overdose, call the poison control helpline at . Information is also available online at https://www.poisonhelp.org/help. If the victim has collapsed, had a seizure, has trouble breathing, or can't be awakened, immediately call emergency services at 911. Symptoms of overdose may include: ? diarrhea ? thirst ? confusion ? seizure What OTHER INFORMATION should I know? Keep all appointments with your doctor. Do not let anyone else take your medication. Ask your pharmacist any questions you have about refilling your prescription. It is important for you to keep a written list of all of the prescription and nonprescription (erzt-hlt-pudcgpk) medicines you are taking, as well as any products such as vitamins, minerals, or other dietary supplements. You should bring this list with you each time you visit a doctor or if you are admitted to a hospital. It is also important information to carry with you in case of emergencies. This report on medications is for your information only, and is not considered individual patient advice. Because of the changing nature of drug information, please consult your physician or pharmacist about specific clinical use. The [employer] represents that the information provided hereunder was formulated with a reasonable standard of care, and in conformity with professional standards in the field. The [employer] makes no representations or warranties, express or implied, including, but not limited to, any implied warranty of merchantability and/or fitness for a particular purpose, with respect to such information and specifically disclaims all such warranties. Users are advised that decisions regarding drug therapy are complex medical decisions requiring the independent, informed decision of an appropriate health childcare worker, and the information is provided for informational purposes only. The entire monograph for a drug should be reviewed for a thorough understanding of the drug's actions, uses and side effects. The [employer] does not endorse or recommend the use of any drug. The information is not a substitute for medical care. AHFS? Patient Medication Information?. ? Copyright, 2023. [employer]?, [address], [address], [place], [place]. All Rights Reserved. Duplication for commercial use must be authorized by [facility]. Selected Revisions: January 10, 2016. AHFS? Patient Medication Information?. ? Copyright, 2024 [facility]2025-03-20 09:31:28 Images from the original note were not included. [id number] Stool Softeners Brand Name(s): Colace?, Correctol Soft Gels?, Diocto?, Ex-Lax Stool Softener?, Fleet Sof-Lax?, Hayes' Liqui-Gels?, Surfak?, Correctol 50 Plus? (as a combination product containing Docusate, Sennosides), Ex-Lax Gentle Strength? (as a combination product containing Docusate, Sennosides), Gentlax S? (as a combination product containing Docusate, Sennosides), Rebecca-Colace? (as a combination product containing Docusate, Sennosides), Senokot S? (as a combination product containing Docusate, Sennosides); also available generically dioctyl calcium sulfosuccinate, dioctyl sodium sulfosuccinate, docusate calcium, docusate sodium, LIUDMILA, DSS WHY is this medicine prescribed? Stool softeners are used on a short-term basis to relieve constipation by people who should avoid straining during bowel movements because of heart conditions, hemorrhoids, and other problems. They work by softening stools to make them easier to pass. HOW should this medicine be used? Stool softeners come as a capsule, tablet, liquid, and syrup to take by mouth. A stool softener usually is taken at bedtime. Follow the directions on the package or your prescription label carefully, and ask your doctor or pharmacist to explain any part you do not understand. Take stool softeners exactly as directed. Do not take more or less of it or take it more often than prescribed by your doctor. Swallow the docusate capsules whole; do not split, chew, or crush them. Take capsules and tablets with a full glass of water. The liquid comes with a specially marked dropper for measuring the dose. Ask your pharmacist to show you how to use it if you have difficulty. Mix the liquid (not the syrup) with 4 ounces (120 milliliters) of milk, fruit juice, or formula to mask its bitter taste. One to three days of regular use usually are needed for this medicine to take effect. Do not take stool softeners for more than 1 week unless your doctor directs you to. If sudden changes in bowel habits last longer than 2 weeks or if your stools are still hard after you have taken this medicine for 1 week, call your doctor. Are there OTHER USES for this medicine? This medication may be prescribed for other uses; ask your doctor or pharmacist for more information. What SPECIAL PRECAUTIONS should I follow? Before taking stool softeners, ? tell your doctor and pharmacist if you are allergic to any stool softeners, any other medications, or to any of the ingredients in the stool softeners, Ask your pharmacist for a list of the ingredients. ? tell your doctor and pharmacist what prescription and nonprescription medications, vitamins, nutritional supplements, and herbal products you are taking or plan to take while taking stool softeners. Your doctor may need to change the doses of your medications or monitor you carefully for side effects. ? the following nonprescription product may interact with stool softeners: mineral oil. Be sure to let your doctor and pharmacist know that you are taking this medication before you start taking stool softeners. Do not start any of this medication while taking stool softeners without discussing with your healthcare provider. ? tell your doctor if you are , plan to become , or are . If you become while taking stool softeners, call your doctor. What should I do IF I FORGET to take a dose? This medication usually is taken as needed. If your doctor has told you to take stool softeners regularly, take the missed dose as soon as you remember it. However, if it is almost time for the next dose, skip the missed dose and continue your regular dosing schedule. Do not take a double dose to make up for a missed one. What SIDE EFFECTS can this medicine cause? Some side effects can be serious. If you experience any of the following symptoms, call your doctor immediately: ? rash ? hives ? difficulty breathing or swallowing ? fever ? vomiting ? stomach pain If you experience a serious side effect, you or your doctor may send a report to the Food and Drug Administration's (FDA) MedWatch Adverse Event Reporting program online (https://www.fda.gov/Safety/MedWatch) or by phone ( ). What should I know about STORAGE and DISPOSAL of this medication? Keep this medication in the container it came in, tightly closed, and out of reach of children. Store it at room temperature and away from excess heat and moisture (not in the bathroom). It is important to keep all medication out of sight and reach of children as many containers (such as weekly pill minders and those for eye drops, creams, patches, and inhalers) are not child-resistant and young children can open them easily. To protect young children from poisoning, always lock safety caps and immediately place the medication in a safe location - one that is up and away and out of their sight and reach. https://www.[employer].org Unneeded medications should be disposed of in special ways to ensure that pets, children, and other people cannot consume them. However, you should not flush this medication down the toilet. Instead, the best way to dispose of your medication is through a medicine take-back program. Talk to your pharmacist or contact your local garbage/recycling department to learn about take-back programs in your community. See the FDA's Safe Disposal of Medicines website (https://goo.gl/c4Rm4p) for more information if you do not have access to a take-back program. What OTHER INFORMATION should I know? Ask your pharmacist any questions you have about taking this medicine. It is important for you to keep a written list of all of the prescription and nonprescription (unsj-tpm-znloxfb) medicines you are taking, as well as any products such as vitamins, minerals, or other dietary supplements. You should bring this list with you each time you visit a doctor or if you are admitted to a hospital. It is also important information to carry with you in case of emergencies. This report on medications is for your information only, and is not considered individual patient advice. Because of the changing nature of drug information, please consult your physician or pharmacist about specific clinical use. The [employer] represents that the information provided hereunder was formulated with a reasonable standard of care, and in conformity with professional standards in the field. [employer] makes no representations or warranties, express or implied, including, but not limited to, any implied warranty of merchantability and/or fitness for a particular purpose, with respect to such information and specifically disclaims all such warranties. Users are advised that decisions regarding drug therapy are complex medical decisions requiring the independent, informed decision of an appropriate health childcare worker, and the information is provided for informational purposes only. The entire monograph for a drug should be reviewed for a thorough understanding of the drug's actions, uses and side effects. The [employer] does not endorse or recommend the use of any drug. The information is not a substitute for medical care. AHFS? Patient Medication Information?. ? Copyright, 2023. [employer]?, [address], [address], [place], [place]. All Rights Reserved. Duplication for commercial use must be authorized by [facility]. Selected Revisions: April 16, 2024. AHFS? Patient Medication Information?. ? Copyright, 2024 aL Adriana GlezQebipje0080-26-97 09:31:07 Images from the original note were not included. [id number] Senna Brand Name(s): Black Draught?, Ex-Lax?, Sanchez's Castoria?, Nature's Remedy?, Perdiem Overnight Relief?, Senexon?, Senna X-Prep?, Senokot?, Correctol 50 Plus? (as a combination product containing Docusate, Sennosides), Ex-Lax Gentle Strength? (as a combination product containing Docusate, Sennosides), Gentlax S? (as a combination product containing Docusate, Sennosides), Rebecca-Colace? (as a combination product containing Docusate, Sennosides), Senokot S? (as a combination product containing Docusate, Sennosides); also available generically sennosides WHY is this medicine prescribed? Senna is used on a short-term basis to treat constipation. It also is used to empty the bowels before surgery and certain medical procedures. Senna is in a class of medications called stimulant laxatives. It works by increasing activity of the intestines to cause a bowel movement. HOW should this medicine be used? Senna comes as a liquid, powder, granules, chewable pieces, and tablets to take by mouth. It is may be taken once or twice daily. Senna normally causes a bowel movement within 6 to 12 hours, so it may be taken at bedtime to produce a bowel movement the next day. Do not take senna for more than 1 week without talking to your doctor. Follow the directions on your package or prescription label carefully, and ask your doctor or pharmacist to explain any part you do not understand. Take senna exactly as directed. Frequent or continued use of senna may make you dependent on laxatives and cause your bowels to lose their normal activity. If you do not have a regular bowel movement after taking senna, do not take any more medication and talk to your doctor. If you are taking certain senna products (Ex-Lax? regular ormaximum strength tablets or Perdiem Overnight Relief), swallow the pills whole with a glass of water; do not split, chew, or crush them. Are there OTHER USES for this medicine? This medication may be prescribed for other uses; ask your doctor or pharmacist for more information. What SPECIAL PRECAUTIONS should I follow? Before taking senna, ? tell your doctor and pharmacist if you are allergic to senna, any other medications, or any of the ingredients in these senna products. Ask your pharmacist for a list of the ingredients. ? tell your doctor and pharmacist what prescription and nonprescription medications, vitamins, nutritional supplements, and herbal products you are taking or plan to take while taking senna. Your doctor may need to change the doses of your medications or monitor you carefully for side effects.. ? take certain senna products (Ex-Lax?, Perdiem Overnight Relief) at least 2 or more hours before or after taking other medications by mouth; some senna products may affect how other medications work. ? the following nonprescription product may interact with senna: mineral oil. Be sure to let your doctor and pharmacist know that you are taking this medication before you start taking senna. Do not start this medication while taking senna without discussing with your healthcare provider. ? tell your doctor if you have stomach pain, nausea, vomiting, or a sudden change in bowel movements lasting more than 2 weeks. ? tell your doctor if you are , plan to become , or are breast-feeding. If you become while taking senna, call your doctor. ? talk to your doctor about the risks and benefits of taking senna if you are 65 years of age or older. Older adults should not usually take senna products over a long period of time because they are not as safe as other medications that can be used to treat the same condition. What SPECIAL DIETARY instructions should I follow? A regular diet and exercise program is important for regular bowel function. Eat a high-fiber diet and drink plenty of liquids (eight glasses) each day as recommended by your doctor. What should I do IF I FORGET to take a dose? This medication usually is taken as needed. If your doctor has told you to take senna regularly, take the missed dose as soon as you remember it. However, if it is almost time for the next dose, skip the missed dose and continue your regular dosing schedule. Do not take a double dose to make up for a missed one. What SIDE EFFECTS can this medicine cause? Some side effects can be serious. If you experience this symptom, stop taking senna and call your doctor immediately: ? rectal bleeding Senna may cause other side effects. Call your doctor if you have any unusual problems while taking this medication. If you experience a serious side effect, you or your doctor may send a report to the Food and Drug Administration's (FDA) MedWatch Adverse Event Reporting program online (https://www.fda.gov/Safety/MedWatch) or by phone ( ). What should I know about STORAGE and DISPOSAL of this medication? Keep this medication in the container it came in, tightly closed, and out of reach of children. Store it at room temperature and away from excess heat and moisture (not in the bathroom). It is important to keep all medication out of sight and reach of children as many containers (such as weekly pill minders and those for eye drops, creams, patches, and inhalers) are not child-resistant and young children can open them easily. To protect young children from poisoning, always lock safety caps and immediately place the medication in a safe location - one that is up and away and out of their sight and reach. https://www.upandaway.org Unneeded medications should be disposed of in special ways to ensure that pets, children, and other people cannot consume them. However, you should not flush this medication down the toilet. Instead, the best way to dispose of your medication is through a medicine take-back program. Talk to your pharmacist or contact your local garbage/recycling department to learn about take-back programs in your community. See the FDA's Safe Disposal of Medicines website (https://goo.gl/c4Rm4p) for more information if you do not have access to a take-back program. What should I do in case of OVERDOSE? In case of overdose, call the poison control helpline at . Information is also available online at https://www.poisonhelp.org/help. If the victim has collapsed, had a seizure, has trouble breathing, or can't be awakened, immediately call emergency services at 911. What OTHER INFORMATION should I know? Ask your pharmacist any questions you have about senna. It is important for you to keep a written list of all of the prescription and nonprescription (abkl-kbv-klwtube) medicines you are taking, as well as any products such as vitamins, minerals, or other dietary supplements. You should bring this list with you each time you visit a doctor or if you are admitted to a hospital. It is also important information to carry with you in case of emergencies. This report on medications is for your information only, and is not considered individual patient advice. Because of the changing nature of drug information, please consult your physician or pharmacist about specific clinical use. The [employer] represents that the information provided hereunder was formulated with a reasonable standard of care, and in conformity with professional standards in the field. The [employer] makes no representations or warranties, express or implied, including, but not limited to, any implied warranty of merchantability and/or fitness for a particular purpose, with respect to such information and specifically disclaims all such warranties. Users are advised that decisions regarding drug therapy are complex medical decisions requiring the independent, informed decision of an appropriate health childcare worker, and the information is provided for informational purposes only. The entire monograph for a drug should be reviewed for a thorough understanding of the drug's actions, uses and side effects. The [employer] does not endorse or recommend the use of any drug. The information is not a substitute for medical care. AHFS? Patient Medication Information?. ? Copyright, 2023. [employer]?, [address], [address], [place], [place]. All Rights Reserved. Duplication for commercial use must be authorized by [facility]. Selected Revisions: April 16, 2024. AHFS? Patient Medication Information?. ? Copyright, 2024 [facility]2025-03-20 09:30:57 Images from the original note were not included. [id number] Metoprolol Brand Name(s): Kapspargo Sprinkle?, Lopressor?, Toprol?, Toprol? XL, Dutoprol? (as a combination product containing Metoprolol, Hydrochlorothiazide), Lopressidone? (as a combination product containing Chlorthalidone, Metoprolol), Lopressor? HCT (as a combination product containing Metoprolol, Hydrochlorothiazide); also available generically WHY is this medicine prescribed? Metoprolol is used alone or in combination with other medications to treat high blood pressure. It also is used to treat chronic (long-term) angina (chest pain). Metoprolol is also used to improve survival after a heart attack. Metoprolol also is used in combination with other medications to treat heart failure. Metoprolol is in a class of medications called beta blockers. It works by relaxing blood vessels and slowing heart rate to improve blood flow and decrease blood pressure. High blood pressure is a common condition and when not treated, can cause damage to the brain, heart, blood vessels, kidneys and other parts of the body. Damage to these organs may cause heart disease, a heart attack, heart failure, stroke, kidney failure, loss of vision, and other problems. In addition to taking medication, making lifestyle changes will also help to control your blood pressure. These changes include eating a diet that is low in fat and salt, maintaining a healthy weight, exercising at least 30 minutes most days, not smoking, and using alcohol in moderation. HOW should this medicine be used? Metoprolol comes as a tablet, an extended-release (long-acting) tablet, and an extended-release capsule to take by mouth. The regular tablet is usually taken once or twice a day with meals or immediately after meals. The extended-release tablet and extended-release capsule are usually taken once a day. To help you remember to take metoprolol, take it around the same time(s) every day. Follow the directions on your prescription label carefully, and ask your doctor or pharmacist to explain any part you do not understand. Take metoprolol exactly as directed. Do not take more or less of it or take it more often than prescribed by your doctor. The extended-release tablet may be split. Swallow the whole or half extended-release tablets whole; do not chew or crush them. Swallow the extended-release capsules whole; do not split, chew, or crush them. If you are unable to swallow the capsules, you may open the capsule and sprinkle the contents over a spoonful of soft food, such as applesauce, pudding, or yogurt and swallow the mixture immediately. Do not swallow the mixture more than 60 minutes after you sprinkle the contents of the capsule. Your doctor may start you on a low dose of metoprolol and gradually increase your dose. Metoprolol helps to control your condition but will not cure it. Continue to take metoprolol even if you feel well. Do not stop taking metoprolol without talking to your doctor. If you suddenly stop taking metoprolol you may experience serious heart problems such as severe chest pain, a heart attack, or an irregular heartbeat. Your doctor will probably want to decrease your dose gradually over 1 to 2 weeks and will monitor you closely. Are there OTHER USES for this medicine? Metoprolol is also used sometimes to treat certain types of irregular heartbeats. Talk to your doctor about the possible risks of using this medication for your condition. This medication may be prescribed for other uses; ask your doctor or pharmacist for more information. What SPECIAL PRECAUTIONS should I follow? Before taking metoprolol, ? tell your doctor and pharmacist if you are allergic to metoprolol, any other medications, or any of the ingredients in metoprolol tablets, extended-release tablets, or extended-release capsules. Ask your pharmacist for a list of the ingredients. ? tell your doctor and pharmacist what prescription and nonprescription medications, vitamins, nutritional supplements, and herbal products you are taking or plan to take. Your doctor may need to change the doses of your medications or monitor you carefully for side effects. ? tell your doctor if you have a slow or irregular heartbeat or heart failure. Your doctor may tell you not to take metoprolol. ? tell your doctor if you have or have ever had asthma or other lung diseases; problems with blood circulation; pheochromocytoma (a tumor that develops on a gland near the kidneys and may cause high blood pressure and fast heartbeat); heart or liver disease;diabetes; or hyperthyroidism (an overactive thyroid gland). Also tell your doctor if you have ever had a serious allergic reaction to a food or any other substance. ? tell your doctor if you are , plan to become , or are . If you become while taking metoprolol, call your doctor. ? if you are having surgery, including dental surgery, tell the doctor or dentist that you are taking metoprolol. ? you should know that metoprolol may make you drowsy. Do not drive a car or operate machinery until you know how this medication affects you. ? do not drink any alcoholic drinks or take any prescription or nonprescription medications that contain alcohol if you are taking metoprolol extended-release capsules. Ask your doctor or pharmacist if you do not know if a medication that you plan to take contains alcohol. ? you should know that metoprolol may increase the risk of hypoglycemia (low blood sugar) and prevent the warning signs and symptoms that would tell you that your blood sugar is low. Let your doctor know if you are unable to eat or drink normally or are vomiting while you are taking metoprolol. You should know the symptoms of low blood sugar and what to do if you have these symptoms. ? you should know that if you have allergic reactions to different substances, your reactions may be worse while you are using metoprolol, and your allergic reactions may not respond to the usual doses of injectable epinephrine. What SPECIAL DIETARY instructions should I follow? IUnless your doctor tells you otherwise, continue your normal diet. What should I do IF I FORGET to take a dose? Skip the missed dose and continue your regular dosing schedule. Do not take a double dose to make up for a missed one. What SIDE EFFECTS can this medicine cause? Some side effects can be serious. The following symptoms are uncommon, but if you experience any of them, call your doctor immediately: ? shortness of breath or difficulty breathing ? wheezing ? swelling of the hands, feet, ankles, or lower legs ? weight gain ? fainting ? rapid, pounding, or irregular heartbeat Metoprolol may cause other side effects. Call your doctor if you have any unusual problems while taking this medication. If you experience a serious side effect, you or your doctor may send a report to the Food and Drug Administration's (FDA) MedWatch Adverse Event Reporting program online (https://www.fda.gov/Safety/MedWatch) or by phone ( ). What should I know about STORAGE and DISPOSAL of this medication? Keep this medication in the container it came in, tightly closed, and out of reach of children. Store it at room temperature and away from excess heat and moisture (not in the bathroom). It is important to keep all medication out of sight and reach of children as many containers (such as weekly pill minders and those for eye drops, creams, patches, and inhalers) are not child-resistant and young children can open them easily. To protect young children from poisoning, always lock safety caps and immediately place the medication in a safe location - one that is up and away and out of their sight and reach. https://www.upandaway.org Unneeded medications should be disposed of in special ways to ensure that pets, children, and other people cannot consume them. However, you should not flush this medication down the toilet. Instead, the best way to dispose of your medication is through a medicine take-back program. Talk to your pharmacist or contact your local garbage/recycling department to learn about take-back programs in your community. See the FDA's Safe Disposal of Medicines website (https://goo.gl/c4Rm4p) for more information if you do not have access to a take-back program. What should I do in case of OVERDOSE? In case of overdose, call the poison control helpline at . Information is also available online at https://www.poisonhelp.org/help. If the victim has collapsed, had a seizure, has trouble breathing, or can't be awakened, immediately call emergency services at 430. Symptoms of overdose may include the following: ? nausea ? vomiting ? decreased consciousness or loss of consciousness (coma) ? irregular, fast, or slow heartbeat ? chest pain ? dizziness ? fatigue or weakness ? fainting ? difficulty breathing ? cough or wheezing ? swelling of the hands, feet, ankles, or lower legs What OTHER INFORMATION should I know? Keep all appointments with your doctor. Your blood pressure should be checked regularly to determine your response to metoprolol. Your doctor may ask you to check your pulse (heart rate). Ask your pharmacist or doctor to teach you how to take your pulse. If your pulse is faster or slower than it should be, call your doctor. Do not let anyone else take your medication. Ask your pharmacist any questions you have about refilling your prescription. It is important for you to keep a written list of all of the prescription and nonprescription (xeti-jau-hphpwwk) medicines you are taking, as well as any products such as vitamins, minerals, or other dietary supplements. You should bring this list with you each time you visit a doctor or if you are admitted to a hospital. It is also important information to carry with you in case of emergencies. This report on medications is for your information only, and is not considered individual patient advice. Because of the changing nature of drug information, please consult your physician or pharmacist about specific clinical use. The [employer] represents that the information provided hereunder was formulated with a reasonable standard of care, and in conformity with professional standards in the field. [employer] makes no representations or warranties, express or implied, including, but not limited to, any implied warranty of merchantability and/or fitness for a particular purpose, with respect to such information and specifically disclaims all such warranties. Users are advised that decisions regarding drug therapy are complex medical decisions requiring the independent, informed decision of an appropriate health childcare worker, and the information is provided for informational purposes only. The entire monograph for a drug should be reviewed for a thorough understanding of the drug's actions, uses and side effects. The [employer] does not endorse or recommend the use of any drug. The information is not a substitute for medical care. AHFS? Patient Medication Information?. ? Copyright, 2023. [employer]?, [address], [address], [place], [place]. All Rights Reserved. Duplication for commercial use must be authorized by [facility]. Selected Revisions: July 12, 2023. AHFS? Patient Medication Information?. ? Copyright, 2024 [facility]2025-03-20 09:30:48 Images from the original note were not included. [id number] Levetiracetam Brand Name(s): Elepsia? XR, Keppra?, Keppra? XR, Spritam?; also available generically WHY is this medicine prescribed? Levetiracetam is used alone and along with other medications to control partial-onset seizures (seizures that involve only one part of the brain) in adults, children, and infants 1 month of age or older. Levetiracetam is also used in combination with other medications to treat seizure in adults and children 12 years of age or older with juvenile myoclonic epilepsy. Levetiracetam is also used in combination with other medications to treat primary generalized tonic-clonic seizures (formerly known as a grand mal seizure; seizure that involves the entire body) in adults and children 6 years of age or older with epilepsy. Levetiracetam is in a class of medications called anticonvulsants. It works by decreasing abnormal excitement in the brain. HOW should this medicine be used? Levetiracetam comes as a solution (liquid), an immediate-release tablet, an extended-release (long-acting) tablet, and as a tablet for suspension (a tablet to take with liquid) to take by mouth. The solution, immediate-release tablet, and tablet for suspension are usually taken twice a day, once in the morning and once at night, with or without food. The extended-release tablets are usually taken once daily with or without food. Try to take levetiracetam at around the same time(s) every day. Follow the directions on your prescription label carefully, and ask your doctor or pharmacist to explain any part you do not understand. Take levetiracetam exactly as directed. Do not take more or less of it or take it more often than prescribed by your doctor. Swallow the levetiracetam immediate-release and extended-release tablets whole; do not split, chew, or crush them. Take the whole levetiracetam tablets for suspension according to directions; do not split, chew, or crush them. To take levetiracetam tablet(s) for suspension, use dry hands to peel the foil from the blister packaging; do not try to push the tablets through the foil. Immediately take out the number of tablet(s) that your doctor has told you to take and place the tablet(s) on your tongue with a sip of liquid. Once the tablet completely dissolves on your tongue, swallow the mixture. The tablet(s) may take about 10 seconds to dissolve. You can also take levetiracetam tablets for suspension by dissolving them in a liquid. Place the number of tablet(s) your doctor has told you to take into a cup and add a small amount of liquid (about 1 tablespoon [15 mL] or enough to cover the medication in a cup). Swirl the cup gently. After the tablet(s) for suspension dissolve, drink the mixture right away. If there is any medication left in the cup, add some more liquid and swirl the cup gently. Drink the mixture water right away to be sure that you swallow all of the medication. If you are taking the levetiracetam oral solution, do not use a household spoon to measure your dose. You might not get the right amount of medication. Ask your doctor or pharmacist to recommend a medicine dropper, spoon, cup, or syringe and to show you how to use it to measure your medication. Your doctor may start you on a low dose of levetiracetam and gradually increase your dose, not more often than once every 2 weeks. Levetiracetam controls epilepsy but does not cure it. Continue to take levetiracetam even if you feel well. Do not stop taking levetiracetam without talking to your doctor, even if you experience side effects such as unusual changes in behavior or mood. If you suddenly stop taking levetiracetam, your seizures may become worse. Your doctor will probably decrease your dose gradually. Your doctor or pharmacist will give you the cardiac surgeon's patient information sheet (Medication Guide) when you begin treatment with levetiracetam and each time you refill your prescription. Read the information carefully and ask your doctor or pharmacist if you have any questions. You can also visit the Food and Drug Administration (FDA) website (https://www.fda.gov/Drugs) or the cardiac surgeon's website to obtain the Medication Guide. Are there OTHER USES for this medicine? This medication may be prescribed for other uses; ask your doctor or pharmacist for more information. What SPECIAL PRECAUTIONS should I follow? Before taking levetiracetam, ? tell your doctor and pharmacist if you are allergic to levetiracetam, any other medications, or any of the ingredients in levetiracetam products. Ask your pharmacist or check the Medication Guide for a list of the ingredients. ? tell your doctor and pharmacist what prescription and nonprescription medications, vitamins, nutritional supplements, and herbal products you are taking or plan to take. Your doctor may need to change the doses of your medications or monitor you carefully for side effects. ? tell your doctor if you have or have ever had kidney disease, depression, mood problems, or suicidal thoughts or behavior. ? tell your doctor if you are , plan to become , or are . If you become while taking levetiracetam, call your doctor. ? you should know that levetiracetam may make you dizzy or drowsy. Do not drive a car or operate machinery until you know how this medication affects you. ? you should know that your mental health may change in unexpected ways and you may become suicidal (thinking about harming or killing yourself or planning or trying to do so) while you are taking levetiracetam for the treatment of epilepsy, mental illness, or other conditions. A small number of adults and children 5 years of age and older (about 1 in 500 people) who took anticonvulsants such as levetiracetam to treat various conditions during clinical studies became suicidal during their treatment. Some of these people developed suicidal thoughts and behavior as early as one week after they started taking the medication. There is a risk that you may experience changes in your mental health if you take an anticonvulsant medication such as levetiracetam, but there may also be a risk that you will experience changes in your mental health if your condition is not treated. You and your doctor will decide whether the risks of taking an anticonvulsant medication are greater than the risks of not taking the medication. You, your family, or your caregiver should call your doctor right away if you experience any of the following symptoms: panic attacks; agitation or restlessness; nervousness, new or worsening irritability, anxiety, or depression; acting on dangerous impulses; difficulty falling or staying asleep; aggressive, angry, or violent behavior; ky (frenzied, abnormally excited mood); talking or thinking about wanting to hurt yourself or end your life; withdrawing from friends and family; preoccupation with and dying; giving away prized possessions; or any other unusual changes in behavior or mood. Be sure that your family or caregiver knows which symptoms may be serious so they can call the doctor if you are unable to seek treatment on your own. What SPECIAL DIETARY instructions should I follow? Unless your doctor tells you otherwise, continue your normal diet. What should I do IF I FORGET to take a dose? If it has only been a few hours since the time you were scheduled to take the dose, take the missed dose as soon as you remember it. However, if it is almost time for the next dose, skip the missed dose and continue your regular dosing schedule. Do not take a double dose to make up for a missed one. What SIDE EFFECTS can this medicine cause? Some side effects can be serious. If you experience any of the following symptoms or those listed in the SPECIAL PRECAUTIONS section, call your doctor immediately: ? rash, fever, swollen lymph nodes, facial swelling, shortness of breath, yellowing of skin or whites of the eyes, dark urine ? seizures that are worse or different than the seizures you had before ? fever, sore throat, or other signs of infection ? blisters on skin ? hives ? itching ? swelling of the face, throat, tongue, lips. and eyes ? difficulty swallowing or breathing ? loss of balance or coordination Levetiracetam may cause other side effects. Call your doctor if you have any unusual problems while taking this medication. If you experience a serious side effect, you or your doctor may send a report to the Food and Drug Administration's (FDA) MedWatch Adverse Event Reporting program online (https://www.fda.gov/Safety/MedWatch) or by phone ( ). What should I know about STORAGE and DISPOSAL of this medication? Keep this medication in the container it came in, tightly closed, and out of reach of children. Store it at room temperature and away from light, excess heat and moisture (not in the bathroom). Unneeded medications should be disposed of in special ways to ensure that pets, children, and other people cannot consume them. However, you should not flush this medication down the toilet. Instead, the best way to dispose of your medication is through a medicine take-back program. Talk to your pharmacist or contact your local garbage/recycling department to learn about take-back programs in your community. See the FDA's Safe Disposal of Medicines website (https://goo.gl/c4Rm4p) for more information if you do not have access to a take-back program. It is important to keep all medication out of sight and reach of children as many containers (such as weekly pill minders and those for eye drops, creams, patches, and inhalers) are not child-resistant and young children can open them easily. To protect young children from poisoning, always lock safety caps and immediately place the medication in a safe location - one that is up and away and out of their sight and reach. https://www.upandaway.org What should I do in case of OVERDOSE? In case of overdose, call the poison control helpline at . Information is also available online at https://www.poisonhelp.org/help. If the victim has collapsed, had a seizure, has trouble breathing, or can't be awakened, immediately call emergency services at 841. Symptoms of overdose may include the following: ? drowsiness ? agitation ? aggression ? decreased consciousness or loss of consciousness (coma) ? difficulty breathing What OTHER INFORMATION should I know? Keep all appointments with your doctor. If an infant or child younger than 4 years of age receives levetiracetam, your doctor will check their blood pressure regularly. Do not let anyone else take your medication. Ask your pharmacist any questions you have about refilling your prescription. It is important for you to keep a written list of all of the prescription and nonprescription (iral-gef-qluysmz) medicines you are taking, as well as any products such as vitamins, minerals, or other dietary supplements. You should bring this list with you each time you visit a doctor or if you are admitted to a hospital. It is also important information to carry with you in case of emergencies. This report on medications is for your information only, and is not considered individual patient advice. Because of the changing nature of drug information, please consult your physician or pharmacist about specific clinical use. The [employer] represents that the information provided hereunder was formulated with a reasonable standard of care, and in conformity with professional standards in the field. The [employer] makes no representations or warranties, express or implied, including, but not limited to, any implied warranty of merchantability and/or fitness for a particular purpose, with respect to such information and specifically disclaims all such warranties. Users are advised that decisions regarding drug therapy are complex medical decisions requiring the independent, informed decision of an appropriate health childcare worker, and the information is provided for informational purposes only. The entire monograph for a drug should be reviewed for a thorough understanding of the drug's actions, uses and side effects. The [employer] does not endorse or recommend the use of any drug. The information is not a substitute for medical care. AHFS? Patient Medication Information?. ? Copyright, 2023. [employer]?, [address], [address], [place], [place]. All Rights Reserved. Duplication for commercial use must be authorized by [facility]. Selected Revisions: February 15, 2024. AHFS? Patient Medication Information?. ? Copyright, 2024 Adriana [id number] 09:30:38 Images from the original note were not included. [id number] Lactulose Brand Name(s): Cholac?, Constilac? Syrup, Constulose?, Enulose?, Evalose? Syrup, Generlac?, Heptalac?, Kristalose?, Laxilose?, Portalac?; also available generically WHY is this medicine prescribed? Lactulose is a synthetic sugar used to treat constipation. It is broken down in the colon into products that pull water out from the body and into the colon. This water softens stools. Lactulose is also used to reduce the amount of ammonia in the blood of patients with liver disease. It works by drawing ammonia from the blood into the colon where it is removed from the body. This medication is sometimes prescribed for other uses; ask your doctor or pharmacist for more information. HOW should this medicine be used? Lactulose comes as liquid to take by mouth. It usually is taken once a day for treatment of constipation and three or four times a day for liver disease. Your prescription label tells you how much medicine to take at each dose. Follow the directions on your prescription label carefully, and ask your doctor or pharmacist to explain any part you do not understand. Take lactulose exactly as directed. Do not take more or less of it or take it more often than prescribed by your doctor. What SPECIAL PRECAUTIONS should I follow? Before taking lactulose, ? tell your doctor and pharmacist if you are allergic to lactulose or any other drugs. ? Tell your doctor and pharmacist what prescription and nonprescription medications, vitamins, nutritional supplements, and herbal products you are taking or plan to take while taking lactulose. Your doctor may need to change the doses of your medications or monitor you carefully for side effects. ? The following nonprescription products may interact with lactulose: antacids, neomycin, and other laxatives. Be sure to let your doctor and pharmacist know that you are taking these medications before you start taking lactulose. Do not start any of these medications while taking lactulose without discussing with your healthcare provider. ? tell your doctor if you have diabetes or require a low-lactose diet. ? tell your doctor if you are , plan to become , or are breast-feeding. If you become while taking lactulose, call your doctor. ? if you are having surgery or tests on your colon or rectum, tell the doctor that you are taking lactulose. What should I do IF I FORGET to take a dose? Take the missed dose as soon as you remember it. However, if it is almost time for the next dose, skip the missed dose and continue your regular dosing schedule. Do not take a double dose to make up for a missed one. What SIDE EFFECTS can this medicine cause? If you have any of the following symptoms, stop taking lactulose and call your doctor immediately: ? stomach pain or cramps ? vomiting If you experience a serious side effect, you or your doctor may send a report to the Food and Drug Administration's (FDA) MedWatch Adverse Event Reporting program online (https://www.fda.gov/Safety/MedWatch) or by phone ( ). What should I know about STORAGE and DISPOSAL of this medication? Keep this medication in the container it came in, tightly closed, and out of reach of children. Store it at room temperature and away from excess heat and moisture (not in the bathroom). Unneeded medications should be disposed of in special ways to ensure that pets, children, and other people cannot consume them. However, you should not flush this medication down the toilet. Instead, the best way to dispose of your medication is through a medicine take-back program. Talk to your pharmacist or contact your local garbage/recycling department to learn about take-back programs in your community. See the FDA's Safe Disposal of Medicines website (https://goo.gl/c4Rm4p) for more information if you do not have access to a take-back program. It is important to keep all medication out of sight and reach of children as many containers (such as weekly pill minders and those for eye drops, creams, patches, and inhalers) are not child-resistant and young children can open them easily. To protect young children from poisoning, always lock safety caps and immediately place the medication in a safe location - one that is up and away and out of their sight and reach. https://www.[employer].org What OTHER INFORMATION should I know? Keep all appointments with your doctor. To improve the taste of lactulose, mix your dose with one-half glass of water, milk, or fruit juice. Do not let anyone else take your medicine. Ask your pharmacist any questions you have about refilling your prescription. It is important for you to keep a written list of all of the prescription and nonprescription (nbao-nld-yvqulws) medicines you are taking, as well as any products such as vitamins, minerals, or other dietary supplements. You should bring this list with you each time you visit a doctor or if you are admitted to a hospital. It is also important information to carry with you in case of emergencies. This report on medications is for your information only, and is not considered individual patient advice. Because of the changing nature of drug information, please consult your physician or pharmacist about specific clinical use. The [employer] represents that the information provided hereunder was formulated with a reasonable standard of care, and in conformity with professional standards in the field. The [employer] makes no representations or warranties, express or implied, including, but not limited to, any implied warranty of merchantability and/or fitness for a particular purpose, with respect to such information and specifically disclaims all such warranties. Users are advised that decisions regarding drug therapy are complex medical decisions requiring the independent, informed decision of an appropriate health childcare worker, and the information is provided for informational purposes only. The entire monograph for a drug should be reviewed for a thorough understanding of the drug's actions, uses and side effects. The [employer] does not endorse or recommend the use of any drug. The information is not a substitute for medical care. AHFS? Patient Medication Information?. ? Copyright, 2023. [employer]?, [address], [address], [place], [place]. All Rights Reserved. Duplication for commercial use must be authorized by [facility]. Selected Revisions: November 11, 2023. AHFS? Patient Medication Information?. ? Copyright, 2024 Adriana [id number] 09:30:27 Images from the original note were not included. [id number] Lacosamide Brand Name(s): Vimpat?, Motpoly? XR WHY is this medicine prescribed? Lacosamide is used to control partial onset seizures (seizures that involve only one part of the brain). Lacosamide is also used in combination with other medications to control primary generalized tonic-clonic seizures (formerly known as a grand mal seizure; seizure that involves the entire body). Lacosamide is in a class of medications called anticonvulsants. It works by decreasing abnormal electrical activity in the brain. HOW should this medicine be used? Lacosamide comes as a tablet, a capsule, and as a solution (liquid) to take by mouth. The tablet and oral solution are usually taken twice a day with or without food. The capsule is usually taken once a day with or without food. Take lacosamide at around the same time(s) every day. Follow the directions on your prescription label carefully, and ask your doctor or pharmacist to explain any part you do not understand. Take lacosamide exactly as directed. Do not take more or less of it or take it more often than prescribed by your doctor. Swallow the tablets and capsules whole; do not chew, split, open, or crush them. If you are taking the oral solution, use a dose measuring spoon or oral syringe to measure the correct amount of liquid needed for each dose. Do not use a regular household spoon. If you have a nasogastric (NG) or gastric tube, your doctor or pharmacist will explain how to prepare lacosamide to administer it. Your doctor will probably start you on a low dose of lacosamide and gradually increase your dose, not more often than once a week. Lacosamide may help control your condition but will not cure it. It may take a few weeks or longer before you feel the full benefit of lacosamide. Continue to take lacosamide even if you feel well. Do not stop taking lacosamide without talking to your doctor, even if you experience side effects such as unusual changes in behavior or mood. If you suddenly stop taking lacosamide, your seizures may happen more often. Your doctor will probably decrease your dose gradually. Are there OTHER USES for this medicine? This medication may be prescribed for other uses; ask your doctor or pharmacist for more information. What SPECIAL PRECAUTIONS should I follow? Before taking lacosamide, ? tell your doctor and pharmacist if you are allergic to lacosamide, any other medications, or any of the ingredients in lacosamide tablets, capsules, or oral solution. Ask your pharmacist for a list of the ingredients. ? tell your doctor and pharmacist what other prescription and nonprescription medications, vitamins, nutritional supplements, and herbal products you are taking or plan to take. Your doctor may need to change the doses of your medications or monitor you carefully for side effects. ? tell your doctor if you currently or have ever drunk large amounts of alcohol, used street drugs, or over-used prescription medications. Also tell your doctor if you have or have ever had depression, mood problems, suicidal thoughts or behavior; an irregular heartbeat, a heart attack, a pacemaker, heart failure, or other heart problems; diabetic neuropathy (nerve damage caused by diabetes); or liver or kidney disease. ? tell your doctor if you are or plan to become . If you become while taking lacosamide, call your doctor. ? tell your doctor if you are . If you breast-feed while you are taking lacosamide, your baby may receive some lacosamide in the breast milk. Watch your baby closely for excessive sleepiness and call your baby's doctor if this happens. ? you should know that lacosamide may make you dizzy or drowsy and may cause blurred vision or problems with coordination and balance. Do not drive a car, operate machinery, or participate in activities requiring alertness or coordination until you know how this medication affects you. ? you should know that your mental health may change in unexpected ways and you may become suicidal (thinking about harming or killing yourself or planning or trying to do so) while you are taking lacosamide. A small number of adults and children 5 years of age and older (about 1 in 500 people) who took anticonvulsants like lacosamide to treat various conditions during clinical studies became suicidal during their treatment. Some of these people developed suicidal thoughts and behavior as early as 1 week after they started taking the medication. There is a risk that you may experience changes in your mental health if you take an anticonvulsant medication such as lacosamide, but there may also be a risk that you will experience changes in your mental health if your condition is not treated. You and your doctor will decide whether the risks of taking an anticonvulsant medication are greater than the risks of not taking the medication. You, your family, or your caregiver should call your doctor right away if you experience any of the following symptoms: panic attacks; agitation or restlessness; new or worsening irritability, anxiety, or depression; acting on dangerous impulses; difficulty falling asleep or staying asleep; aggressive, angry, or violent behavior; ky (frenzied, abnormally excited mood); talking or thinking about wanting to hurt yourself or end your life; or any other unusual changes in behavior or mood. Be sure that your family or caregiver knows which symptoms may be serious so they can call the doctor if you are unable to seek treatment on your own. ? you should know that lacosamide may cause dizziness, lightheadedness, fainting, or irregular heartbeat, especially when you get up too quickly from a lying position. If you develop these symptoms, lie down with your legs raised until you feel better, and call your doctor right away. ? if you have phenylketonuria (PKU, an inherited condition in which a special diet must be followed to prevent damage to your brain that can cause severe intellectual disability), you should know that lacosamide oral solution contains aspartame that forms phenylalanine. What SPECIAL DIETARY instructions should I follow? Unless your doctor tells you otherwise, continue your normal diet. What should I do IF I FORGET to take a dose? Take the missed dose as soon as you remember it. However, if it is almost time for the next dose, skip the missed dose and continue your regular dosing schedule. Do not take a double dose to make up for a missed one. What SIDE EFFECTS can this medicine cause? Some side effects can be serious. If you experience any of these symptoms, or those listed in the SPECIAL PRECAUTIONS section, call your doctor immediately: ? fast or pounding heartbeat or pulse ? shortness of breath ? slow heartbeat ? chest pain ? fainting ? swelling of the face, throat, tongue, lips, and eyes ? fever ? rash ? tiredness ? yellowing of the skin or eyes ? dark urine Lacosamide may cause other side effects. Call your doctor if you have any unusual problems while taking this medication. If you experience a serious side effect, you or your doctor may send a report to the Food and Drug Administration's (FDA) MedWatch Adverse Event Reporting program online (https://www.fda.gov/Safety/MedWatch) or by phone ( ). What should I know about STORAGE and DISPOSAL of this medication? Keep this medication in the container it came in, tightly closed, and out of reach of children. Store it at room temperature and away from excess heat and moisture (not in the bathroom). Do not freeze the oral solution. Discard any unused oral solution 6 months after first opening the bottle. It is important to keep all medication out of sight and reach of children as many containers (such as weekly pill minders and those for eye drops, creams, patches, and inhalers) are not child-resistant and young children can open them easily. To protect young children from poisoning, always lock safety caps and immediately place the medication in a safe location - one that is up and away and out of their sight and reach. https://www.upandaway.org Unneeded medications should be disposed of in special ways to ensure that pets, children, and other people cannot consume them. However, you should not flush this medication down the toilet. Instead, the best way to dispose of your medication is through a medicine take-back program. Talk to your pharmacist or contact your local garbage/recycling department to learn about take-back programs in your community. See the FDA's Safe Disposal of Medicines website (https://goo.gl/c4Rm4p) for more information if you do not have access to a take-back program. What should I do in case of OVERDOSE? In case of overdose, call the poison control helpline at . Information is also available online at https://www.poisonhelp.org/help. If the victim has collapsed, had a seizure, has trouble breathing, or can't be awakened, immediately call emergency services at 911. Symptoms of overdose may include: ? dizziness ? nausea ? seizures ? irregular heartbeat ? confusion ? decreased or loss of consciousness What OTHER INFORMATION should I know? Keep all appointments with your doctor. Do not let anyone else take your medication. Lacosamide is a controlled substance. Prescriptions may be refilled only a limited number of times; ask your pharmacist if you have any questions. It is important for you to keep a written list of all of the prescription and nonprescription (yflp-esv-lpnuzuf) medicines you are taking, as well as any products such as vitamins, minerals, or other dietary supplements. You should bring this list with you each time you visit a doctor or if you are admitted to a hospital. It is also important information to carry with you in case of emergencies. This report on medications is for your information only, and is not considered individual patient advice. Because of the changing nature of drug information, please consult your physician or pharmacist about specific clinical use. The [employer] represents that the information provided hereunder was formulated with a reasonable standard of care, and in conformity with professional standards in the field. [employer] makes no representations or warranties, express or implied, including, but not limited to, any implied warranty of merchantability and/or fitness for a particular purpose, with respect to such information and specifically disclaims all such warranties. Users are advised that decisions regarding drug therapy are complex medical decisions requiring the independent, informed decision of an appropriate health childcare worker, and the information is provided for informational purposes only. The entire monograph for a drug should be reviewed for a thorough understanding of the drug's actions, uses and side effects. The [employer] does not endorse or recommend the use of any drug. The information is not a substitute for medical care. AHFS? Patient Medication Information?. ? Copyright, 2023. [employer]?, [address], [address], [place], [place]. All Rights Reserved. Duplication for commercial use must be authorized by [facility]. Selected Revisions: August 16, 2024. AHFS? Patient Medication Information?. ? Copyright, 2024 [facility][NOTE 3] Adriana [id number] 09:30:19 Images from the original note were not included. [id number] Famotidine Brand Name(s): Fluxid?, Pepcid?, Pepcid? AC, Pepcid? RPD, Duexis? (as a combination product containing Famotidine, Ibuprofen), Pepcid? Complete (as a combination product containing Calcium Carbonate, Famotidine, Magnesium Hydroxide); also available generically WHY is this medicine prescribed? Prescription famotidine is used to treat ulcers (sores on the lining of the stomach or small intestine); gastroesophageal reflux disease (GERD, a condition in which backward flow of acid from the stomach causes heartburn and injury of the esophagus [tube that connects the mouth and stomach]); and conditions where the stomach produces too much acid, such as Darren-Galindo syndrome (tumors in the pancreas or small intestine that cause increased production of stomach acid). Plqo-vgb-ccrurnz famotidine is used to prevent and treat heartburn due to acid indigestion and sour stomach caused by eating or drinking certain foods or drinks. Famotidine is in a class of medications called H2 blockers. It works by decreasing the amount of acid made in the stomach. HOW should this medicine be used? Prescription famotidine comes as a tablet and a suspension (liquid) to take by mouth. It is usually taken once daily at bedtime or two to four times a day. Rwcx-fyb-bbuzmup famotidine comes as a tablet, a chewable tablet, and a capsule to take by mouth. It is usually taken once or twice a day. To prevent symptoms, it is taken 15 to 60 minutes before eating foods or drinking drinks that may cause heartburn. Follow the directions on your prescription or the package label carefully, and ask your doctor or pharmacist to explain any part you do not understand. Take famotidine exactly as directed. Do not take more or less of it or take it more often or for a longer time than prescribed by your doctor. Shake the liquid well for 5 to 10 seconds before each use to mix the medicine evenly. Swallow the tablets and capsules with a full glass of water. Thoroughly chew the chewable tablets before swallowing them. Swallow the chewed tablet with a full glass of water. Do not take more than two tablets, capsules, or chewable tablets of ushw-bus-gbexoiw famotidine in 24 hours and do not take ujfb-xtt-iezcgel famotidine for longer than 2 weeks unless your doctor tells you that you should. If symptoms of heartburn, acid indigestion, or sour stomach last longer than 2 weeks, stop taking idsv-hgf-jtmiaxr famotidine and call your doctor. Are there OTHER USES for this medicine? This medication may be prescribed for other uses; ask your doctor or pharmacist for more information. What SPECIAL PRECAUTIONS should I follow? Before taking famotidine, ? tell your doctor and pharmacist if you are allergic to famotidine, cimetidine (Tagamet), nizatidine (Axid), ranitidine (Zantac), or any other medications. ? tell your doctor and pharmacist what prescription and nonprescription medications, vitamins, nutritional supplements, and herbal products you are taking while taking famotidine Your doctor may need to change the doses of your medications or monitor you carefully for side effects. ? the following nonprescription products may interact with famotidine: other medications for heartburn. Be sure to let your doctor and pharmacist know that you are taking these medications before you start taking famotidine. Do not start any of these medications while taking famotidine without discussing with your healthcare provider. ? tell your doctor if you have phenylketonuria (PKU, an inherited condition in which a special diet must be followed to prevent damage to your brain that can cause severe intellectual disability), and if you have or have ever had trouble swallowing or kidney disease. ? tell your doctor if you are , plan to become , or are breast-feeding. If you become while taking famotidine, call your doctor. What SPECIAL DIETARY instructions should I follow? Unless your doctor tells you otherwise, continue your normal diet. What should I do IF I FORGET to take a dose? If you forget a dose of prescription famotidine, take the missed dose as soon as you remember it. However, if it is almost time for the next dose, skip the missed dose and continue your regular dosing schedule. Do not take a double dose to make up for a missed one. Ujko-pnj-kizqbkg famotidine is usually taken as needed. If your doctor has told you to take aqoa-bds-xgkyold famotidine regularly, take the missed dose as soon as you remember it. However, if it is almost time for the next dose, skip the missed dose and continue your regular dosing schedule. Do not take a double dose to make up for a missed one. What SIDE EFFECTS can this medicine cause? Some side effects can be serious. The following symptoms are uncommon, but if you experience any of them call your doctor immediately: ? hives ? skin rash ? itching ? swelling of the face, throat, tongue, lips, eyes, hands, feet, ankles, or lower legs ? hoarseness ? difficulty breathing or swallowing Famotidine may cause other side effects. Call your doctor if you have any unusual problems while taking this medication. If you experience a serious side effect, you or your doctor may send a report to the Food and Drug Administration's (FDA) MedWatch Adverse Event Reporting program online (https://www.fda.gov/Safety/MedWatch) or by phone ( ). What should I know about STORAGE and DISPOSAL of this medication? Keep this medication in the container it came in, tightly closed, and out of reach of children. Store it at room temperature and away from excess heat and moisture (not in the bathroom). Do not allow the liquid to freeze. Dispose of unused famotidine liquid after 30 days. Unneeded medications should be disposed of in special ways to ensure that pets, children, and other people cannot consume them. However, you should not flush this medication down the toilet. Instead, the best way to dispose of your medication is through a medicine take-back program. Talk to your pharmacist or contact your local garbage/recycling department to learn about take-back programs in your community. See the FDA's Safe Disposal of Medicines website (https://goo.gl/c4Rm4p) for more information if you do not have access to a take-back program. It is important to keep all medication out of sight and reach of children as many containers (such as weekly pill minders and those for eye drops, creams, patches, and inhalers) are not child-resistant and young children can open them easily. To protect young children from poisoning, always lock safety caps and immediately place the medication in a safe location - one that is up and away and out of their sight and reach. https://www.upandaway.org What should I do in case of OVERDOSE? In case of overdose, call the poison control helpline at . Information is also available online at https://www.poisonhelp.org/help. If the victim has collapsed, had a seizure, has trouble breathing, or can't be awakened, immediately call emergency services at 624. What OTHER INFORMATION should I know? Keep all appointments with your doctor. Do not let anyone else take your medicine. Ask your pharmacist any questions you have about refilling your prescription. It is important for you to keep a written list of all of the prescription and nonprescription (bkfp-ugt-scykllg) medicines you are taking, as well as any products such as vitamins, minerals, or other dietary supplements. You should bring this list with you each time you visit a doctor or if you are admitted to a hospital. It is also important information to carry with you in case of emergencies. This report on medications is for your information only, and is not considered individual patient advice. Because of the changing nature of drug information, please consult your physician or pharmacist about specific clinical use. The [employer] represents that the information provided hereunder was formulated with a reasonable standard of care, and in conformity with professional standards in the field. The [employer] makes no representations or warranties, express or implied, including, but not limited to, any implied warranty of merchantability and/or fitness for a particular purpose, with respect to such information and specifically disclaims all such warranties. Users are advised that decisions regarding drug therapy are complex medical decisions requiring the independent, informed decision of an appropriate health childcare worker, and the information is provided for informational purposes only. The entire monograph for a drug should be reviewed for a thorough understanding of the drug's actions, uses and side effects. The [employer] does not endorse or recommend the use of any drug. The information is not a substitute for medical care. AHFS? Patient Medication Information?. ? Copyright, 2023. The [employer]?, [address], [address], [place], [place]. All Rights Reserved. Duplication for commercial use must be authorized by [facility]. Selected Revisions: November 11, 2021. AHFS? Patient Medication Information?. ? Copyright, 2024 Adriana [id number] 09:30:12 Images from the original note were not included. [id number] Amlodipine Brand Name(s): Amvaz?, Katerzia?, Norliqva?, Norvasc?, Valentino? (as a combination product containing Amlodipine, Olmesartan), Caduet? (as a combination product containing Amlodipine, Atorvastatin), Consensi? (as a combination product containing Amlodipine, Celecoxib), Exforge? (as a combination product containing Amlodipine, Valsartan), Exforge? HCT (as a combination product containing Amlodipine, Hydrochlorothiazide, Valsartan), Lotrel? (as a combination product containing Amlodipine, Benazepril), Prestalia? (as a combination product containing Amlodipine, Perindopril), Tribenzor? (as a combination product containing Amlodipine, Hydrochlorothiazide, Olmesartan), Twynsta? (as a combination product containing Amlodipine, Telmisartan); also available generically WHY is this medicine prescribed? Amlodipine is used alone or in combination with other medications to treat high blood pressure in adults and children 6 years and older. It is also used to treat certain types of angina (chest pain) and coronary artery disease (narrowing of the blood vessels that supply blood to the heart). Amlodipine is in a class of medications called calcium channel blockers. It lowers blood pressure by relaxing the blood vessels so the heart does not have to pump as hard. It controls chest pain by increasing the supply of blood to the heart. If taken regularly, amlodipine controls chest pain, but it does not stop chest pain once it starts. Your doctor may prescribe a different medication to take when you have chest pain. High blood pressure is a common condition and when not treated, can cause damage to the brain, heart, blood vessels, kidneys and other parts of the body. Damage to these organs may cause heart disease, a heart attack, heart failure, stroke, kidney failure, loss of vision, and other problems. In addition to taking medication, making lifestyle changes will also help to control your blood pressure. These changes include eating a diet that is low in fat and salt, maintaining a healthy weight, exercising at least 30 minutes most days, not smoking, and using alcohol in moderation. HOW should this medicine be used? Amlodipine comes as a tablet, an oral solution (liquid), and a suspension (liquid) to take by mouth. It is usually taken once a day with or without food. Take amlodipine around the same time every day. Follow the directions on your prescription label carefully, and ask your doctor or pharmacist to explain any part you do not understand. Take amlodipine exactly as directed. Do not take more or less of it or take it more often than prescribed by your doctor. Shake the suspension well before each use to mix the medication evenly. Your doctor will probably start you on a low dose of amlodipine and gradually increase your dose. Amlodipine helps to control high blood pressure, angina, and coronary artery disease, but does not cure these conditions. Continue to take amlodipine even if you feel well. Do not stop taking amlodipine without talking to your doctor. Are there OTHER USES for this medicine? This medication may be prescribed for other uses; ask your doctor or pharmacist for more information. What SPECIAL PRECAUTIONS should I follow? Before taking amlodipine, ? tell your doctor and pharmacist if you are allergic to amlodipine, any other medications, or any ingredients in amlodipine tablets, oral solution, or suspension. Ask your pharmacist for a list of the ingredients. ? tell your doctor and pharmacist what prescription and nonprescription medications, vitamins, nutritional supplements, and herbal products you are taking or plan to take. Your doctor may need to change the doses of your medications or monitor you carefully for side effects. ? tell your doctor if you have or have ever had heart failure or heart or liver disease. ? tell your doctor if you are , plan to become , or are breast-feeding. If you become while taking amlodipine, call your doctor. What SPECIAL DIETARY instructions should I follow? If your doctor prescribes a low-salt or low-sodium diet, follow these directions carefully. What should I do IF I FORGET to take a dose? Take the missed dose as soon as you remember it. However, if it is less than 12 hours until your next scheduled dose, skip the missed dose and continue your regular dosing schedule. Do not take a double dose to make up for a missed one. What SIDE EFFECTS can this medicine cause? Some side effects can be serious. If you experience any of these symptoms, call your doctor immediately or get emergency medical treatment: ? more frequent or more severe chest pain ? rapid, pounding, or irregular heartbeat ? fainting If you experience a serious side effect, you or your doctor may send a report to the Food and Drug Administration's (FDA) MedWatch Adverse Event Reporting program online (https://www.fda.gov/Safety/MedWatch) or by phone ( ). What should I know about STORAGE and DISPOSAL of this medication? Keep this medication in the container it came in, tightly closed, and out of reach of children. Store the tablets and oral solution at room temperature and away from light, excess heat and moisture (not in the bathroom). Store the suspension in the refrigerator and avoid freezing; protect it from light. It is important to keep all medication out of sight and reach of children as many containers (such as weekly pill minders and those for eye drops, creams, patches, and inhalers) are not child-resistant and young children can open them easily. To protect young children from poisoning, always lock safety caps and immediately place the medication in a safe location - one that is up and away and out of their sight and reach. https://www.[employer].org Unneeded medications should be disposed of in special ways to ensure that pets, children, and other people cannot consume them. However, you should not flush this medication down the toilet. Instead, the best way to dispose of your medication is through a medicine take-back program. Talk to your pharmacist or contact your local garbage/recycling department to learn about take-back programs in your community. See the FDA's Safe Disposal of Medicines website (https://goo.gl/c4Rm4p) for more information if you do not have access to a take-back program. What should I do in case of OVERDOSE? In case of overdose, call the poison control helpline at . Information is also available online at https://www.poisonhelp.org/help. If the victim has collapsed, had a seizure, has trouble breathing, or can't be awakened, immediately call emergency services at 911. Symptoms of overdose may include: ? dizziness ? fainting ? rapid heartbeat What OTHER INFORMATION should I know? Keep all appointments with your doctor. Your blood pressure should be checked regularly to determine your response to amlodipine. Do not let anyone else take your medication. Ask your pharmacist any questions you have about refilling your prescription. It is important for you to keep a written list of all of the prescription and nonprescription (miel-goi-ruqrrvf) medicines you are taking, as well as any products such as vitamins, minerals, or other dietary supplements. You should bring this list with you each time you visit a doctor or if you are admitted to a hospital. It is also important information to carry with you in case of emergencies. This report on medications is for your information only, and is not considered individual patient advice. Because of the changing nature of drug information, please consult your physician or pharmacist about specific clinical use. The [employer] represents that the information provided hereunder was formulated with a reasonable standard of care, and in conformity with professional standards in the field. The [employer] makes no representations or warranties, express or implied, including, but not limited to, any implied warranty of merchantability and/or fitness for a particular purpose, with respect to such information and specifically disclaims all such warranties. Users are advised that decisions regarding drug therapy are complex medical decisions requiring the independent, informed decision of an appropriate health childcare worker, and the information is provided for informational purposes only. The entire monograph for a drug should be reviewed for a thorough understanding of the drug's actions, uses and side effects. The [employer] does not endorse or recommend the use of any drug. The information is not a substitute for medical care. AHFS? Patient Medication Information?. ? Copyright, 2023. The [employer]?, [address], [address], [place], [place]. All Rights Reserved. Duplication for commercial use must be authorized by [facility]. Selected Revisions: June 16, 2024. AHFS? Patient Medication Information?. ? Copyright, 2024 [facility]2025-03-20 08:08:43 Problem: Pain - Adult Goal: Verbalizes/displays adequate comfort level or baseline comfort level Outcome: Ongoing Problem: Safety - Adult Goal: Free from fall injury Outcome: Ongoing Problem: Discharge Planning Goal: Discharge to home or other facility with appropriate resources Outcome: Ongoing Problem: Chronic Conditions and Co-morbidities Goal: Patient's chronic conditions and co-morbidity symptoms are monitored and maintained or improved Outcome: Ongoing Problem: Knowledge Deficit Goal: Patient/family/caregiver demonstrates understanding of disease process, treatment plan, medications, and discharge instructions Outcome: Ongoing Problem: Potential for Falls Goal: I will remain free of falls Outcome: Ongoing Problem: Neurological Deficit Goal: Neurological status is stable or improving Outcome: Ongoing Goal: Maintain vital signs within ordered limits Outcome: Ongoing Goal: Oxygenation goal greater than 94% Outcome: Ongoing Problem: Activity Intolerance/Impaired Mobility Goal: Mobility/activity is maintained at optimum level for patient Outcome: Ongoing Goal: Maintains or returns to baseline bowel function Outcome: Ongoing Goal: Maintains or returns to baseline bladder function Outcome: Ongoing Problem: Communication Impairment Goal: Ability to express needs and understand communication Outcome: Ongoing Problem: Potential for Aspiration Goal: Non-ventilated patient's risk of aspiration is minimized Outcome: Ongoing Goal: Ventilated patient's risk of aspiration is minimized Outcome: Ongoing Problem: Infection Goal: Signs and symptoms of infections are decreased or avoided Outcome: Ongoing Goal: Oral health is maintained or improved Outcome: Ongoing Problem: Nutrition Goal: Nutritional status is improving Outcome: Ongoing Problem: Thrombolytic Therapy Goal: Monitor for angioedema Outcome: Ongoing Goal: Monitor for bleeding for 48 hours post tenecteplase/interventional procedures Outcome: Ongoing Problem: Bleeding Precautions Goal: Excessive bleeding will be minimized Outcome: Ongoing The patient is Moderately Stable - Low risk of patient condition declining or worsening The patient's goals for the shift include safety The clinical goals for the shift include [facility] Orders/nicole reviewed MRI RN and tech Id'd PT in [facility] before transport to [facility], dtr noted in room exam explained, ear protection placed, call sullivan given to use PRN, PT will be continuous monitored in MRI, returned to unit post imaging on unit monitor report will be given. [id number] 14:25:00 Nurse gave report to PILY Akhtar. Pt will be transfer to [facility]. Personal belongings present with pt including cell phone. [facility] [id number] 12:44:21 The patient is Unstable - High likelihood or risk of patient condition declining or worsening The patient's goals for the shift include MRI The clinical goals for the shift include no falls T [facility] [id number] 22:06:56 MRI completed. Vitals stable. No acute issues. Ear plugs removed. Accompanied patient back to unit on portable tele monitor with transportation services. Handoff given to Melinda. T [facility]2025-03-18 21:17:38 Received patient to MRI from [facility]. Patient drowsy but appropriate on arrival. Armband verified. All electrodes removed. Gown changed. Ear plugs provided. Will closely monitor patient throughout exam. T [place] 208625-03-18 17:30:28 Problem: Pain - Adult Goal: Verbalizes/displays adequate comfort level or baseline comfort level Outcome: Progressing Problem: Safety - Adult Goal: Free from fall injury Outcome: Progressing Problem: Chronic Conditions and Co-morbidities Goal: Patient's chronic conditions and co-morbidity symptoms are monitored and maintained or improved Outcome: Progressing T [facility] [id number] 01:31:30 Problem: Safety - Adult Goal: Free from fall injury Outcome: Progressing Problem: Discharge Planning Goal: Discharge to home or other facility with appropriate resources Outcome: Ongoing Problem: Chronic Conditions and Co-morbidities Goal: Patient's chronic conditions and co-morbidity symptoms are monitored and maintained or improved Outcome: Ongoing The patient is Moderately Unstable - Medium risk of patient condition declining or worsening The patient's goals for the shift include no seizures The clinical goals for the shift include SBP 130-150, HR >40 Over the shift, the patient did make progress toward the following goals. T [facility]Chi [facility] [id number] 07:32:29 Patient was transported by stretcher from ER # 3 by stretcher connected to portable grain and yeast plants supervisor. Patient is awake, oriented and follows command. Patient was instructed on what to expect during the MRI scan. Patient verbalized understanding. Vital signs are WDL. No apparent distress noted. No C-collar in place. No tube feeding in place. Cardene IV drip continuously running. Mclean catheter is secured and draining. Patient was prepped for MRI. MRI gown, ear plugs and monitors were attached to the patient. Patient was transferred to the MRI room were study began. T RadiologyChi [facility] [id number] 23:36:14Upcoming Encounters Health Maintenance Due Date Last Done Comments CT Colonography 1957 Colonoscopy 1957 Colorectal Cancer Screening 1957 FIT-DNA 1957 FIT 1957 FOBT 1957 Lipid Panel 1957 Sigmoidoscopy 1957 Annual Physical 1960 DTaP/Tdap/Td Vaccines (1 - Tdap) 1976 Pneumococcal Vaccine: 50+ Ye ars (1 of 1 - PCV) 2007 Zoster Vaccines (1 of 2) 2007 Influenza Vaccine (#1) 2024 Respiratory Syncytial Virus (RSV) or >=60 (1 - 1-dose 75+ series) 2032 HIB Vaccines Aged Out No longer eligi ble based on patient's age to complete this topic HPV Vaccines Aged Out No longer eligi ble based on patient's age to complete this topic Hepatitis A Vaccines Aged Out No long er eligible based on patient's age to complete this topic Hepatitis B Vaccines Aged Out No long er eligible based on patient's age to complete this topic IPV Vaccines Aged Out No longer eligi ble based on patient's age to complete this topic Meningococcal Vaccine Aged Out No john carito eligible based on patient's age to complete this topic Rotavirus Vaccines Aged Out No longer eligible based on patient's age to complete this topic [facility] [id number] 23:03:00 History of Present Illness: Chief Complaint: Patient presents with Fall History provided by: EMS personnel, patient and relative History limited by: Acuity of condition school program director used: No Patient is a 69-year-old male with a past medical history of A-fib on Xarelto, hypertension, diabetes presents as a transfer for traumatic subarachnoid hemorrhage on the left side with no midline shift. Per daughter. Patient has become more forgetful and has become more altered. Daughter is unsure if patient has had any recent falls but has note that patient does have a new bruising on his face, left shoulder, left buttocks. Per daughter patient has taken Xarelto yesterday evening. Family denies any recent illnesses other than cholecystitis where patient was hospitalized 1 week ago pending surgery scheduling. Unable to get any information from patient at this time. Patient History Medical History[1] Surgical History[2] Family History[3] Social History: Tobacco Use Smoking status: Not on file Smokeless tobacco: Not on file Substance Use Topics Alcohol use: Not on file Drug use: Not on file Review of Systems: Review of Systems Physical Exam: Vitals and nursing note reviewed. Exam conducted with a arm rest builder present. Constitutional: General: He is awake. He is not in acute distress. Appearance: Normal appearance. HENT: Head: Normocephalic. Contusion present. Comments: Small bruising and contusion to the lateral to right thigh Mouth/Throat: Mouth: Mucous membranes are moist. Tongue: Tongue does not deviate from midline. Pharynx: Oropharynx is clear. Uvula midline. Eyes: Extraocular Movements: Extraocular movements intact. Conjunctiva/sclera: Conjunctivae normal. Pupils: Pupils are equal, round, and reactive to light. Cardiovascular: Rate and Rhythm: Regular rhythm. Bradycardia present. Pulses: Normal pulses. Heart sounds: Normal heart sounds. Pulmonary: Effort: Pulmonary effort is normal. Breath sounds: Normal breath sounds. Abdominal: General: Abdomen is protuberant. Palpations: Abdomen is soft. Tenderness: There is no abdominal tenderness. Musculoskeletal: Right lower leg: No edema. Left lower leg: No edema. Comments: RUE: - Inspection: No gross deformities, swelling, ecchymosis, or erythema - Palpation: compartments are soft and compressible - Neuro: sensation intact to light touch over R/M/U nerve distributions - Motor: +5/5 AIN/PIN/U muscle groups - Vascular: fingers warm and well-perfused with a brisk cap refill < 2 sec. LUE: - Inspection: No gross deformities, swelling, ecchymosis, or erythema - Palpation: compartments are soft and compressible - Neuro: sensation intact to light touch over R/M/U nerve distributions - Motor: +5/5 AIN/PIN/U muscle groups - Vascular: fingers warm and well-perfused with a brisk cap refill < 2 sec. RLE: - Inspection: No gross deformities, swelling, ecchymosis, or erythema - Palpation: compartments are soft and compressible - Neuro: sensation intact to light touch over T/SP/DP/Satish/Saph nerve distributions - Motor: +5/5 EHL/FHL/GSC/TA muscle groups - Vascular: all toes warm and well-perfused with a brisk cap refill < 2 sec. LLE: - Inspection: No gross deformities, swelling, ecchymosis, or erythema - Palpation: compartments are soft and compressible - Neuro: sensation intact to light touch over T/SP/DP/Satish/Saph nerve distributions - Motor: 3/5 strength to hip flexion - Vascular: all toes warm and well-perfused with a brisk cap refill < 2 sec. Skin: Findings: Bruising present. Neurological: Mental Status: He is alert. GCS: GCS eye subscore is 4. GCS verbal subscore is 5. GCS motor subscore is 6. Cranial Nerves: Cranial nerves 2-12 are intact. No dysarthria or facial asymmetry. Sensory: Sensation is intact. Motor: Weakness present. No tremor or pronator drift. Coordination: Tjpfpr-Rnxf-Txggse Test normal. Comments: Alert and oriented to person, place but not to time Psychiatric: Attention and Perception: Attention normal. Speech: Speech is delayed. Behavior: Behavior normal. Behavior is cooperative. Triage Vitals: BP: (!) 189/72, Heart Rate: 99, Temp: 37.3 ?C (99.1 ?F), Resp: 16, SpO2: 99 %, Height: 182.9 cm (6') Last Recorded Vitals: BP: (!) 209/81, Heart Rate: 52, Temp: 37.3 ?C (99.1 ?F), Resp: (!) 27, SpO2: 97 %, Height: 182.9 cm (6') Procedures Performed: Procedures ED Course : ED Course: as of 01/10/25 0709 Sun Jan 10, 2025 012 Was notified by nurse that patient was seizing we will put in loading dose of Keppra and give 2 mg of Ativan [BW] 0134 TSH(!): 6.081 [BW] 0134 Patient with witnessed seizure by family. As per daughter, patient started to stare to L and had jerking movements of upper extremities. When this author went to evaluate patient, no seizure activity. Appears post-ictal. Pending keppra. NSGY aware. Plan for repeat CT brain now [BF] 0135 Ammonia Lvl: 11 [BW] 0140 Was notified that by the time we got into the room patient was no longer seizing will discontinue Ativan at this time. [BW] [address] [BF] 0218 CT external spine [BW] 0305 POC Glucose: 84 [BW] [address] CHEST ABDOMEN PELVIS W IV CONTRAST 1. No acute traumatic injury involving the chest, abdomen, pelvis. 2. Cholelithiasis without evidence of acute cholecystitis. 3. Nonobstructive left nephrolithiasis. 4. Diverticulosis without diverticulitis. 5. Additional findings as detailed above. [BW] 0307 CT BRAIN WO IV CONTRAST * No interval adverse change. * Stable subarachnoid hemorrhage along the left frontal lobe. [BW] 0355 Neurology final recommendations: No surgical intervention needed at this moment - Repeat CT head stable - Small amount of tSAH unlikely to be the cause of altered mental status - Recommend medicine admission for AMS work up, UA show occasional bacteria, ammonia normal. - Recommend neurology consult for first time seizure - MRI brain w/wo contrast pending - Keppra 1000mg load and 500mg BID x7days for seizure ppx - Maintain SBP<150 to lower risk of rebleed [BW] 0356 Consulted neurology. They stated that they will come and see patient [BW] 0607 Assumed care at 0600, 69 yo M admitted to [facility], neuro consulted, reported fall at home, has SAH. Started on cardene gtt for BP control. [KN] ED Course: User Index [BF] Marisa Castrejon MD [BW] Leila Purdy MD [KN] Amy Cruz MD Diagnoses as of 01/10/25 0709 SAH (subarachnoid hemorrhage) (CMS/HCC) (HCC) Head injury, initial encounter Diverticulosis Hypoglycemia Left nephrolithiasis Disposition: Medical Decision Making Amount and/or Complexity of Data Reviewed Labs: ordered. Decision-making details documented in ED Course. Radiology: ordered. Decision-making details documented in ED Course. ECG/medicine tests: ordered. Risk Prescription drug management. Patient is a 69-year-old male with a past medical history of A-fib on Xarelto, hypertension, diabetes presents as a transfer for traumatic subarachnoid hemorrhage on the left side with no midline shift. Per daughter. Patient has become more forgetful and has become more altered. Daughter is unsure if patient has had any recent falls but has note that patient does have a new bruising on his face, left shoulder, left buttocks. Per daughter patient has taken Xarelto yesterday evening. Plan: Finger glucose, amp of D50, CBC, EKG, UA, BMP, UDS, COVID flu RSV, type and screen, TEG, LFT, CT CAP, TSH, T4, RPR, vitamin B12, HIV, COVID flu RSV, magnesium level, phosphorus level, EKG, troponin, ethanol level, lactic acid, VBG, TEG, Pt/PTT, MRI brain with and without contrast -Got a nnzgg-fi-pzrt glucose and patient was found to have a glucose of 69, gave a half of amp of D50 (25mg) -Due to patient on Xarelto will give patient 4 factor PCC -Due to patient's elevated blood pressure will give patient Cardene -Patient was not given a bolus of Keppra at outside hospital. Will hold on giving Keppra at this time but will will ask neurosurgery if they want to give Keppra. -Concern for altered mental status. Will do a full altered mental status workup -Will get a stability scan CT brain. ED course: See above Care of this patient was transferred to the oncoming team at signout at the end of my shift. The patient’s presentation and workup were discussed and reviewed with the oncoming resident and attending. The patient is pending admission. MEDICAL DECISION MAKING Complexity of Problems Addressed High: I am concerned about a severe complexity problem which was evidenced by the differential, and associated workup to rule out the severe problem: Altered mental status, SAH, which is a acute problem for this patient as evidenced by HPI. Complexity of Data Review Category 1: (# Of Data Points) Ordered the following tests: CBC, BMP, CT head, EKG and (Alternate Historian) For improved patient care, I received an additional history from daughter who states patient has been taking his Xarelto. Category 2: Category 3: (Independent Contractor) I consulted and spoke with neurosurgery about the patient and they stated they will come evaluate patient. Risk of Management (Admission) Patient to be admitted to the hospital. Leila Purdy DO Emergency Medicine PGY1 Scoring Tools NIH Stroke Scale: 2 Leila Purdy MD Resident 01/10/25 0555 [1] No past medical history on file. [2] No past surgical history on file. [3] No family history on file. Leila Purdy MD Resident 01/10/25 0713 Cosigned by Marisa Castrejon MD at 01/13/2025 4:08 PM CDT Associated attestation - Marisa Castrejon MD - 01/13/2025 4:08 PM CDT Teaching Attending Attestation: The patient was seen and examined by me in the presence of, or jointly with, the resident, and I agree with the History/Exam/Medical Decision Making documented unless further documented below. Additionally, I was directly involved in the management of the patient. Impression: 1. SAH (subarachnoid hemorrhage) (CMS/HCC) (HCC) 2. Head injury, initial encounter 3. Diverticulosis 4. Hypoglycemia 5. Left nephrolithiasis Marisa Castrejon MD [facility]
[2025-03-06 16:20] LABS: Absolute Lymphocytes (CBC) 0.6 K/uL (0.7-4.9); Absolute Monocytes 0.3 K/uL (0.1-1.3); Basophils % 0.9 % (0-1.3); Eosinophils % 0.1 % (0-4.4); Hematocrit 38.1 % (39.6-49.0); Hemoglobin 13.1 g/dL (13.6-17.9); Lymphocytes % 11.4 % (15.3-44.8); MCH 30.4 pg (27.0-35.0); MCHC 34.4 g/dL (32.0-36.0); MCV 88.4 fL (80-100); MPV 9.3 fL (7.6-11.3); Monocytes % 5.9 % (3.3-12.3); Neutrophils % 81.7 % (41.7-73.7); Nucleated Red Blood Cells % 0.1 % (0-0); Platelets 189 thou/uL (152-406); RBC Red Blood Cell Count 4.31 M/uL (4.33-5.43); Red Cell Distribution Width 14.5 % (12.1-15.2)
[2025-03-06 16:30] LABS: PT Prothrombin Time 11.9 SECONDS (10-13.0); PTT, Activated Partial Thromb 29.6 SECONDS (27.2-37.4); Protime INR 1.05; Specific Gravity 1.006 (1.005-1.030); Sqamous Epithelial None Seen /HPF (None Seen); Urine Bacteria <20 /HPF (<20); Urine Bilirubin NEGATIVE (Negative); Urine Blood Negative (Negative); Urine Clarity Extremely Turbid (Clear); Urine Color Light-Yellow (Yellow); Urine Culture Reflex Order REFLEXED; Urine Glucose NEGATIVE (Negative); Urine Ketones NEGATIVE (Negative); Urine Microscopic Reflex YN ORDER UMIC; Urine Mucus Slight /HPF (None Seen); Urine Nitrite 2+ (Negative); Urine Protein 1+ (Negative); Urine RBC <5 /HPF (None Seen); Urine Urobilinogen Normal (Normal); Urine WBC >50 /HPF (<5); Urine WBC Clump Rare /HPF (None Seen)
[2025-03-06 16:42] LABS: Anion Gap 13.6 mEq/L (5.0-15.0); Potassium 3.6 mEq/L (3.5-5.1); Troponin High Sensitivity 7.7 pg/mL (<58.9)
--- NOTE | 2025-03-06 16:53 | RAD REPORT ---
EXAM: CT brain without contrast HISTORY: Confusion COMPARISON: December 2024 TECHNIQUE: Multiple contiguous axial images were obtained and a CT of the brain without contrast.. Sagittal and coronal reconstruction performed. Automated exposure control, adjustment of the mA and/or kV according to patient size, and/or iterative reconstruction. Unless otherwise specified, incidental f indings do not require dedicated imaging follow-up FINDINGS: An intracranial bleed is not seen Ventricles are normal caliber No extra-axial fluid collection noted Small low-density area right basal ganglia unchanged which could represent an old lacunar infarction or prominent Virchow-Fabien space. No fluid within the visualized sinuses or mastoids noted. IMPRESSION: No acute intracranial abnormality noted. If the patient continues to have symptoms to suggest an acute intracranial abnormality then MRI of th e brain would be recommended.
--- NOTE | 2025-03-06 17:08 | RAD REPORT ---
Procedure: Chest Single View HISTORY: Fall COMPARISON: December 2024 FINDINGS: The lungs appear clear of acute infiltrate. No significant pleural effusion noted. The heart is normal size. IMPRESSION: No acute abnormality is displayed.
[2025-03-06] MEDS ORDERED: CEFTRIAXONE 1000 MG/VIAL ONE (17:50)
--- NOTE | 2025-03-06 17:56 | EDPHYS ---
Physician Documentation [facility] Name: David Perdomo Age: 69 yrs Sex: Male : 1955 Arrival Date: 03/06/2025 Time: 15:50 Bed 20 Private MD: ED Physician Suresh Koehler HPI: 03/06 16:55 This 69 yrs old Male presents to ER via EMS with complaints of Altered Mental Status. rn 16:55 The patient presents with confusion, decreased responsiveness, disorientation. Onset: rn The symptoms/episode began/occurred 2 day(s) ago. Possible causes: unknown. Family reports altered mental status, confusion and decreased responsiveness for 2 days. No fever or chills. No focal neurological deficit. Noticed difference in mentation yesterday. Today found on floor. No signs of trauma. Was slow to get up and not acting himself. Family member reports the last time this happened he had a brain hemorrhage. Family member also reports has hypertension and seizure disorder and does not take his medication consistently. No seizure activity noted but did notice confusion after being found on floor. Historical: - Allergies: 15:59 Sulfa (Sulfonamide Antibiotics); mb9 - Home Meds: 16:06 Keppra Oral [Active]; Metoprolol Tartrate Oral [Active]; losartan oral [Active]; Zoloft mb9 Oral [Active]; - PMHx: 15:59 a fib; diabetes mellitus; Hypertensive disorder; mb9 16:06 subarachnoid hemorrhage; mb9 - PSHx: 16:06 None; mb9 - Immunization history:: Adult Immunizations up to date. - Infectious Disease History:: Denies. - Social history:: Smoking status: Patient denies any tobacco usage or history of. - Family history:: not pertinent. - Hospitalizations: : No recent hospitalization is reported. ROS: 16:55 Constitutional: Negative for fever, chills, and weight loss, Neck: Negative for injury, rn pain, and swelling, Cardiovascular: Negative for chest pain, palpitations, and edema, Respiratory: Negative for shortness of breath, cough, wheezing, and pleuritic chest pain, Abdomen/GI: Negative for abdominal pain, nausea, vomiting, diarrhea, and constipation, MS/Extremity: Negative for injury and deformity, Skin: Negative for injury, rash, and discoloration, Neuro: Positive for altered mental status and generalized malaise Exam: 16:18 ECG was reviewed by the Attending Physician. rn 16:55 Constitutional: This is a well developed, well nourished patient who is awake, alert, rn and in no acute distress. Head/Face: Normocephalic, atraumatic. Eyes: Clear left eye drainage noted. No surrounding erythema or warmth. ENT: Dry mucous membranes Chest/axilla: No chest wall crepitus Cardiovascular: Irregular rhythm, regular rate. Pulses equal throughout Respiratory: No increased work of breathing, no retractions or nasal flaring. Abdomen/GI: Soft, non-tender MS/ Extremity: Pulses equal, no cyanosis. Full range of motion all 4 extremities actively and passively Neuro: Awake, GCS 15, oriented to person place and time. Strength 4 out of 5 throughout and moves all 4 extremities with equal strength. Coarse upper extremity tremor noted. No seizure activity noted. Vital Signs: 15:57 BP 178 / 81; Pulse 88; Resp 18; Temp 97.7(O); Pulse Ox 100% ; Weight 83.91 kg; Height 5 mb9 ft. 9 in. ; Pain 0/10; 16:58 BP 172 / 74; Pulse 86; Resp 18; Pulse Ox 98% on R/A; mb9 18:00 BP 175 / 85; Pulse 82; Resp 18; Pulse Ox 100% on R/A; mb9 18:25 BP 198 / 78; Pulse 97; Resp 16; Pulse Ox 100% ; mb9 18:39 BP 160 / 75; Pulse 90; Resp 18; Pulse Ox 98% on R/A; mb9 15:57 Body Mass Index 27.32 (83.91 kg, 175.26 cm) mb9 15:57 Pain Scale: Adult mb9 MDM: 15:52 Medical Screening Exam initiated rn 17:53 Differential Diagnosis: CVA, electrolyte abnormality, pneumonia, UTI, volume depletion. rn Data reviewed: vital signs, nurses notes, lab test result(s), radiologic studies, CT scan, and as a result, I will admit patient. Consideration of Admission/Observation Patient was admitted/placed on observation. Escalation of care including admission/observation considered. Counseling: I had a detailed discussion with the patient and/or guardian regarding the historical points, exam findings, and any diagnostic results supporting the discharge/admit diagnosis, lab results, radiology results, the need for further work-up and treatment in the hospital. Response to treatment: There is no appreciated change of the patient's symptoms at this time, and as a result, I will admit patient. 18:24 ED course: Patient had brief seizure approximately 30 seconds, resolved on its own, rn given Ativan 1 mg at end of seizure and will load with Keppra. Family member reports takes Keppra and has known seizure disorder but is not compliant with any of his medication.. 03/06 16:05 Order name: CBC with Diff rn 03/06 16:05 Order name: Basic Metabolic Panel; Complete Time: 17:28 rn 03/06 16:05 Order name: Protime (+inr); Complete Time: 17:28 rn 03/06 16:05 Order name: Ptt, Activated; Complete Time: 17:28 rn 03/06 16:05 Order name: UA Rfx Patricio Cult if indicated; Complete Time: 17:28 rn 03/06 16:06 Order name: Troponin High Sensitivity; Complete Time: 17:28 rn 03/06 16:48 Order name: Urine Culture EDNM 03/06 19:10 Order name: Lactate w/ 2H reflex if indic. EDNM 03/06 19:10 Order name: Magnesium EDNM 03/06 19:10 Order name: Phosphorus EDNM 03/06 19:10 Order name: UA Rfx Patricio Cult if indicated EDNM 03/06 19:10 Order name: Basic Metabolic Panel EDNM 03/06 19:10 Order name: Basic Metabolic Panel [facility] 03/06 19:10 Order name: CBC with Automated Diff EDNM 03/06 19:10 Order name: CBC with Automated Diff EDNM 03/06 19:10 Order name: Lipid Profile EDNM 03/06 19:10 Order name: Lipid Profile [facility] 03/06 16:05 Order name: CT Head Brain wo Cont; Complete Time: 17:28 rn 03/06 16:05 Order name: XRAY Chest (1 view); Complete Time: 17:28 rn 03/06 19:10 Order name: Physical Therapy Consult [facility] 03/06 16:05 Order name: IV Start; Complete Time: 16:25 rn 03/06 16:06 Order name: EKG - Nurse/Tech; Complete Time: 16:24 rn EC:18 Rate is 85 beats/min. Rhythm is regular. QRS Lizemores is Normal. AR interval is normal. QRS rn interval is normal. QT interval is normal. No Q waves. T waves are Normal. No ST changes noted. Clinical impression: Normal ECG. Interpreted by me. Reviewed by me. Administered Medications: 17:59 Drug: LORazepam PO 1 mg PO once Route: PO; mb9 18:18 Follow up: Response: No adverse reaction mb9 18:26 Drug: Ativan IVP 1 mg IVP once {Note: administered by PILY Perez.} Route: IVP; Site: jb4 right antecubital; 18:40 Follow up: Response: No adverse reaction mb9 18:32 Drug: Keppra IV 1000 mg IV at calculated rate once Route: IV; Rate: calculated rate; mb9 Site: right antecubital; 18:46 Follow up: Response: No adverse reaction; IV Status: Completed infusion mb9 18:40 Drug: Rocephin IV 1 grams IV at calculated rate once; Given slow IV push per pharmacy mb9 instructions Route: IV; Rate: calculated rate; Site: right antecubital; 18:47 Follow up: Response: No adverse reaction; IV Status: Completed infusion mb9 Disposition Summary: 03/06/25 17:55 Hospitalization Ordered Notes: Hospitalization Status: Inpatient Admission rn Provider: [place] [facility] [facility] Condition: Stable rn Problem: new rn Symptoms: are unchanged rn Bed/Room Type: Standard rn Room Assignment: 206(03/06/25 20:46) cg Diagnosis - Altered mental status, unspecified rn - UTI/ Urinary tract infection, site not specified rn Forms: - Medication Reconciliation Form rn - SBAR form rn - Leadership Thank You Letter rn Signatures: Dispatcher [employer] EDMS Suresh Koehler MD MD rn Garcia, Cindy, RN RN cg Bryson, James, RN RN jbArlet Clarke RN RN mb9 Corrections: (The following items were deleted from the chart) 16:05 16:05 CBC+H.LAB.BRZ ordered. EDMS EDMS 16:05 16:05 BASIC METABOLIC PANEL+C.LAB.BRZ ordered. EDMS EDMS 16:05 16:05 PROTIME (+INR)+COAG.LAB.BRZ ordered. EDMS EDMS 16:05 16:05 PTT, ACTIVATED+COAG.LAB.BRZ ordered. EDMS EDMS 16:05 16:05 UA Rfx Patricio Cult if indicated+U.LAB.BRZ ordered. EDMS EDMS 16:07 16:07 Troponin High Sensitivity+C.LAB.BRZ ordered. EDMS EDMS 16:56 16:55 Family reports altered mental status, confusion and decreased responsiveness for rn 2 days. No fever or chills. No focal neurological deficit. Noticed difference in mentation yesterday. Today found on floor. No signs of trauma. Was slow to get up and not acting himself. Family member reports the last time this happened he had a brain hemorrhage.. rn 16:57 16:55 Constitutional: Negative for fever, chills, and weight loss, Cardiovascular: rn Negative for chest pain, palpitations, and edema, Respiratory: Negative for shortness of breath, cough, wheezing, and pleuritic chest pain, Abdomen/GI: Negative for abdominal pain, nausea, vomiting, diarrhea, and constipation, MS/Extremity: Negative for injury and deformity, Skin: Negative for injury, rash, and discoloration, Neuro: Positive for altered mental status and generalized malaise rn 20:46 17:55 rn cg
--- NOTE | 2025-03-06 17:56 | ER ---
Nurse's Notes [facility] Name: David Perdomo Age: 69 yrs Sex: Male : 1955 Arrival Date: 03/06/2025 Time: 15:50 Bed 20 Private MD: Diagnosis: Altered mental status, unspecified;UTI/ Urinary tract infection, site not specified Presentation: 03/06 15:57 Chief complaint: EMS states: "Daughter found him on the floor grabbing his left arm mb9 saying it hurts and AMS. Unsure if he fell or hit his head. Pt hasn't been acting like himself since yesterday. Daughter states last time he acted like this, he had a subarachnoid hemorrhage.". Coronavirus screen: Vaccine status: Patient reports receiving the 2nd dose of the covid vaccine. Ebola Screen: No symptoms or risks identified at this time. Initial Sepsis Screen: Does the patient meet any 2 criteria? No. Patient's initial sepsis screen is negative. Does the patient have a suspected source of infection? No. Patient's initial sepsis screen is negative. Risk Assessment: Do you want to hurt yourself or someone else? Patient reports no desire to harm self or others. Onset of symptoms was March 06, 2025. 15:57 Method Of Arrival: EMS: [facility] mb9 15:57 Acuity: DICKSON 2 mb9 Triage Assessment: 15:59 General: Appears in no apparent distress. Behavior is calm, cooperative. Pain: Denies mb9 pain. EENT: No deficits noted. Neuro: Level of Consciousness is awake, alert, obeys commands, Oriented to person, place, time. Neuro: tremors present. Cardiovascular: Heart tones S1 S2 present Patient's skin is warm and dry. Respiratory: Airway is patent Respiratory effort is even, unlabored, Respiratory pattern is regular, symmetrical. GI: Abdomen is round non-distended. : No signs and/or symptoms were reported regarding the genitourinary system. Derm: Skin is pink, warm \\T\\ dry. Musculoskeletal: Range of motion: intact in all extremities. Historical: - Allergies: 15:59 Sulfa (Sulfonamide Antibiotics); mb9 - Home Meds: 16:06 Keppra Oral [Active]; Metoprolol Tartrate Oral [Active]; losartan oral [Active]; Zoloft mb9 Oral [Active]; - PMHx: 15:59 a fib; diabetes mellitus; Hypertensive disorder; mb9 16:06 subarachnoid hemorrhage; mb9 - PSHx: 16:06 None; mb9 - Immunization history:: Adult Immunizations up to date. - Infectious Disease History:: Denies. - Social history:: Smoking status: Patient denies any tobacco usage or history of. - Family history:: not pertinent. - Hospitalizations: : No recent hospitalization is reported. Screenin:00 [facility] ED Fall Risk Assessment (Adult) History of falling in the last 3 months, mb9 including since admission Yes- single mechanical fall (1 pt) Confusion or Disorientation No (0 pts) Intoxicated or Sedated No (0 pts) Impaired Gait Yes (1 pt) Mobility Assist Device Used No (0 pt) Altered Elimination No (0 pt) Score/Fall Risk Level 3 or more points = High Risk Oriented to surroundings, Maintained a safe environment, Educated pt \\T\\ family on fall prevention, incl call for assistance when getting out of bed. Abuse screen: Denies threats or abuse. Nutritional screening: No deficits noted. Tuberculosis screening: No symptoms or risk factors identified. Assessment: 16:00 Reassessment: see triage assessment. mb9 17:00 Reassessment: No changes from previously documented assessment. Patient and/or family mb9 updated on plan of care and expected duration. Pain level reassessed. 17:55 Reassessment: pt states, "I'm having anxiety. I need my Lorazepam. You can't get me mb9 that antibiotic until I get my anxiety medicine." ERP notified. 18:21 Reassessment: Tonic-Clonic seizure activity noted. Rapid called. Seizure activity last mb9 approximately 90 seconds. ERP and charge nurse at bedside. 18:30 Reassessment: Pt postictal. Respirations are even and unlabored. Pt in no distress mb9 Daughter updated (Giovana [phone]). Vital Signs: 15:57 BP 178 / 81; Pulse 88; Resp 18; Temp 97.7(O); Pulse Ox 100% ; Weight 83.91 kg; Height 5 mb9 ft. 9 in. ; Pain 0/10; 16:58 BP 172 / 74; Pulse 86; Resp 18; Pulse Ox 98% on R/A; mb9 18:00 BP 175 / 85; Pulse 82; Resp 18; Pulse Ox 100% on R/A; mb9 18:25 BP 198 / 78; Pulse 97; Resp 16; Pulse Ox 100% ; mb9 18:39 BP 160 / 75; Pulse 90; Resp 18; Pulse Ox 98% on R/A; mb9 15:57 Body Mass Index 27.32 (83.91 kg, 175.26 cm) mb9 15:57 Pain Scale: Adult mb9 ED Course: 15:51 Patient arrived in ED. eb 15:52 Suresh Koehler MD is Attending Physician. rn 15:57 Arlet Castillo RN is Primary Nurse. mb9 15:57 Arm band placed on. mb9 15:58 Triage completed. mb9 16:00 No provider procedures requiring assistance completed. Initial lab(s) drawn, by me, yousuf sent to lab. Inserted saline lock: 22 gauge in right antecubital area, using aseptic technique. Blood collected. Flushed with 10 mL NS. 16:01 Bed in low position. Call light in reach. Side rails up X 1. Provided Education on: yousuf press call light if needing anything. Client placed on continuous cardiac and pulse oximetry monitoring. NIBP monitoring applied. monitoring specialist on. Door closed. Noise minimized. Warm blanket given. Pillow given. 16:10 EKG done, by ED staff, reviewed by Suresh Koehler MD. mb9 16:[address] via stretcher. mb9 16:46 CT Head Brain wo Cont In Process Unspecified. EDMS 16:59 XRAY Chest (1 view) In Process Unspecified. EDMS 17:55 Prince Black MD is Hospitalizing Provider. rn 19:04 Report given to PILY Cesar. mb9 21:51 Patient admitted, IV remains in place. lg3 Administered Medications: 17:59 Drug: LORazepam PO 1 mg PO once Route: PO; mb9 18:18 Follow up: Response: No adverse reaction mb9 18:26 Drug: Ativan IVP 1 mg IVP once {Note: administered by PILY Perez.} Route: IVP; Site: jb4 right antecubital; 18:40 Follow up: Response: No adverse reaction mb9 18:32 Drug: Keppra IV 1000 mg IV at calculated rate once Route: IV; Rate: calculated rate; mb9 Site: right antecubital; 18:46 Follow up: Response: No adverse reaction; IV Status: Completed infusion mb9 18:40 Drug: Rocephin IV 1 grams IV at calculated rate once; Given slow IV push per pharmacy mb9 instructions Route: IV; Rate: calculated rate; Site: right antecubital; 18:47 Follow up: Response: No adverse reaction; IV Status: Completed infusion mb9 Medication: 16:01 VIS not applicable for this client. mb9 Outcome: 17:55 Decision to Hospitalize by Provider. rn 21:51 Admitted to Med/surg accompanied by rocio yepez 21:51 Condition: stable 21:51 Instructed on the need for admit, 21:51 Patient left the ED. lg3 Signatures: Dispatcher [employer] EDMS Suersh Koehler MD MD rn Bryson, James RN PILY jb4 Faiza Mcgregor Lacie, RN RN lg3 Arlet Castillo RN RN mb9 Corrections: (The following items were deleted from the chart) 16:01 15:57 Chief complaint: EMS states: "Daughter found him on the floor grabbing his left mb9 arm saying it hurts. Unsure if he fell or hit his head. Pt hasn't been acting like himself since yesterday." mb9 16:09 15:57 Chief complaint: EMS states: "Daughter found him on the floor grabbing his left mb9 arm saying it hurts. Unsure if he fell or hit his head. Pt hasn't been acting like himself since yesterday. Daughter states she is unsure if he has been taking his medication as prescribed." mb9 16: 15:57 Acuity: DICKSON 3 mb9 mb9 17:00 16:58 BP 177 / 76; Pulse 86bpm; Resp 18bpm; Pulse Ox 98% RA; mb9 mb9 18:34 18:16 Reassessment: Patient appears in no apparent distress at this time. Patient mb9 states feeling better. Patient states symptoms have improved. mb9
[2025-03-06] MEDS ORDERED: LORAZEPAM 1 MG TABLET ONE (17:57)
[2025-03-06] MEDS ORDERED: LORazepam 2 MG/ML VIAL ONE (18:21)
[2025-03-06] MEDS ORDERED: LEVETIRACETAM 500 MG/5 ML VIAL IV ONE (18:28)
[2025-03-06] MEDS ORDERED: NA CHLORIDE 0.9% 100 ML ONE (18:28)
--- NOTE | 2025-03-06 19:27 | P.HP ---
Certification for Inpatient Patient admitted to: Inpatient With expected LOS: >2 Midnights Practitioner: I am a practitioner with admitting privileges, knowledge of patient current condition, hospital course, and medical plan of care. Services: Services provided to patient in accordance with Admission requirements found in Title 42 Section 412.3 of the Code of Federal Regulations Patient History Date of Service: 03/06/25 Reason for admission: AMS, UTI, Seizure History of Present Illness: Patient is a 69 year old male with known seizure, HTN, AFIB, DM-2. He presents with altered mental status manifested by confusion, desorientation and decreased responsiveness. Patient currently sees while he was in the ER. He has a history of medication noncompliance. During my evaluation, he was more alert and can answer simple questions. Workup in the ER revealed an abnormal UA concerning for UTI. CT head was unremarkable Physical Examination - Physical Exam General: In no apparent distress, Confused HEENT: Atraumatic, Normocephalic Respiratory: Clear to auscultation bilaterally, Normal air movement Cardiovascular: No edema, Normal pulses, Regular rate/rhythm, Normal S1 S2 Neurological: Normal speech - Studies Laboratory Data (last 24 hrs) 03/06/25 03/06/25 03/06/25 16:10 16:10 16:10 WBC 4.90 Hgb 13.1 L Hct 38.1 L Plt Count 189 PT 11.9 INR 1.05 APTT 29.6 Sodium 135 L Potassium 3.6 BUN 15 Creatinine 0.93 Glucose 142 H Assessment and Plan - Problems (Diagnosis) (1) Acute encephalopathy Current Visit: Yes Status: Acute (2) Seizure disorder Current Visit: Yes Status: Acute (3) Urinary tract infection Current Visit: Yes Status: Acute (4) Hypertension Current Visit: Yes Status: Acute (5) Type 2 diabetes mellitus Current Visit: Yes Status: Acute (6) Atrial fibrillation Current Visit: Yes Status: Acute - Plan Assessment This is a 69-year-old male who is being admitted after presented with altered mental status. Patient was minimally responsive, confused and disoriented. While in the ER he had a witnessed seizure. He has a history of medication noncompliance. Workup revealed abnormal UA concerning for UTI. CT head was unremarkable Acute encephalopathy Urinary tract infection Seizure disorder Atrial fibrillation Hypertension Type 2 diabetes mellitus Medication noncompliance Plan: Will admit inpatient with telemetry Place patient on seizure precautions Start AEDs including scheduled Keppra 1 g twice daily and as needed IV Ativan for seizure Ceftriaxone to treat UTI Follow urine cultures Resume rest of home medications upon reconciliation DVT and GI prophylaxis - Advance Directives Does patient have a Living Will: No Does patient have a Durable POA for Healthcare: No
[2025-03-06] MEDS ORDERED: SODIUM CHLORIDE 0.9% 10ML INJ IV PRN (19:30)
[2025-03-06] MEDS: PANTOPRAZOLE 40 MG INJ IVP SCH (19:30)
[2025-03-06] MEDS: NA CHLORIDE 0.9% 1,000 ML IV SCH (20:30)
[2025-03-06] MEDS: ONDANSETRON 4 MG/2 ML VIAL IV PRN (20:35)
[2025-03-06] MEDS ORDERED: PANTOPRAZOLE 40 MG INJ ONE (20:40)
[2025-03-06] MEDS ORDERED: ONDANSETRON 4 MG/2 ML VIAL ONE (20:40)
[2025-03-06] MEDS ORDERED: NA CHLORIDE 0.9% 1,000 ML ONE (20:41)
[2025-03-06] MEDS: levETIRAcetam 1,000 MG in NA CHLORIDE 0.9% 100 ML IV SCH (21:00)
[2025-03-06] MEDS: LORazepam 2 MG/ML VIAL IV PRN (22:50)
[2025-03-07 02:22] VITALS: BMI 27.3
[2025-03-07] MEDS ORDERED: DIPHENOX/ATROP SULF 1 TAB PO PRN (05:22)
[2025-03-07] MEDS ORDERED: SENOSIDES 8.6 MG TAB PO PRN (05:22)
[2025-03-07 05:28] LABS: Absolute Basophils 0.1 K/uL (0-0.5); Absolute Eosinophils 0.1 K/uL (0-0.5); Absolute Lymphocytes (CBC) 0.9 K/uL (0.7-4.9); Absolute Monocytes 0.6 K/uL (0.1-1.3); Absolute Neutrophil 3.7 K/uL (1.8-8.0); Basophils % 1.3 % (0-1.3); Eosinophils % 1.4 % (0-4.4); Hematocrit 30.5 % (39.6-49.0); Hemoglobin 10.7 g/dL (13.6-17.9); Lymphocytes % 17.1 % (15.3-44.8); MCH 31.2 pg (27.0-35.0); MCHC 34.9 g/dL (32.0-36.0); MCV 89.3 fL (80-100); MPV 9.5 fL (7.6-11.3); Monocytes % 10.5 % (3.3-12.3); Neutrophils % 69.7 % (41.7-73.7); Nucleated Red Blood Cells % 0.1 % (0-0); Platelets 163 thou/uL (152-406); RBC Red Blood Cell Count 3.42 M/uL (4.33-5.43); Red Cell Distribution Width 14.6 % (12.1-15.2)
[2025-03-07 05:38] LABS: Magnesium 2.1 mg/dL (1.6-2.4)
[2025-03-07 05:42] LABS: Anion Gap 10.5 mEq/L (5.0-15.0); Potassium 3.5 mEq/L (3.5-5.1)
[2025-03-07] MEDS: PROPAFENONE HCL 150 MG TAB PO SCH (06:00)
[2025-03-07] MEDS: Naltrexone Hcl 50 MG Tablet PO SCH (09:00)
[2025-03-07] MEDS: METOPROLOL XL 50 MG TAB PO SCH (09:00)
[2025-03-07] MEDS ORDERED: FAMOTIDINE 20 MG TAB PO SCH (09:00)
[2025-03-07] MEDS: ENOXAPARIN 40 MG/0.4 ML SQ SCH (09:21)
[2025-03-07] MEDS: CEFTRIAXONE 1,000 MG in NA CHLORIDE 0.9% 50 ML IVPB SCH (09:21)
[2025-03-07] MEDS: LACOSAMIDE 50 MG TABLET PO SCH (09:22)
[2025-03-07] MEDS: AMLODIPINE 10 MG TAB PO SCH (09:23)
[2025-03-07] MEDS: PANTOPRAZOLE 40MG TABLET PO SCH (09:23)
[2025-03-07] MEDS: LOSARTAN POTASSIUM 50 MG TABLET PO SCH (09:23)
[2025-03-07] MEDS: PROMETHAZINE 25 MG TABLET PO SCH (09:23)
--- NOTE | 2025-03-07 10:06 | P.PN ---
Date of Service: 03/07/25 Subjective: Had witnessed seizure activity in the ED. Described as Tonic-clonic seizure activity lasting ~90 seconds. more awake/alert today. Responding to questions appropriately. 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 Has history of medication noncompliance secondary to side effects per patient Was at [facility] 01/09-01/15 for Subarachnoid hemorrhage, and again from 01/30-02/05 after he had a fall. Rapid response called in ED; had witnessed seizure activity in the ED. Described as Tonic-clonic seizure activity lasting ~90 seconds. CXR negative, CT head negative. Given IV keppra, Ativan, Lorazepam, Rocephin in ED Continue IV keppra UA concerning for possible UTI Urine culture prelim with 4+ GNR Continue empiric rocephin (03/07-) Pain control, IV hydration confirm home meds, restart as appropriate Resume home amlodipine, lacosamide, metoprolol, protonix, senna, rythmol, phenergan, lomotil, losartan VTE: Lovenox Code: Full Dispo: Home, ~2 days Pending improvement, culture results Time Spent Managing Pts Care (In Minutes): 55
[2025-03-07] MEDS: DOCUSATE NA 100 MG CAP PO SCH (20:42)
[2025-03-08 06:41] LABS: Absolute Basophils 0.1 K/uL (0-0.5); Absolute Eosinophils 0.3 K/uL (0-0.5); Absolute Lymphocytes (CBC) 1.2 K/uL (0.7-4.9); Absolute Monocytes 0.6 K/uL (0.1-1.3); Absolute Neutrophil 3.9 K/uL (1.8-8.0); Basophils % 2.2 % (0-1.3); Eosinophils % 4.9 % (0-4.4); Hematocrit 32.1 % (39.6-49.0); MCHC 34.3 g/dL (32.0-36.0); MCV 90.4 fL (80-100); MPV 9.6 fL (7.6-11.3); Monocytes % 9.8 % (3.3-12.3); Neutrophils % 64.1 % (41.7-73.7); Platelets 159 thou/uL (152-406); RBC Red Blood Cell Count 3.55 M/uL (4.33-5.43); Red Cell Distribution Width 14.6 % (12.1-15.2)
[2025-03-08 06:51] LABS: Anion Gap 8.3 mEq/L (5.0-15.0); Potassium 3.3 mEq/L (3.5-5.1)
[2025-03-08] MEDS: POTASSIUM CL SA 10 MEQ TAB PO ONE (09:49)
[2025-03-08] MEDS: CEFEPIME 1 GM in NA CHLORIDE 0.9% 100 ML IV SCH (09:50)
--- NOTE | 2025-03-08 10:26 | P.PN ---
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 Has history of medication noncompliance secondary to side effects per patient CXR negative, CT head negative. Pain control, IV hydration UA on admission concerning for UTI IV rocephin started on admission 03/08 - Urine culture resulted Serratia Marcescens, resistant to Augmetin/cefazolin/nitro and intermediate resistance to rocephin IV rocephin switched to Cefepime given cx sensitivities avoid levaquin/cipro given risk of lowering seizure threshold, pt had seizure in ER reportedly ID consulted for further recs, abx choice given culture results and hx of seizures afebrile, no leukocytosis Dysuria improving. Seizure activity; Hx seizures Was at [facility] 01/09-01/15 for Subarachnoid hemorrhage, and again from 01/30-02/05 after he had a fall. Rapid response called in ED; had witnessed seizure activity in the ED. Described as Tonic-clonic seizure activity lasting ~90 seconds. 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
--- NOTE | 2025-03-08 12:01 | EKG ---
Test Date: 2025-03-06 Test Time: 16:15:50 Manager Air: MB MEASUREMENT RESULTS: Intervals: Rate: 85 WA: 164 QRSD: 96 QT: 368 QTc: 437 [place]: P: 92 WA: 164 QRS: 71 T: 44 INTERPRETIVE STATEMENTS: Normal sinus rhythm Normal ECG Compared to ECG 01/09/2025 19:54:53 ST (T wave) deviation no longer present Possible ischemia no longer present Electronically Signed On 03-08-25 11:57:15 CDT by Bimal Melgar
--- NOTE | 2025-03-08 13:10 | P.CNS ---
Date of Consult: 03/08/25 Reason for consult: AMS, UTI History of Present Illness: Patient is a 69 year old male with known seizure, HTN, AFIB, DM-2. He presents with altered mental status manifested by confusion, disorientation and decreased responsiveness. Patient currently sees while he was in the ER. He has a history of medication noncompliance. During my evaluation, he was more alert and can answer simple questions. Workup in the ER revealed an abnormal UA concerning for UTI. CT head was unremarkable PMH: please see HPI Social hx: Family Hx: Amlodipine Besylate (Amlodipine 10 Mg Tab) [address] [facility] Last Admin: 03/08/25 09:51 Dose: 10 mg Diphenoxylate HCl/Atropine (Diphenox/Atrop Sulf 1 Tab) 1 tab PO Q4HP PRN PRN Reason: DIARRHEA Docusate Sodium (Docusate Na 100 Mg Cap) [address] [facility] Last Admin: 03/08/25 09:48 Dose: 100 mg Enoxaparin Sodium (Enoxaparin 40 Mg/0.4 Ml) [address] [facility] Last Admin: 03/08/25 09:50 Dose: 40 mg Home Med (Naltrexone Hcl [Naltrexone Hcl]) [address] [facility] Last Admin: 03/08/25 09:00 Dose: Not Given Sodium Chloride (Ns 1000 Ml Ivbag) 1,000 mls @ 100 mls/hr IV .Q10H [facility] Last Admin: 03/08/25 12:00 Dose: Not Given Levetiracetam 1,000 mg/ Sodium (Chloride) 110 mls @ 440 mls/hr IV BID [facility] Last Admin: 03/08/25 09:50 Dose: 110 mls Cefepime HCl 1 gm/ Sodium (Chloride) 100 mls @ 200 mls/hr IV Q12HR [facility]; Protocol Last Admin: 03/08/25 09:50 Dose: 100 mls Lacosamide (Lacosamide 50 Mg Tablet) [address] [facility] Last Admin: 03/08/25 09:51 Dose: 100 mg Lorazepam (Lorazepam 2 Mg/Ml Vial) 2 mg IV Q4H PRN PRN Reason: SEIZURES Last Admin: 03/08/25 03:24 Dose: 2 mg Losartan Potassium (Losartan Potassium 50 Mg Tablet) [address] [facility] Last Admin: 03/08/25 09:48 Dose: 25 mg Metoprolol Succinate (Metoprolol Xl 50 Mg Tab) [address] [facility] Last Admin: 03/08/25 09:51 Dose: 50 mg Ondansetron HCl (Ondansetron 4 Mg/2 Ml Vial) 4 mg IV Q6HP PRN PRN Reason: NAUSEA / VOMITING Last Admin: 03/08/25 10:01 Dose: 4 mg Pantoprazole Sodium (Pantoprazole 40mg Tablet) [address] [facility]; Protocol Last Admin: 03/08/25 09:51 Dose: 40 mg Promethazine HCl (Promethazine 25 Mg Tablet) [address] [facility] Last Admin: 03/08/25 09:51 Dose: 25 mg Propafenone HCl (Propafenone Hcl 150 Mg Tab) [address] [facility] Last Admin: 03/08/25 06:00 Dose: 150 mg Senna (Senosides 8.6 Mg Tab) 8.6 mg PO DAILYPRN PRN PRN Reason: CONSTIPATION Sodium Chloride (Sodium Chloride 0.9% 10ml Inj) 10 ml IV UD PRN PRN Reason: Diluant Objective Temp Pulse Resp BP Pulse Ox 99.1 F 57 20 160/76 H 97 03/08/25 08:00 03/08/25 08:00 03/08/25 08:00 03/08/25 08:00 03/08/25 08:00 Physical Examination - Physical Exam General: In no apparent distress, Confused HEENT: Atraumatic, Normocephalic Respiratory: Clear to auscultation bilaterally, Normal air movement Cardiovascular: No edema, Normal pulses, Regular rate/rhythm, Normal S1 S2 Neurological: Normal speech Abdomen: soft, BS, NT, ND - Studies Laboratory Data (last 24 hrs) WBC:6.1,platelet 159, BUNB 14, Cr 0.89, Laboratory Results 03/06/25 16:10 Clean Catch Urine [place] Count - Final >100,000 CFU/ML. 03/06/25 16:10 Clean Catch Urine - Final Serratia Marcescens Assessment and Plan - Problems (Diagnosis) (1) Urinary tract infection secondary to Serratia Marcescens (2) Seizure disorder (3)Acute encephalopathy (4) Hypertension (5) Type 2 diabetes mellitus (6) Atrial fibrillation - Plan urine is growing Serratia Marcescens. continue with cefepime for a total of 7 days. monitor wbc and fever trend thank you for the consult will follow up as needed case discussed and in agreement with Dr Romano
[2025-03-08] MEDS: MELATONIN 5 MG TABLET PO PRN (22:23)
[2025-03-08] MEDS: LORAZEPAM 0.5 MG TABLET PO PRN (22:23)
[2025-03-09 04:58] LABS: Absolute Eosinophils 0.3 K/uL (0-0.5); Absolute Lymphocytes (CBC) 1.2 K/uL (0.7-4.9); Absolute Monocytes 0.6 K/uL (0.1-1.3); Absolute Neutrophil 3.6 K/uL (1.8-8.0); Basophils % 0.9 % (0-1.3); Eosinophils % 5.7 % (0-4.4); Hematocrit 31.7 % (39.6-49.0); Lymphocytes % 20.1 % (15.3-44.8); MCH 31.3 pg (27.0-35.0); MCHC 34.6 g/dL (32.0-36.0); MCV 90.3 fL (80-100); MPV 9.8 fL (7.6-11.3); Monocytes % 10.1 % (3.3-12.3); Neutrophils % 63.2 % (41.7-73.7); Platelets 148 thou/uL (152-406); RBC Red Blood Cell Count 3.51 M/uL (4.33-5.43); Red Cell Distribution Width 14.5 % (12.1-15.2)
[2025-03-09 05:13] LABS: Anion Gap 9.5 mEq/L (5.0-15.0); Magnesium 1.9 mg/dL (1.6-2.4); Potassium 3.5 mEq/L (3.5-5.1)
[2025-03-09] MEDS: POTASSIUM CL SA 10 MEQ TAB PO ONE (09:09)
--- NOTE | 2025-03-09 15:16 | P.PN ---
Subjective Date of Service: 03/09/25 Chief Complaint: AMS, UTI, Seizure Patient is complaining of stomach discomfort and feeling drowsy. He relates his symptoms to Keppra. Patient states he has not been able to tolerate Keppra in the past. He was supposed to take Keppra in addition to lacosamide for his seizures but he stopped taking the Keppra himself due to the way it makes him feel. No recorded fever. 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 Has history of medication noncompliance secondary to side effects per patient CXR negative, CT head negative. Pain control, IV hydration UA on admission concerning for UTI IV rocephin started on admission 03/08 - Urine culture resulted Serratia Marcescens, resistant to Augmetin/cefazolin/nitro and intermediate resistance to rocephin IV rocephin switched to Cefepime given cx sensitivities avoid levaquin/cipro given risk of lowering seizure threshold, pt had seizure in ER reportedly ID consulted for further recs, abx choice given culture results and hx of seizures afebrile, no leukocytosis Dysuria improving. 03/09 Change IV cefepime to oral ampicillin to see if patient tolerates the ampicillin before he will be discharged with it. Seizure activity; Hx seizures Was at [facility] 01/09-01/15 for Subarachnoid hemorrhage, and again from 01/30-02/05 after he had a fall. Rapid response called in ED; had witnessed seizure activity in the ED. Described as Tonic-clonic seizure activity lasting ~90 seconds. Given IV keppra, Ativan, Lorazepam, Rocephin in ED Continue IV keppra CT head negative, CXR negative Seizure precautions, PT eval 03/08 - Neurology consulted No further reported seizure activity 03/09 Patient reports intolerance to Keppra Case discussed with Dr. Eelna who recommend to change the Keppra to Depakote. Patient placed on Depakote 500 mg twice daily Monitor response. Increase activity as tolerated. 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
[2025-03-09] MEDS: AMPICILLIN TRIHYDRATE 500 MG CAP PO SCH (18:10)
[2025-03-09] MEDS ORDERED: LORAZEPAM 0.5 MG TABLET PO PRN (18:29)
[2025-03-09] MEDS: LORAZEPAM 1 MG TABLET PO PRN (20:40)
[2025-03-09] MEDS: DIVALPROEX DR 500MG TAB PO SCH (20:40)
--- NOTE | 2025-03-09 21:11 | PN ---
Subjective: Patient lying in bed. No new acute event. Denies any headache, nausea, vomiting, chest pain, abdominal pain, constipation, or diarrhea. Objective: Vital Signs: Temperature 98, pulse 53, respirations 16, blood pressure 172/77. Lungs: Basal crackles. Heart: S1, S2. Regular. Abdomen: Soft, nontender. Bowel sounds present. Extremities: Trace edema. Laboratory Data: Shows WBC 5.7, hemoglobin 11, platelets 148. BUN of 17, creatinine 0.8. The patient currently switched to ampicillin because of Serratia marcescens noted in urine. Assessment And Plan: Urosepsis secondary to Serratia marcescens. I agree with treatment with ampici llin to complete the course. Also recommend to start patient on probiotic. History of seizure disorder. Diabetes mellitus. Anemia of chronic disease. Monitor signs of infection with WBC and fever trends. NF/MODL Voice ID: [id number] Report ID: [id number]
--- NOTE | 2025-03-09 23:51 | CON ---
Reason For Consultation: Consultation was called because of recent seizure and confusion. History Of Present Illness: Mr. Perdomo is a 69-year-old patient with known history of seizures, r eportedly poorly compliant with his antiepileptic medications. In addition, he has diabetes, hyperte nsion, atrial fibrillation, and he presented with worsening confusion, disorientation, decreased resp onsiveness, brought to hospital on 03/06/2025. He was evaluated by the emergency room staff. CT sca n of the head done showed no acute ischemic hemorrhagic change. His blood work revealed normal white blood cell count. Essentially unremarkable hemoglobin and hematocrit, platelets normal. Coagulatio n panel normal. Electrolytes essentially unremarkable except for slightly elevated chloride and subs equently low potassium, but these were corrected. Calcium normal. Magnesium normal. His urinalysis , however, suggested the urinary tract infection with esterase 500, white blood cells greater than 50 , extreme turbidity, 2+ nitrites. His cultures eventually grew Serratia marcescens. The patient is now on antibiotics. The bacteria is near pansensitive. At the time of my evaluation, he was alert, interactive, fully aware of where he was and that he had a urinary tract infection and likely a contr ibuting factor to his confusion. He was reportedly taking Keppra at 1 point, but had an upset stomac h and stopped that medication and apparently also was on lacosamide at some point. He was initially loaded with Keppra 1000 mg and then we put on 500 mg twice daily. However, that was stopped. The pa tient now switched to Depakote 500 mg twice daily. He is also continued on the lacosamide 100 mg twi ce daily. Past Medical History: As noted above including the seizures, diabetes, atrial fibrillation, hyperten rebeca. Allergies: SULFA DRUGS. Current Medications: Norvasc 10 mg twice daily; ampicillin 500 mg every 6 hours; Lomotil as needed f or diarrhea; Depakote 100 mg twice daily; Colace 100 mg twice daily; Lovenox 40 mg subcutaneously néstor ly; Apresoline 10 mg IV every 6 hours if the systolic blood pressure greater than 160; Vimpat 100 mg twice daily; lorazepam 2 mg every 4 hours as needed for seizures; Cozaar 25 mg daily; melatonin 5 mg at bedtime as needed; Toprol-XL 50 mg twice daily; Zofran 4 mg every 6 hours as needed; Protonix 40 m g daily; Phenergan 25 mg twice daily. He is on Rythmol 150 mg every 8 hours, Senokot 8.6 mg daily. Family History: Noncontributory. Social History: No recent alcohol, tobacco, or IV drug use. He lives in single family home. Physical Examination: Vital Signs: Blood pressure is 122 to 138 over 63 to 77, respiratory rate of 16 to 20, temperature 9 8.4, and his pulse is , oxygen saturation 96% to 99%. Weight 185 pounds, height 5 feet 9 i nches, BMI 27.3. General: Mr. Perdomo is resting calmly. He is about to eat his dinner. He was initially happy wi th what he had. New tray just came in. HEENT: The patient is normocephalic, atraumatic. Sclerae anicteric. Oropharynx pink and moist. Neck: Supple. Chest: Clear. Heart: Regular. Extremities: Show no significant clubbing, cyanosis, or edema. Neurologic: He has no focal neurologic deficits. He is doing very well with recovery after a recent seizure which was described as more tonic-clonic type generalized activity. Laboratory Studies: Reviewed and unremarkable. Brain imaging and CT scan of the head showed no acut e ischemic hemorrhagic change. Assessment: Mr. Perdomo is a 69-year-old patient with multiple problems including history of seizu res, hypertension, diabetes mellitus, and he is currently in hospital after recent seizure when nonco mpliant with his antiepileptic medication. Furthermore, does have urinary tract infection which like ly lower seizure threshold. Plan: 1. Continue with aggressive management of urinary tract infection, hydration, antibiotics, prophylaxi s medications such as cranberry for preventing urinary infections. 2. Continue with Vimpat 100 mg twice daily. 3. Continue with Depakote 500 mg twice daily. 4. After his discharge, he may follow up with Dr. Elena's clinic. He had an EEG that results are pending. RAMSEY/MARYANA Voice ID: [id number] Report ID: [id number]
[2025-03-10] MEDS: HYDRALAZINE HCL 20 MG/ML VIAL IV PRN (04:59)
[2025-03-10 06:08] LABS: Absolute Basophils 0.1 K/uL (0-0.5); Absolute Eosinophils 0.3 K/uL (0-0.5); Absolute Lymphocytes (CBC) 1.1 K/uL (0.7-4.9); Absolute Monocytes 0.3 K/uL (0.1-1.3); Absolute Neutrophil 3.3 K/uL (1.8-8.0); Basophils % 1.2 % (0-1.3); Eosinophils % 5.6 % (0-4.4); Hematocrit 32.7 % (39.6-49.0); Hemoglobin 11.3 g/dL (13.6-17.9); Lymphocytes % 21.6 % (15.3-44.8); MCH 30.8 pg (27.0-35.0); MCHC 34.6 g/dL (32.0-36.0); MCV 89.2 fL (80-100); MPV 9.1 fL (7.6-11.3); Monocytes % 6.6 % (3.3-12.3); Nucleated Red Blood Cells % 0.2 % (0-0); Platelets 162 thou/uL (152-406); RBC Red Blood Cell Count 3.67 M/uL (4.33-5.43); Red Cell Distribution Width 14.7 % (12.1-15.2)
[2025-03-10 06:15] LABS: Anion Gap 9.5 mEq/L (5.0-15.0); Potassium 3.5 mEq/L (3.5-5.1)
[2025-03-10] MEDS: POTASSIUM CL SA 10 MEQ TAB PO ONE (08:37)
--- NOTE | 2025-03-10 15:11 | P.PN ---
Date of Service: 03/10/25 subjective pt report doing well. no concern with abx. denied diarrhea/nausea/vomitting/rash. objective GEN: Alert, oriented, NAD HEENT: Atraumatic, Normocephalic CV: Regular rate and rhythm, no edema Pulm: Nonlabored respirations on room air, clear bilaterally ABD: soft, nontender, nondistended Neuro: Normal speech, normal affect. aox3 Temp Pulse Resp BP Pulse Ox 98.0 F 55 16 171/75 H 97 03/10/25 12:00 03/10/25 12:00 03/10/25 12:00 03/10/25 12:00 03/10/25 12:00 Microbiology 03/06/25 16:10 Clean Catch Urine [place] Count - Final >100,000 CFU/ML. 03/06/25 16:10 Clean Catch Urine - Final Serratia Marcescens Laboratory Last Values wbc: 5.1, hgb 11.3, platelet 162, bun 24, cr 1.01 assessment and planning 1. UTI secondary to Serratia marcescens 2. History of seizure disorder. 3. Diabetes mellitus. 4. Anemia of chronic disease. continue ampillicin PO for 7 days. recommend probiotic Monitor signs of infection with WBC and fever trend case discussed with Dr Romano
--- NOTE | 2025-03-10 17:31 | P.PN ---
Subjective Date of Service: 03/10/25 Chief Complaint: AMS, UTI, Seizure Patient has no new complaint today. He tolerated Depakote so far. Family is concerned patient has been exhibiting emotional lability. Family also reports patient refused his systolic blood pressure needs to be around the 80s and has been attempting BP medications to reach that target. Family also reports patient feels his heart rate needs to be in the 40s and takes additional BP medications to reach that goal. 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 Has history of medication noncompliance secondary to side effects per patient CXR negative, CT head negative. Pain control, IV hydration UA on admission concerning for UTI IV rocephin started on admission 03/08 - Urine culture resulted Serratia Marcescens, resistant to Augmetin/cefazolin/nitro and intermediate resistance to rocephin IV rocephin switched to Cefepime given cx sensitivities avoid levaquin/cipro given risk of lowering seizure threshold, pt had seizure in ER reportedly ID consulted for further recs, abx choice given culture results and hx of seizures afebrile, no leukocytosis Dysuria improving. 03/09 Change IV cefepime to oral ampicillin to see if patient tolerates the ampicillin before he will be discharged with it. 03/10 Patient is tolerating ampicillin Continue ampicillin Patient to complete 7 days of treatment. Seizure activity; Hx seizures Was at [facility] 01/09-01/15 for Subarachnoid hemorrhage, and again from 01/30-02/05 after he had a fall. Rapid response called in ED; had witnessed seizure activity in the ED. Described as Tonic-clonic seizure activity lasting ~90 seconds. Given IV keppra, Ativan, Lorazepam, Rocephin in ED Continue IV keppra CT head negative, CXR negative Seizure precautions, PT eval 03/08 - Neurology consulted No further reported seizure activity 03/09 Patient reports intolerance to Keppra Case discussed with Dr. Elena who recommend to change the Keppra to Depakote. Patient placed on Depakote 500 mg twice daily Monitor response. Increase activity as tolerated. 03/10 Patient is tolerating Depakote. Neurology input appreciated Depakote may be a better choice regarding patient's labile mood. Continue lacosamide. Agitation Labile mood Family report patient sometimes stays up all night. Patient possibly has dementia. Patient started on Depakote. Patient may need antipsychotics if Depakote is not effective. 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
[2025-03-11 04:42] VITALS: TEMP 98.1
[2025-03-11 05:44] LABS: Absolute Basophils 0.1 K/uL (0-0.5); Absolute Eosinophils 0.3 K/uL (0-0.5); Absolute Lymphocytes (CBC) 1.1 K/uL (0.7-4.9); Absolute Monocytes 0.4 K/uL (0.1-1.3); Absolute Neutrophil 2.6 K/uL (1.8-8.0); Basophils % 1.2 % (0-1.3); Eosinophils % 6.3 % (0-4.4); Hematocrit 32.1 % (39.6-49.0); Lymphocytes % 24.3 % (15.3-44.8); MCH 30.8 pg (27.0-35.0); MCHC 34.3 g/dL (32.0-36.0); MCV 89.8 fL (80-100); MPV 8.8 fL (7.6-11.3); Monocytes % 8.8 % (3.3-12.3); Neutrophils % 59.4 % (41.7-73.7); Nucleated Red Blood Cells % 0.1 % (0-0); Platelets 160 thou/uL (152-406); RBC Red Blood Cell Count 3.58 M/uL (4.33-5.43); Red Cell Distribution Width 14.4 % (12.1-15.2)
[2025-03-11 06:02] LABS: Anion Gap 6.5 mEq/L (5.0-15.0); Potassium 3.5 mEq/L (3.5-5.1)
[2025-03-11 08:24] VITALS: O2SAT 97
[2025-03-11] MEDS: POTASSIUM CL SA 10 MEQ TAB PO ONE (09:31)
--- NOTE | 2025-03-11 15:14 | P.DS ---
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 Has history of medication noncompliance secondary to side effects per patient CXR negative, CT head negative. Urine analysis done on admission suggested the presence of UTI Patient was started on IV rocephin. Urine culture grew Serratia Marcescens, resistant to Augmetin/cefazolin/nitro and intermediate resistance to rocephin Antibiotics switched to IV cefepime Infectious disease evaluated patient and assisted with management. Antibiotics later transitioned to oral ampicillin which patient has tolerated. Patient discharged home with oral ampicillin to complete at least 10 days of antibiotic treatment Patient clinically improved. He is up and ambulating. Patient with a history of seizures, history of subarachnoid hemorrhage preceded by a fall. Patient has been noncompliant with Keppra and reports he does not tolerate the Keppra. He was placed on IV Keppra because he had seizures on presentation. Home dose Lamictal was continued Patient evaluated by neurology Dr. Elena who recommend to change Keppra to Depakote. Patient tolerated Depakote 500 mg twice a day. No more seizures during the hospital stay. Agitation Labile mood Family report patient sometimes stays up all night and has been exhibiting emotional lability. Possible onset dementia. Patient need comprehensive examination for dementia. Case discussed with psychiatry Dr. Aquilino Gaines who has offered to see patient in the office for examination and treatment. It is of the hope that Depakote will help stabilize patient's mood and decrease his agitation. Patient takes amlodipine 10 mg twice a day which is above the maximum allowable dose. Amlodipine dose decreased to 10 mg daily Patient losartan dose increased from 25 mg daily to 50 mg daily. Continued home dose metoprolol. Patient advised his target systolic blood pressure should be 110-130 and not 80. Patient voiced understanding. Patient was advised his heart rate target should be 50-60 and not 40. Patient voiced understanding of these instructions. Vital Signs/Physical Exam: Temp Pulse Resp BP Pulse Ox 98.1 F 49 L 14 125/63 96 03/11/25 12:00 03/11/25 12:00 03/11/25 12:00 03/11/25 12:00 03/11/25 12:00 General: Alert, In no apparent distress, Oriented x3 HEENT: Mucous membr. moist/pink Neck: Supple, JVD not distended Respiratory: Clear to auscultation bilaterally, Normal air movement Cardiovascular: No edema, Regular rate/rhythm, Normal S1 S2 Gastrointestinal: Soft and benign, Non-distended Musculoskeletal: No swelling, No tenderness Integumentary: No rashes, No cyanosis Neurological: Normal speech, Normal strength at 5/5 x4 extr Laboratory Data at Discharge: WBC 4.40 thou/uL (4.3-10.9) 03/11/25 05:34 Hgb 11.0 g/dL (13.6-17.9) L 03/11/25 05:34 Hct 32.1 % (39.6-49.0) L 03/11/25 05:34 Plt Count 160 thou/uL (152-406) 03/11/25 05:34 PT 11.9 SECONDS (10-13.0) 03/06/25 16:10 INR 1.05 03/06/25 16:10 APTT 29.6 SECONDS (27.2-37.4) 03/06/25 16:10 Sodium 140 mEq/L (136-145) 03/11/25 05:34 Potassium 3.5 mEq/L (3.5-5.1) 03/11/25 05:34 BUN 17 mg/dL (7-18) 03/11/25 05:34 Creatinine 0.84 mg/dL (0.70-1.30) 03/11/25 05:34 Glucose 108 mg/dL (74-106) H 03/11/25 05:34 Phosphorus 4.0 mg/dL (2.5-4.9) 03/07/25 05:11 Magnesium 1.9 mg/dL (1.6-2.4) 03/09/25 04:34 Triglycerides 75 mg/dL (<150) 03/07/25 05:11 Cholesterol 161 mg/dL (<200) 03/07/25 05:11 HDL Cholesterol 67 mg/dL (40-60) H 03/07/25 05:11 Cholesterol/HDL Ratio 2.40 03/07/25 05:11 Home Medications: Diphenoxylate HCl/Atropine [Diphenoxylate-Atrop 2.5-0.025] 1 each PO Q4HP PRN 03/07/25 Famotidine [Pepcid*] 20 mg PO DAILY 03/07/25 LORazepam [Lorazepam] 2 mg PO BIDP PRN 03/07/25 Lacosamide 100 mg PO BID 03/07/25 Metoprolol Succinate 50 mg PO BID 03/07/25 Naltrexone HCl 50 mg PO DAILY 03/07/25 Ondansetron [Zofran (Odt)*] 4 mg PO BID 03/07/25 Pantoprazole [Protonix Tab*] 40 mg PO DAILY 03/07/25 Promethazine Tab [Phenergan*] 25 mg PO BID 03/07/25 Propafenone [Rythmol*] 150 mg PO Q8H 03/07/25 Sennosides [Senna] 8.6 mg PO DAILYPRN PRN 03/07/25 Amlodipine [Norvasc*] 10 mg PO DAILY #30 tab 03/11/25 Ampicillin Trihydrate [Omnipen Cap] 500 mg PO Q6H #24 cap 03/11/25 Divalproex Sodium [Depakote] 500 mg PO BID #60 tab 03/11/25 Docusate [Colace Cap*] 100 mg PO BID #60 cap 03/11/25 Losartan Potassium [Cozaar*] 50 mg PO DAILY #30 tab 03/11/25 New Medications: Docusate [Colace Cap*] 100 mg PO BID #60 cap Losartan Potassium [Cozaar*] 50 mg PO DAILY #30 tab Divalproex Sodium [Depakote] 500 mg PO BID #60 tab Amlodipine [Norvasc*] 10 mg PO DAILY #30 tab Ampicillin Trihydrate [Omnipen Cap] 500 mg PO Q6H #24 cap Physician Discharge Instructions: Patient presented with confusion, AMS, decreased responsiveness. Has history of medication noncompliance secondary to side effects per patient CXR negative, CT head negative. Urine analysis done on admission suggested the presence of UTI Patient was started on IV rocephin. Urine culture grew Serratia Marcescens, resistant to Augmetin/cefazolin/nitro and intermediate resistance to rocephin Antibiotics switched to IV cefepime Infectious disease evaluated patient and assisted with management. Antibiotics later transitioned to oral ampicillin which patient has tolerated. Patient discharged home with oral ampicillin to complete at least 10 days of antibiotic treatment Patient clinically improved. He is up and ambulating. Patient with a history of seizures, history of subarachnoid hemorrhage preceded by a fall. Patient has been noncompliant with Keppra and reports he does not tolerate the Keppra. He was placed on IV Keppra because he had seizures on presentation. Home dose Lamictal was continued Patient evaluated by neurology Dr. Elena who recommend to change Keppra to Depakote. Patient tolerated Depakote 500 mg twice a day. No more seizures during the hospital stay. Agitation Labile mood Family report patient sometimes stays up all night and has been exhibiting emotional lability. Possible onset dementia. Patient need comprehensive examination for dementia. Case discussed with psychiatry Dr. Aquilino Gaines who has offered to see patient in the office for examination and treatment. It is of the hope that Depakote will help stabilize patient's mood and decrease his agitation. Patient takes amlodipine 10 mg twice a day which is above the maximum allowable dose. Amlodipine dose decreased to 10 mg daily Patient losartan dose increased from 25 mg daily to 50 mg daily. Continued home dose metoprolol. Patient advised his target systolic blood pressure should be 110-130 and not 80. Patient voiced understanding. Patient was advised his heart rate target should be 50-60 and not 40. Patient voiced understanding of these instructions. Diet: AHA Activity: Fall precautions Followup: Daniel Daley DO, DO [Primary Care Provider] - 1-2 Weeks Aquilino Gaines [ACTIVE - CAN ADMIT] - 1-2 Weeks Time spent managing pt's care (in minutes): 38
[2025-03-11 16:24] VITALS: BP 168/71
--- NOTE | 2025-03-11 21:09 | PN ---
Subjective: The patient is lying in bed. No new complaints. Objective: Vital Signs: Reviewed. Lungs: Basal crackles. Heart: S1, S2. Regular. Abdomen: Soft, nontender. Bowel sounds present. Extremities: Trace edema. Laboratory Data: Reviewed. Assessment And Plan: Urinary tract infection, improving. Altered mental status, improved. Continue antibiotic and supportive care. Monitor signs of infection with WBC and fever trends. We will foll ow the patient as needed. NF/MODL Voice ID: [id number] Report ID: [id number]
== END 2025-03-11 17:50 | disposition home health service (06) | DRG 101 ==
LOC: ER 15:50 → 2ND 19:03
PROVIDERS: ADMIT Internal Medicine; ATTEND Internal Medicine
DX: G40.909 Epilepsy, unspecified, not intractable, without status epilepticus (principal); N39.0 Urinary tract infection, site not specified; Z16.29 Resistance to other single specified antibiotic; I10 Essential (primary) hypertension; I48.91 Unspecified atrial fibrillation; K59.00 Constipation, unspecified; E11.9 Type 2 diabetes mellitus without complications; D63.8 Anemia in other chronic diseases classified elsewhere; B96.89 Other specified bacterial agents as the cause of diseases classified elsewhere; Z88.2 Allergy status to sulfonamides; Z79.899 Other long term (current) drug therapy; Z91.148 Patient's other noncompliance with medication regimen for other reason
CPT/HCPCS: 36415; 70450; 71045; 80048; 80061; 81001; 82947; 83605; 83735; 84100; 84484; 85025; 85610; 85730; 87077; 87086; 87088; 87186; 93005; 96374; 96375; 97110; 97116; 97161; 97530; 99285; J0360; J0692; J0696; J1650; J1953; J2405; J2470; J7030; Q0169